=== PATIENT | male | born 1940 ===

== ENCOUNTER 2020-02-25 08:03 | Outpatient (REF) | payer MEDICARE, SELFPAY ==
[2020-02-25 11:45] LABS: Estimated Average Glucose 171 mg/dL; Hemoglobin A1c % 7.6 %
[2020-02-25 11:51] LABS: Alanine Aminotransferase 42 U/L (0-40); Albumin Level 4.1 g/dL (3.5-5.0); Alkaline Phosphatase 97 U/L (39-117); Anion Gap 16 (12-20); Aspartate Amino Transferase 41 U/L (5-37); Bilirubin Total 0.5 mg/dL (0.0-1.0); Blood Urea Nitrogen 13 mg/dL (9-16); Calcium 8.8 mg/dL (8.4-10.2); Carbon Dioxide 22 mmol/L (22-29); Chloride 106 mmol/L (96-108); Cholesterol 131 mg/dL; Estimated Glomerular Filt Rate > 60; Glucose Fasting 140 mg/dL (60-99); HDL Cholesterol 38 mg/dL; LDL Cholesterol Calculated 76 mg/dl; Potassium 4.2 mmol/l (3.3-5.1); Sodium 140 mmol/L (135-145); Total Protein 7.2 g/dL (6.5-8.0); Triglycerides 88 mg/dL
== END 2020-02-25 08:04 | disposition home or self-care (01) ==
LOC: HO.HMGCLDS 08:03
PROVIDERS: PCP Nurse Practitioner Family; Visit Provider Nurse Practitioner Family
DX: E11.9 Type 2 diabetes mellitus without complications (principal)
CPT/HCPCS: 80053; 80061; 83036

== ENCOUNTER 2020-06-04 08:36 | Outpatient (REF) | payer MEDICARE, SELFPAY ==
[2020-06-04 11:41] LABS: Estimated Average Glucose 171 mg/dL; Hemoglobin A1c % 7.6 %
[2020-06-04 12:14] LABS: Alanine Aminotransferase 37 U/L (0-40); Albumin Level 4.3 g/dL (3.5-5.0); Alkaline Phosphatase 90 U/L (39-117); Anion Gap 14 (12-20); Aspartate Amino Transferase 29 U/L (5-37); Bilirubin Total 0.6 mg/dL (0.0-1.0); Blood Urea Nitrogen 19 mg/dL (9-16); Carbon Dioxide 24 mmol/L (22-29); Chloride 107 mmol/L (96-108); Cholesterol 132 mg/dL; Estimated Glomerular Filt Rate > 60; Glucose Fasting 154 mg/dL (60-99); HDL Cholesterol 39 mg/dL; LDL Cholesterol Calculated 68 mg/dl; Potassium 4.2 mmol/L (3.3-5.1); Prostate Specific Antigen Scr 0.58 ng/mL (<0.05-4.0); Sodium 141 mmol/L (135-145); TSH reflex Free T4 2.09 uIU/mL (0.32-4.0); Total Protein 7.2 g/dL (6.5-8.0); Triglycerides 128 mg/dL
[2020-06-04 12:33] LABS: Creatinine Urine 96.03 mg/dL; Microalbum/Creatinine Ratio Ur 89.5 ug/mg cr
[2020-06-05 20:09] LABS: Vitamin B12 285 pg/mL (200-900)
== END 2020-06-04 08:37 | disposition home or self-care (01) ==
LOC: HO.HMGCLDS 08:36
PROVIDERS: PCP Nurse Practitioner Family; Visit Provider Nurse Practitioner Family
DX: E11.9 Type 2 diabetes mellitus without complications (principal); E53.8 Deficiency of other specified B group vitamins; Z12.5 Encounter for screening for malignant neoplasm of prostate
CPT/HCPCS: 36415; 80053; 80061; 82043; 82607; 83036; 84153; 84443

== ENCOUNTER → 2020-08-22 09:04 | Outpatient (BNVA) | payer MEDICARE, SELFPAY | PROVIDERS: PCP Nurse Practitioner Family; Visit Provider Urology | DX: N40.1 Benign prostatic hyperplasia with lower urinary tract symptoms (principal); R39.12 Poor urinary stream | CPT/HCPCS: 52000; 81002; 99212 ==

== ENCOUNTER 2020-09-12 07:27 | Outpatient (REF) | payer MEDICARE, SELFPAY ==
[2020-09-12 12:27] LABS: Estimated Average Glucose 160 mg/dL; Hemoglobin A1c % 7.2 %
[2020-09-12 12:52] LABS: Alanine Aminotransferase 39 U/L (0-40); Albumin Level 4.2 g/dL (3.5-5.0); Alkaline Phosphatase 88 U/L (39-117); Anion Gap 15 (12-20); Aspartate Amino Transferase 33 U/L (5-37); Bilirubin Total 0.8 mg/dL (0.0-1.0); Blood Urea Nitrogen 16 mg/dL (9-16); Calcium 8.9 mg/dL (8.4-10.2); Carbon Dioxide 24 mmol/L (22-29); Chloride 105 mmol/L (96-108); Cholesterol 133 mg/dL; Estimated Glomerular Filt Rate > 60; Glucose Fasting 154 mg/dL (60-99); HDL Cholesterol 38 mg/dL; LDL Cholesterol Calculated 79 mg/dl; Potassium 4.4 mmol/L (3.3-5.1); Sodium 140 mmol/L (135-145); Triglycerides 84 mg/dL
== END 2020-09-12 07:28 | disposition home or self-care (01) ==
LOC: HO.HMGCLDS 07:27
PROVIDERS: PCP Nurse Practitioner Family; Visit Provider Nurse Practitioner Family
DX: E11.9 Type 2 diabetes mellitus without complications (principal)
CPT/HCPCS: 36415; 80053; 80061; 83036

== ENCOUNTER 2020-11-13 08:26 | Outpatient (REF) | payer MEDICARE, SELFPAY ==
--- NOTE | ~2020-11-13 | XR_ITS ---
EXAMINATION: RIGHT KNEE. AP bilateral knee. CLINICAL INFORMATION: Pain right knee. COMPARISON: None TECHNIQUE: Right knee 2 views. AP bilateral knee 1 view. FINDINGS: AP bilateral knee: There is moderate loss of medial and lateral compartment joint space both knees with mild periarticular spurring medial compartment both knees slightly greater on the left. There are bipartite patella. Left knee: There is loss of left knee joint space with moderate periarticular spurring medially. No loose body seen. The soft tissue calcification along the quadriceps tendon. Anterior superior and prepatellar enthesophytes are seen. There is minimal suprapatellar joint effusion. XR/XR knee RT 2V IMPRESSION: Degenerative arthritic changes tricompartment right knee with minimal suprapatellar joint effusion. There is soft tissue calcifications along the quadriceps tendon. Mild degenerative changes medial and lateral compartment left knee.
--- NOTE | ~2020-11-13 | XR_ITS ---
EXAMINATION: RIGHT KNEE. AP bilateral knee. CLINICAL INFORMATION: Pain right knee. COMPARISON: None TECHNIQUE: Right knee 2 views. AP bilateral knee 1 view. FINDINGS: AP bilateral knee: There is moderate loss of medial and lateral compartment joint space both knees with mild periarticular spurring medial compartment both knees slightly greater on the left. There are bipartite patella. Left knee: There is loss of left knee joint space with moderate periarticular spurring medially. No loose body seen. The soft tissue calcification along the quadriceps tendon. Anterior superior and prepatellar enthesophytes are seen. There is minimal suprapatellar joint effusion. XR/XR knee standing BI IMPRESSION: Degenerative arthritic changes tricompartment right knee with minimal suprapatellar joint effusion. There is soft tissue calcifications along the quadriceps tendon. Mild degenerative changes medial and lateral compartment left knee.
== END 2020-11-13 08:27 | disposition home or self-care (01) ==
LOC: HO.HOSX 08:26
PROVIDERS: Visit Provider Orthopaedic Surgery
DX: M17.10 Unilateral primary osteoarthritis, unspecified knee (principal); M23.91 Unspecified internal derangement of right knee
CPT/HCPCS: 73560; 73565; 99212

== ENCOUNTER 2020-11-14 09:15 | Outpatient (REF) | payer MEDICARE, SELFPAY ==
--- NOTE | 2020-11-14 14:07 | MHC.AU.AHA ---
Adult Audiological Evaluation Date of Visit: 11/14/20 Reason for Appointment: History of asymmetrical hearing loss. Patient arrives today to determine if there has been a change in hearing. Previous Hearing Test Results: At this clinic on 11/16/2019- Borderline-normal sloping to moderately-severe/severe sensorineural hearing loss bilaterally, worse in the right ear. Ear History: Recent Ear Drainage: None Reported Recent Ear Pain: None Reported Family History of Hearing Loss?: No Recent Ear Infections: None Reported Previous Ear Surgery: None Reported Medical History: Medical History: Diabetes, High Blood Pressure Hearing Instrument History- Right Ear: Supervisor Carding: [employer] Model: 3 Series i110 BTE Serial Number: [id number] Battery Size: 13 Repair Warranty: 08/17/2019 Loss and Damage Warranty: 08/17/2019 Dispensed By: [facility] Date of Fittin02/16/2013 Hearing Instrument History- Left Ear: Supervisor Carding: [employer] Model: 3 Series i110 BTE Serial Number: [id number] Battery Size: 13 Warranty: 08/17/2019 Loss and Damage Warranty: 08/17/2019 Dispensed By: [facility] Date of Fittin02/16/2013 Otoscopy: Right Ear: Unremarkable Left Ear: Unremarkable Tympanometry: Tympanometry performed due to: To assess integrity of the middle ear system Right Ear: Hypercompliant Middle Ear System (Type Ad) Left Ear: Normal Middle Ear System (Type A) Hearing Evaluation: Transducer(s) Used: Insert Earphones Method: Conventional Audiometry Stimuli Used: Pure Tones Right Ear: Description of Hearing: Mild, sloping to severe, and rising to moderately-severe sensorineural hearing loss, worse in the right ear from 500-1500 Hz Left Ear: Description of Hearing: Mild, sloping to severe, and rising to moderately-severe sensorineural hearing loss Speech Recognition Threshold (SRT): Method Used: Recorded Lists Stimuli Used: Spondee Words Right Ear: 40 dBHL Left Ear: 35 dBHL Word Discrimination: Method: Recorded Lists Word Lists Used: W-22 Right Ear: 60% at 90 dBHL Left Ear: 84% at 90 dBHL Most Comfortable Level (MCL): Right Ear: 90 dBHL Left Ear: 90 dBHL Aided Testing: Aided word discrimination performed in soundfield at 55 dBHL: 88% in quiet and 88% in noise (+10 SNR) Comparison: Compared to the most recent evaluation: Hearing is stable. Recommendations: Audiological re-evaluation in one year. Hearing aid maintenance performed today. No programming adjustments made today. Diagnosis: Primary Diagnosis: H90.3 Bilateral Sensorineural Hearing Loss Signature: Provider: Jann Reis, PIYUSH-A
== END 2020-11-14 09:16 | disposition home or self-care (01) ==
LOC: HO.SH 09:15
PROVIDERS: Visit Provider Nurse Practitioner Family
DX: H90.3 Sensorineural hearing loss, bilateral (principal)
CPT/HCPCS: 92557; 92567

== ENCOUNTER → 2020-12-25 12:45 | Outpatient (BNVA) | payer MEDICARE, SELFPAY | PROVIDERS: PCP Nurse Practitioner Family; Visit Provider Orthopaedic Surgery | DX: M23.91 Unspecified internal derangement of right knee (principal) | CPT/HCPCS: 99212 ==

== ENCOUNTER 2020-12-31 08:46 | Outpatient (REF) | payer MEDICARE, SELFPAY ==
[2020-12-31 11:52] LABS: Alanine Aminotransferase 46 U/L (0-40); Albumin Level 4.4 g/dL (3.5-5.0); Alkaline Phosphatase 91 U/L (39-117); Anion Gap 15 (12-20); Aspartate Amino Transferase 35 U/L (5-37); Bilirubin Total 0.4 mg/dL (0.0-1.0); Blood Urea Nitrogen 18 mg/dL (9-16); Calcium 9.3 mg/dL (8.4-10.2); Carbon Dioxide 22 mmol/L (22-29); Chloride 106 mmol/L (96-108); Cholesterol 139 mg/dL; Estimated Glomerular Filt Rate > 60; Glucose Fasting 124 mg/dL (60-99); HDL Cholesterol 40 mg/dL; LDL Cholesterol Calculated 77 mg/dl; Potassium 4.1 mmol/L (3.3-5.1); Sodium 139 mmol/L (135-145); Total Protein 7.3 g/dL (6.5-8.0); Triglycerides 114 mg/dL
== END 2020-12-31 08:47 | disposition home or self-care (01) ==
LOC: HO.HMGCLDS 08:46
PROVIDERS: PCP Nurse Practitioner Family; Visit Provider Nurse Practitioner Family
DX: E11.9 Type 2 diabetes mellitus without complications (principal)
CPT/HCPCS: 36415; 80053; 80061

== ENCOUNTER 2021-01-21 08:25 | Outpatient (REF) | payer MEDICARE, SELFPAY ==
--- NOTE | ~2021-01-21 | US_ITS ---
EXAMINATION: US ABDOMEN COMPLETE CLINICAL INFORMATION: Abnormal levels of other serum enzymes. COMPARISON: Ultrasound abdomen complete 09/06/2019. Renal ultrasound 06/18/2019. CT abdomen and pelvis 07/06/2018. TECHNIQUE: Real-time imaging of the abdominal viscera. FINDINGS: PANCREAS: Not well seen due to overlying bowel gas. ABDOMINAL AORTA: The proximal, mid, and distal segments are normal in caliber. INFERIOR VENA CAVA: Visualized portions are normal. LIVER: The liver is normal in size. The liver contour is normal. There is diffuse increased liver parenchymal echogenicity, consistent with hepatic steatosis. No focal hepatic lesion. There is no intrahepatic biliary duct dilatation seen. GALLBLADDER: Nonmobile gallbladder wall polyp measuring 0.2 cm. Findings are not significantly changed. The gallbladder is physiologically distended without evidence of stones, sludge, wall thickening, or pericholecystic fluid. COMMON BILE DUCT: Normal in caliber measuring 0.3 cm in diameter. RIGHT KIDNEY: Simple exophytic upper pole cyst measuring 1.1 cm. No hydronephrosis or renal calculi. The kidney measures 10.3 cm in maximum dimension. LEFT KIDNEY: Simple midpole cyst measuring 1.1 cm. No hydronephrosis or renal calculi. The kidney measures 10.1 cm in maximum dimension. SPLEEN: Normal. The spleen measures 8.8 cm in maximum dimension. FREE FLUID: None. US/US abdomen complete IMPRESSION: 1. Increased hepatic parenchymal echogenicity, consistent with hepatic steatosis, unchanged. No new hepatic parenchymal lesion or biliary ductal dilatation. 2. Stable gallbladder wall polyp. No cholelithiasis, gallbladder wall thickening, or pericholecystic free fluid to suggest acute cholecystitis. 3. Simple bilateral renal cysts. Findings are not clinically significant, and no dedicated followup imaging is recommended.
[2021-01-22 08:29] LABS: HBS Num1 3.35 mIU/mL (0-7.99); HBc Num1 0.15 S/CO (0.00-0.79); HBsAGNum1 0.15 S/CO (0.00-0.99); Hepatitis B Core Antibody Nonreactive (Nonreactive); Hepatitis B Surface Antigen Negative (Negative); ~Hepatitis B Surface Antibody NONREACTIVE (Nonreactive)
[2021-01-22 08:40] LABS: ~Hepatitis C Antibody Nonreactive (Nonreactive)
[2021-01-23 07:45] LABS: Hepatitis A Antibody IgM 0.16 Index (0-0.79); ~HepC Num1 0.11 S/CO (0.00-0.79); ~Hepatitis A Antibody IgM Nonreactive (Nonreactive)
== END 2021-01-21 08:26 | disposition home or self-care (01) ==
LOC: HO.HMGCX 08:25
PROVIDERS: PCP Nurse Practitioner Family; Visit Provider Nurse Practitioner Family
DX: R74.8 Abnormal levels of other serum enzymes (principal)
CPT/HCPCS: 36415; 76700; 86704; 86706; 86709; 86803; 87340

== ENCOUNTER 2021-03-19 09:04 | Outpatient (REF) | payer MEDICARE, SELFPAY ==
[2021-03-19 11:26] LABS: Appearance Urine CLEAR; Color Urine YELLOW; Glucose Urine UA NEG (NEG); Leukocyte Esterase Urine NEG (NEG); Nitrite Urine NEG (NEG); Specific Gravity - Urine 1.025 (1.005-1.025); Urine Blood NEG (NEG); Urine Ketones NEG (NEG); Urine Protein NEG (NEG-TRACE)
[2021-03-19 11:52] LABS: Alanine Aminotransferase 32 U/L (0-40); Alkaline Phosphatase 83 U/L (39-117); Anion Gap 15 (12-20); Aspartate Amino Transferase 27 U/L (5-37); Bilirubin Total 0.5 mg/dL (0.0-1.0); Blood Urea Nitrogen 17 mg/dL (9-16); Calcium 9.3 mg/dL (8.4-10.2); Carbon Dioxide 22 mmol/L (22-29); Chloride 108 mmol/L (96-108); Cholesterol 118 mg/dL; Estimated Glomerular Filt Rate 58; Glucose Fasting 125 mg/dL (60-99); HDL Cholesterol 38 mg/dL; LDL Cholesterol Calculated 66 mg/dl; Potassium 4.2 mmol/L (3.3-5.1); Sodium 141 mmol/L (135-145); Total Protein 6.8 g/dL (6.5-8.0); Triglycerides 71 mg/dL
[2021-03-19 14:25] LABS: Estimated Average Glucose 146 mg/dL; Hemoglobin A1c % 6.7 %
== END 2021-03-19 09:05 | disposition home or self-care (01) ==
LOC: HO.HMGCLDS 09:04
PROVIDERS: PCP Nurse Practitioner Family; Visit Provider Nurse Practitioner Family
DX: E11.9 Type 2 diabetes mellitus without complications (principal)
CPT/HCPCS: 36415; 80053; 80061; 81003; 83036; 84443

== ENCOUNTER → 2021-04-22 10:19 | Outpatient (BNVA) | payer MEDICARE, SELFPAY | PROVIDERS: PCP Nurse Practitioner Family; Visit Provider Urology | DX: N40.1 Benign prostatic hyperplasia with lower urinary tract symptoms (principal); R35.1 Nocturia; R31.9 Hematuria, unspecified | CPT/HCPCS: 51798; 99212 ==

== ENCOUNTER 2021-08-01 07:44 | Outpatient (REF) | payer MEDICARE, SELFPAY ==
[2021-08-01 09:30] LABS: Appearance Urine CLEAR; Color Urine YELLOW; Glucose Urine UA NEG (NEG); Leukocyte Esterase Urine NEG (NEG); Nitrite Urine NEG (NEG); PH 5.5 (5.0-8.0); Specific Gravity - Urine 1.025 (1.005-1.025); Urine Blood NEG (NEG); Urine Ketones NEG (NEG); Urine Protein NEG (NEG-TRACE)
[2021-08-01 09:53] LABS: Estimated Average Glucose 146 mg/dL; Hemoglobin A1c % 6.7 %
[2021-08-01 09:54] LABS: Alanine Aminotransferase 31 U/L (0-40); Alkaline Phosphatase 84 U/L (39-117); Anion Gap 13 (12-20); Aspartate Amino Transferase 28 U/L (5-37); Bilirubin Total 0.7 mg/dL (0.0-1.0); Blood Urea Nitrogen 19 mg/dL (9-16); Calcium 9.4 mg/dL (8.4-10.2); Carbon Dioxide 23 mmol/L (22-29); Chloride 106 mmol/L (96-108); Cholesterol 129 mg/dL; Estimated Glomerular Filt Rate > 60; Glucose Fasting 120 mg/dL (60-99); HDL Cholesterol 39 mg/dL; LDL Cholesterol Calculated 77 mg/dl; Potassium 3.8 mmol/L (3.3-5.1); Sodium 138 mmol/L (135-145); Total Protein 6.9 g/dL (6.5-8.0); Triglycerides 69 mg/dL
[2021-08-01 10:01] LABS: TSH reflex Free T4 4.04 uIU/mL (0.32-4.0)
[2021-08-01 10:57] LABS: Free T4 (Free Thyroxine) 0.91 ng/dL (0.71-1.85)
[2021-08-03 06:48] LABS: Folate 18.5 ng/mL (> or = 4.0); Vitamin B12 482 pg/mL (200-900)
== END 2021-08-01 07:45 | disposition home or self-care (01) ==
LOC: HO.LAB 07:44
PROVIDERS: PCP Nurse Practitioner Family; Visit Provider Nurse Practitioner Family
DX: E11.9 Type 2 diabetes mellitus without complications (principal); E53.8 Deficiency of other specified B group vitamins
CPT/HCPCS: 36415; 80053; 80061; 81003; 82607; 82746; 83036; 84439; 84443

== ENCOUNTER → 2021-08-20 12:26 | Outpatient (BNVA) | payer MEDICARE, SELFPAY | PROVIDERS: PCP Nurse Practitioner Family; Visit Provider Orthopaedic Surgery | DX: E11.9 Type 2 diabetes mellitus without complications (principal); M23.91 Unspecified internal derangement of right knee | CPT/HCPCS: 99212 ==

== ENCOUNTER → 2021-08-27 09:33 | Outpatient (REF) | payer MEDICARE, SELFPAY ==
--- NOTE | ~2021-08-27 | NM_ITS ---
EXERCISE MYOCARDIAL PERFUSION STUDY INDICATION: PVCs, assess for coronary disease and ischemia. TECHNIQUE: The patient was brought in for an exercise perfusion study on 08/27/2021. Patient performed exercise as per Jermaine protocol and was injected 25 mCi of sestamibi once target heart rate was achieved. Images were obtained using the SPECT gamma camera interlaced with the gating device. Images were obtained in supine position. Resting perfusion study was performed on 08/28/2021. Patient was administered 25 mCi of sestamibi intravenously at rest. Images were then obtained in supine position. Total DLP 85mGy-cm. Images were processed with the software and compared side to side in short axis, horizontal long axis and vertical long axis views. FINDINGS: Raw images were reviewed. The stress perfusion study showed diminished tracer uptake along the inferior wall. There is improvement with CT attenuation correction suggestive of diaphragmatic attenuation artifact. There is also decreased tracer uptake in the apical anterior septum/adjacent anterior wall. The gated study shows normal LV systolic function with calculated LVEF of 69%. LV cavity is normal in size. The gated study shows normal wall thickening and contraction of segments. Resting study shows diminished tracer uptake along the inferior wall. There is improvement with CT attenuation correction suggestive of diaphragmatic attenuation artifact. There is also diminished tracer uptake in the apical anterior septum/adjacent anterior wall. Gating at rest reveals normal wall motion with ejection fraction at 64%. The findings are consistent with fixed inferior defect likely from diaphragmatic attenuation artifact; fixed apical anterior/anteroseptal defect. NM/NM cardiolite stress test IMPRESSION: 1. 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 Likely diaphragmatic attenuation artifact causing inferior fixed defect. No clear ischemia. 2. Gated LVEF is 69% during stress and 64% during rest. 3. Transient ischemic dilatation not present. EKG component of the test reported separately.
--- NOTE | 2021-08-27 09:37 | CA_ITS ---
Acquisition Time: 2021-08-27 09:57:18 Total Exercise Time: 00:06:15 Test Indications: PVC'S Medications: SEE CHART Protocol: KELVIN Max HR: 166 BPM 116% of Pred: 142 BPM Max BP: 170/070 mmHG Max Work Load: 7.3 METS Exercise stress test with exercise 6 min 15 sec of Kelvin protocol, with moderate sob, no chest discomfort, with isolated PACs and PVCs, with few atrial cuplets near peak exercise, with normotensive response to exercise, without EKG changes meeting criteria for ischemia. Nuclear images pending. Test reviewed with Dr Henderson. Note: on arrival to the stress lab BP was 170/70, He was given his usual home meds of Amlodipine, HCTZ and losartan. After 30 min rest, BP down to 154/70 and test started. Referred By: Stevan Cadena Overread By: ZOHRA BAEZ
== END ==
LOC: HO.CARD 09:33
PROVIDERS: Visit Provider Nurse Practitioner Family
DX: I44.0 Atrioventricular block, first degree (principal); I49.9 Cardiac arrhythmia, unspecified; R94.31 Abnormal electrocardiogram [ECG] [EKG]
CPT/HCPCS: 78452; 93017; A9500

== ENCOUNTER → 2021-09-08 09:59 | Outpatient (BNVA) | payer MEDICARE, SELFPAY | PROVIDERS: PCP Nurse Practitioner Family; Referring Provider Nurse Practitioner Family; Visit Provider Internal Medicine | DX: I49.3 Ventricular premature depolarization (principal); I44.0 Atrioventricular block, first degree; I25.10 Atherosclerotic heart disease of native coronary artery without angina pectoris; I10 Essential (primary) hypertension; E11.9 Type 2 diabetes mellitus without complications | CPT/HCPCS: 99202 ==

== ENCOUNTER → 2021-09-17 10:48 | Outpatient (BNVA) | payer MEDICARE, SELFPAY | PROVIDERS: PCP Nurse Practitioner Family; Visit Provider Orthopaedic Surgery | DX: M23.91 Unspecified internal derangement of right knee (principal); M54.50 Low back pain, unspecified; E11.9 Type 2 diabetes mellitus without complications | CPT/HCPCS: 20610; 99212; J1100 ==

== ENCOUNTER → 2021-09-22 07:40 | Outpatient (REF) | payer MEDICARE, SELFPAY ==
--- NOTE | 2021-09-22 07:43 | CA_ITS ---
Transthoracic Echocardiogram Patient (Last, First, Middle): Jose E Peña J Gender: Male Date of : 1940 Age: 80 Procedure Date: 09/22/2021 Procedure Type: Transthoracic Echocardiogram Location: OP Height: 165.1 cm Weight: 72.58 kg BSA: 1.80 m2 Heart Rate: bpm BP: 138 / 74 mmHg Shipping Receiving Manager: VIKAS Referring MD: Dick Henderson MD Symptoms: I49.9 - Cardiac arrhythmia, unspecified Study Quality: Adequate ECG Rhythm: Sinus Conclusions: - The left ventricular systolic function is normal. The calculated ejection fraction is 58% by biplane method. - The basal inferior segment is hypokinetic. - There is mild calcification of the aortic valve. Findings Left Ventricle Normal left ventricular cavity size. There is normal left ventricular wall thickness. The left ventricular systolic function is normal. The calculated ejection fraction is 58% by biplane method. Diastolic function is normal for age. Paradoxical septal motion, possibly related to conduction system disease. Wall Motion Rest Echo Findings The basal inferior segment is hypokinetic. Right Ventricle Normal right ventricular cavity size and systolic function. Atria Both atria are normal in size. Aortic Valve There is a normal trileaflet aortic valve. There is mild calcification of the aortic valve. There is no aortic valve stenosis. There is no aortic valve regurgitation. Mitral Valve The mitral valve appears normal. There is trace mitral valve regurgitation. There is no mitral valve stenosis. Pulmonic Valve The pulmonic valve is likely normal. Tricuspid Valve Normal tricuspid valve structure. There is trace tricuspid valve regurgitation. The pulmonary artery systolic pressure is normal. Great Vessels The asc aorta is normal in size. Venous The inferior vena cava is normal in size and collapses greater than 50% with inspiration. Pericardium/Pleural There is a trivial pericardial effusion. Prior Study Comparison Changes noted compared to prior study dated: 11/14/2019. See comments on the inferior wall. Measurements 2D Linear Measurements IVSd: 0.97 0.6-0.9/0.6-1.0 cm LVIDd: 4.18 3.9-5.3/4.2-5.9 cm LVIDd Index: 2.32 2.4-3.2/2.2-3.1 cm/m2 LVIDs: 2.86 2.0-3.6 cm LVPWd: 0.83 0.7-1.1 cm LA Diam: 3.10 2.7-3.8/3.0-4.0 cm LAIDs Index: 1.72 1.5-2.3 cm/m2 LV Mass: 145.55 67-162/88-224 g LV Mass Index: 80.86 43-95/49-115 g/m2 LVOT Diam: 2.10 3.0+(-)1.3 cm 2D Systolic Function EF 4C: 55.50 >55% EF 2C: 59.60 >55% EF BiP: 58.30 >55% Mitral Valve MV Pk E: 0.78 MV PK A: 1.05 MV Decel Time: 264.00 E/A: 0.70 E'Lateral: 8.38 E'Medial: 7.18 E/E' Med: 10.80 E/E' Lat: 9.30 PHT: 77.00 MVA PHT: 2.86 Decel Wilkin: 2.95 Aortic Valve AoV Pk Preston: 1.86 AoV Mn Preston: 1.22 AoV VTI: 0.45 AoV Pk Grad: 14.00 Aov Mn Grad: 7.00 VIDAL Cont.VTI: 2.04 LVOT LVOT Pk Preston: 1.02 LVOT Mn Preston: 0.69 LVOT VTI: 0.26 LVOT Pk Grad: 4.00 LVOT Mn Grad: 2.00 LVOT Diam: 2.10 LVOT Area: 3.46 Diastolic Function MV Pk E: 0.78 MV Pk A: 1.05 E/A: 0.70 E'Medial: 7.18 E/E' Med: 10.80 E' Laterial: 8.38 E/E' Lat: 9.30 Right Ventricle TAPSE (mm): 18.70 TVS' Preston: 10.10 Tricuspid Valve TR Pk Preston: 2.32 TR Pk Grad: 22.00 RA Press: 3.00 RVSP: 25.00 Great Vessels Aorta Sinus of Valsalva: 3.05 2.0-3.[address] Ridge: 2.69 1.7-3.4 cm Ao Asc: 3.00 2.1-3.4 cm Updated in Other Vendor System with Status of Final Dick Henderson MD electronically signed on 09/22/2021 4:05:14 PM with status of Final
== END ==
LOC: HO.CARD 07:40
PROVIDERS: Visit Provider Nurse Practitioner Family
DX: I49.9 Cardiac arrhythmia, unspecified (principal); I25.10 Atherosclerotic heart disease of native coronary artery without angina pectoris
CPT/HCPCS: 93306

== ENCOUNTER → 2021-10-15 11:30 | Outpatient (REF) | payer MEDICARE, SELFPAY ==
--- NOTE | 2021-10-15 11:35 | HM_ITS ---
Conclusion: 1. Patient was monitored for total period of 3 days and 13 hours 2. Baseline was normal sinus rhythm with average heart of 76 beats per minute 3. No significant pauses or bradycardia noted 4. 8 total episodes of 3 beat salvos of nonsustained VT noted with fastest at 156 beats per minute 5. Total of 27 supraventricular tachycardia episodes with longest episode of 8 beats 6. Total of 24,608 PVCs accounting for 8.95% of total beats account for frequent PVCs 7. Total of 18,122 PACs accounting for 6.6% of total beats accounting for frequent PACs 8. No patient reported events MTDD
== END ==
LOC: HO.CARD 11:30
PROVIDERS: PCP Nurse Practitioner Family; Visit Provider Internal Medicine
DX: I49.3 Ventricular premature depolarization (principal)
CPT/HCPCS: 93242

== ENCOUNTER 2021-10-20 09:22 | Outpatient (REF) | payer MEDICARE, SELFPAY ==
--- NOTE | ~2021-10-20 | XR_ITS ---
EXAMINATION: XR LUMBOSACRAL SPINE WITH OBLIQUES CLINICAL INFORMATION: Spondylosis without myelopathy or radiculopathy COMPARISON: None TECHNIQUE: AP, both oblique, flexion and extension, and lateral views of the lumbar spine. Lateral view of the lumbosacral junction. FINDINGS: There is mild curvature of the lumbar spine to the right. Bone alignment is otherwise normal. No fracture or dislocation. No instability on flexion-extension views. There is multilevel degenerative spondylosis from L2-L3 to L4-L5. There is lower lumbar spine facet arthritis. No pars defect is seen. Disc spaces are normal. XR/XR lumbar spine 6V w bending IMPRESSION: Degenerative changes.
== END 2021-10-20 09:23 | disposition home or self-care (01) ==
LOC: HO.XRAY 09:22
PROVIDERS: PCP Nurse Practitioner Family; Visit Provider Nurse Practitioner Family
DX: M47.816 Spondylosis without myelopathy or radiculopathy, lumbar region (principal); M17.10 Unilateral primary osteoarthritis, unspecified knee; M23.91 Unspecified internal derangement of right knee; M25.561 Pain in right knee; M62.830 Muscle spasm of back
CPT/HCPCS: 72114; 99202

== ENCOUNTER → 2021-10-29 13:48 | Outpatient (BNVA) | payer MEDICARE, SELFPAY | PROVIDERS: PCP Nurse Practitioner Family; Referring Provider Nurse Practitioner Family; Visit Provider Nurse Practitioner Family | DX: I49.3 Ventricular premature depolarization (principal); I44.0 Atrioventricular block, first degree; R94.39 Abnormal result of other cardiovascular function study; I25.10 Atherosclerotic heart disease of native coronary artery without angina pectoris; I10 Essential (primary) hypertension | CPT/HCPCS: 99212 ==

== ENCOUNTER 2021-11-03 08:05 | Outpatient (REF) | payer MEDICARE, SELFPAY ==
[2021-11-03 12:41] LABS: Creatinine Urine 101.27 mg/dL
== END 2021-11-03 08:06 | disposition home or self-care (01) ==
LOC: HO.HMGCLDS 08:05
PROVIDERS: PCP Nurse Practitioner Family; Visit Provider Nurse Practitioner Family
DX: E11.9 Type 2 diabetes mellitus without complications (principal)
CPT/HCPCS: 82043

== ENCOUNTER → 2021-11-10 11:34 | Outpatient (BNVA) | payer MEDICARE, SELFPAY | PROVIDERS: PCP Nurse Practitioner Family; Visit Provider Nurse Practitioner Family | DX: M47.816 Spondylosis without myelopathy or radiculopathy, lumbar region (principal); M25.561 Pain in right knee; M17.10 Unilateral primary osteoarthritis, unspecified knee | CPT/HCPCS: 99212 ==

== ENCOUNTER 2021-12-15 08:51 | Outpatient (REF) | payer MEDICARE, SELFPAY ==
[2021-12-15 11:16] LABS: Appearance Urine Clear; Color Urine Yellow; Glucose Urine UA Negative (Negative); Leukocyte Esterase Urine Negative (Negative); Nitrite Urine Negative (Negative); PH 5.5 (5.0-9.0); Urine Blood Negative (Negative); Urine Ketones Negative (Negative); Urine Protein Negative (Neg-Trace)
[2021-12-15 11:21] LABS: MANUAL DIFF FLAG NO
[2021-12-15 11:38] LABS: Basophils Absolute Auto 0.1 X10*3/uL (0.0-0.2); Basophils Percent Auto 0.9 % (0-2); Eosinophils Absolute Auto 0.1 X10*3/uL (0.0-0.4); Eosinophils Percent Auto 1.5 % (0-4); Hematocrit 42.6 % (42.0-52.0); Imm Gran Abs Auto 0.05 X10*3/uL (0.00-0.03); Imm Gran Pct Auto 0.6 % (0.0-0.4); Lymphocytes Absolute Auto 1.7 X10*3/uL (1.2-4.9); Lymphocytes Percent Auto 20.4 % (20-40); Mean Corpuscular HGB Conc 32.9 g/dl (31.0-36.0); Mean Corpuscular Hemoglobin 29.4 pg (27.0-33.0); Mean Corpuscular Volume 89.3 fL (80.0-98.0); Monocytes Absolute Auto 0.7 X10*3/uL (0.1-1.2); Monocytes Percent Auto 8.6 % (2-11); Neutrophils Absolute Auto 5.7 x10*3/uL (2.0-8.3); Platelet Count 236 X10*3/uL (160-400); Red Blood Count 4.77 X10*6/uL (4.60-5.80); Red Cell Distribution Width 13.2 % (11.0-16.0); White Blood Count 8.4 X10*3/uL (4.8-10.8)
[2021-12-15 11:46] LABS: Estimated Average Glucose 146 mg/dL; Hemoglobin A1c % 6.7 %
[2021-12-15 12:09] LABS: Alanine Aminotransferase 24 U/L (0-40); Albumin Level 4.2 g/dL (3.5-5.0); Alkaline Phosphatase 85 U/L (39-117); Anion Gap 17 (12-20); Aspartate Amino Transferase 24 U/L (5-37); Bilirubin Total 0.3 mg/dL (0.0-1.0); Blood Urea Nitrogen 20 mg/dL (9-16); Carbon Dioxide 22 mmol/L (22-29); Chloride 105 mmol/L (96-108); Cholesterol 143 mg/dL; Estimated Glomerular Filt Rate 57; Glucose Fasting 159 mg/dL (60-99); HDL Cholesterol 40 mg/dL; LDL Cholesterol Calculated 88 mg/dl; Potassium 3.9 mmol/L (3.3-5.1); Sodium 140 mmol/L (135-145); Total Protein 7.3 g/dL (6.5-8.0); Triglycerides 76 mg/dL
[2021-12-15 12:16] LABS: TSH reflex Free T4 2.17 uIU/mL (0.32-4.0)
== END 2021-12-15 08:52 | disposition home or self-care (01) ==
LOC: HO.HMGCLDS 08:51
PROVIDERS: PCP Nurse Practitioner Family; Visit Provider Nurse Practitioner Family
DX: E11.9 Type 2 diabetes mellitus without complications (principal)
CPT/HCPCS: 36415; 80053; 80061; 81003; 83036; 84443; 85025

== ENCOUNTER 2022-01-19 10:26 | Outpatient (REF) | payer MEDICARE, SELFPAY | END 2022-01-19 10:27 | disposition home or self-care (01) | LOC: HO.SH 10:26 | PROVIDERS: Visit Provider Nurse Practitioner Family | DX: Z01.118 Encounter for examination of ears and hearing with other abnormal findings (principal); H90.3 Sensorineural hearing loss, bilateral | CPT/HCPCS: 92557 ==

== ENCOUNTER 2022-01-19 12:40 | Outpatient (REF) | payer SELFPAY ==
--- NOTE | 2022-01-19 15:14 | MHC.AU.HFU ---
Hearing Instrument Follow-Up- Binaural Date of Visit: 01/19/22 Right Ear: Tab Machine Operator: Jose Luis Model: 3 Series i110 BTE Serial Number: [id number] Repair Warranty: 08/17/2019 Loss and Damage Warranty: 08/17/2019 Battery Size: 13 Tubin-d slim tube Dispensed By: [facility] [place] Date of Fittin02/16/2013 Left Ear: Tab Machine Operator: Jose Luis Model: 3 Series i110 BTE Serial Number: [id number] Repair Warranty: 08/17/2019 Loss and Damage Warranty: 08/17/2019 Battery Size: 13 Tubin-d slim tube Dispensed By: [facility] [place] Date of Fittin02/16/2013 Follow-Up Summary: Ernie returned for routine hearing aid maintenance. He reported that overall his hearing aids are working well, although he has noticed slight difficulty hearing at alevism. His hearing aids were cleaned, microphones were vacuumed, and the slim tubes and domes were replaced. Discussed the age of the hearing aids and the possibility of updated technology. Ernie is satisfied with his current pair of hearing aids at this time but will consider upgrading in the future. Recommendations: Hearing instrument maintenance in 6 months, or sooner if needed. Please contact our clinic with any questions or concerns. Diagnosis Code(s): Primary Diagnosis: H90.3 Bilateral Sensorineural Hearing Loss Signature:Provider: Bertha Llanes, [facility]
== END 2022-01-19 12:41 | disposition home or self-care (01) ==
LOC: HO.HAP 12:40
PROVIDERS: Visit Provider Nurse Practitioner Family
DX: Z46.1 Encounter for fitting and adjustment of hearing aid (principal); H90.3 Sensorineural hearing loss, bilateral
CPT/HCPCS: 92592; 92700

== ENCOUNTER 2022-03-02 06:58 | Outpatient (REF) | payer MEDICARE, SELFPAY ==
[2022-03-02 11:31] LABS: Appearance Urine Clear; Color Urine Yellow; Glucose Urine UA Negative (Negative); Leukocyte Esterase Urine Negative (Negative); Nitrite Urine Negative (Negative); PH 5.5 (5.0-9.0); Specific Gravity - Urine 1.015 (1.005-1.025); Urine Blood Negative (Negative); Urine Ketones Negative (Negative); Urine Protein Negative (Neg-Trace)
[2022-03-02 11:38] LABS: MANUAL DIFF FLAG NO
[2022-03-02 12:18] LABS: Estimated Average Glucose 154 mg/dL
[2022-03-02 12:22] LABS: Basophils Absolute Auto 0.1 X10*3/uL (0.0-0.2); Basophils Percent Auto 1.3 % (0-2); Eosinophils Absolute Auto 0.3 X10*3/uL (0.0-0.4); Eosinophils Percent Auto 2.9 % (0-4); Hematocrit 42.5 % (42.0-52.0); Hemoglobin 14.1 g/dl (14.0-18.0); Imm Gran Abs Auto 0.06 X10*3/uL (0.00-0.03); Imm Gran Pct Auto 0.7 % (0.0-0.4); Lymphocytes Absolute Auto 2.8 X10*3/uL (1.2-4.9); Lymphocytes Percent Auto 29.8 % (20-40); Mean Corpuscular HGB Conc 33.2 g/dl (31.0-36.0); Mean Corpuscular Hemoglobin 30.2 pg (27.0-33.0); Mean Platelet Volume 10.9 fL (9.4-12.4); Monocytes Percent Auto 10.7 % (2-11); Neutrophils Percent Auto 54.6 % (45-73); Platelet Count 275 X10*3/uL (160-400); Red Blood Count 4.67 X10*6/uL (4.60-5.80); Red Cell Distribution Width 13.4 % (11.0-16.0); White Blood Count 9.2 X10*3/uL (4.8-10.8)
[2022-03-02 13:15] LABS: Alanine Aminotransferase 33 U/L (0-40); Albumin Level 4.1 g/dL (3.5-5.0); Alkaline Phosphatase 82 U/L (39-117); Anion Gap 13 (12-20); Aspartate Amino Transferase 29 U/L (5-37); Bilirubin Total 0.5 mg/dL (0.0-1.0); Blood Urea Nitrogen 16 mg/dL (9-16); Calcium 9.2 mg/dL (8.4-10.2); Carbon Dioxide 26 mmol/L (22-29); Chloride 105 mmol/L (96-108); Cholesterol 136 mg/dL; Estimated Glomerular Filt Rate 59; Glucose Fasting 114 mg/dL (60-99); HDL Cholesterol 39 mg/dL; LDL Cholesterol Calculated 70 mg/dl; Potassium 4.2 mmol/L (3.3-5.1); Sodium 140 mmol/L (135-145); TSH reflex Free T4 2.96 uIU/mL (0.32-4.0); Total Protein 6.9 g/dL (6.5-8.0); Triglycerides 137 mg/dL
== END 2022-03-02 06:59 | disposition home or self-care (01) ==
LOC: HO.HMGCLDS 06:58
PROVIDERS: PCP Nurse Practitioner Family; Visit Provider Nurse Practitioner Family
DX: E11.9 Type 2 diabetes mellitus without complications (principal)
CPT/HCPCS: 36415; 80053; 80061; 81003; 83036; 84443; 85025

== ENCOUNTER → 2022-03-11 13:09 | Outpatient (BNVA) | payer MEDICARE, SELFPAY | PROVIDERS: PCP Nurse Practitioner Family; Visit Provider Internal Medicine | DX: I25.10 Atherosclerotic heart disease of native coronary artery without angina pectoris (principal); I49.3 Ventricular premature depolarization; I44.0 Atrioventricular block, first degree; I10 Essential (primary) hypertension; E11.9 Type 2 diabetes mellitus without complications | CPT/HCPCS: 99212 ==

== ENCOUNTER 2022-04-15 09:41 | Outpatient (REF) | payer MEDICARE, SELFPAY ==
[2022-04-15 11:37] LABS: Hematocrit 42.1 % (42.0-52.0); Hemoglobin 13.9 g/dl (14.0-18.0); Mean Corpuscular Hemoglobin 29.8 pg (27.0-33.0); Mean Corpuscular Volume 90.1 fL (80.0-98.0); Mean Platelet Volume 11.3 fL (9.4-12.4); Platelet Count 247 X10*3/uL (160-400); Red Blood Count 4.67 X10*6/uL (4.60-5.80); Red Cell Distribution Width 13.2 % (11.0-16.0); White Blood Count 9.3 X10*3/uL (4.8-10.8)
[2022-04-15 11:45] LABS: Prothrombin Time 11.2 SEC (10.0-13.1)
[2022-04-15 12:07] LABS: Anion Gap 14 (12-20); Blood Urea Nitrogen 20 mg/dL (9-16); Calcium 9.2 mg/dL (8.4-10.2); Carbon Dioxide 23 mmol/L (22-29); Chloride 108 mmol/L (96-108); Estimated Glomerular Filt Rate 54; Glucose Random 173 mg/dL (60-115); Potassium 4.3 mmol/L (3.3-5.1); Sodium 141 mmol/L (135-145)
[2022-04-15 12:32] LABS: Prostate Specific Antigen 0.48 ng/mL (<0.05-4.0)
== END 2022-04-15 09:42 | disposition home or self-care (01) ==
LOC: HO.HMGCLDS 09:41
PROVIDERS: Absent Provider Internal Medicine; PCP Nurse Practitioner Family; Visit Provider Urology
DX: N40.1 Benign prostatic hyperplasia with lower urinary tract symptoms (principal); N13.8 Other obstructive and reflux uropathy; I25.10 Atherosclerotic heart disease of native coronary artery without angina pectoris; E11.9 Type 2 diabetes mellitus without complications; Z12.5 Encounter for screening for malignant neoplasm of prostate
CPT/HCPCS: 36415; 80048; 84153; 85027; 85610

== ENCOUNTER → 2022-04-21 10:52 | Outpatient (BNVA) | payer MEDICARE, SELFPAY | PROVIDERS: PCP Nurse Practitioner Family; Visit Provider Urology | DX: N40.1 Benign prostatic hyperplasia with lower urinary tract symptoms (principal); R39.15 Urgency of urination; R35.0 Frequency of micturition | CPT/HCPCS: 51798; 99212 ==

== ENCOUNTER → 2022-04-29 14:12 | Outpatient (BNVA) | payer MEDICARE, SELFPAY | PROVIDERS: PCP Nurse Practitioner Family; Referring Provider Nurse Practitioner Family; Visit Provider Nurse Practitioner Family | DX: I25.10 Atherosclerotic heart disease of native coronary artery without angina pectoris (principal); I10 Essential (primary) hypertension; I44.0 Atrioventricular block, first degree; I49.3 Ventricular premature depolarization; R94.39 Abnormal result of other cardiovascular function study; Z98.890 Other specified postprocedural states | CPT/HCPCS: 99212 ==

== ENCOUNTER → 2022-05-21 13:06 | Outpatient (REF) | payer MEDICARE, SELFPAY ==
--- NOTE | 2022-05-21 13:09 | HM_ITS ---
Conclusion: 1. Patient was monitored for total period of 2 days 2. Baseline was normal sinus rhythm with average heart of 63 beats per minute 3. Frequent sinus bradycardia with 31.8% of time heart rate below 60 beats per minute 4. No significant pauses noted 5. Total of 27,151 PVCs accounting for very PVCs with total burden of 14.8% 6. 95 total three beat salvos of nonsustained VT, fastest at 140 beats per minute 7. Patient reported 1 event that correlated with sinus rib MTDD
== END ==
LOC: HO.CARD 13:06
PROVIDERS: Visit Provider Nurse Practitioner Family
DX: I44.0 Atrioventricular block, first degree (principal); I49.3 Ventricular premature depolarization
CPT/HCPCS: 93225

== ENCOUNTER 2022-07-07 07:16 | Outpatient (REF) | payer MEDICARE, SELFPAY ==
[2022-07-07 11:29] LABS: Appearance Urine Clear; Color Urine Yellow; Glucose Urine UA Negative (Negative); Leukocyte Esterase Urine Negative (Negative); Nitrite Urine Negative (Negative); PH 5.5 (5.0-9.0); Specific Gravity - Urine 1.015 (1.005-1.025); Urine Blood Negative (Negative); Urine Ketones Negative (Negative); Urine Protein Negative (Neg-Trace)
[2022-07-07 11:41] LABS: MANUAL DIFF FLAG NO
[2022-07-07 11:52] LABS: Basophils Absolute Auto 0.1 X10*3/uL (0.0-0.2); Eosinophils Absolute Auto 0.2 X10*3/uL (0.0-0.4); Eosinophils Percent Auto 2.5 % (0-4); Hematocrit 42.9 % (42.0-52.0); Hemoglobin 14.2 g/dl (14.0-18.0); Imm Gran Abs Auto 0.05 X10*3/uL (0.00-0.03); Imm Gran Pct Auto 0.5 % (0.0-0.4); Lymphocytes Absolute Auto 2.7 X10*3/uL (1.2-4.9); Lymphocytes Percent Auto 27.4 % (20-40); Mean Corpuscular HGB Conc 33.1 g/dl (31.0-36.0); Mean Corpuscular Hemoglobin 29.8 pg (27.0-33.0); Mean Corpuscular Volume 90.1 fL (80.0-98.0); Monocytes Percent Auto 10.6 % (2-11); Neutrophils Absolute Auto 5.7 x10*3/uL (2.0-8.3); Platelet Count 271 X10*3/uL (160-400); Red Blood Count 4.76 X10*6/uL (4.60-5.80); Red Cell Distribution Width 12.9 % (11.0-16.0); White Blood Count 9.8 X10*3/uL (4.8-10.8)
[2022-07-07 11:57] LABS: Estimated Average Glucose 160 mg/dL; Hemoglobin A1c % 7.2 %
[2022-07-07 12:14] LABS: Alanine Aminotransferase 35 U/L (0-40); Albumin Level 3.9 g/dL (3.5-5.0); Alkaline Phosphatase 87 U/L (39-117); Anion Gap 12 (12-20); Aspartate Amino Transferase 27 U/L (5-37); Bilirubin Total 0.8 mg/dL (0.0-1.0); Blood Urea Nitrogen 18 mg/dL (9-16); Calcium 9.1 mg/dL (8.4-10.2); Carbon Dioxide 23 mmol/L (22-29); Chloride 109 mmol/L (96-108); Cholesterol 128 mg/dL; Estimated Glomerular Filt Rate 54; Glucose Fasting 136 mg/dL (60-99); HDL Cholesterol 35 mg/dL; LDL Cholesterol Calculated 69 mg/dl; Sodium 140 mmol/L (135-145); Total Protein 6.8 g/dL (6.5-8.0); Triglycerides 123 mg/dL
[2022-07-07 12:32] LABS: TSH reflex Free T4 2.68 uIU/mL (0.32-4.0)
== END 2022-07-07 07:17 | disposition home or self-care (01) ==
LOC: HO.HMGCLDS 07:16
PROVIDERS: PCP Nurse Practitioner Family; Visit Provider Nurse Practitioner Family
DX: E11.9 Type 2 diabetes mellitus without complications (principal)
CPT/HCPCS: 36415; 80053; 80061; 81003; 83036; 84443; 85025

== ENCOUNTER 2022-09-24 07:51 | Outpatient (REF) | payer MEDICARE, SELFPAY ==
[2022-09-24 11:16] LABS: Appearance Urine Clear; Color Urine Yellow; Glucose Urine UA Negative (Negative); Leukocyte Esterase Urine Negative (Negative); Nitrite Urine Negative (Negative); PH 5.5 (5.0-9.0); Urine Blood Negative (Negative); Urine Ketones Negative (Negative); Urine Protein Negative (Neg-Trace)
[2022-09-24 11:24] LABS: MANUAL DIFF FLAG NO
[2022-09-24 11:31] LABS: Basophils Absolute Auto 0.1 X10*3/uL (0.0-0.2); Basophils Percent Auto 0.8 % (0-2); Eosinophils Absolute Auto 0.2 X10*3/uL (0.0-0.4); Hematocrit 42.8 % (42.0-52.0); Hemoglobin 14.3 g/dl (14.0-18.0); Imm Gran Abs Auto 0.04 X10*3/uL (0.00-0.03); Imm Gran Pct Auto 0.5 % (0.0-0.4); Lymphocytes Absolute Auto 2.2 X10*3/uL (1.2-4.9); Lymphocytes Percent Auto 25.9 % (20-40); Mean Corpuscular HGB Conc 33.4 g/dl (31.0-36.0); Mean Corpuscular Hemoglobin 30.3 pg (27.0-33.0); Mean Corpuscular Volume 90.7 fL (80.0-98.0); Mean Platelet Volume 11.2 fL (9.4-12.4); Monocytes Percent Auto 11.6 % (2-11); Neutrophils Percent Auto 59.2 % (45-73); Platelet Count 242 X10*3/uL (160-400); Red Blood Count 4.72 X10*6/uL (4.60-5.80); Red Cell Distribution Width 12.7 % (11.0-16.0); White Blood Count 8.5 X10*3/uL (4.8-10.8)
[2022-09-24 11:50] LABS: Estimated Average Glucose 146 mg/dL; Hemoglobin A1c % 6.7 %
[2022-09-24 12:04] LABS: Alanine Aminotransferase 30 U/L (0-40); Alkaline Phosphatase 80 U/L (39-117); Anion Gap 16 (12-20); Aspartate Amino Transferase 31 U/L (5-37); Bilirubin Total 1.2 mg/dL (0.0-1.0); Blood Urea Nitrogen 24 mg/dL (9-16); Calcium 9.5 mg/dL (8.4-10.2); Carbon Dioxide 21 mmol/L (22-29); Chloride 105 mmol/L (96-108); Cholesterol 116 mg/dL; Estimated Glomerular Filt Rate 54; Glucose Fasting 135 mg/dL (60-99); HDL Cholesterol 33 mg/dL; LDL Cholesterol Calculated 69 mg/dl; Sodium 138 mmol/L (135-145); Total Protein 7.3 g/dL (6.5-8.0); Triglycerides 72 mg/dL
[2022-09-24 12:24] LABS: TSH reflex Free T4 3.55 uIU/mL (0.32-4.0)
== END 2022-09-24 07:52 | disposition home or self-care (01) ==
LOC: HO.HMGCLDS 07:51
PROVIDERS: PCP Nurse Practitioner Family; Visit Provider Nurse Practitioner Family
DX: E11.9 Type 2 diabetes mellitus without complications (principal)
CPT/HCPCS: 36415; 80053; 80061; 81003; 83036; 84443; 85025

== ENCOUNTER 2022-10-28 11:01 | Outpatient (AMB) | payer MEDICARE, SELFPAY ==
[2022-10-28 11:02] VITALS: BP 130/68; PULSE 51; BMI 24.9
--- NOTE | 2022-10-28 11:02 | A.OFFVIS_ITS ---
Intake Vital Signs 10/28/22 11:02 Height 5 ft 8 in Weight 164 lb 0.383 oz BMI 24.9 BP 130/68 Blood Pressure Location Lt brachial Position Sitting Pulse 51 Intake Visit Reasons: 6M follow up Intake Note: 6 month follow up Director Of Patient Care Required: No Accompanied by: Self / Same As Patient Allergies No Known Allergies [No Known Allergies*] Allergy (Verified 10/28/22 11:04) Medication List - Last Reconciled 10/28/22 by Dick Henderson MD amlodipine 10 mg PO DAILY aspirin 81 mg PO DAILY blood sugar diagnostic (FreeStyle Lite Strips) use 1 test strip twice a day to test blood sugar finasteride 5 mg PO DAILY hydrochlorothiazide 12.5 mg PO DAILY lancets (FreeStyle Lancets) use 1 lancet twice a day to test blood sugar lancing device As directed to test blood sugar BID losartan 100 mg PO DAILY lovastatin 20 mg PO DAILY mecobalamin (vitamin B12) 1,000 mcg sublingual DAILY metformin 1,000 mg PO DAILY metformin 500 mg PO DAILY metoprolol succinate ER 25 mg PO DAILY multivitamin (Daily Multi-Vitamin tablet) 1 tab PO DAILY sitagliptin phosphate (Januvia) 100 mg PO DAILY tamsulosin 0.4 mg PO BEDTIME 90 days HPI HPI Comments History of Present Illness Details Jose E returns for follow-up. In the past, he was seen regarding abnormal EKG including PVCs as well as prolonged KS. Patient himself does not have any clear-cut cardiac symptoms. At times, he has felt chest tightness but not exertional. He really does not feel the PVCs too much. However, multiple cardiovascular risk factors including diabetes, hypertension, dyslipidemia. His father apparently had coronary disease/myocardial infarction around his age. Brother also had bypass surgery at a similar age but he was also a smoker. Few months back, he underwent cardiac catheterization but that did not show any significant findings. He seems to be doing well overall. [facility] Medical History Actinic keratosis Adenoma of both adrenal glands BPH (benign prostatic hyperplasia) Cataract Diverticulitis Fatty liver Foot callus HTN (hypertension) Microscopic hematuria Periorbital edema of left eye Plantar callus Poor urinary stream Rupture of quadriceps muscle Tinea unguium Type 2 diabetes mellitus without complication, without long-term current use of insulin Surgical History History of surgery Family History Father History of heart attack Mother No problems noted. Brother Throat cancer Social History Housing: House Alcohol intake: current Alcohol intake frequency: holidays/special occasions only Patient Tobacco Use Status: Never used Tobacco e-Cigarette/Vaping Use: Never Used Second Hand Smoke Exposure: No Current occupational status: retired Current occupational exposures/hazards: No Cognitive needs: No Hearing needs: No Vision needs: No Review of Systems Const Denies weakness ENT Denies dizziness Card Denies chest pain, Denies chest pain with activity, Denies syncope, Denies rapid heart rate, Denies pedal edema, Denies edema, Denies leg edema, Denies lightheadedness, Denies palpitations, Denies dyspnea, Denies dyspnea on exertion and Denies orthopnea Resp Denies cough, Denies dyspnea and Denies dyspnea on exertion GI Denies hematochezia and Denies change in stool character Musc Denies abnormal gait, Denies muscle cramps, Denies muscle weakness, Denies numbness, Denies radiating pain into limb and Denies tingling Neuro Denies abnormal gait, Denies dizziness, Denies syncope, Denies numbness, Denies tingling and Denies weakness Endo Denies palpitations Physical Exam Vital Signs: Last Vital Signs Pulse 51 10/28/22 11:02 BP 130/68 10/28/22 11:02 BMI result Body Mass Index 24.9 Const General: comfortable and no acute distress Orientation/consciousness: patient oriented x3 HEENT Other: Unremarkable Head: Yes normal to inspection Neck Neck: Yes normal visual inspection Chest Chest palpation & inspection: normal inspection of the chest Resp Auscultation: clear to auscultation bilaterally Cardio Palpation: normal PMI Heart sounds: S1 normal heart sound present, S2 normal heart sound present, no gallops, no murmurs and no rubs GI Palpation (GI): Soft to palpation Back/Spine/Pelvis Other: unremarkable Skin General skin exam: no rashes or lesions noted Neuro General: patient oriented x3 Extrem General: Yes normal to inspection Psych Mental Status: mental status grossly normal Assessment & Plan Assessment & Plan (1) PVC (premature ventricular contraction): Code(s): I49.3 - Ventricular premature depolarization (2) AV block, 1st degree: Code(s): I44.0 - Atrioventricular block, first degree (3) Atherosclerotic cardiovascular disease: Comment: Cardiac catheterization showed no significant CAD Code(s): I25.10 - Atherosclerotic heart disease of [place] coronary artery without angina pectoris (4) Essential hypertension: Code(s): I10 - Essential (primary) hypertension Plan Cardiac studies reviewed. Most recent EKG shows sinus rhythm with mild KS prolongation and PVCs in bigeminy. In the Holter, underlying rhythm is sinus with an average rate of 63/Min. Frequent PVCs the burden of about 15%. Short runs of NSVT. 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 Suspected diaphragmatic attenuation artifact in the inferior wall. No clear ischemia noted. In the exercise stress test, he exercised for 6 minutes and reached 7.3 Mets. No issues with PVCs or other abnormalities of concern. Echocardiogram with LVEF of 58%. Basal inferior hypokinesis. Cardiac catheterization shows no significant disease. Minimal irregularities only. Overall, continue aggressive risk factor modification. Blood pressure management. Adequate diabetes control. With regard to PVCs, we discussed in great detail. Also showed him all the stress. He does not have any overt symptoms and also has some baseline bradycardia. Hence just continue the current dose of beta-blockers. Hopefully no need for antiarrhythmics unless any sustained arrhythmias or associated with symptoms like dizziness or syncope. We discussed this as well. We will recheck in 1 year. In the interim, he will call with concerns. Orders: Orders ECG 3 day holter monitor 51 Weeks I49.3 - Ventricular premature depolarization Medications: Changed From metformin 1,000 mg PO BID 180 tabs 1RF To metformin 1,000 mg PO DAILY Coding Level of Care Code Est Pt Level 4 (67822) Diagnoses PVC (premature ventricular contraction) I49.3 AV block, 1st degree I44.0 Atherosclerotic cardiovascular disease I25.10 Essential hypertension I10
== END 2022-10-28 11:18 | disposition home or self-care (01) ==
PROVIDERS: Visit Provider Internal Medicine
DX: I49.3 Ventricular premature depolarization (principal); I44.0 Atrioventricular block, first degree; I25.10 Atherosclerotic heart disease of native coronary artery without angina pectoris; I10 Essential (primary) hypertension
CPT/HCPCS: 99214

== ENCOUNTER → 2022-10-28 11:01 | Outpatient (BNVA) | payer MEDICARE, SELFPAY | PROVIDERS: Visit Provider Internal Medicine | DX: I49.3 Ventricular premature depolarization (principal); I44.0 Atrioventricular block, first degree; I25.10 Atherosclerotic heart disease of native coronary artery without angina pectoris; I10 Essential (primary) hypertension; Z79.899 Other long term (current) drug therapy | CPT/HCPCS: 99212 ==

== ENCOUNTER 2022-12-29 08:52 | Outpatient (REF) | payer MEDICARE, SELFPAY ==
[2022-12-29 11:58] LABS: MANUAL DIFF FLAG NO
[2022-12-29 12:00] LABS: Appearance Urine Clear; Color Urine Yellow; Glucose Urine UA Negative (Negative); Leukocyte Esterase Urine Negative (Negative); Nitrite Urine Negative (Negative); Urine Blood Negative (Negative); Urine Ketones Negative (Negative); Urine Protein Negative (Neg-Trace)
[2022-12-29 12:04] LABS: Basophils Absolute Auto 0.1 X10*3/uL (0.0-0.2); Basophils Percent Auto 0.9 % (0-2); Eosinophils Absolute Auto 0.2 X10*3/uL (0.0-0.4); Eosinophils Percent Auto 1.8 % (0-4); Hematocrit 43.9 % (42.0-52.0); Hemoglobin 14.6 g/dl (14.0-18.0); Imm Gran Abs Auto 0.09 X10*3/uL (0.00-0.03); Imm Gran Pct Auto 0.9 % (0.0-0.4); Lymphocytes Percent Auto 19.9 % (20-40); Mean Corpuscular HGB Conc 33.3 g/dl (31.0-36.0); Mean Corpuscular Hemoglobin 30.3 pg (27.0-33.0); Mean Corpuscular Volume 91.1 fL (80.0-98.0); Mean Platelet Volume 11.3 fL (9.4-12.4); Monocytes Percent Auto 9.6 % (2-11); Neutrophils Absolute Auto 6.8 x10*3/uL (2.0-8.3); Neutrophils Percent Auto 66.9 % (45-73); Platelet Count 261 X10*3/uL (160-400); Red Blood Count 4.82 X10*6/uL (4.60-5.80); Red Cell Distribution Width 13.2 % (11.0-16.0); White Blood Count 10.2 X10*3/uL (4.8-10.8)
[2022-12-29 12:22] LABS: Alanine Aminotransferase 30 U/L (0-40); Albumin Level 4.1 g/dL (3.5-5.0); Alkaline Phosphatase 84 U/L (39-117); Anion Gap 13 (12-20); Aspartate Amino Transferase 30 U/L (5-37); Bilirubin Total 0.6 mg/dL (0.0-1.0); Blood Urea Nitrogen 18 mg/dL (9-16); Calcium 9.6 mg/dL (8.4-10.2); Carbon Dioxide 24 mmol/L (22-29); Chloride 108 mmol/L (96-108); Cholesterol 129 mg/dL (<200); Estimated Glomerular Filt Rate 60; Glucose Fasting 164 mg/dL (60-99); HDL Cholesterol 38 mg/dL (>40); LDL Cholesterol Calculated 75 mg/dL (<100); Potassium 4.3 mmol/L (3.3-5.1); Sodium 141 mmol/L (135-145); Total Protein 7.4 g/dL (6.5-8.0); Triglycerides 83 mg/dL (<150)
[2022-12-29 12:43] LABS: TSH reflex Free T4 2.33 uIU/mL (0.32-4.0)
[2022-12-29 13:08] LABS: Creatinine Urine 117.39 mg/dL; Microalbum/Creatinine Ratio Ur 35.7 ug/mg cr (<30)
== END 2022-12-29 08:53 | disposition home or self-care (01) ==
LOC: HO.HMGCLDS 08:52
PROVIDERS: PCP Nurse Practitioner Family; Visit Provider Nurse Practitioner Family
DX: E11.9 Type 2 diabetes mellitus without complications (principal)
CPT/HCPCS: 36415; 80053; 80061; 81003; 82043; 82570; 84443; 85025

== ENCOUNTER 2023-01-04 09:55 | Outpatient (AMB) | payer MEDICARE, SELFPAY ==
--- NOTE | 2023-01-04 10:02 | MHC.PC.OV ---
Vital Signs 01/04/23 10:03 Height 5 ft 8 in Weight 164 lb 2 oz BMI 25.0 BP 114/68 Blood Pressure Location Rt brachial Position Sitting Pulse 60 Pulse Source Pulse Oximeter Pulse Oximetry (%) 100 Oxygen Delivery Method Room Air Intake Visit Reasons: 3 month follow up Allergies No Known Allergies [No Known Allergies*] Allergy (Verified 01/04/23 10:05) Tobacco use date assessed: 01/04/23 Fall risk assessment: No Falls in past year Last assessed Fall Risk: 01/04/23 Dental Screening Dental Screen Date: 01/04/23 Did you have a dental visit in the last 12 months?: No Did you have a dental problem in the last 6 months where you did not have access to dental care?: No Was dental information given to patient?: No HPI 3 month follow up HPI Details Pt is a diabetic, on an ARB and a statin. A1C in office today is 6.8. Microalbumin is up to date. Denies polyuria, polydipsia, and neuropathy. Pt denies any signs and symptoms of hypoglycemia and does know how to correct it. Eye exam is up to date. Pt follows up with podiatry, urology, cardiology, and dermatology. [facility] Medical History (Updated 12/05/22 @ 19:31 by Stevan Cadena, [facility]) Basal cell carcinoma Periorbital edema of left eye Foot callus Tinea unguium Actinic keratosis Plantar callus Type 2 diabetes mellitus without complication, without long-term current use of insulin Microscopic hematuria Poor urinary stream Fatty liver HTN (hypertension) Rupture of quadriceps muscle BPH (benign prostatic hyperplasia) Adenoma of both adrenal glands Diverticulitis Cataract Surgical History History of surgery Family History Father History of heart attack Mother No problems noted. Brother Throat cancer Social History Housing: House Alcohol intake: current Alcohol intake frequency: holidays/special occasions only Patient Tobacco Use Status: Never used Tobacco e-Cigarette/Vaping Use: Never Used Second Hand Smoke Exposure: No Current occupational status: retired Current occupational exposures/hazards: No Cognitive needs: No Hearing needs: No Vision needs: No Questionnaire Thrive Questionnaire Date Thrive assessed: 09/21/21 MIK-7 AMB Questionnaire MIK-7 Date MIK - 7 assessed: 05/04/21 Source: Developed by Drs. Nicolas Kapoor, Marlys Mcknight, Austin Skinner and colleagues, with an educational alvarez from [employer]. Review of Systems Const Reports as per HPI Physical exam (Primary Care) Vital Signs: Last Vital Signs Pulse 60 01/04/23 10:03 BP 114/68 01/04/23 10:03 Pulse Ox 100 01/04/23 10:03 Oxygen Delivery Method Room Air 01/04/23 10:03 BMI result Body Mass Index 25.0 Tobacco/Smoking Status: Tobacco use Status Tobacco use date assessed 01/04/23 01/04/23 10:06 Patient Tobacco Use Status Never used Tobacco 01/04/23 10:03 e-Cigarette/Vaping Use Never Used 01/04/23 10:03 Thrive Assessment: Date of Thrive Assessment Date Thrive assessed 09/21/21 01/04/23 10:03 Const General: cooperative Orientation/consciousness: patient oriented x3 Resp Effort & Inspection: normal respiratory effort Auscultation: clear to auscultation bilaterally Cardio Rate: regular rate Rhythm: regular rhythm Heart sounds: S1 normal heart sound present and S2 normal heart sound present Neuro General: patient oriented x3 Extrem Other: bilat feet: + sensation with use of monofilament Right lower extremity: no edema Left lower extremity: no edema Psych Appearance: grossly normal Mental Status: mental status grossly normal Speech and movement: Normal speech and movement present Affect: normal affect Attitude: cooperative Thought process: Normal thought process present Thought content: Normal thought content present Insight: Good insight present (Psych) Judgement: Good judgement present (Psych) Results AMB Hemoglobin A1c AMB Hemoglobin A1c 6.8 % Last Edit by Bharti Ying CMA on 01/04/23 10:26 Results Reviewed Results Reviewed: Laboratory Last Values Hgb A1c (Clinic) 6.8 % (4.0-6.0) H 01/04/23 10:14 Assessment and Plan Assessment & Plan (1) Type 2 diabetes mellitus without complication, without long-term current use of insulin: Code(s): E11.9 - Type 2 diabetes mellitus without complications Plan The patient agreed to the use of a medical professionals for this encounter. Scribed for HAMMAD Morales by Felicita Krueger medical professionals, on 01/04/2023 at 10:35 EST. Orders: Orders AMB Hemoglobin A1c Today E11.9 - Type 2 diabetes mellitus without complications Coding Level of Care Code Est Pt Level 3 (86686) Diagnoses Type 2 diabetes mellitus without complication, without long-term current use of insulin E11.9
[2023-01-04 10:03] VITALS: BP 114/68; PULSE 60; O2SAT 100; BMI 25.0
== END 2023-01-04 10:51 | disposition home or self-care (01) ==
PROVIDERS: PCP Nurse Practitioner Family; Visit Provider Nurse Practitioner Family
DX: E11.9 Type 2 diabetes mellitus without complications (principal)
CPT/HCPCS: 83036; 99213

== ENCOUNTER 2023-04-08 07:12 | Outpatient (REF) | payer MEDICARE, SELFPAY ==
[2023-04-08 11:40] LABS: MANUAL DIFF FLAG NO
[2023-04-08 11:44] LABS: Basophils Absolute Auto 0.1 X10*3/uL (0.0-0.2); Eosinophils Absolute Auto 0.2 X10*3/uL (0.0-0.4); Eosinophils Percent Auto 1.9 % (0-4); Hematocrit 42.7 % (42.0-52.0); Hemoglobin 14.1 g/dl (14.0-18.0); Imm Gran Abs Auto 0.18 X10*3/uL (0.00-0.03); Imm Gran Pct Auto 1.7 % (0.0-0.4); Lymphocytes Absolute Auto 2.9 X10*3/uL (1.2-4.9); Lymphocytes Percent Auto 27.4 % (20-40); Mean Corpuscular Hemoglobin 29.8 pg (27.0-33.0); Mean Corpuscular Volume 90.3 fL (80.0-98.0); Mean Platelet Volume 10.4 fL (9.4-12.4); Monocytes Percent Auto 9.3 % (2-11); Neutrophils Absolute Auto 6.3 x10*3/uL (2.0-8.3); Neutrophils Percent Auto 58.7 % (45-73); Platelet Count 335 X10*3/uL (160-400); Red Blood Count 4.73 X10*6/uL (4.60-5.80); Red Cell Distribution Width 13.2 % (11.0-16.0); White Blood Count 10.7 X10*3/uL (4.8-10.8)
[2023-04-08 12:06] LABS: Appearance Urine Clear; Color Urine Yellow; Glucose Urine UA Negative (Negative); Leukocyte Esterase Urine Negative (Negative); Nitrite Urine Negative (Negative); PH 6.5 (5.0-9.0); Specific Gravity - Urine <= 1.005 (1.005-1.025); Urine Blood Negative (Negative); Urine Ketones Negative (Negative); Urine Protein Negative (Neg-Trace)
[2023-04-08 12:18] LABS: PSA,Total (Free>4and<10) 0.52 ng/mL (0.00-4.00)
[2023-04-08 12:23] LABS: Alanine Aminotransferase 26 U/L (0-40); Alkaline Phosphatase 85 U/L (39-117); Anion Gap 14 (12-20); Aspartate Amino Transferase 28 U/L (5-37); Bilirubin Total 0.4 mg/dL (0.0-1.0); Blood Urea Nitrogen 18 mg/dL (9-16); Calcium 9.5 mg/dL (8.4-10.2); Carbon Dioxide 27 mmol/L (22-29); Chloride 104 mmol/L (96-108); Cholesterol 128 mg/dL (<200); Estimated Glomerular Filt Rate 60; Glucose Fasting 112 mg/dL (60-99); HDL Cholesterol 40 mg/dL (>40); LDL Cholesterol Calculated 63 mg/dL (<100); Potassium 4.2 mmol/L (3.3-5.1); Sodium 141 mmol/L (135-145); Total Protein 7.6 g/dL (6.5-8.0); Triglycerides 126 mg/dL (<150)
== END 2023-04-08 07:13 | disposition home or self-care (01) ==
LOC: HO.HMGCLDS 07:12
PROVIDERS: PCP Nurse Practitioner Family; Visit Provider Nurse Practitioner Family
DX: E11.9 Type 2 diabetes mellitus without complications (principal); N40.1 Benign prostatic hyperplasia with lower urinary tract symptoms; N13.8 Other obstructive and reflux uropathy; Z12.5 Encounter for screening for malignant neoplasm of prostate
CPT/HCPCS: 36415; 80053; 80061; 81003; 84153; 85025

== ENCOUNTER 2023-04-13 08:32 | Outpatient (AMB) | payer MEDICARE, SELFPAY ==
--- NOTE | 2023-04-13 08:33 | A.OFFPC_ITS ---
Vital Signs 04/13/23 08:36 Height 5 ft 8 in Weight 159 lb BMI 24.2 BP 110/62 Blood Pressure Location Rt brachial Position Sitting Pulse 59 Pulse Source Pulse Oximeter Pulse Oximetry (%) 98 Oxygen Delivery Method Room Air Intake Visit Reasons: 3 month fu Intake Note: Patient here for diabetes follow up. pt states sugars at home have been good. Allergies No Known Allergies [No Known Allergies*] Allergy (Verified 04/13/23 08:37) Tobacco use date assessed: 01/04/23 Fall risk assessment: No Falls in past year Last assessed Fall Risk: 04/13/23 Dental Screening Dental Screen Date: 04/13/23 Did you have a dental visit in the last 12 months?: No Did you have a dental problem in the last 6 months where you did not have access to dental care?: No Was dental information given to patient?: Patient declined HPI 3 month fu HPI Details Patient is here for follow-up for diabetes. He is currently on a Arb and a statin. He understands his sinus symptoms of hypoglycemia now corrected. Patient denies any polyuria, polydipsia, does have intermittent neuropathy. His eye exam is up-to-date. His A1c today was 7.7. Pt reports cheating during the holidays. Pt has a welding machine operator arc. [facility] Medical History Basal cell carcinoma Periorbital edema of left eye Foot callus Tinea unguium Actinic keratosis Plantar callus Type 2 diabetes mellitus without complication, without long-term current use of insulin Microscopic hematuria Poor urinary stream Fatty liver HTN (hypertension) Rupture of quadriceps muscle BPH (benign prostatic hyperplasia) Adenoma of both adrenal glands Diverticulitis Cataract Surgical History History of surgery Family History Father History of heart attack Mother No problems noted. Brother Throat cancer Social History Housing: House Alcohol intake: current Alcohol intake frequency: holidays/special occasions only Patient Tobacco Use Status: Never used Tobacco e-Cigarette/Vaping Use: Never Used Second Hand Smoke Exposure: No Current occupational status: retired Current occupational exposures/hazards: No Cognitive needs: No Hearing needs: No Vision needs: No Questionnaire Thrive Questionnaire Date Thrive assessed: 09/21/21 AUDIT C Alcohol Use Questionnaire (AUDIT-C) 1. How often do you have a drink containing alcohol?: 2-4 times a month 2. How many drinks containing alcohol do you have on a typical day when you are drinking?: 1 or 2 3. How often do you have six or more drinks on one occasion?: Never Total Score: 2 MIK-7 AMB Questionnaire MIK-7 Date MIK - 7 assessed: 04/13/23 Feeling nervous, anxious, or on edge: 0 = Not at all Not being able to stop or control worryin = Not at all Worrying too much about different things: 0 = Not at all Trouble relaxin = Not at all Being so restless that it is hard to sit still: 0 = Not at all Becoming easily annoyed or irritable: 0 = Not at all Feeling afraid as if something awful might happen: 0 = Not at all Total MIK-7 score (0-4 normal; 5-9 mild; 10-14 moderate; 15-21 severe): 0 Source: Developed by Drs. Nicolas Kapoor, Marlys Mcknight, Austin Skinner and colleagues, with an educational alvarez from [employer]. Physical exam (Primary Care) Vital Signs: Last Vital Signs Pulse 59 04/13/23 08:36 BP 110/62 04/13/23 08:36 Pulse Ox 98 04/13/23 08:36 Oxygen Delivery Method Room Air 04/13/23 08:36 BMI result Body Mass Index 24.2 Tobacco/Smoking Status: Tobacco use Status Tobacco use date assessed 01/04/23 04/13/23 08:37 Patient Tobacco Use Status Never used Tobacco 04/13/23 08:37 e-Cigarette/Vaping Use Never Used 04/13/23 08:37 Thrive Assessment: Date of Thrive Assessment Date Thrive assessed 09/21/21 04/13/23 08:37 Const General: cooperative, healthy appearing, comfortable, no acute distress and well developed Resp Effort & Inspection: normal respiratory effort Auscultation: clear to auscultation bilaterally Cardio Rate: regular rate Rhythm: regular rhythm Heart sounds: S1 normal heart sound present and S2 normal heart sound present Extrem Other: feet intact bilat, dry, + sensation with use of monofilament. Psych Thought content: Normal thought content present Insight: Good insight present (Psych) Results AMB Hemoglobin A1c AMB Hemoglobin A1c 7.7 % Last Edit by ALEE Mason on 04/13/23 09 :01 Assessment and Plan Assessment & Plan (1) Type 2 diabetes mellitus without complication, without long-term current use of insulin: Code(s): E11.9 - Type 2 diabetes mellitus without complications Orders: Orders AMB Hemoglobin A1c Today E11.9 - Type 2 diabetes mellitus without complications Coding Level of Care Code Est Pt Level 3 (53960) Diagnoses Type 2 diabetes mellitus without complication, without long-term current use of insulin E11.9
[2023-04-13 08:36] VITALS: BP 110/62; PULSE 59; O2SAT 98; BMI 24.2
== END 2023-04-13 09:14 | disposition home or self-care (01) ==
PROVIDERS: PCP Nurse Practitioner Family; Visit Provider Nurse Practitioner Family
DX: E11.9 Type 2 diabetes mellitus without complications (principal)
CPT/HCPCS: 83036; 99213

== ENCOUNTER 2023-04-21 10:32 | Outpatient (AMB) | payer MEDICARE, SELFPAY ==
--- NOTE | 2023-04-21 10:34 | A.OFFVIS_ITS ---
Intake Intake Visit Reasons: 1Y PSA(set) Intake Note: Patient is Present for Follow Up PVR Urology Medication: Finasteride, Tamsulosin Antibiotic Allergies: None Blood Thinners:Aspirin PVR: 21 Allergies No Known Allergies [No Known Allergies*] Allergy (Verified 04/21/23 10:38) HPI HPI Comments History of Present Illness Details Jose E is a very pleasant male. They are a patient of Dr Chaudhari. He is seen for following urologic issues - microscopic hematuria - lower urinary tract symptoms - primari ly storage instability Relatively stable bladder emptying Primary issue is urinary urgency with frequency Does feel need to marcus when comes home Given low PSA will drop finasteride Continue with tamsulosin Trial of Myrbetriq. Patient age over 75 so anticholinergic not recommended. Lower urinary tract symptoms primarily storage instability Prior TURP 05/29 Cystoscopy with regrowth on right prostatic lobe Re-initiation of alpha-shirley - tamsulosin with finasteride Background - metformin controlled diabetes - last HBA1c 7.0 PSA 05/03 0.5 Microscopic Hematuria: Microscopic hematuria was diagnosed during routine UA. They are here for the cystoscopy and discussion of imaging findings. Since the last visit the patient has noticed gross hematuria - after cycling exercise, continues to test postive for microscopic hematuria. Relevant medical history for Prior prostate procedures - prostate vaporization. Radiographic imagin/20 , US renal cyst. Therapeutic plan follow in 12 months with appropriate investigations. [facility] Medical History Basal cell carcinoma Periorbital edema of left eye Foot callus Tinea unguium Actinic keratosis Plantar callus Type 2 diabetes mellitus without complication, without long-term current use of insulin Microscopic hematuria Poor urinary stream Fatty liver HTN (hypertension) Rupture of quadriceps muscle BPH (benign prostatic hyperplasia) Adenoma of both adrenal glands Diverticulitis Cataract Surgical History History of surgery Family History Father History of heart attack Mother No problems noted. Brother Throat cancer Social History Housing: House Alcohol intake: current Alcohol intake frequency: holidays/special occasions only Patient Tobacco Use Status: Never used Tobacco e-Cigarette/Vaping Use: Never Used Second Hand Smoke Exposure: No Current occupational status: retired Current occupational exposures/hazards: No Cognitive needs: No Hearing needs: No Vision needs: No Review of Systems Const Denies chills and Denies fever(s) Card Reports no additional complaints and Denies syncope Resp Denies cough GI Denies abdominal pain and Denies heartburn Reports as per HPI and Denies change in libido Neuro Denies syncope Psych Denies change in libido Endo Denies change in libido Physical Exam Const General: cooperative, healthy appearing, comfortable and no acute distress Orientation/consciousness: patient oriented x3 HEENT Face and sinus: Yes normal facial exam Mouth: moist mucous membranes Neck Neck: Yes normal visual inspection, Yes full ROM and Yes trachea midline Chest Chest palpation & inspection: normal inspection of the chest Resp Effort & Inspection: normal respiratory effort, able to speak in complete sentences and no respiratory distress GI Inspection: Yes normal to inspection Back/Spine/Pelvis Cervical Spine: normal cervical lordosis Thoracic/Lumbar Spine: thoracic and lumbar spine normal to inspection Skin General skin exam: no rashes or lesions noted Neuro General: patient oriented x3, gait normal, tone normal and moves all extremities Extrem General: Yes normal to inspection and Yes capillary refill normal Office Procedures Post Void Residual Post Residual Void Post Void Residual (PVR): 21 16743-[id number] Void Residual by ultrasound Assessment & Plan Assessment & Plan (1) Bladder instability: Code(s): N32.89 - Other specified disorders of bladder (2) BPH loc w urin obs/LUTS: Code(s): N40.1 - Benign prostatic hyperplasia with lower urinary tract symptoms Plan Two month follow-up Orders: Orders AMB Post Void Residual by ultrasound Today N40.1 - Benign prostatic hyperplasia with lower urinary tract symptoms Medications: New mirabegron ER (Myrbetriq) 25 mg PO DAILY 30 tabs 1RF 30 days N30.10 - Interstitial cystitis (chronic) without hematuria, N32.81 - Overactive bladder, N32.89 - Other specified disorders of bladder, R35.1 - Nocturia, R39.15 - Urgency of urination Discontinued finasteride Discontinued Reason: Patient Completed Course 5 mg PO DAILY 90 tabs 3RF Patient Instructions: Imaging studies, laboratory and physical exam results were discussed and reviewed in detail. No major barriers to patient understanding were identified. An opportunity to ask questions regarding the treatment plan was provided. All questions were answered. The patient expressed understanding and agreement with the above treatment plan. The patient is aware they should contact our office by phone for worsening of their current condition or the appearance of new urologic symptoms. Compliance is encouraged with any medications and followup testing that is ordered. It is a privilege to participate in the urologic care of your patient. If you have any questions or concerns regarding treatment for the above conditions, or other urologic issues, please do not hesitate to contact me. The office telephone contact is [phone]. This note is constructed using voice recognition software. While every effort has been made to ensure accuracy exhibit cleaner errors may have been included. Yours sincerely, Dr Claude Fuentes MD, [facility] - Urology Providers of Expert, Compassionate Care for the Genitourinary System Coding Level of Care Code Est Pt Level 4 (23112) Diagnoses Bladder instability N32.89 BPH loc w urin obs/LUTS N40.1 CPT Codes Post Residual Void - PVR CPT Code: 46928-Hdzs Void Residual by ultrasound ([id number])
== END 2023-04-21 11:02 | disposition home or self-care (01) ==
PROVIDERS: Visit Provider Urology
DX: N32.89 Other specified disorders of bladder (principal); N40.1 Benign prostatic hyperplasia with lower urinary tract symptoms
CPT/HCPCS: 99214

== ENCOUNTER → 2023-04-21 10:32 | Outpatient (BNVA) | payer MEDICARE, SELFPAY | PROVIDERS: Visit Provider Urology | DX: N40.1 Benign prostatic hyperplasia with lower urinary tract symptoms (principal); N32.89 Other specified disorders of bladder | CPT/HCPCS: 51798; 99212 ==

== ENCOUNTER 2023-06-03 11:09 | Outpatient (AMB) | payer MEDICARE, SELFPAY ==
[2023-06-03 11:13] VITALS: BP 116/60; PULSE 36; TEMP 36.2; O2SAT 97; BMI 24.8
--- NOTE | 2023-06-03 11:13 | MHC.OFFWIV ---
Intake Vital Signs 06/03/23 11:13 Height 5 ft 8 in Weight 163 lb BMI 24.8 BP 116/60 Blood Pressure Location Lt brachial Position Sitting Pulse 36 L Pulse Source Pulse Oximeter Temp 97.1 F Temp Source Temporal Artery Scan Pulse Oximetry (%) 97 Oxygen Delivery Method Room Air Intake Visit Reasons: EST/cough X3 weeks (lobby masked) Intake Note: pt is here today for cough started 3 weeks ago Patient Tobacco Use Status: Never used Tobacco Allergies No Known Allergies [No Known Allergies*] Allergy (Verified 06/03/23 11:14) Do you need a note to return to daycare/school/sports/work: No HPI HPI Comments History of Present Illness Details 82 y/o male patient who presents to walk in clinic with c/o cough x 3 weeks. Denies SOB, wheezing or chest pain. Denies fevers, chills, nausea or vomiting. [facility] Medical History (Updated 06/02/23 @ 19:13 by Stevan Cadena, [facility]) Squamous cell carcinoma in situ Basal cell carcinoma Periorbital edema of left eye Foot callus Tinea unguium Actinic keratosis Plantar callus Type 2 diabetes mellitus without complication, without long-term current use of insulin Microscopic hematuria Poor urinary stream Fatty liver HTN (hypertension) Rupture of quadriceps muscle BPH (benign prostatic hyperplasia) Adenoma of both adrenal glands Diverticulitis Cataract Surgical History History of surgery Family History Father History of heart attack Mother No problems noted. Brother Throat cancer Social History Housing: House Alcohol intake: current Alcohol intake frequency: holidays/special occasions only Patient Tobacco Use Status: Never used Tobacco e-Cigarette/Vaping Use: Never Used Second Hand Smoke Exposure: No Current occupational status: retired Current occupational exposures/hazards: No Cognitive needs: No Hearing needs: No Vision needs: No Review of Systems Const All systems reviewed & are unremarkable except as noted in HPI and below Physical Exam Vital Signs: Last Vital Signs Temp 97.1 F 06/03/23 11:13 Pulse 36 L 06/03/23 11:13 BP 116/60 06/03/23 11:13 Pulse Ox 97 06/03/23 11:13 Oxygen Delivery Method Room Air 06/03/23 11:13 BMI result Body Mass Index 24.8 Const General: comfortable and no acute distress HEENT Head: Yes normocephalic and Yes atraumatic Ears: external ears normal and TM's normal bilaterally General nose exam: Abnormal mucous membranes and turbinates present boggy and erythematous Face and sinus: Yes sinuses nontender Mouth: moist mucous membranes Throat: Yes posterior oropharynx normal Resp Effort & Inspection: normal respiratory effort and able to speak in complete sentences Auscultation: clear to auscultation bilaterally, no crackles, no rales, no rhonchi and no wheezes Cardio Rate: regular rate Rhythm: regular rhythm Assessment & Plan Assessment & Plan (1) Bronchitis: Code(s): J40 - Bronchitis, not specified as acute or chronic Plan: - Warm fluids - Rest - OTC cough remedies. Orders: Orders SARS-CoV2/FLU/RSV Today J40 - Bronchitis, not specified as acute or chronic Medications: New azithromycin 500 mg PO DAILY 3 days 3 tabs 0RF J40 - Bronchitis, not specified as acute or chronic azithromycin 500 mg PO DAILY 3 days 3 tabs 0RF J40 - Bronchitis, not specified as acute or chronic benzonatate 100 mg PO TID 30 caps 0RF J40 - Bronchitis, not specified as acute or chronic Coding Level of Care Code Est Pt Level 3 (31066) Diagnoses Bronchitis J40 Time Spent (min) 15
== END 2023-06-03 11:53 | disposition home or self-care (01) ==
PROVIDERS: PCP Nurse Practitioner Family; Visit Provider Nurse Practitioner Family
DX: J40 Bronchitis, not specified as acute or chronic (principal)
CPT/HCPCS: 99213

== ENCOUNTER 2023-06-03 11:30 | Outpatient (REF) | payer MEDICARE, SELFPAY ==
[2023-06-03 14:56] LABS: Influenza A PCR NEGATIVE (Negative); Influenza B PCR NEGATIVE (Negative); Resp Syncy Virus RNA Qual PCR NEGATIVE (Negative); SARS COV2 PCR INHOUSE NEGATIVE (Negative)
== END 2023-06-03 11:31 | disposition home or self-care (01) ==
LOC: HO.LAB 11:30
PROVIDERS: Visit Provider Nurse Practitioner Family
DX: Z11.52 Encounter for screening for COVID-19 (principal); Z20.822 Contact with and (suspected) exposure to COVID-19; J40 Bronchitis, not specified as acute or chronic
CPT/HCPCS: 0241U

== ENCOUNTER 2023-07-12 15:49 | Outpatient (AMB) | payer MEDICARE, SELFPAY ==
--- NOTE | 2023-07-12 15:57 | A.OFFVIS_ITS ---
Intake Intake Visit Reasons: 2m follow up(confirmed) Intake Note: Patient is Present for Follow Up Urology Medication: Myrbetriq, tamsulosin Antibiotic Allergies: None Blood Thinners: Aspirin PVR: 0 Allergies No Known Allergies [No Known Allergies*] Allergy (Verified 06/03/23 11:14) Medication List - Last Reconciled 07/12/23 by Claude Fuentes MD amlodipine 10 mg PO DAILY aspirin 81 mg PO DAILY azithromycin 500 mg PO DAILY 3 days benzonatate 100 mg PO TID blood sugar diagnostic (FreeStyle Lite Strips) use 1 test strip twice a day to test blood sugar hydrochlorothiazide 12.5 mg PO DAILY lancets (FreeStyle Lancets) use 1 lancet twice a day to test blood sugar lancing device As directed to test blood sugar BID losartan 100 mg PO DAILY lovastatin 20 mg PO DAILY mecobalamin (vitamin B12) 1,000 mcg sublingual DAILY metformin 1 tab in am, 1/2 tab in pm orally; 90 days metformin 500 mg PO DAILY metoprolol succinate ER 25 mg PO DAILY mirabegron ER (Myrbetriq) 25 mg PO DAILY 30 days multivitamin (Daily Multi-Vitamin tablet) 1 tab PO DAILY sitagliptin phosphate (Januvia) 100 mg PO DAILY tamsulosin 0.4 mg PO BEDTIME 90 days HPI HPI Comments History of Present Illness Details Jose E is a very pleasant male. They are a patient of Dr Chaudhari. He is seen for following urologic issues - microscopic hematuria - lower urinary tract symptoms - primari ly storage instability Two month follow-up trial Myrbetriq for urinary urgency and frequency Minimal benefit Will cease Given low PSA will drop finasteride Continue with tamsulosin PVR 0 Discussed potential cystoscopy for repeat procedure Second issue is left testicle Concern about hydrocele Examination in office shows probable hydrocele. Plan ultrasound. Lower urinary tract symptoms primarily storage instability Prior TURP 05/29 Cystoscopy with regrowth on right prostatic lobe Re-initiation of alpha-shirley - tamsulosin with finasteride Background - metformin controlled diabetes - last HBA1c 7.0 PSA 05/03 0.5 Microscopic Hematuria: Microscopic hematuria was diagnosed during routine UA. They are here for the cystoscopy and discussion of imaging findings. Since the last visit the patient has noticed gross hematuria - after cycling exercise, continues to test postive for microscopic hematuria. Relevant medical history for Prior prostate procedures - prostate vaporization. Radiographic imagin/20 , US renal cyst. Therapeutic plan follow in 12 months with appropriate investigations. [facility] Medical History Squamous cell carcinoma in situ Basal cell carcinoma Periorbital edema of left eye Foot callus Tinea unguium Actinic keratosis Plantar callus Type 2 diabetes mellitus without complication, without long-term current use of insulin Microscopic hematuria Poor urinary stream Fatty liver HTN (hypertension) Rupture of quadriceps muscle BPH (benign prostatic hyperplasia) Adenoma of both adrenal glands Diverticulitis Cataract Surgical History History of surgery Family History Father History of heart attack Mother No problems noted. Brother Throat cancer Social History Housing: House Alcohol intake: current Alcohol intake frequency: holidays/special occasions only Patient Tobacco Use Status: Never used Tobacco e-Cigarette/Vaping Use: Never Used Second Hand Smoke Exposure: No Current occupational status: retired Current occupational exposures/hazards: No Cognitive needs: No Hearing needs: No Vision needs: No Review of Systems Const Denies chills and Denies fever(s) Card Reports no additional complaints and Denies syncope Resp Denies cough GI Denies abdominal pain and Denies heartburn Reports as per HPI and Denies change in libido Neuro Denies syncope Psych Denies change in libido Endo Denies change in libido Physical Exam Const General: cooperative, healthy appearing, comfortable and no acute distress Orientation/consciousness: patient oriented x3 HEENT Face and sinus: Yes normal facial exam Mouth: moist mucous membranes Neck Neck: Yes normal visual inspection, Yes full ROM and Yes trachea midline Chest Chest palpation & inspection: normal inspection of the chest Resp Effort & Inspection: normal respiratory effort, able to speak in complete sentences and no respiratory distress GI Inspection: Yes normal to inspection Back/Spine/Pelvis Cervical Spine: normal cervical lordosis Thoracic/Lumbar Spine: thoracic and lumbar spine normal to inspection Skin General skin exam: no rashes or lesions noted Neuro General: patient oriented x3, gait normal, tone normal and moves all extremities Extrem General: Yes normal to inspection and Yes capillary refill normal Office Procedures Post Void Residual Post Residual Void Post Void Residual (PVR): 0 [id number] Void Residual by ultrasound Assessment & Plan Assessment & Plan (1) Hydrocele: Code(s): N43.3 - Hydrocele, unspecified Plan Scrotal ultrasound Orders: Orders AMB Post Void Residual by ultrasound 07/12/23 N40.1 - Benign prostatic hyperplasia with lower urinary tract symptoms US scrotum 07/12/23 N43.3 - Hydrocele, unspecified Medications: New finasteride take Tuesday and 5 mg PO DAILY 90 tabs 0RF 90 days N32.0 - Bladder- neck obstruction, N40.1 - Benign prostatic hyperplasia with lower urinary tract symptoms Discontinued mirabegron ER (Myrbetriq) Discontinued Reason: Patient Completed Course 25 mg PO DAILY 30 days 30 tabs 1RF N30.10 - Interstitial cystitis (chronic) without hematuria, N32.81 - Overactive bladder, N32.89 - Other specified disorders of bladder, R35.1 - Nocturia, R39.15 - Urgency of urination Patient Instructions: Imaging studies, laboratory and physical exam results were discussed and reviewed in detail. No major barriers to patient understanding were identified. An opportunity to ask questions regarding the treatment plan was provided. All questions were answered. The patient expressed understanding and agreement with the above treatment plan. The patient is aware they should contact our office by phone for worsening of their current condition or the appearance of new urologic symptoms. Compliance is encouraged with any medications and followup testing that is ordered. It is a privilege to participate in the urologic care of your patient. If you have any questions or concerns regarding treatment for the above conditions, or other urologic issues, please do not hesitate to contact me. The office telephone contact is [phone]. This note is constructed using voice recognition software. While every effort has been made to ensure accuracy icer machine operator errors may have been included. Yours sincerely, Dr Claude Fuentes MD, [facility] - Urology Providers of Expert, Compassionate Care for the Genitourinary System Coding Level of Care Code Est Pt Level 4 (91013) Diagnoses Hydrocele N43.3 CPT Codes Post Residual Void - PVR CPT Code: 74044-[id number] Void Residual by ultrasound ([id number])
== END 2023-07-12 16:22 | disposition home or self-care (01) ==
PROVIDERS: PCP Nurse Practitioner Family; Visit Provider Urology
DX: N43.3 Hydrocele, unspecified (principal)
CPT/HCPCS: 99214

== ENCOUNTER → 2023-07-12 15:49 | Outpatient (BNVA) | payer MEDICARE, SELFPAY | PROVIDERS: PCP Nurse Practitioner Family; Visit Provider Urology | DX: N43.3 Hydrocele, unspecified (principal) | CPT/HCPCS: 51798; 99212 ==

== ENCOUNTER 2023-07-27 09:32 | Outpatient (AMB) | payer MEDICARE, SELFPAY ==
[2023-07-27 09:38] VITALS: BP 118/72; PULSE 60; O2SAT 98; BMI 24.5
--- NOTE | 2023-07-27 09:38 | A.OFFPC_ITS ---
Vital Signs 07/27/23 09:38 Height 5 ft 8 in Weight 161 lb BMI 24.5 BP 118/72 Blood Pressure Location Lt brachial Position Sitting Pulse 60 Pulse Source Pulse Oximeter Pulse Oximetry (%) 98 Oxygen Delivery Method Room Air Intake Visit Reasons: 3 month F/U Diabetes Intake Note: pt is here for dm f/u. A1c done in office today Regional Engagement Consultant Required: No Allergies No Known Allergies [No Known Allergies*] Allergy (Verified 07/27/23 09:40) Tobacco use date assessed: 07/27/23 Fall risk assessment: No Falls in past year Last assessed Fall Risk: 07/27/23 Dental Screening Dental Screen Date: 07/27/23 Did you have a dental visit in the last 12 months?: Yes Did you have a dental problem in the last 6 months where you did not have access to dental care?: No Was dental information given to patient?: Patient has dentist HPI 3 month F/U Diabetes HPI Details Pt is a diabetic, on an ARB and a statin. A1C in office today is 7.3. Microalbumin is up to date. Denies polyuria, polydipsia, and neuropathy. Pt denies any signs and symptoms of hypoglycemia and does know how to correct it. will continue same med routine, though may add a SGLT2 i in the future. Pt will be going for labs today. [facility] Medical History Squamous cell carcinoma in situ Basal cell carcinoma Periorbital edema of left eye Foot callus Tinea unguium Actinic keratosis Plantar callus Type 2 diabetes mellitus without complication, without long-term current use of insulin Microscopic hematuria Poor urinary stream Fatty liver HTN (hypertension) Rupture of quadriceps muscle BPH (benign prostatic hyperplasia) Adenoma of both adrenal glands Diverticulitis Cataract Surgical History History of surgery Family History Father History of heart attack Mother No problems noted. Brother Throat cancer Social History Housing: House Alcohol intake: current Alcohol intake frequency: holidays/special occasions only Patient Tobacco Use Status: Never used Tobacco e-Cigarette/Vaping Use: Never Used Second Hand Smoke Exposure: No Current occupational status: retired Current occupational exposures/hazards: No Cognitive needs: No Hearing needs: No Vision needs: No Questionnaire Thrive Questionnaire Date Thrive assessed: 09/21/21 MIK-7 AMB Questionnaire MIK-7 Date MIK - 7 assessed: 04/13/23 Source: Developed by Drs. Nicolas Kapoor, Marlys Mcknight, Austin Skinner and colleagues, with an educational alvarez from [employer]. Physical exam (Primary Care) Vital Signs: Last Vital Signs Pulse 60 07/27/23 09:38 BP 118/72 07/27/23 09:38 Pulse Ox 98 07/27/23 09:38 Oxygen Delivery Method Room Air 07/27/23 09:38 BMI result Body Mass Index 24.5 Tobacco/Smoking Status: Tobacco use Status Tobacco use date assessed 07/27/23 07/27/23 09:43 Patient Tobacco Use Status Never used Tobacco 07/27/23 09:39 e-Cigarette/Vaping Use Never Used 07/27/23 09:39 Thrive Assessment: Date of Thrive Assessment Date Thrive assessed 09/21/21 07/27/23 09:39 Const General: cooperative Orientation/consciousness: patient oriented x3 Resp Effort & Inspection: normal respiratory effort Auscultation: clear to auscultation bilaterally Cardio Rate: regular rate Rhythm: regular rhythm Heart sounds: S1 normal heart sound present and S2 normal heart sound present Neuro General: patient oriented x3 Extrem Other: bilat feet: + sensation with use of monofilament, feet intact Results AMB Hemoglobin A1c AMB Hemoglobin A1c 7.3 % Last Edit by ALEE Mason on 07/27/23 10 :20 Assessment and Plan Assessment & Plan (1) Type 2 diabetes mellitus without complication, without long-term current use of insulin: Code(s): E11.9 - Type 2 diabetes mellitus without complications Plan: continue same meds, cont working on diet (2) B12 deficiency: Code(s): E53.8 - Deficiency of other specified B group vitamins Plan: b12 ordered Orders: Orders Comprehensive [place]. Panel Fast Today E11.9 - Type 2 diabetes mellitus without complications TSH reflex Free T4 Today E11.9 - Type 2 diabetes mellitus without complications Lipid Panel Today E11.9 - Type 2 diabetes mellitus without complications AMB Hemoglobin A1c Today Z13.9 - Encounter for screening, unspecified Complete Blood Count Auto Diff Today E11.9 - Type 2 diabetes mellitus without complications UA CC w/rflx Micro + Cult Today E11.9 - Type 2 diabetes mellitus without complications Vitamin B12 and Folate Today E53.8 - Deficiency of other specified B group vitamins Coding Level of Care Code Est Pt Level 3 (84840) Diagnoses Type 2 diabetes mellitus without complication, without long-term current use of insulin E11.9 B12 deficiency E53.8
== END 2023-07-27 10:20 | disposition home or self-care (01) ==
PROVIDERS: PCP Nurse Practitioner Family; Visit Provider Nurse Practitioner Family
DX: E11.9 Type 2 diabetes mellitus without complications (principal); E53.8 Deficiency of other specified B group vitamins; Z13.9 Encounter for screening, unspecified
CPT/HCPCS: 83036; 99213

== ENCOUNTER 2023-07-27 10:20 | Outpatient (REF) | payer MEDICARE, SELFPAY ==
[2023-07-27 13:12] LABS: MANUAL DIFF FLAG NO
[2023-07-27 13:28] LABS: Basophils Absolute Auto 0.1 X10*3/uL (0.0-0.2); Basophils Percent Auto 0.9 % (0-2); Eosinophils Absolute Auto 0.2 X10*3/uL (0.0-0.4); Eosinophils Percent Auto 2.3 % (0-4); Hematocrit 40.9 % (42.0-52.0); Hemoglobin 13.6 g/dl (14.0-18.0); Imm Gran Abs Auto 0.04 X10*3/uL (0.00-0.03); Imm Gran Pct Auto 0.5 % (0.0-0.4); Lymphocytes Percent Auto 22.8 % (20-40); Mean Corpuscular HGB Conc 33.3 g/dl (31.0-36.0); Mean Corpuscular Volume 90.1 fL (80.0-98.0); Mean Platelet Volume 11.5 fL (9.4-12.4); Monocytes Absolute Auto 0.8 X10*3/uL (0.1-1.2); Monocytes Percent Auto 9.5 % (2-11); Neutrophils Absolute Auto 5.6 x10*3/uL (2.0-8.3); Platelet Count 233 X10*3/uL (160-400); Red Blood Count 4.54 X10*6/uL (4.60-5.80); Red Cell Distribution Width 13.3 % (11.0-16.0); White Blood Count 8.7 X10*3/uL (4.8-10.8)
[2023-07-27 13:42] LABS: Appearance Urine Clear; Color Urine Yellow; Glucose Urine UA Negative (Negative); Leukocyte Esterase Urine Negative (Negative); Nitrite Urine Negative (Negative); PH 5.5 (5.0-9.0); Specific Gravity - Urine 1.015 (1.005-1.025); Urine Blood Negative (Negative); Urine Ketones Negative (Negative); Urine Protein Negative (Neg-Trace)
[2023-07-27 14:14] LABS: Alanine Aminotransferase 32 U/L (0-40); Albumin Level 3.9 g/dL (3.5-5.0); Alkaline Phosphatase 92 U/L (39-117); Anion Gap 13 (12-20); Aspartate Amino Transferase 29 U/L (5-37); Bilirubin Total 0.5 mg/dL (0.0-1.0); Blood Urea Nitrogen 19 mg/dL (9-16); Carbon Dioxide 23 mmol/L (22-29); Chloride 108 mmol/L (96-108); Cholesterol 138 mg/dL (<200); Estimated Glomerular Filt Rate > 60; Glucose Fasting 155 mg/dL (60-99); HDL Cholesterol 41 mg/dL (>40); LDL Cholesterol Calculated 74 mg/dL (<100); Sodium 140 mmol/L (135-145); Total Protein 7.3 g/dL (6.5-8.0); Triglycerides 115 mg/dL (<150)
[2023-07-27 15:38] LABS: Folate 12.5 ng/mL (> or = 4.0); Vitamin B12 749 pg/mL (200-900)
== END 2023-07-27 10:21 | disposition home or self-care (01) ==
LOC: HO.HMGCLDS 10:20
PROVIDERS: PCP Nurse Practitioner Family; Visit Provider Nurse Practitioner Family
DX: E11.9 Type 2 diabetes mellitus without complications (principal); E53.8 Deficiency of other specified B group vitamins
CPT/HCPCS: 36415; 80053; 80061; 81003; 82607; 82746; 84443; 85025

== ENCOUNTER 2023-08-11 12:52 | Outpatient (REF) | payer MEDICARE, SELFPAY ==
--- NOTE | ~2023-08-11 | US_ITS ---
EXAMINATION: US SCROTUM CLINICAL INFORMATION: Hydrocele, unspecified. Intermittent testicular pain. COMPARISON: Ultrasound scrotum 02/21/2018. TECHNIQUE: A sonogram of the scrotum was performed assessing garner-scale appearance and color Doppler flow. Spectral Doppler analysis of the arterial and venous flow were performed in the testes bilaterally. FINDINGS: RIGHT: Right testicle measures 4.8 x 2.6 x 2.6 cm, volume 16.7 mL. No focal testicular parenchymal lesions are visualized. Spectral Doppler analysis of the arterial and venous flow is normal in the right testis. 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 1.7 x 1.5 x 1.5 cm cyst in the region of the right epididymal head. No right varicocele is seen. Moderate right hydrocele. Right epididymal Doppler flow is normal. LEFT: Left testicle measures 4.4 x 2.4 x 2.6 cm, volume 14.3 mL. No focal testicular parenchymal lesions are visualized. Spectral Doppler analysis of the arterial and venous flow is normal in the left testis. 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 0.6 x 0.5 x 0.3 cm cyst in the region of the left epididymal head. No left varicocele is seen. Moderate left hydrocele. Left epididymal Doppler flow is normal. US/US scrotum IMPRESSION: Bilateral hydroceles, left greater than right. 1.7 x 1.5 x 1.5 cm cyst in the region of the right epididymal head. Previous exam demonstrated complex right epididymal cysts measuring 2.4 x 1.2 x 1.7 cm and 1.7 x 1.4 x 2.5 cm. 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 Correlation with clinical examination and urology consultation recommended to determine further management.
== END 2023-08-11 12:53 | disposition home or self-care (01) ==
LOC: HO.US 12:52
PROVIDERS: PCP Nurse Practitioner Family; Visit Provider Urology
DX: N43.3 Hydrocele, unspecified (principal)
CPT/HCPCS: 76870

== ENCOUNTER 2023-08-26 09:13 | Outpatient (AMB) | payer MEDICARE, SELFPAY ==
--- NOTE | 2023-08-26 09:13 | A.OFFVIS_ITS ---
Intake Visit Reasons: 6w/US(set) Human Resources Safety Manager Required: No Allergies No Known Allergies [No Known Allergies*] Allergy (Verified 08/26/23 09:14) Medication List - Last Reconciled 08/26/23 by Claude Fuentes MD amlodipine 10 mg PO DAILY ammonium lactate 12% appl topical BID aspirin 81 mg PO DAILY blood sugar diagnostic (FreeStyle Lite Strips) use 1 test strip twice a day to test blood sugar hydrochlorothiazide 12.5 mg PO DAILY lancets (FreeStyle Lancets) use 1 lancet twice a day to test blood sugar lancing device As directed to test blood sugar BID losartan 100 mg PO DAILY lovastatin 20 mg PO DAILY mecobalamin (vitamin B12) 1,000 mcg sublingual DAILY metformin 1 tab in am, 1/2 tab in pm orally; 90 days metformin 500 mg PO DAILY metoprolol succinate ER 25 mg PO DAILY multivitamin (Daily Multi-Vitamin tablet) 1 tab PO DAILY sitagliptin phosphate (Januvia) 100 mg PO DAILY tamsulosin 0.4 mg PO BEDTIME 90 days HPI Comments Details: Jose E is a very pleasant male. They are a patient of Dr Chaudhari. He is seen for following urologic issues - microscopic hematuria - lower urinary tract symptoms - primarily storage instability Telemedicine Evaluation 15 min Consultation [employer] Artemio Video attempted Left testicle - 09/01 ultrasound bilateral epididymal head cyst, small hydrocele left Comfortable with current bladder emptying Happy to be seen in 12 months Prescription refilled Lower urinary tract symptoms primarily storage instability Prior TURP 05/29 - Cystoscopy with regrowth on right prostatic lobe Reinitiation of alpha-shirley - tamsulosin Background - metformin controlled diabetes - last HBA1c 7.0 Prior medications - myrbetriq minimal benefit, finasteride however low PSA PSA 05/03 0.5 Microscopic Hematuria: Microscopic hematuria was diagnosed during routine UA. They are here for the cystoscopy and discussion of imaging findings. Since the last visit the patient has noticed gross hematuria - after cycling exercise, continues to test postive for microscopic hematuria. Relevant medical history for Prior prostate procedures - prostate vaporization. Radiographic imagin/20 , US renal cyst. Therapeutic plan follow in 12 months with appropriate investigations. [facility] Medical History Squamous cell carcinoma in situ Basal cell carcinoma Periorbital edema of left eye Foot callus Tinea unguium Actinic keratosis Plantar callus Type 2 diabetes mellitus without complication, without long-term current use of insulin Microscopic hematuria Poor urinary stream Fatty liver HTN (hypertension) Rupture of quadriceps muscle BPH (benign prostatic hyperplasia) Adenoma of both adrenal glands Diverticulitis Cataract Surgical History History of surgery Family History Father History of heart attack Mother No problems noted. Brother Throat cancer Social History Housing: House Alcohol intake: current Alcohol intake frequency: holidays/special occasions only Patient Tobacco Use Status: Never used Tobacco e-Cigarette/Vaping Use: Never Used Second Hand Smoke Exposure: No Current occupational status: retired Current occupational exposures/hazards: No Cognitive needs: No Hearing needs: No Vision needs: No Review of Systems Const All systems reviewed & are unremarkable except as noted in HPI and below Reports no additional complaints Resp Reports no additional complaints GI Reports no additional complaints Reports as per HPI Musc Reports no additional complaints Physical Exam Telemedicine evaluation Appropriate responses Regular breathing rate and rhythm HEENT Head: Yes normal to inspection Ears: hearing grossly normal bilaterally Eyes General: appearance normal, both eyes and all related structures Neck Neck: Yes normal visual inspection Chest Chest palpation & inspection: normal inspection of the chest Resp Effort & Inspection: normal respiratory effort and able to speak in complete sentences Telehealth Telehealth Telehealth Platform: Telephone Location of provider rendering services: practice address Location of patient: address on file Patient Identification confirmed using: Name, : Yes Telehealth method: voice only Patient verbally consented to treatment: Yes Patient verbally consented to billing insurance company: Yes Patient informed of any privacy concerns related to visit: Yes Assessment & Plan Assessment & Plan (1) Hydrocele: Code(s): N43.3 - Hydrocele, unspecified Category: Medical Plan 12 month follow-up Medications: Refilled tamsulosin 0.4 mg PO BEDTIME 90 days 90 caps 3RF N40.1 - Benign prostatic hyperplasia with lower urinary tract symptoms, R35.1 - Nocturia Patient Instructions: Imaging studies, laboratory and physical exam results were discussed and reviewed in detail. No major barriers to patient understanding were identified. An opportunity to ask questions regarding the treatment plan was provided. All questions were answered. The patient expressed understanding and agreement with the above treatment plan. The patient is aware they should contact our office by phone for worsening of their current condition or the appearance of new urologic symptoms. Compliance is encouraged with any medications and followup testing that is ordered. It is a privilege to participate in the urologic care of your patient. If you have any questions or concerns regarding treatment for the above conditions, or other urologic issues, please do not hesitate to contact me. The office telephon e contact is [phone]. This note is constructed using voice recognition software. While every effort has been made to ensure accuracy master police detective errors may have been included. Yours sincerely, Dr Claude Fuentes MD, [facility] - Urology Providers of Expert, Compassionate Care for the Genitourinary System Coding Level of Care Code Tele Est Pt Level 3 (70763) Diagnoses Hydrocele N43.3
== END 2023-08-26 10:19 | disposition home or self-care (01) ==
LOC: HO.HUSH 09:13
PROVIDERS: PCP Nurse Practitioner Family; Visit Provider Urology
DX: N43.3 Hydrocele, unspecified (principal)
CPT/HCPCS: 99442

== ENCOUNTER → 2023-08-26 09:13 | Outpatient (BNVA) | payer MEDICARE, SELFPAY | PROVIDERS: PCP Nurse Practitioner Family; Visit Provider Urology ==

== ENCOUNTER → 2023-10-04 12:46 | Outpatient (REF) | payer MEDICARE, SELFPAY ==
--- NOTE | 2023-10-04 12:49 | HM_ITS ---
Conclusion: 1. Patient was monitored for total period of 3 days 2. Baseline was normal sinus rhythm with average heart of 62 beats per minute 3. No significant pauses noted 4. Frequent PVCs noted with total burden of 17.4% with no significant sustained ventricular arrhythmias 5. Patient reported 1 event of kneeling and lightheadedness correlating with sinus bradycardia MTDD
== END ==
LOC: HO.CARD 12:46
PROVIDERS: PCP Nurse Practitioner Family; Visit Provider Internal Medicine
DX: I49.3 Ventricular premature depolarization (principal)
CPT/HCPCS: 93242

== ENCOUNTER → 2023-10-04 12:49 | Outpatient (BNV) | payer MEDICARE, SELFPAY | PROVIDERS: PCP Nurse Practitioner Family; Visit Provider Internal Medicine Cardiovascular Disease | DX: I49.3 Ventricular premature depolarization (principal) | CPT/HCPCS: 93244 ==

== ENCOUNTER 2023-10-25 10:28 | Outpatient (AMB) | payer MEDICARE, SELFPAY ==
[2023-10-25 10:41] VITALS: BP 90/56; PULSE 59; BMI 24.1
--- NOTE | 2023-10-25 10:41 | MHC.OFFVIS ---
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: No Accompanied by: Self / Same As Patient Allergies No Known Allergies [No Known Allergies*] Allergy (Verified 08/26/23 09:14) Medication List - Last Reconciled 10/25/23 by Dick Henderson MD amlodipine 10 mg PO DAILY ammonium lactate 12% appl topical BID aspirin 81 mg PO DAILY blood sugar diagnostic (FreeStyle Lite Strips) use 1 test strip twice a day to test blood sugar empagliflozin 25 mg PO DAILY finasteride 5 mg orally Tuesday and Tuesday; take Tuesday and 90 days hydrochlorothiazide 12.5 mg PO DAILY lancets (FreeStyle Lancets) use 1 lancet twice a day to test blood sugar lancing device As directed to test blood sugar BID losartan 100 mg PO DAILY lovastatin 20 mg PO DAILY mecobalamin (vitamin B12) 1,000 mcg sublingual DAILY metoprolol succinate ER 25 mg PO DAILY multivitamin (Daily Multi-Vitamin tablet) 1 tab PO DAILY sitagliptin phosphate (Januvia) 100 mg PO DAILY tamsulosin 0.4 mg PO BEDTIME 90 days HPI Comments Details: Jose E returns for follow-up. In the past, he was seen regarding abnormal EKG including PVCs as well as prolonged KS. Patient himself does not have any clear-cut cardiac symptoms. At times, he has felt chest tightness but not exertional. He really does not feel the PVCs too much. However, multiple cardiovascular risk factors including diabetes, hypertension, dyslipidemia. His father apparently had coronary disease/myocardial infarction around his age. Brother also had bypass surgery at a similar age but he was also a smoker. He underwent cardiac catheterization but that did not show any significant findings. For the most part, he seems to be doing fine. Rare palpitations. Otherwise getting along okay. Active without any major limitations. [facility] Medical History Squamous cell carcinoma in situ Basal cell carcinoma Periorbital edema of left eye Foot callus Tinea unguium Actinic keratosis Plantar callus Type 2 diabetes mellitus without complication, without long-term current use of insulin Microscopic hematuria Poor urinary stream Fatty liver HTN (hypertension) Rupture of quadriceps muscle BPH (benign prostatic hyperplasia) Adenoma of both adrenal glands Diverticulitis Cataract Surgical History History of surgery Family History Father History of heart attack Mother No problems noted. Brother Throat cancer Social History Housing: House Alcohol intake: current Alcohol intake frequency: holidays/special occasions only Patient Tobacco Use Status: Never used Tobacco e-Cigarette/Vaping Use: Never Used Second Hand Smoke Exposure: No Current occupational status: retired Current occupational exposures/hazards: No Cognitive needs: No Hearing needs: No Vision needs: No Review of Systems Const Denies chills, Denies fatigue, Denies fever(s), Denies weight gain and Denies weight loss ENT Denies dizziness Card Denies chest pain, Denies leg edema, Denies lightheadedness, Denies palpitations, Denies dyspnea on exertion, Denies orthopnea and Denies other Resp Denies cough and Denies dyspnea on exertion GI Denies hematochezia and Denies change in stool character Musc Denies abnormal gait, Denies muscle weakness, Denies numbness, Denies radiating pain into limb and Denies tingling Neuro Denies abnormal gait, Denies dizziness, Denies numbness and Denies tingling Endo Denies fatigue and Denies palpitations Physical Exam Vital Signs: Last Vital Signs Pulse 59 10/25/23 10:41 BP 90/56 L 10/25/23 10:41 BMI result Body Mass Index 24.1 Office Procedures EKG Details: EKG with underlying sinus bradycardia, prolonged KS and PVCs in a bigeminal pattern. [id number], Complete Assessment & Plan Assessment & Plan (1) PVC (premature ventricular contraction): Code(s): I49.3 - Ventricular premature depolarization Category: Medical (2) AV block, 1st degree: Code(s): I44.0 - Atrioventricular block, first degree Category: Medical (3) Atherosclerotic cardiovascular disease: Comment: Cardiac catheterization showed no significant CAD Code(s): I25.10 - Atherosclerotic heart disease of [place] coronary artery without angina pectoris Category: Medical (4) Essential hypertension: Code(s): I10 - Essential (primary) hypertension Category: Medical Plan Cardiac studies reviewed. In the Holter, underlying rhythm is sinus with an average rate of 62/Min. Frequent PVCs with a burden of 17%. Longest run possibly around 3 beats but nothing prolonged. 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 Suspected diaphragmatic attenuation artifact in the inferior wall. No clear ischemia noted. In the exercise stress test, he exercised for 6 minutes and reached 7.3 METS. No issues with PVCs or other abnormalities of concern. Echocardiogram with LVEF of 58%. Basal inferior hypokinesis. Cardiac catheterization shows no significant disease. Minimal irregularities only. We discussed about PVCs in detail. We also reviewed all the strips from the Holter in today's EKG. At this time, he already has bradycardia and hence just keep on the same dose of beta-blockers. Will hold off antiarrhythmic therapy the absence of any overt symptoms and without any VT episodes. Plan to get cardiac MRI reassess for myocardial scar. Also discussed about potential EP consultation for ablation, but can do that after the MRI. Patient agrees with the above plan. Orders: Orders MR cardiac morph fnct w con Today I42.9 - Cardiomyopathy, unspecified, I49.3 - Ventricular premature depolarization Basic Metabolic Panel Today I49.3 - Ventricular premature depolarization Coding Level of Care Code Est Pt Level 4 (84262) Diagnoses PVC (premature ventricular contraction) I49.3 AV block, 1st degree I44.0 Atherosclerotic cardiovascular disease I25.10 Essential hypertension I10 CPT Codes EKG - CPT: 06527-[id number], Complete ([id number])
== END 2023-10-25 11:15 | disposition home or self-care (01) ==
PROVIDERS: PCP Nurse Practitioner Family; Visit Provider Internal Medicine
DX: I49.3 Ventricular premature depolarization (principal); I44.0 Atrioventricular block, first degree; I25.10 Atherosclerotic heart disease of native coronary artery without angina pectoris; I10 Essential (primary) hypertension
CPT/HCPCS: 93010; 99214

== ENCOUNTER → 2023-10-25 10:28 | Outpatient (BNVA) | payer MEDICARE, SELFPAY | PROVIDERS: PCP Nurse Practitioner Family; Visit Provider Internal Medicine | DX: I10 Essential (primary) hypertension (principal); I49.3 Ventricular premature depolarization; I44.0 Atrioventricular block, first degree; I25.10 Atherosclerotic heart disease of native coronary artery without angina pectoris; E78.5 Hyperlipidemia, unspecified; E11.9 Type 2 diabetes mellitus without complications | CPT/HCPCS: 93005; 99212 ==

== ENCOUNTER 2023-11-02 06:58 | Outpatient (REF) | payer MEDICARE, SELFPAY ==
[2023-11-02 10:16] LABS: MANUAL DIFF FLAG NO
[2023-11-02 10:17] LABS: Basophils Absolute Auto 0.1 X10*3/uL (0.0-0.2); Eosinophils Absolute Auto 0.2 X10*3/uL (0.0-0.4); Eosinophils Percent Auto 2.5 % (0-4); Hematocrit 44.3 % (42.0-52.0); Hemoglobin 14.6 g/dl (14.0-18.0); Imm Gran Abs Auto 0.05 X10*3/uL (0.00-0.03); Imm Gran Pct Auto 0.6 % (0.0-0.4); Lymphocytes Percent Auto 25.6 % (20-40); Mean Corpuscular Hemoglobin 30.4 pg (27.0-33.0); Mean Corpuscular Volume 92.1 fL (80.0-98.0); Mean Platelet Volume 11.1 fL (9.4-12.4); Monocytes Absolute Auto 1.1 X10*3/uL (0.1-1.2); Monocytes Percent Auto 13.6 % (2-11); Neutrophils Absolute Auto 4.4 x10*3/uL (2.0-8.3); Neutrophils Percent Auto 56.7 % (45-73); Platelet Count 239 X10*3/uL (160-400); Red Blood Count 4.81 X10*6/uL (4.60-5.80); Red Cell Distribution Width 13.5 % (11.0-16.0); White Blood Count 7.7 X10*3/uL (4.8-10.8)
[2023-11-02 11:08] LABS: Anion Gap 14 (12-20); Blood Urea Nitrogen 20 mg/dL (9-16); Calcium 9.4 mg/dL (8.4-10.2); Carbon Dioxide 23 mmol/L (22-29); Chloride 106 mmol/L (96-108); Estimated Glomerular Filt Rate 48; Glucose Random 160 mg/dL (60-115); Iron 66 mcg/dL (45-160); Percent Iron Saturation 24 % (15-50); Sodium 139 mmol/L (135-145); Total Iron Binding Capacity 270 mcg/dL (228-428); Unsaturated Iron Binding 204 ug/dL
[2023-11-02 11:31] LABS: Folate > 20.0 ng/mL (> or = 4.0); Vitamin B12 969 pg/mL (200-900)
[2023-11-02 11:35] LABS: Ferritin 123 ng/mL (20-250)
== END 2023-11-02 06:59 | disposition home or self-care (01) ==
LOC: HO.HMGCLDS 06:58
PROVIDERS: PCP Nurse Practitioner Family; Referring Provider Internal Medicine; Visit Provider Nurse Practitioner Family
DX: I49.3 Ventricular premature depolarization (principal); D64.9 Anemia, unspecified
CPT/HCPCS: 36415; 80048; 82607; 82728; 82746; 83540; 85025

== ENCOUNTER 2023-11-08 07:55 | Outpatient (AMB) | payer MEDICARE, SELFPAY ==
--- NOTE | 2023-11-08 07:56 | AM.OFFVISMDC ---
Intake Vital Signs 11/08/23 07:59 Height 5 ft 8 in Weight 160 lb BMI 24.3 BP 124/70 Blood Pressure Location Rt brachial Position Sitting Pulse 56 Pulse Source Pulse Oximeter Pulse Oximetry (%) 97 Oxygen Delivery Method Room Air Intake Visit Reasons: SWV G0439 Intake Note: Patient here for AWV Allergies No Known Allergies [No Known Allergies*] Allergy (Verified 11/08/23 09:09) Medication List - Last Reconciled 11/08/23 by MAIDA Bryan amlodipine 10 mg PO DAILY ammonium lactate 12% appl topical BID aspirin 81 mg PO DAILY blood sugar diagnostic (FreeStyle Lite Strips) use 1 test strip twice a day to test blood sugar empagliflozin 25 mg PO DAILY finasteride 5 mg orally Tuesday and 90 days lancets (FreeStyle Lancets) use 1 lancet twice a day to test blood sugar lancing device As directed to test blood sugar BID losartan 100 mg PO DAILY lovastatin 20 mg PO DAILY mecobalamin (vitamin B12) 1,000 mcg sublingual DAILY metoprolol succinate ER 25 mg PO DAILY multivitamin (Daily Multi-Vitamin tablet) 1 tab PO DAILY sitagliptin phosphate (Januvia) 100 mg PO DAILY tamsulosin 0.4 mg PO BEDTIME 90 days Do you need a note to return to daycare/school/sports/work: No HPI SWV G0439 HPI Details Pt is here for an SWV. Denies fever, chills, and dizziness. [place] of care not filled out. PPP will be scanned in chart and copy will be given to pt. diabetes: 7.8. restarting metformin today. denies any polyuria, polydipsia, neuropathy. eye exam is up to date. [facility] Medical History Squamous cell carcinoma in situ Basal cell carcinoma Periorbital edema of left eye Foot callus Tinea unguium Actinic keratosis Plantar callus Type 2 diabetes mellitus without complication, without long-term current use of insulin Microscopic hematuria Poor urinary stream Fatty liver HTN (hypertension) Rupture of quadriceps muscle BPH (benign prostatic hyperplasia) Adenoma of both adrenal glands Diverticulitis Cataract Surgical History History of surgery Family History Father History of heart attack Mother No problems noted. Brother Throat cancer Social History Housing: House Alcohol intake: current Alcohol intake frequency: holidays/special occasions only Patient Tobacco Use Status: Never used Tobacco e-Cigarette/Vaping Use: Never Used Second Hand Smoke Exposure: No Current occupational status: retired Current occupational exposures/hazards: No Cognitive needs: No Hearing needs: No Vision needs: No Questionnaire Medicare Wellness Checkup What is your age?: 82 or older What gender do you identify with?: male During the past 4 weeks, how much have you been bothered by emotional problems such as feeling anxious, depressed, irritable, sad or downhearted, and blue?: not at all During the past 4 weeks, has your physical & emotional health limited your social activities with family, friends, neighbors, or groups?: not at all During the past 4 weeks, how much bodily pain have you generally had?: moderate pain During the past 4 weeks, was someone available to help you if you needed & wanted help?: yes, as much as I wanted During the past 4 weeks, what was the hardest physical activity you could do for at least 2 minutes?: very heavy Can you get to places out of walking distance without help? (For eg., can you travel alone on buses, taxis or drive your car?): Yes Can you go shopping for groceries or clothes without someone's help?: Yes Can you prepare your own meals?: Yes Can you do your housework without help?: Yes Because of any health problems, do you need the help of another person with your personal care needs such as eating, bathing, dressing or getting around the house?: No Can you handle your own money without help?: Yes During the past 4 weeks, how would you rate your health in general?: very good During the past 4 weeks how have things been going for you?: very well; could hardly better Are you having difficulties driving your car?: no Do you always fasten your seat belt when you are in a car?: yes, usually During past 4 weeks, have you been bothered by the following: never: Trouble eating well?, Teeth or denture problems?, Problems using the telephone? and Tiredness or fatigue?, seldom: Sexual problems? and sometimes: Falling or dizzy when standing up Have you fallen 2 or more times in the past year?: No Are you afraid of falling?: No Are you a smoker?: no During the past 4 weeks, how many drinks of wine, beer, or other alcoholic beverages did you have?: 1 drink or less per week Do you exercise for about 20 minutes 3 or more times a week?: yes, most of the time Have you been given information to help with the following?: no: Hazards in your house that might hurt you? and no: Keeping track of your medications? How often do you have trouble taking medicines the way you have been told to take them?: I always take medicine as prescribed How confident are you that you can control & manage most of your health problems?: very confident What is your race?: White Mini Mental State Exam (MMSE) Registration Name of 3 unrelated objects clearly and slowly, then ask patient to repeat all 3 of them. (1st repeat determines score. Make sure they can repeat all three): object 1, object 2 and object 3 Attention & Calculation (CHOOSE ONE) Spell WORLD backwards (DLROW): 5 letters Recall Ask patient to repeat the 3 items from question #3.: object 1, object 2 and object 3 Language Show patient a wristwatch & ask what it is. Repeat for pencil.: watch and pencil Ask the patient to repeat the phrase 'No ifs, ands, or buts' after you.: correct Ask the patient to 'take a piece of paper with their right hand' 'fold paper in half' 'place paper on floor': take paper in right hand, fold paper in half and place paper on floor Print the sentence 'CLOSE YOUR EYES' on a piece. If patient actually closes eyes then score.: followed written direction Give patient a blank piece of paper & ask to write a sentence. Score if it contains a noun & verb.: sentence contains subject and verb Ask patient to copy figure of intersecting pentagons exactly. Score if all 10 angles & 2 intersects are included.: all 10 angles present & 2 are intersected Score Score: 20 Activity of Daily Living Bathing - sponge bath, tub bath or shower: receives no assistance (gets in/out by self, if usual bathing means Dressing - getting clothes from closets & drawers, including inner/outer garments & fasteners.: gets clothes & gets completely dressed without help Toileting - going to the 'toilet room' for urine/bowel elimination & cleaning self/arranging clothes: goes to toilet room, cleans self, arranges clothes without help Transfer: moves in & out of bed and chair without help (may use support object) Continence: controls urination/bowel movements completely by self Feeding: feeds self without help Total Score: 0 Information obtained from: patient Using telephone: independent Traveling: independent Shopping: independent Preparing meals: independent Housework: independent Taking medicine: independent Managing money: independent PHQ-9 Over the last 2 weeks, how often have you been bothered by any of the following problems? 1. Little interest or pleasure in doing things: not at all 2. Feeling down, depressed, or hopeless: not at all 3. Trouble falling or staying asleep, or sleeping too much: not at all 4. Feeling tired or having little energy: not at all 5. Poor appetite or overeating: not at all 6. Feeling bad about yourself - or that you are a failure or have let yourself or your family down: not at all 7. Trouble concentrating on things, such as reading the newspaper or watching television: not at all Depression Screening Interpretation: Negative Depression Screening Done: Yes 09130 - PHQ-9 Billing: Yes Source: Developed by Drs. Nicolas Kapoor, Marlys Mcknight, Austin Skinner and colleagues, with an educational alvarez from [employer]. Physical Exam Vital Signs: Last Vital Signs Pulse 56 11/08/23 07:59 BP 124/70 11/08/23 07:59 Pulse Ox 97 11/08/23 07:59 Oxygen Delivery Method Room Air 11/08/23 07:59 BMI result Body Mass Index 24.3 Results AMB Hemoglobin A1c AMB Hemoglobin A1c 7.8 % Last Edit by ALEE Mason on 11/08/23 08:22 Assessment & Plan Assessment & Plan (1) [place] (hard of hearing): Code(s): H91.90 - Unspecified hearing loss, unspecified ear Plan: referred to speech and hearing (2) Type 2 diabetes mellitus without complication, without long-term current use of insulin: Code(s): E11.9 - Type 2 diabetes mellitus without complications Plan: adding metformin again (3) Medicare annual wellness visit, subsequent: Code(s): Z00.00 - Encounter for general adult medical examination without abnormal findings Plan: done Orders: Orders Comprehensive Met. Panel Today R79.89 - Other specified abnormal findings of blood chemistry Microalbumin, Random (w Creat) Today E11.9 - Type 2 diabetes mellitus without complications, Z00.00 - Encounter for general adult medical examination without abnormal findings AMB Hemoglobin A1c Today Z13.9 - Encounter for screening, unspecified Referrals Speech and Hearing Referral H91.90 - Unspecified hearing loss, unspecified ear Medications: New metformin ER 500 mg PO BID 90 days 180 tabs 0RF Coding Level of Care Code Medicare Subsequent (G0439) Est Pt Level 3 (38171) Diagnoses [place] (hard of hearing) H91.90 Type 2 diabetes mellitus without complication, without long-term current use of insulin E11.9 Medicare annual wellness visit, subsequent Z00.00 Advance Care Planning Forms completed: Health Care Proxy, MIA (pt will bring in copy) and Living will (done) Actual minutes spent: 10
[2023-11-08 07:59] VITALS: BP 124/70; PULSE 56; O2SAT 97; BMI 24.3
== END 2023-11-08 08:35 | disposition home or self-care (01) ==
PROVIDERS: PCP Nurse Practitioner Family; Visit Provider Nurse Practitioner Family
DX: Z00.00 Encounter for general adult medical examination without abnormal findings (principal); H91.93 Unspecified hearing loss, bilateral; E11.9 Type 2 diabetes mellitus without complications
CPT/HCPCS: 83036; 99213; G0439

== ENCOUNTER 2023-11-09 07:30 | Outpatient (REF) | payer MEDICARE, SELFPAY ==
[2023-11-09 10:52] LABS: Alanine Aminotransferase 26 U/L (0-40); Alkaline Phosphatase 88 U/L (39-117); Anion Gap 11 (12-20); Aspartate Amino Transferase 24 U/L (5-37); Bilirubin Total 0.7 mg/dL (0.0-1.0); Blood Urea Nitrogen 20 mg/dL (9-16); Calcium 9.4 mg/dL (8.4-10.2); Carbon Dioxide 23 mmol/L (22-29); Chloride 109 mmol/L (96-108); Estimated Glomerular Filt Rate > 60; Glucose Random 127 mg/dL (60-115); Sodium 139 mmol/L (135-145); Total Protein 7.4 g/dL (6.5-8.0)
[2023-11-09 11:43] LABS: Creatinine Urine 27.19 mg/dL; Microalbum/Creatinine Ratio Ur 33.1 ug/mg cr (<30)
== END 2023-11-09 07:31 | disposition home or self-care (01) ==
LOC: HO.HMGCLDS 07:30
PROVIDERS: PCP Nurse Practitioner Family; Visit Provider Nurse Practitioner Family
DX: Z00.00 Encounter for general adult medical examination without abnormal findings (principal); R79.89 Other specified abnormal findings of blood chemistry; E11.9 Type 2 diabetes mellitus without complications
CPT/HCPCS: 36415; 80053; 82043; 82570

== ENCOUNTER 2023-11-28 08:42 | Outpatient (REF) | payer MEDICARE, SELFPAY | END 2023-11-28 08:43 | disposition home or self-care (01) | LOC: HO.SH 08:42 | PROVIDERS: Visit Provider Nurse Practitioner Family | DX: Z01.118 Encounter for examination of ears and hearing with other abnormal findings (principal); H90.3 Sensorineural hearing loss, bilateral | CPT/HCPCS: 92552; 92556 ==

== ENCOUNTER 2023-11-28 09:23 | Outpatient (REF) | payer SELFPAY ==
--- NOTE | 2023-11-28 09:33 | MHC.AU.HA3 ---
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 Reports hearing aids are working well. Notes tails have broken off slim tubes. Cleaned and checked aids. Found left not amplifying initially- improved after cleaning erika cover and erika ports. Replaced slim tubes and domes. Listening check positive. Briefly discussed new technology, not interested at this time. Recommendations: Recommendations: Hearing instrument follow-up or maintenance as needed. Diagnosis Code(s): Primary Diagnosis: H90.3 Bilateral Sensorineural Hearing Loss Signature: Provider: Bertha Venegas, CCC-A
== END 2023-11-28 09:24 | disposition home or self-care (01) ==
LOC: HO.HAP 09:23
PROVIDERS: Visit Provider Nurse Practitioner Family
DX: Z46.1 Encounter for fitting and adjustment of hearing aid (principal); H90.3 Sensorineural hearing loss, bilateral
CPT/HCPCS: 92593

== ENCOUNTER 2023-12-22 13:35 | Outpatient (AMB) | payer MEDICARE, SELFPAY ==
[2023-12-22 13:37] VITALS: BP 100/58; PULSE 60; BMI 24.3
--- NOTE | 2023-12-22 13:37 | MHC.OFFVIS ---
Vital Signs 12/22/23 13:37 Height 5 ft 8 in Weight 159 lb 9.835 oz BMI 24.3 BP 100/58 L Blood Pressure Location Lt brachial Position Sitting Pulse 60 Pulse Source Pulse Oximeter Intake Visit Reasons: Discuss MRI results. 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 Accompanied by: Self / Same As Patient Allergies No Known Allergies [No Known Allergies*] Allergy (Verified 11/08/23 09:09) Medication List - Last Reconciled 12/22/23 by Dick Henderson MD amlodipine 10 mg PO DAILY ammonium lactate 12% appl topical BID aspirin 81 mg PO DAILY blood sugar diagnostic (FreeStyle Lite Strips) use 1 test strip twice a day to test blood sugar empagliflozin 25 mg PO DAILY finasteride 5 mg orally Tuesday and 90 days lancets (FreeStyle Lancets) use 1 lancet twice a day to test blood sugar lancing device As directed to test blood sugar BID losartan 100 mg PO DAILY lovastatin 20 mg PO DAILY mecobalamin (vitamin B12) 1,000 mcg sublingual DAILY metformin ER 500 mg PO BID 90 days metoprolol succinate ER 25 mg PO DAILY multivitamin (Daily Multi-Vitamin tablet) 1 tab PO DAILY sitagliptin phosphate (Januvia) 100 mg PO DAILY tamsulosin 0.4 mg PO BEDTIME 90 days HPI Comments Details: Jose E returns for follow-up. In the past, he was seen regarding abnormal EKG including PVCs as well as prolonged [place]. Occasional palpitations, but no other clear-cut symptoms. Multiple cardiovascular risk factors including diabetes, hypertension, dyslipidemia. His father apparently had coronary disease/myocardial infarction around his age. Brother also had bypass surgery at a similar age but he was also a smoker. He underwent cardiac catheterization but that did not show any significant findings. Recently, completed cardiac MRI. [facility] Medical History Squamous cell carcinoma in situ Basal cell carcinoma Periorbital edema of left eye Foot callus Tinea unguium Actinic keratosis Plantar callus Type 2 diabetes mellitus without complication, without long-term current use of insulin Microscopic hematuria Poor urinary stream Fatty liver HTN (hypertension) Rupture of quadriceps muscle BPH (benign prostatic hyperplasia) Adenoma of both adrenal glands Diverticulitis Cataract Surgical History History of surgery Family History Father History of heart attack Mother No problems noted. Brother Throat cancer Social History Housing: House Alcohol intake: current Alcohol intake frequency: holidays/special occasions only Patient Tobacco Use Status: Never used Tobacco e-Cigarette/Vaping Use: Never Used Second Hand Smoke Exposure: No Current occupational status: retired Current occupational exposures/hazards: No Cognitive needs: No Hearing needs: No Vision needs: No Review of Systems Const Denies chills, Denies fatigue, Denies fever(s), Denies weight gain and Denies weight loss ENT Denies dizziness Card Denies chest pain, Denies leg edema, Denies lightheadedness, Denies palpitations, Denies dyspnea on exertion, Denies orthopnea and Denies other Resp Denies cough and Denies dyspnea on exertion GI Denies hematochezia and Denies change in stool character Musc Denies abnormal gait, Denies muscle weakness, Denies numbness, Denies radiating pain into limb and Denies tingling Neuro Denies abnormal gait, Denies dizziness, Denies numbness and Denies tingling Endo Denies fatigue and Denies palpitations Physical Exam Vital Signs: Last Vital Signs Pulse 60 12/22/23 13:37 BP 100/58 L 12/22/23 13:37 BMI result Body Mass Index 24.3 Const General: comfortable and no acute distress Orientation/consciousness: patient oriented x3 HEENT Other: Unremarkable Head: Yes normal to inspection Neck Neck: Yes normal visual inspection Chest Chest palpation & inspection: normal inspection of the chest Resp Auscultation: clear to auscultation bilaterally Cardio Palpation: normal PMI Heart sounds: S1 normal heart sound present, S2 normal heart sound present, no gallops, no murmurs and no rubs GI Palpation (GI): Soft to palpation Back/Spine/Pelvis Other: unremarkable Skin General skin exam: no rashes or lesions noted Neuro General: patient oriented x3 Extrem General: Yes normal to inspection Psych Mental Status: mental status grossly normal Assessment & Plan Assessment & Plan (1) PVC (premature ventricular contraction): Code(s): I49.3 - Ventricular premature depolarization Category: Medical (2) AV block, 1st degree: Code(s): I44.0 - Atrioventricular block, first degree Category: Medical Plan Cardiac studies reviewed. EKG with underlying sinus rhythm, frequent PVCs in a bigeminal pattern and mild TX prolongation. In the Holter, underlying rhythm is sinus with an average rate of 62/Min. Frequent PVCs with a burden of 17%. Longest run possibly around 3 beats but nothing prolonged. 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 Suspected diaphragmatic attenuation artifact in the inferior wall. No clear ischemia noted. In the exercise stress test, he exercised for 6 minutes and reached 7.3 METS. No issues with PVCs or other abnormalities of concern. Echocardiogram with LVEF of 58%. Basal inferior hypokinesis. Cardiac catheterization shows no significant disease. Minimal irregularities only. Cardiac MRI with LVEF of 55-60%. Apical trabeculation but not meeting diagnostic criteria for noncompaction. Mid inferolateral fibrosis. Delayed enhancement with patchy transmural enhancement in the basal to mid inferolateral wall. Overall conclusion is that findings could be nonspecific and that infiltrative cardiomyopathy is possible. Sarcoidosis vs amyloid versus myocarditis versus scar. Cardiac PET is pending to assess for sarcoid. Overall, frequent PVCs but no clear-cut symptoms apart from occasional palpitations. We will get the PET scan as above and then refer him to EP for consultation. He is on a small dose of beta-blockers that may be continued. Blood pressure is already lowish and his average ventricular rate is only 62/Min on the Holter and hence not much room to go up. Follow-up in 3 months. Total time spent including review of data, counseling, documentation, coordination of care-32 minutes. Coding Level of Care Code Est Pt Level 4 (18779) Diagnoses PVC (premature ventricular contraction) I49.3 AV block, 1st degree I44.0
== END 2023-12-22 13:59 | disposition home or self-care (01) ==
PROVIDERS: PCP Nurse Practitioner Family; Visit Provider Internal Medicine
DX: I49.3 Ventricular premature depolarization (principal); I44.0 Atrioventricular block, first degree
CPT/HCPCS: 99214

== ENCOUNTER → 2023-12-22 13:35 | Outpatient (BNVA) | payer MEDICARE, SELFPAY | PROVIDERS: PCP Nurse Practitioner Family; Visit Provider Internal Medicine | DX: I49.3 Ventricular premature depolarization (principal); I44.0 Atrioventricular block, first degree | CPT/HCPCS: 99212 ==

== ENCOUNTER 2024-01-20 08:02 | Outpatient (AMB) | payer MEDICARE, SELFPAY ==
[2024-01-20 08:08] VITALS: BP 128/60; PULSE 62; TEMP 36.6; O2SAT 96; BMI 24.2
--- NOTE | 2024-01-20 08:08 | MHC.OFFWIV ---
Intake Vital Signs 01/20/24 08:08 Height 5 ft 8 in Weight 159 lb BMI 24.2 BP 128/60 Blood Pressure Location Rt brachial Position Sitting Pulse 62 Pulse Source Pulse Oximeter Temp 97.8 F Temp Source Oral Pulse Oximetry (%) 96 Oxygen Delivery Method Room Air Intake Visit Reasons: EP lower back pain Intake Note: Pt is here today c/o lower back pain [id number] Patient Tobacco Use Status: Never used Tobacco Allergies No Known Allergies [No Known Allergies*] Allergy (Verified 01/20/24 08:11) HPI HPI Comments History of Present Illness Details Patient is an 83-year-old male complaining of 2 weeks of left-sided low back pain. He denies any injury, he denies any new workout regimen, lifting or moving anything unusual or very heavy. He states he has not been doing much for it but he did take some Excedrin yesterday which did not really seem to help much. He denies any blood in his urine or any changes in his urinary habits. He states the pain does not radiate down his leg. He describes the pain as a sharp shooting pain that starts in the left side of his low back in goes across his low back. [facility] Medical History Squamous cell carcinoma in situ Basal cell carcinoma Periorbital edema of left eye Foot callus Tinea unguium Actinic keratosis Plantar callus Type 2 diabetes mellitus without complication, without long-term current use of insulin Microscopic hematuria Poor urinary stream Fatty liver HTN (hypertension) Rupture of quadriceps muscle BPH (benign prostatic hyperplasia) Adenoma of both adrenal glands Diverticulitis Cataract Surgical History History of surgery Family History Father History of heart attack Mother No problems noted. Brother Throat cancer Social History Housing: House Alcohol intake: current Alcohol intake frequency: holidays/special occasions only Patient Tobacco Use Status: Never used Tobacco e-Cigarette/Vaping Use: Never Used Second Hand Smoke Exposure: No Current occupational status: retired Current occupational exposures/hazards: No Cognitive needs: No Hearing needs: No Vision needs: No Review of Systems Const All systems reviewed & are unremarkable except as noted in HPI and below Physical Exam Vital Signs: Last Vital Signs Temp 97.8 F 01/20/24 08:08 Pulse 62 01/20/24 08:08 BP 128/60 01/20/24 08:08 Pulse Ox 96 01/20/24 08:08 Oxygen Delivery Method Room Air 01/20/24 08:08 BMI result Body Mass Index 24.2 Const General: cooperative, healthy appearing and comfortable Orientation/consciousness: patient oriented x3 HEENT Head: Yes normal to inspection and Yes normocephalic General nose exam: Normal external nose present Face and sinus: Yes normal facial exam Eyes General: appearance normal, both eyes and all related structures Resp Effort & Inspection: normal respiratory effort and able to speak in complete sentences General: Yes no CVA tenderness Back/Spine/Pelvis Back: no CVA tenderness Cervical Spine: cervical ROM normal and No Cervical spine tenderness Thoracic/Lumbar Spine: thoracic and lumbar spine normal to inspection, straight leg raise negative bilaterally, pain with thoraco-lumbar ROM, paraspinal muscle tenderness on the left, No thoracic spinal tenderness and No lumbar spinal tenderness Neuro General: patient oriented x3 Extrem Other: Straight leg raise test negative on right; Straight leg raise test negative on left; Reflexes normal ankle and knee bilaterally; motor strength normal bilaterally Assessment & Plan Assessment & Plan (1) Low back pain: Code(s): M54.50 - Low back pain, unspecified Qualifiers: Back pain laterality: left Chronicity: acute Sciatica presence: without sciatica Qualified Code(s): M54.50 - Low back pain, unspecified Plan: Nose there is no true injury or reason for his low back pain, we will get an x-ray. Recommended he use Aleve ATC with ice and rest. He does have a follow up with his PCP next week so he can discuss this if he there is no resolution in his symptoms with this treatment. Also recommended he use Salonpas patches in the area. Plan See above Orders: Orders XR lumbar spine 4V min Today M54.50 - Low back pain, unspecified Coding Level of Care Code Est Pt Level 4 (04794) Diagnoses Acute left-sided low back pain without sciatica M54.50 Back pain laterality: left Chronicity: acute Sciatica presence: without sciatica
== END 2024-01-20 08:43 | disposition home or self-care (01) ==
PROVIDERS: PCP Nurse Practitioner Family; Visit Provider Physician Assistant
DX: M54.50 Low back pain, unspecified (principal)

== ENCOUNTER → 2024-01-20 08:02 | Outpatient (BNVA) | payer MEDICARE, SELFPAY | PROVIDERS: PCP Nurse Practitioner Family; Visit Provider Physician Assistant ==

== ENCOUNTER 2024-01-20 08:21 | Outpatient (REF) | payer MEDICARE, SELFPAY ==
--- NOTE | ~2024-01-20 | XR_ITS ---
EXAMINATION: XR LUMBAR SPINE CLINICAL INFORMATION: Low back pain COMPARISON: Chest radiograph 10/20/2021 TECHNIQUE: 4 views of the lumbar spine FINDINGS: Minimal superior endplate compression deformity of L5 vertebral body is new/ slightly increased from prior exam. Remaining lumbar vertebral bodies demonstrate normal height. Overall alignment appears maintained. Again noted multilevel spondylosis with degenerative osteophytes and intervertebral disc space narrowing at L2-L3 through L5-S1. There is severe lower lumbar facet arthropathy. Vascular calcifications. Bilateral sacroiliac joints appear intact. No definite pars defects and oblique views. XR/XR lumbar spine 4V min IMPRESSION: Minimal superior plate compression deformity of L5 vertebral body which is new/minimally progressed from prior exam. Multilevel lumbar spondylosis as detailed. Electronically signed by: Jarrell Barrios MD 01/20/2024 10:35 AM EDT
== END 2024-01-20 08:22 | disposition home or self-care (01) ==
LOC: HO.HMGCX 08:21
PROVIDERS: PCP Nurse Practitioner Family; Visit Provider Physician Assistant
DX: M54.50 Low back pain, unspecified (principal)
CPT/HCPCS: 72110; 99212

== ENCOUNTER 2024-01-23 07:55 | Outpatient (REF) | payer MEDICARE, SELFPAY ==
[2024-01-23 10:04] LABS: MANUAL DIFF FLAG NO
[2024-01-23 10:11] LABS: Basophils Absolute Auto 0.1 X10*3/uL (0.0-0.2); Basophils Percent Auto 1.3 % (0-2); Eosinophils Absolute Auto 0.2 X10*3/uL (0.0-0.4); Hematocrit 46.5 % (42.0-52.0); Hemoglobin 15.2 g/dl (14.0-18.0); Imm Gran Abs Auto 0.05 X10*3/uL (0.00-0.03); Imm Gran Pct Auto 0.5 % (0.0-0.4); Lymphocytes Absolute Auto 2.6 X10*3/uL (1.2-4.9); Lymphocytes Percent Auto 26.1 % (20-40); Mean Corpuscular HGB Conc 32.7 g/dl (31.0-36.0); Mean Corpuscular Volume 91.7 fL (80.0-98.0); Mean Platelet Volume 11.5 fL (9.4-12.4); Monocytes Absolute Auto 1.2 X10*3/uL (0.1-1.2); Monocytes Percent Auto 11.7 % (2-11); Neutrophils Absolute Auto 5.8 x10*3/uL (2.0-8.3); Neutrophils Percent Auto 58.4 % (45-73); Platelet Count 239 X10*3/uL (160-400); Red Blood Count 5.07 X10*6/uL (4.60-5.80); Red Cell Distribution Width 13.4 % (11.0-16.0); White Blood Count 9.9 X10*3/uL (4.8-10.8)
[2024-01-23 10:27] LABS: Estimated Average Glucose 148 mg/dL; Hemoglobin A1C 184.9422 umol/L; Hemoglobin A1c % 6.8 % (<6.0); Total Hemoglobin (HGBA1C) 3655.1376 umol/L
[2024-01-23 10:31] LABS: Alanine Aminotransferase 24 U/L (0-40); Albumin Level 4.1 g/dL (3.5-5.0); Alkaline Phosphatase 104 U/L (39-117); Anion Gap 14 (12-20); Aspartate Amino Transferase 25 U/L (5-37); Bilirubin Total 0.4 mg/dL (0.0-1.0); Blood Urea Nitrogen 22 mg/dL (9-16); Calcium 9.4 mg/dL (8.4-10.2); Carbon Dioxide 25 mmol/L (22-29); Chloride 106 mmol/L (96-108); Cholesterol 132 mg/dL (<200); Estimated Glomerular Filt Rate > 60; Glucose Fasting 104 mg/dL (60-99); HDL Cholesterol 37 mg/dL (>40); LDL Cholesterol Calculated 62 mg/dL (<100); Sodium 141 mmol/L (135-145); Total Protein 7.2 g/dL (6.5-8.0); Triglycerides 167 mg/dL (<150)
[2024-01-23 10:38] LABS: Appearance Urine Clear; Color Urine Yellow; Glucose Urine UA >=1000 mg/dL (Negative); Leukocyte Esterase Urine Negative (Negative); Nitrite Urine Negative (Negative); PH 5.5 (5.0-9.0); UMIC TRIGGER UACC YES; Urine Blood Negative (Negative); Urine Ketones Negative (Negative); Urine Protein Negative (Neg-Trace)
[2024-01-23 10:49] LABS: TSH reflex Free T4 3.26 uIU/mL (0.32-4.0)
[2024-01-23 11:37] LABS: Bacteria Urine None Seen (None Seen); Hyaline Casts Urine 0-2 /LPF (0-2); RBC Urine 0-2 /HPF (0-2); Squamous Epithelial Cell Urine 0-2 /HPF (0-2); WBC Urine 0-5 /HPF (0-5)
== END 2024-01-23 07:56 | disposition home or self-care (01) ==
LOC: HO.HMGCLDS 07:55
PROVIDERS: PCP Nurse Practitioner Family; Visit Provider Nurse Practitioner Family
DX: E11.9 Type 2 diabetes mellitus without complications (principal)
CPT/HCPCS: 36415; 80053; 80061; 81001; 83036; 84443; 85025

== ENCOUNTER 2024-01-26 07:59 | Outpatient (AMB) | payer MEDICARE, SELFPAY ==
[2024-01-26 08:00] VITALS: BP 130/62; PULSE 63; O2SAT 98; BMI 24.2
--- NOTE | 2024-01-26 08:00 | A.OFFPC_ITS ---
Vital Signs 01/26/24 08:00 Height 5 ft 8 in Weight 159 lb BMI 24.2 BP 130/62 Blood Pressure Location Rt brachial Position Sitting Pulse 63 Pulse Source Pulse Oximeter Pulse Oximetry (%) 98 Oxygen Delivery Method Room Air Intake Visit Reasons: 3 Month F/U Intake Note: pt is here for 3 month follow up History Professor Required: No Accompanied by: Self / Same As Patient Allergies No Known Allergies [No Known Allergies*] Allergy (Verified 01/26/24 08:01) Tobacco use date assessed: 01/26/24 Fall risk assessment: No Falls in past year Last assessed Fall Risk: 01/26/24 Dental Screening Dental Screen Date: 07/27/23 HPI 3 Month F/U HPI Details Pt is a diabetic, on an ARB and a statin. Last A1C was 6.8. Microalbumin is up to date. Denies polyuria, polydipsia, and neuropathy. Pt denies any signs and symptoms of hypoglycemia and does know how to correct it. pt gets yearly eye exams [facility] Medical History Squamous cell carcinoma in situ Basal cell carcinoma Periorbital edema of left eye Foot callus Tinea unguium Actinic keratosis Plantar callus Type 2 diabetes mellitus without complication, without long-term current use of insulin Microscopic hematuria Poor urinary stream Fatty liver HTN (hypertension) Rupture of quadriceps muscle BPH (benign prostatic hyperplasia) Adenoma of both adrenal glands Diverticulitis Cataract Surgical History History of surgery Family History Father History of heart attack Mother No problems noted. Brother Throat cancer Social History Housing: House Alcohol intake: current Alcohol intake frequency: holidays/special occasions only Patient Tobacco Use Status: Never used Tobacco e-Cigarette/Vaping Use: Never Used Second Hand Smoke Exposure: No Current occupational status: retired Current occupational exposures/hazards: No Cognitive needs: No Hearing needs: No Vision needs: No Questionnaire PHQ-9 Over the last 2 weeks, how often have you been bothered by any of the following problems? 88187 - PHQ-9 Billing: Patient declined-do not bill Source: Developed by Drs. Nicolas Kapoor, Marlys Mcknight, Austin Skinner and colleagues, with an educational alvarez from [employer]. Thrive Questionnaire Date Thrive assessed: 01/26/24 I am a: Patient What is your living situation today?: I choose not to answer this question Within the past 12 months, did the food you bought not last and you didn't have the money to get more?: I choose not to answer this question Within the past 12 months, did you worry whether your food would run out before you got money to buy more?: I choose not to answer this question Do you have trouble paying for medicines?: I choose not to answer this question Do you have trouble getting transportation to medical appointments?: I choose not to answer this question Do you have trouble paying your heating and electricity bill?: I choose not to answer this question Do you have trouble taking care of your child, family member or friend?: No Do you have trouble with day-to-day activities such as bathing, preparing meals, shopping, managing finances, etc.?: I choose not to answer this question Are you currently unemployed and looking for a job?: I choose not to answer this question Are you interested in more education?: I choose not to answer this question Please select the resources that you would like help with: None Currently or been in a relationship where the following occur: I choose not to answer THRIVE Score: 0 MIK-7 AMB Questionnaire MIK-7 Date MIK - 7 assessed: 04/13/23 Source: Developed by Drs. Nicolas Kapoor, Marlys Mcknight, Austin Skinner and colleagues, with an educational alvarez from [employer]. MIK-7 Assessment Billing MIK-7 Assessment Tool: pt declined-do not bill Review of Systems Const Reports as per HPI Physical exam (Primary Care) Vital Signs: Last Vital Signs Pulse 63 01/26/24 08:00 BP 130/62 01/26/24 08:00 Pulse Ox 98 01/26/24 08:00 Oxygen Delivery Method Room Air 01/26/24 08:00 BMI result Body Mass Index 24.2 Tobacco/Smoking Status: Tobacco use Status Tobacco use date assessed 01/26/24 01/26/24 08:02 Patient Tobacco Use Status Never used Tobacco 01/26/24 08:02 e-Cigarette/Vaping Use Never Used 01/26/24 08:02 Thrive Assessment: Date of Thrive Assessment Date Thrive assessed 01/26/24 01/26/24 08:02 Currently or been in a relationship where the following occur: I choose not to answer Const General: cooperative Orientation/consciousness: patient oriented x3 Resp Effort & Inspection: normal respiratory effort Auscultation: clear to auscultation bilaterally Cardio Rate: regular rate Rhythm: regular rhythm Heart sounds: S1 normal heart sound present and S2 normal heart sound present Neuro General: patient oriented x3 Extrem Other: bilat feet: + sensation with use of monofilament, feet intact Psych Appearance: grossly normal Mental Status: mental status grossly normal Speech and movement: Normal speech and movement present Affect: normal affect Attitude: cooperative Thought process: Normal thought process present Thought content: Normal thought content present Insight: Good insight present (Psych) Judgement: Good judgement present (Psych) Coding Level of Care Code Est Pt Level 3 (45287) Diagnoses Type 2 diabetes mellitus without complication, without long-term current use of insulin E11.9 Assessment & Plan Assessment & Plan (1) Type 2 diabetes mellitus without complication, without long-term current use of insulin: Code(s): E11.9 - Type 2 diabetes mellitus without complications Category: Medical Plan The patient agreed to the use of a biomedical electronics technician for this encounter. Scribed for HAMMAD Morales by Felicita Krueger biomedical electronics technician, on 01/26/2024 at 08:15 EST.
== END 2024-01-26 08:39 | disposition home or self-care (01) ==
PROVIDERS: PCP Nurse Practitioner Family; Visit Provider Nurse Practitioner Family
DX: E11.9 Type 2 diabetes mellitus without complications (principal)

== ENCOUNTER → 2024-01-26 07:59 | Outpatient (BNVA) | payer MEDICARE, SELFPAY | PROVIDERS: PCP Nurse Practitioner Family; Visit Provider Nurse Practitioner Family | DX: E11.9 Type 2 diabetes mellitus without complications (principal) | CPT/HCPCS: 99212 ==

== ENCOUNTER 2024-03-14 13:19 | Outpatient (AMB) | payer MEDICARE, SELFPAY ==
[2024-03-14 13:43] VITALS: BP 108/42; PULSE 30; BMI 24.3
--- NOTE | 2024-03-14 13:43 | MHC.OFFVIS ---
Vital Signs 03/14/24 13:43 Height 5 ft 8 in Weight 159 lb 9.835 oz BMI 24.3 BP 108/42 L Blood Pressure Location Rt brachial Position Sitting Pulse 30 L Pulse Source Pulse Oximeter Intake Visit Reasons: 3m follow up Ad Operations Coordinator Required: No Accompanied by: Self / Same As Patient Allergies No Known Allergies [No Known Allergies*] Allergy (Verified 01/26/24 08:01) Medication List - Last Reconciled 03/14/24 by Dick Henderson MD amlodipine 10 mg PO DAILY aspirin 81 mg PO DAILY blood sugar diagnostic (FreeStyle Lite Strips) use 1 test strip twice a day to test blood sugar empagliflozin 25 mg PO DAILY finasteride 5 mg orally Tuesday and 90 days lancets (FreeStyle Lancets) use 1 lancet twice a day to test blood sugar lancing device As directed to test blood sugar BID losartan 100 mg PO DAILY lovastatin 20 mg PO DAILY mecobalamin (vitamin B12) 1,000 mcg sublingual DAILY metformin ER 500 mg PO BID 90 days metoprolol succinate ER 25 mg PO DAILY multivitamin (Daily Multi-Vitamin tablet) 1 tab PO DAILY sitagliptin phosphate (Januvia) 100 mg PO DAILY tamsulosin 0.4 mg PO BEDTIME 90 days HPI Comments Details: Jose E returns for follow-up. In the past, he was seen regarding abnormal EKG including PVCs as well as prolonged NC. Multiple cardiovascular risk factors including diabetes, hypertension, dyslipidemia. He underwent cardiac catheterization but that did not show any significant findings. Recently, completed cardiac MRI. He was also sent to EP for evaluation. Overall, he states he feels good. No clear cardiac symptoms. [facility] Medical History (Reviewed 01/26/24 @ 09:21 by Stevan Cadena, [facility]) Squamous cell carcinoma in situ Basal cell carcinoma Periorbital edema of left eye Foot callus Tinea unguium Actinic keratosis Plantar callus Type 2 diabetes mellitus without complication, without long-term current use of insulin Microscopic hematuria Poor urinary stream Fatty liver HTN (hypertension) Rupture of quadriceps muscle BPH (benign prostatic hyperplasia) Adenoma of both adrenal glands Diverticulitis Cataract Surgical History History of surgery Family History Father History of heart attack Mother No problems noted. Brother Throat cancer Social History Housing: House Alcohol intake: current Alcohol intake frequency: holidays/special occasions only Patient Tobacco Use Status: Never used Tobacco e-Cigarette/Vaping Use: Never Used Second Hand Smoke Exposure: No Current occupational status: retired Current occupational exposures/hazards: No Cognitive needs: No Hearing needs: No Vision needs: No Review of Systems Const Denies chills, Denies fatigue, Denies fever(s), Denies weight gain and Denies weight loss ENT Denies dizziness Card Denies chest pain, Denies leg edema, Denies lightheadedness, Denies palpitations, Denies dyspnea on exertion, Denies orthopnea and Denies other Resp Denies cough and Denies dyspnea on exertion GI Denies hematochezia and Denies change in stool character Musc Denies abnormal gait, Denies muscle weakness, Denies numbness, Denies radiating pain into limb and Denies tingling Neuro Denies abnormal gait, Denies dizziness, Denies numbness and Denies tingling Endo Denies fatigue and Denies palpitations Physical Exam Vital Signs: Last Vital Signs Pulse 30 L 03/14/24 13:43 BP 108/42 L 03/14/24 13:43 BMI result Body Mass Index 24.3 Const General: comfortable and no acute distress Orientation/consciousness: patient oriented x3 HEENT Other: Unremarkable Head: Yes normal to inspection Neck Neck: Yes normal visual inspection Chest Chest palpation & inspection: normal inspection of the chest Resp Auscultation: clear to auscultation bilaterally Cardio Palpation: normal PMI Heart sounds: S1 normal heart sound present, S2 normal heart sound present, no gallops, no murmurs and no rubs GI Palpation (GI): Soft to palpation Back/Spine/Pelvis Other: unremarkable Skin General skin exam: no rashes or lesions noted Neuro General: patient oriented x3 Extrem General: Yes normal to inspection Psych Mental Status: mental status grossly normal Office Procedures EKG Details: EKG with sinus rhythm, NC prolongation to 218 millisecond; PVCs in a pattern of bigeminy. [id number], Complete Assessment & Plan Assessment & Plan (1) PVC (premature ventricular contraction): Code(s): I49.3 - Ventricular premature depolarization Category: Medical (2) AV block, 1st degree: Code(s): I44.0 - Atrioventricular block, first degree Category: Medical Plan Cardiac studies reviewed. EKG with underlying sinus rhythm, frequent PVCs in a bigeminal pattern and mild NC prolongation. In the Holter, underlying rhythm is sinus with an average rate of 62/Min. Frequent PVCs with a burden of 17%. Longest run possibly around 3 beats but nothing prolonged. 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 Suspected diaphragmatic attenuation artifact in the inferior wall. No clear ischemia noted. In the exercise stress test, he exercised for 6 minutes and reached 7.3 METS. No issues with PVCs or other abnormalities of concern. Echocardiogram with LVEF of 58%. Basal inferior hypokinesis. Cardiac catheterization shows no significant disease. Minimal irregularities only. Cardiac MRI with LVEF of 55-60%. Apical trabeculation but not meeting diagnostic criteria for noncompaction. Mid inferolateral fibrosis. Delayed enhancement with patchy transmural enhancement in the basal to mid inferolateral wall. Overall conclusion is that findings could be nonspecific and that infiltrative cardiomyopathy is possible. Sarcoidosis vs amyloid versus myocarditis versus scar. Cardiac PET showed no evidence of active myocardial inflammation. Overall, frequent PVCs but no clear-cut symptoms. He has already been EP who ordered another Holter monitor. Options are either conservative care, medications like mexiletine versus PVC ablation. To be decided. He would prefer not to take anymore medications. Hence options would be monitoring versus ablation. To be decided. Message also sent to EP. Total time spent including review of data, counseling, documentation, coordination of care-32 minutes. Coding Level of Care Code Est Pt Level 4 (53046) Diagnoses PVC (premature ventricular contraction) I49.3 AV block, 1st degree I44.0 CPT Codes EKG - CPT: 09013-[id number], Complete ([id number])
== END 2024-03-14 14:51 | disposition home or self-care (01) ==
PROVIDERS: PCP Nurse Practitioner Family; Visit Provider Internal Medicine
DX: I49.3 Ventricular premature depolarization (principal); I44.0 Atrioventricular block, first degree
CPT/HCPCS: 93010; 99214

== ENCOUNTER → 2024-03-14 13:19 | Outpatient (BNVA) | payer SELFPAY | PROVIDERS: PCP Nurse Practitioner Family; Visit Provider Internal Medicine | DX: I49.3 Ventricular premature depolarization (principal); I44.0 Atrioventricular block, first degree; I10 Essential (primary) hypertension; E11.9 Type 2 diabetes mellitus without complications; E78.5 Hyperlipidemia, unspecified | CPT/HCPCS: 93005; 99212 ==

== ENCOUNTER → 2024-05-16 15:00 | Outpatient (BNVA) | payer MEDICARE, SELFPAY | PROVIDERS: PCP Nurse Practitioner Family; Visit Provider Nurse Practitioner Family | DX: E11.9 Type 2 diabetes mellitus without complications (principal) | CPT/HCPCS: 83036; 99212 ==

== ENCOUNTER 2024-06-13 09:33 | Outpatient (AMB) | payer MEDICARE, SELFPAY ==
--- NOTE | 2024-06-13 09:38 | A.OFFPC_ITS ---
Vital Signs 06/13/24 09:52 Height 5 ft 8 in Weight 161 lb BMI 24.5 BP 94/54 L Blood Pressure Location Lt brachial Position Sitting Respiration 15 Pulse 54 Pulse Source Pulse Oximeter Pulse Oximetry (%) 97 Oxygen Delivery Method Room Air Intake Visit Reasons: DM shoes - moncho babin pt Intake Note: Pt is here today for DM shoes Allergies No Known Allergies [No Known Allergies*] Allergy (Verified 06/13/24 10:06) Medication List - Last Reconciled 06/13/24 by Una Ramirez MD amlodipine 10 mg PO DAILY aspirin 81 mg PO DAILY blood sugar diagnostic (FreeStyle Lite Strips) use 1 test strip twice a day to test blood sugar empagliflozin 25 mg PO DAILY finasteride 5 mg orally Tuesday and 90 days lancets (FreeStyle Lancets) use 1 lancet twice a day to test blood sugar lancing device As directed to test blood sugar BID losartan 100 mg PO DAILY lovastatin 20 mg PO DAILY mecobalamin (vitamin B12) 1,000 mcg sublingual DAILY metformin ER 500 mg PO BID 90 days metoprolol succinate ER 25 mg PO DAILY multivitamin (Daily Multi-Vitamin tablet) 1 tab PO DAILY sitagliptin phosphate (Januvia) 100 mg PO DAILY tamsulosin 0.4 mg PO BEDTIME 90 days Tobacco use date assessed: 05/16/24 Dental Screening Dental Screen Date: 06/13/24 Did you have a dental visit in the last 12 months?: No Did you have a dental problem in the last 6 months where you did not have access to dental care?: No Was dental information given to patient?: Patient declined HPI DM shoes - moncho babin pt HPI Details 83 -year-old male with diabetes mellitu s without complication long- term current use of insulin, whose last hemoglobin A1c was 6.7 done on 12/16/2021, here today for requesting and a prescription for his yearly diabetic shoes with inserts. 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, has plantar ca lluses but does not have any numbness, no tingling in both feet [facility] Medical History Squamous cell carcinoma in situ Basal cell carcinoma Periorbital edema of left eye Foot callus Tinea unguium Actinic keratosis Plantar callus Type 2 diabetes mellitus without complication, without long-term current use of insulin Microscopic hematuria Poor urinary stream Fatty liver HTN (hypertension) Rupture of quadriceps muscle BPH (benign prostatic hyperplasia) Adenoma of both adrenal glands Diverticulitis Cataract Surgical History History of surgery Family History Father History of heart attack Mother No problems noted. Brother Throat cancer Social History Housing: House Alcohol intake: current Alcohol intake frequency: holidays/special occasions only Patient Tobacco Use Status: Never used Tobacco e-Cigarette/Vaping Use: Never Used Second Hand Smoke Exposure: No service: No Current occupational status: retired Current occupational exposures/hazards: No Cognitive needs: No Hearing needs: No Vision needs: No Questionnaire PHQ-9 Over the last 2 weeks, how often have you been bothered by any of the following problems? 1. Little interest or pleasure in doing things: not at all 2. Feeling down, depressed, or hopeless: not at all 3. Trouble falling or staying asleep, or sleeping too much: not at all 4. Feeling tired or having little energy: not at all 5. Poor appetite or overeating: not at all 6. Feeling bad about yourself - or that you are a failure or have let yourself or your family down: not at all 7. Trouble concentrating on things, such as reading the newspaper or watching television: not at all 8. Moving or speaking so slowly that other people could have noticed. Or the opposite - being so fidgety or restless that you have been moving around a lot more than usual: not at all 9. Thoughts that you would be better off or of hurting yourself in some way: not at all Total score: 0 Depression Screening Interpretation: Negative Depression Screening Done: Yes 57456 - PHQ-9 Billing: Yes Source: Developed by Drs. Nicolas Kapoor, Marlys Mcknight, Austin Skinner and colleagues, with an educational alvarez from [employer]. Thrive Questionnaire Date Thrive assessed: 10/17/24 I am a: Patient What is your living situation today?: I have a steady place to live Within the past 12 months, did the food you bought not last and you didn't have the money to get more?: I choose not to answer this question Within the past 12 months, did you worry whether your food would run out before you got money to buy more?: I choose not to answer this question Do you have trouble paying for medicines?: I choose not to answer this question Do you have trouble getting transportation to medical appointments?: I choose not to answer this question Do you have trouble paying your heating and electricity bill?: I choose not to answer this question Do you have trouble taking care of your child, family member or friend?: I choose not to answer this question Do you have trouble with day-to-day activities such as bathing, preparing meals, shopping, managing finances, etc.?: I choose not to answer this question Are you currently unemployed and looking for a job?: I choose not to answer this question Are you interested in more education?: I choose not to answer this question Please select the resources that you would like help with: None Currently or been in a relationship where the following occur: I choose not to answer THRIVE Score: 0 AUDIT C Alcohol Use Questionnaire (AUDIT-C) 1. How often do you have a drink containing alcohol?: Monthly or less 2. How many drinks containing alcohol do you have on a typical day when you are drinking?: 1 or 2 3. How often do you have six or more drinks on one occasion?: Never Total Score: 1 MIK-7 AMB Questionnaire MIK-7 Date MIK - 7 assessed: 06/13/24 Feeling nervous, anxious, or on edge: 0 = Not at all Not being able to stop or control worryin = Not at all Worrying too much about different things: 0 = Not at all Trouble relaxin = Not at all Being so restless that it is hard to sit still: 0 = Not at all Becoming easily annoyed or irritable: 0 = Not at all Feeling afraid as if something awful might happen: 0 = Not at all Total MIK-7 score (0-4 normal; 5-9 mild; 10-14 moderate; 15-21 severe): 0 Source: Developed by Drs. Nicolas Kapoor, Austin Houseoenke and colleagues, with an educational alvarez from [employer]. MIK-7 Assessment Billing MIK-7 Assessment Tool: MIK-7 Assessment 37733 Review of Systems Const All systems reviewed & are unremarkable except as noted in HPI and below Neuro Denies Sensory deficit (Neuro) Physical exam (Primary Care) Vital Signs: Last Vital Signs Pulse 54 06/13/24 09:52 Resp 15 06/13/24 09:52 BP 94/54 L 06/13/24 09:52 Pulse Ox 97 06/13/24 09:52 Oxygen Delivery Method Room Air 06/13/24 09:52 BMI result Body Mass Index 24.5 Tobacco/Smoking Status: Tobacco use Status Tobacco use date assessed 05/16/24 06/13/24 09:39 Patient Tobacco Use Status Never used Tobacco 06/13/24 09:39 e-Cigarette/Vaping Use Never Used 06/13/24 09:39 PHQ-9: PHQ-9 Score PHQ-9: Total score 0 06/13/24 10:07 Depression Screening Interpretation: Negative Thrive Assessment: Date of Thrive Assessment Date Thrive assessed 01/26/24 06/13/24 09:39 Currently or been in a relationship where the following occur: I choose not to answer Const General: no acute distress and alert Orientation/consciousness: patient oriented x3 Skin General skin exam: no rashes or lesions noted Neuro General: patient oriented x3, gait normal, moves all extremities, Normal light touch and pain sensation and no focal motor deficits Sensory Exam: No Sensory deficit (Neuro) Extrem Other: No gross bone deformity in both feet, dorsalis pedis pulse and popliteal tibial pulses are full and equal bilaterally. He has mild plantar calluses on right big toe bilateral, sensations intact by monofilament testing, vibratory sense is also intact bilaterally, no skin lesions or wounds noted in both feet Results Reviewed Results Reviewed: Laboratory Tests 05/16/24 15:20 Hgb A1c (Clinic) 6.7 H Coding Level of Care Code Est Pt Level 3 (33320) Diagnoses Type 2 diabetes mellitus without complication, without long-term current use of insulin E11.9 Additional Codes MIK-7 Assessment Billing - MIK-7 Assessment Tool: MIK-7 Assessment 43700 ([id number]) PHQ-9 - 16575 - PHQ-9 Billing: Yes ([id number]) Assessment & Plan Assessment & Plan (1) Type 2 diabetes mellitus without complication, without long-term current use of insulin: Code(s): E11.9 - Type 2 diabetes mellitus without complications Category: Medical Plan: Diabetes stable and controlled on empagliflozin 25 mg daily, Januvia 100 mg daily, and metformin ER 500 mg 1 tablet twice a day. Patient has plantar calluses in both feet, otherwise peripheral pulses, sensation and vibratory sense are intact. Form requesting for diabetic shoes with inserts completed.
[2024-06-13 09:52] VITALS: BP 94/54; PULSE 54; RESP 15; O2SAT 97; BMI 24.5
--- OUTSIDE RECORDS SUMMARY | 2024-06-13 10:52 | XMS_ITS | Patient Health Record ---
Author Organization [facility] Address [address] [place] [address] Care Team Providers Care Metallurgical Specialist Name Role Phone Stevan Craig Primary Care Provider Unav ailable Cami Adan Unavailable [phone] Allergies No Known Allergies Results Component Value Reference Range Notes HEMOGLOBIN A1C (GLYCOHEMOGLO BIN) Reviewed date:11/24/2023 10:06:43 AM Interpretation: Performing Lab: Notes/Report: HEMOGLOBIN A1C % (HH) 7.8 HEMOGLOBIN A1C (GLYCOHEMOGLO BIN) Reviewed date:02/15/2024 04:11:49 PM Interpretation: Performing Lab: Notes/Report: TOTAL HEMOGLOBIN (HGBA1C) 7.1 HEMOGLOBIN A1C (GLYCOHEMOGLO BIN) Reviewed date:04/27/2024 10:44:24 AM Interpretation: Performing Lab: Notes/Report: HEMOGLOBIN A1C % (HH) 6.8 Reason For Referral No Information Medications Medication SIG (Take, Route, Frequency, Duration) Notes Start Date End Date Status metFORMIN HCl 500 MG 1 tablet with meals Orally Twice a day and 500mg Active Finasteride 5 MG as directed Orally 2x a week Active hydroCHLOROthiazide 12.5 MG 1 capsule in the morning Orally Once a day for 30 day(s) Not-Taking Jardiance Not-Taking Metoprolol Succinate 25 MG 1 capsule Orally Once a day for 30 day(s) Active Eye Drops Not-Taking Tamsulosin HCl Activ e predniSONE Not-Takin g Vitamin B12 Active Nightsplint . . . AFO - L1930 for . Not-Taking Diovan 320MG 1 tablet Orally Once a day Not-Taking Empagliflozin Active Januvia 100MG 1 tablet Orally Once a day Active Multivitamins as directed Orally Not-Taking Lovastatin 20MG 1 tablet at bedtime Orally Once a day Active Vitamin B 12 Not-Tunde ing Losartan Potassium 100 MG 1 tablet Orall y Once a day for 30 day(s) Active Valsartan 32mg Once a day Not- Taking Ammonium Lactate 12 % 1 application Externally Twice a day for 30 days Active amLODIPine Besylate 10 MG 1 tablet Orall y Once a day Active Extra Depth Orthopedic Shoes, (1) Pair With (3) Pair Custom Heat Molded Multidensity Innersoles Dx: NIDDM/PVD(E11.51), Hammertoe Foot Deformity(M20.41,M2 0.42), Preulcerative Skin Lesion(s)(L85.1) Wear Daily for 365 days Active Aspir-81 81 MG 1 tablet Orally Once a day Active Immunizations Vaccine Route Administration Date Status Comme nts COVID-19 Pfizer BioNTech Vaccine Unknown 02/10/2022 Administered 05/13/20,06/03/20 01/01/21 Influenza Unknown 06/27/2017 Administered Influenza Unknown 12/30/2017 Refused Influenza Unknown 02/13/2020 Administered Influenza Unknown 01/10/2022 Administered Pneumococcal Unknown 02/05/2013 Administered Social History Tobacco Use: Social History Observation Description Date Details (start date - stop date) Never Smoker NA - NA Tobacco Use/Smoking Question Answer Notes Are you a: nonsmoker Additional Findings: Tobacco Non-User Current no n-smoker Alcohol Screen Question Answer Notes Did you have a drink contain ing alcohol in the past year? Yes How often did you have a dri nk containing alcohol in the past year? Monthly or less (1 point) How often did you have 6 or more drinks on one occasion in the past year? Less than monthly (1 point) Points 2 Interpretation Negative Tobacco use other than smoking: Question Answer Notes Are you an other tobacco user? No Problems Problem Type SNOMED Code ICD Code Onset Dates Problem Status W/U Status Risk Notes Problem Acquired hammer toe of right foot (4477908443573 105) Other hammer toe(s) (acquired), right foot (M20.41) Active confirmed Response to treatment,I mprovement Problem Type 2 diabetes mellitus with peripheral angiopathy (069622664) Type 2 diabetes mellitus with diabetic peripheral angiopathy without gangrene (E11.51) Active confirmed Problem Acquired hammer toe of left foot (5624912876716 103) Other hammer toe(s) (acquired), left foot (M20.42) Active confirmed Response to treatment,I mprovement Vital Signs Blood pressure diastolic 60 mm Hg 04/27/2024 Height 5 ft 6 in in 04/27/2024 Blood pressure systolic 115 mm Hg 04/27/2024 Weight 156 lbs 04/27/2024 BMI 25.18 kg/m2 04/27/2024 Procedures Procedure Date Ordered Date Performed Result Body Sit e 42138-CTXQSEK NAIL, 6 OR MORE 07/07/2023 N/A 89313-QQPE SKIN LESIONS, 2 TO 4 07/07/2023 N/A 18381-EUWFHKT NAIL, 6 OR MORE 09/15/2023 N/A 78642-PYZI SKIN LESIONS, 2 TO 4 09/15/2023 N/A 22585-DDPWPGU NAIL, 6 OR MORE 11/24/2023 N/A 53452-PRAY SKIN LESIONS, 2 TO 4 11/24/2023 N/A 97269-DUKBJAJ NAIL, 6 OR MORE 02/15/2024 N/A 95319-TWUP SKIN LESIONS, 2 TO 4 02/15/2024 N/A 09844-PUXHGAR NAIL, 6 OR MORE 04/27/2024 N/A 40267-SJHW SKIN LESIONS, 2 TO 4 04/27/2024 N/A Encounters Encounter Location Date Provider Diagnosis [address] [address] 07/07/2023 Adan Almanza Type 2 diabetes mellitus with diabetic peripheral angiopathy without gangrene E11.51 ; Tinea unguium B35.1 ; Pain in right toe(s) M79.674 ; Pain in left toe(s) M79.675 ; Other hammer toe(s) (acquired), right foot M20.41 ; Other hammer toe(s) (acquired), left foot M20.42 and Xerosis of skin L85.[address] [address] 09/15/2023 Adan Almanza Type 2 diabetes mellitus with diabetic peripheral angiopathy without gangrene E11.51 ; Tinea unguium B35.1 ; Pain in right toe(s) M79.674 and Pain in left toe(s) M79.[address] [address] 11/24/2023 Adan Almanza Type 2 diabetes mellitus with diabetic peripheral angiopathy without gangrene E11.51 ; Tinea unguium B35.1 ; Pain in right toe(s) M79.674 and Pain in left toe(s) M79.[address] [address] 02/15/2024 Adanmaria del rosario Almanza Type 2 diabetes mellitus with diabetic peripheral angiopathy without gangrene E11.51 ; Tinea unguium B35.1 ; Pain in right toe(s) M79.674 and Pain in left toe(s) M79.[address] [address] 04/27/2024 Adan Almanza Type 2 diabetes mellitus with diabetic peripheral angiopathy without gangrene E11.51 ; Tinea unguium B35.1 ; Pain in right toe(s) M79.674 ; Pain in left toe(s) M79.675 ; Other hammer toe(s) (acquired), right foot M20.41 and Other hammer toe(s) (acquired), left foot M20.42 Assessments Encounter Date Diagnosis (ICD Code) Assessment Notes Treatment Notes Treatment Clinical Notes Section Notes 07/07/2023 Type 2 diabetes mellitus with diabetic peripheral angiopathy without gangrene (ICD-10 - E11.51) 07/07/2023 Tinea unguium (ICD-10 - B35.1) 09/15/2023 Type 2 diabetes mellitus with diabetic peripheral angiopathy without gangrene (ICD-10 - E11.51) 09/15/2023 Tinea unguium (ICD-10 - B35.1) 11/24/2023 Type 2 diabetes mellitus with diabetic peripheral angiopathy without gangrene (ICD-10 - E11.51) 11/24/2023 Tinea unguium (ICD-10 - B35.1) 02/15/2024 Type 2 diabetes mellitus with diabetic peripheral angiopathy without gangrene (ICD-10 - E11.51) 02/15/2024 Tinea unguium (ICD-10 - B35.1) 04/27/2024 Type 2 diabetes mellitus with diabetic peripheral angiopathy without gangrene (ICD-10 - E11.51) 04/27/2024 Tinea unguium (ICD-10 - B35.1) 02/15/2024 Pain in right toe(s) (ICD-10 - M79.674) 09/15/2023 Pain in right toe(s) (ICD-10 - M79.674) 11/24/2023 Pain in right toe(s) (ICD-10 - M79.674) 07/07/2023 Pain in right toe(s) (ICD-10 - M79.674) 04/27/2024 Pain in right toe(s) (ICD-10 - M79.674) 07/07/2023 Pain in left toe(s) (ICD-10 - M79.675) 09/15/2023 Pain in left toe(s) (ICD-10 - M79.675) 11/24/2023 Pain in left toe(s) (ICD-10 - M79.675) 02/15/2024 Pain in left toe(s) (ICD-10 - M79.675) 04/27/2024 Pain in left toe(s) (ICD-10 - M79.675) 07/07/2023 Other hammer toe(s) (acquired), right foot (ICD-10 - M20.41) Response to treatment,Impro vement 07/07/2023 Other hammer toe(s) (acquired), left foot (ICD-10 - M20.42) Response to treatment,Impro vement 04/27/2024 Other hammer toe(s) (acquired), right foot (ICD-10 - M20.41) Patient Educated with: DIABETIC FOOT CARE INSTRUCTIONS.p df (DIABETIC FOOT CARE INSTRUCTIONS.p df) 04/27/2024 Other hammer toe(s) (acquired), left foot (ICD-10 - M20.42) 07/07/2023 Xerosis of skin (ICD-10 - L85.3) Plan Of Treatment Pending Test Test Name Order Date 92515-UKJTGZF NAIL, 6 OR MORE 03/22/2017 68258-SNNWRET NAIL, 6 OR MORE 06/28/2017 33610-EGBRPPI NAIL, 6 OR MORE 09/30/2017 40868-IZLGCDS NAIL, 6 OR MORE 12/30/2017 93000-BUTTXWR NAIL, 6 OR MORE 03/09/2018 56932-BLKVZXQ NAIL, 6 OR MORE 05/26/2018 58483-MEHYNAL NAIL, 6 OR MORE 08/18/2018 80622-JLIPLFL NAIL, 6 OR MORE 11/07/2018 27328-ATUYXVJ NAIL, 6 OR MORE 01/23/2019 11175-SCZXQRV NAIL, 6 OR MORE 04/24/2019 14546-ZUQLWEG NAIL, 6 OR MORE 06/29/2019 39613-FMAWUUT NAIL, 6 OR MORE 09/07/2019 22436-FWRPDPU NAIL, 6 OR MORE 11/20/2019 00633-EMEOEQR NAIL, 6 OR MORE 01/22/2020 63518-KITMACK NAIL, 6 OR MORE 04/22/2020 13781-JMCSZCU NAIL, 6 OR MORE 07/01/2020 30520-DXFUZEV NAIL, 6 OR MORE 09/16/2020 92493-CZUYPOF NAIL, 6 OR MORE 11/25/2020 77788-QAEOWMB NAIL, 6 OR MORE 02/13/2021 76018-NYPGIVG NAIL, 6 OR MORE 05/05/2021 21711-VCCIKLW NAIL, 6 OR MORE 07/29/2021 98325-YPVLXMV NAIL, 6 OR MORE 10/07/2021 31206-TKFQYHG NAIL, 6 OR MORE 12/17/2021 23745-OJLFQMM NAIL, 6 OR MORE 02/25/2022 59961-MZTFZJX NAIL, 6 OR MORE 06/01/2022 72511-KJGHKGY NAIL, 6 OR MORE 08/13/2022 96499-BXTCWJH NAIL, 6 OR MORE 10/22/2022 73714-HLKPCQZ NAIL, 6 OR MORE 02/16/2023 58024-LMAJHXL NAIL, 6 OR MORE 04/28/2023 56394-VNIBQIE NAIL, 6 OR MORE 07/07/2023 54604-DMQFTOY NAIL, 6 OR MORE 09/15/2023 64100-EPYAUSO NAIL, 6 OR MORE 11/24/2023 02333-ABJPGIJ NAIL, 6 OR MORE 02/15/2024 53049-XTOWCXH NAIL, 6 OR MORE 04/27/2024 72700-BUXP SKIN LESIONS, 2 TO 4 04/27/19 25 97887-NWXW SKIN LESIONS, 2 TO 4 02/15/20 24 22702-QYHS SKIN LESIONS, 2 TO 4 11/24/19 24 47813-TNHX SKIN LESIONS, 2 TO 4 09/15/19 24 21680-KNCS SKIN LESIONS, 2 TO 4 07/07/19 24 51188-OQRC SKIN LESIONS, 2 TO 4 04/28/19 24 21919-MZVS SKIN LESIONS, 2 TO 4 02/17/20 23 87557-IUKC SKIN LESIONS, 2 TO 4 10/23/19 23 45673-YZWR SKIN LESIONS, 2 TO 4 08/14/19 23 80293-WIAS SKIN LESIONS, 2 TO 4 06/01/19 23 Next Appt Details Provider Name:Adan Terrance Almanza , 07/24/2024 03:15:00 PM, [address] [place], [address], Insurance Providers Payer Name Payer Address Payer Phone Subscriber Number Group Number Insured Name Patient Relationship to Insured Coverage Start Date Coverage End Date Medicare National [employer] [address] [facility] [place] [address] [id number] Jose E Peña Self - patient is the insured 2 [employer] [address] [place] [address] [id number] Jose E Peña Self - patient is the insured Medical (General) History Medical History History ICD Code type II diabetes hypercholesterolemia Headaches High blood pressure Measles Chicken pox Surgical History Surgery Date(Month/Year) Nicci 1992 rotator cuff Left 2010 Meniscus knee repair 2008 prostate 2003 Hernia Repair 195 basal cell removal nose basal cell removal L cheek 2015 basal cell removal upper R back shoulder area 2016 finger biopsy 2007 prostate 2018 quadriceps sx LT and RT 11/16/2017 cataract surgery 06/20/19 & 08/24/2019 skin surgery, ear 07/2021 brandi knee injection 3 weeks 1 inj left 2/ 2023 cardiac catheterization 05/2022 cancer scalp spots removal 05/2022 Hospitalization History Reason Date(Month/Year) quadriceps sx LT and RT 11/16/2017 [facility] 05/26/2017
--- OUTSIDE RECORDS SUMMARY | 2024-06-13 10:53 | XMS_ITS ---
Author Organization [facility] Address [address] [place] [address] Care Team Providers Care Orthotic And Prosthetic Technician Name Role Phone Stevan Craig Primary Care Provider Unav ailable CamiAdan Unavailable [phone] Allergies No Known Allergies REASON FOR VISIT At Risk Footcare, Painful Nail(s) aggrevated by shoes and causing difficulty standing/walking Medications Medication SIG (Take, Route, Frequency, Duration) Notes Start Date End Date Status Eye Drops Not-Taking Valsartan 32mg Once a day Not- Taking Diovan 320MG 1 tablet Orally Once a day Not-Taking Nightsplint . . . AFO - L1930 for . Not-Taking predniSONE Not-Takin g Vitamin B 12 Not-Tunde ing Multivitamins as directed Orally Not-Taking Finasteride 5 MG as directed Orally 2x a week Active Jardiance Not-Taking hydroCHLOROthiazide 12.5 MG 1 capsule in the morning Orally Once a day for 30 day(s) Not-Taking metFORMIN HCl 500 MG 1 tablet with meals Orally Twice a day and 500mg Active Tamsulosin HCl Activ e Metoprolol Succinate 25 MG 1 capsule Orally Once a day for 30 day(s) Active Extra Depth Orthopedic Shoes, (1) Pair With (3) Pair Custom Heat Molded Multidensity Innersoles Dx: NIDDM/PVD(E11.51), Hammertoe Foot Deformity(M20.41,M2 0.42), Preulcerative Skin Lesion(s)(L85.1) Wear Daily for 365 days 02/16/2023 Active Vitamin B12 Active Aspir-81 81 MG 1 tablet Orally Once a day Active Januvia 100MG 1 tablet Orally Once a day Active Empagliflozin Active Losartan Potassium 100 MG 1 tablet Orall y Once a day for 30 day(s) Active Lovastatin 20MG 1 tablet at bedtime Orally Once a day Active amLODIPine Besylate 10 MG 1 tablet Orall y Once a day Active Ammonium Lactate 12 % 1 application Externally Twice a day for 30 days Active Social History Tobacco Use: Social History Observation [...] Are you an other tobacco user? No Vital Signs Height 5 ft 6 in in 02/15/2024 Weight 156 lbs 02/15/2024 BMI 25.18 kg/m2 02/15/2024 Procedures Procedure Date Ordered Date Performed Result Body Sit e 80949-NUGEJOJ NAIL, 6 OR MORE 02/15/2024 N/A 37556-DNDJ SKIN LESIONS, 2 TO 4 02/15/2024 N/A Encounters Encounter Location Date Provider Diagnosis [facility] [address] [address] 02/15/2024 Adan Almanza Type 2 diabetes mellitus with diabetic peripheral angiopathy without gangrene E11.51 ; Tinea unguium B35.1 ; Pain in right toe(s) M79.674 and Pain in left toe(s) M79.675 Assessments Encounter Date Diagnosis (ICD Code) Assessment Notes Treatment Notes Treatment Clinical Notes Section Notes 02/15/2024 Type 2 diabetes mellitus with diabetic peripheral angiopathy without gangrene (ICD-10 - E11.51) 02/15/2024 Tinea unguium (ICD-10 - B35.1) 02/15/2024 Pain in right toe(s) (ICD-10 - M79.674) 02/15/2024 Pain in left toe(s) (ICD-10 - M79.675) Plan Of Treatment Pending Test Test Name Order Date 90875-YUEBPLY NAIL, 6 OR MORE 02/15/2024 78986-PTKP SKIN LESIONS, 2 TO 4 02/15/20 24 Next Appt Details Follow Up: prn, Reason: Provider Name:Adan Almanza , 07/24/2024 03:15:00 PM, [address] [place] [address], [phone], Procedure Notes * Category Sub-Category Detail Notes Debride Nail 6-10 Nail debridement Performance o f this nail treatment by a nonprofessional would put this patients foot and overall health at risk. Therefore, debridement to affected nail(s) as described in exam was performed extensively to reduce/remove overall nail length, girth, thickness, subungual debris, and necrotic tissue, by manual and/or electrical means through the use of a nail nipper and/or dremel-type roll contour grinder, to a more viable healthy nail plate or bed tissue 6-10. Silver nitrate used for any petechial bleeding as necessary. Definitive antifungal treatment options have been reviewed and discussed with the patient. The patient chooses, no pharmaceutical tx - 15259 Keratoma Treatment Parring or Cutting o f Benign Hyperkeratotic Lesion(s) (-56) 2-4 Lesions - The Benign hyperkeratotic lesions, as described in exam, were pared, and/or cut utilizing a sterile 15 blade, tissue nippers, and/or dremel - 07656 , Q8 Progress Notes * Jose E MCKEONDOB: [birth year] (83 yo M)Acc No.[id number]:02/15/2024 Progress Note Patient:?Jose E Mckeon Provider:?Adan Almanza DPM :1940???Age:83 Y???Sex:Male Adilson e:02/15/2024 Address:[address] [place], [place] [id number] Pcp:KATHLEEN Morales Subjective: * Chief Complaints: * ???At Risk FootcarePainful N ail(s) aggrevated by shoes and causing difficulty standing/walking * HPI: ???At Risk footcare:?Pt States Last PCP Visit:?Date?01/25/2024 * ROS:?General/Constitutional:?Nausea?denies.?Vomiting?denies.?Hunger Thirst?denies.?Loss appetite?denies.?Chills?denies.?Fatigue?denies.?Fever?denies.?Night Sweats?denies.?Unexplained weight loss?denies.?Unexplained weight gain?denies.?HEENTM:?Dentures?admits.?Dizziness?denies.?Glasses/contacts?admits.?Retinopathy?de nies.?Blurred/double vision?denies.?TMJ?denies.?Discharge/drainage?denies.?Implants?denies.?Sore throat?denies.?Dental implants?denies.?Hard of hearing ?admits.?Difficulty chewing/swallowing/speaking?denies.?Nose bleeds?denies.?Sore mouth?denies.?Respiratory:?On Oxygen?denies.?Pneumonia/pleurisy?denies.?Bronchitis?denies.?Emphysema?denies.?C oughing?denies.?Cough blood?denies.?Shortness of breath?denies.?Wheezing?denies.?Cardiovascular:?Pacemaker?denies.?MVP?denies.?WPW?denies.?CHF?denies.?Heart attack?denies.?Septal defect?denies.?Rapid beat?denies.?Chest pain ?denies.?Atrial Fib.?denies.?Murmur/Palpitations?denies.?Gastrointestinal:?Hemorrhoids?denies.?Stomach/Abdominal pain?denies.?Dark blood stool?denies.?Irritable bowel ?denies.?Constipation?denies.?Diarrhea?denies.?Hematology:?Swelling?denies.?Clots?denies.?Varicose Veins?denies.?Bruising?admits, on aspirin.?Bleeding problem?admits, on anticoagulants.?Genitourinary:?Blood urine?denies.?Frequent/Painfu/urination/bladder control?denies.?Kidney stones?denies.?Infection (UTI)?denies.?Nephropathy?denies.?sex trans dis (STD)?denies.?Prostate?admits.?Musculoskeletal:?Hammertoes?admits.?Bunions?denies.?Back Pain?denies.?Muscle Cramps/ Resting?denies.?Muscle cramps / walking?denies.?Generalized aches and pains?denies.?Weakness?denies.?Integ.:?Davalos?denies.?Scars?denies.?Corns/calluses?admits.?Ingrown nails?admits.?Painful nails?admits.?Open Sores?denies.?Rashes?denies.?Neurologic:?Difficulty sleeping?denies.?Brain disorder?denies.?Numbness?denies.?Balance trouble?denies.?Confusion?denies.?Fainting/blackouts?denies.?Tingling?denies.?Tr emors?denies.? * Medical History:? * Surgical History:?Achsesarkes 1993rotator cuff Left 2010Meniscus knee repair 2009prostate 2003Hernia Repair 1953basal cell removal nose 2004/2008basal cell removal L cheek 2015basal cell removal upper R back shoulder area 2016finger biopsy 2008prostate 2018quadriceps sx LT and RT 11/16/2017cataract surgery 06/20/19 & 08/24/2019skin surgery, ear il knee injection 3 weeks 1 inj left ardiac catheterization ancer scalp spots removal 05/2022 * Hospitalization/Major Diagno stic Procedure:?[facility] 05/26/2017quadriceps sx LT and RT 11/16/2017 * Family History:?Mother: dece ased.?Father: , heart attack.?Siblings: brother cancer, diagnosed with Other malignant neoplasm of unspecified site.?Spouse: alive.?Maternal Grand Mother: diagnosed with Diabetic - NIDDM.? * Social History:?Tobacco Use:?Tobacco Use/Smoking?Are you a:?nonsmoker ?Additional Findings: Tobacco Non-User?Current non-smoker ?Tobacco use other than smoking?Are you an other tobacco user??No ???Drugs/Alcohol:?Drugs?Have you used drugs other than those for medical reasons in the past 12 months??No ?Alcohol Screen?Did you have a drink containing alcohol in the past year??Yes ?How often did you have a drink containing alcohol in the past year??Monthly or less (1 point) ?How often did you have 6 or more drinks on one occasion in the past year??Less than monthly (1 point) ?Points?2 ?Interpretation?Negative ???Miscellaneous:?Caffeine: yes, frequency:, 2-3 cups per day. ?Children: yes. ?Exercise: yes, 3 times a week- health club. ?Marital status: . ?Occupation: Retired-Banking/ Human Resources. * Medications:?TakingAmmonium Lactate 12 % Cream 1 application Externally Twice a dayamLODIPine Besylate 10 MG Tablet 1 tablet Orally Once a dayAspir-81 81 MG Tablet Delayed Release 1 tablet Orally Once a dayEmpagliflozin Januvia 100MG Tablet 1 tablet Orally Once a dayLovastatin 20MG Tablet 1 tablet at bedtime Orally Once a dayLosartan Potassium 100 MG Tablet 1 tablet Orally Once a dayMetoprolol Succinate 25 MG Capsule ER 24 Hour Sprinkle 1 capsule Orally Once a dayTamsulosin HCl Vitamin B12 Extra Depth Orthopedic Shoes, (1) Pair With (3) Pair Custom Heat Molded Multidensity Innersoles . Dx: NIDDM/PVD(E11.51), Hammertoe Foot Deformity(M20.41,M20.42), Preulcerative Skin Lesion(s)(L85.1) Wear DailymetFORMIN HCl 500 MG Tablet 1 tablet with meals Orally Twice a day, Notes: and 500mgFinasteride 5 MG Tablet as directed Orally 2x a weekTaking Ammonium Lactate 12 % Cream 1 application Externally Twice a dayTaking amLODIPine Besylate 10 MG Tablet 1 tablet Orally Once a dayTaking Aspir-81 81 MG Tablet Delayed Release 1 tablet Orally Once a dayTaking Empagliflozin Taking Januvia 100MG Tablet 1 tablet Orally Once a dayTaking Lovastatin 20MG Tablet 1 tablet at bedtime Orally Once a dayTaking Losartan Potassium 100 MG Tablet 1 tablet Orally Once a dayTaking Metoprolol Succinate 25 MG Capsule ER 24 Hour Sprinkle 1 capsule Orally Once a dayTaking Tamsulosin HCl Taking Vitamin B12 Taking Extra Depth Orthopedic Shoes, (1) Pair With (3) Pair Custom Heat Molded Multidensity Innersoles . Dx: NIDDM/PVD(E11.51), Hammertoe Foot Deformity(M20.41,M20.42), Preulcerative Skin Lesion(s)(L85.1) Wear DailyTaking metFORMIN HCl 500 MG Tablet 1 tablet with meals Orally Twice a day, Notes: and 500mgTaking Finasteride 5 MG Tablet as directed Orally 2x a weekNot-Taking/PRNhydroCHLOROthiazide 12.5 MG Capsule 1 capsule in the morning Orally Once a dayJardiance Multivitamins Tablet as directed Orally Vitamin B 12 Valsartan 32mg Once a dayEye Drops predniSONE Nightsplint . . . . AFO - [id number] 320MG Tablet 1 tablet Orally Once a dayMedication List reviewed and reconciled with the patientNot-Taking/PRN hydroCHLOROthiazide 12.5 MG Capsule 1 capsule in the morning Orally Once a dayNot-Taking/PRN Jardiance Not-Taking/PRN Multivitamins Tablet as directed Orally Not-Taking/PRN Vitamin B 12 Not-Taking/PRN Valsartan 32mg Once a dayNot-Taking/PRN Eye Drops Not-Taking/PRN predniSONE Not-Taking/PRN Nightsplint . . . . AFO - [id number]-Tinjbp/PRN Diovan 320MG Tablet 1 tablet Orally Once a dayMedication List reviewed and reconciled with the patient * Allergies:?N.K.D.A.yes[Aller gies Verified] Objective: * Vitals:?Ht: 5 ft 6 in, Wt: 1 56, BMI: 25.18, Shoe size: 8.5, BS: 142, Wt-k.76 kg. * ???Past Orders: ???Lab:HEMOGLOBIN A1C (GLYCO HEMOGLOBIN) (Order Date - 02/15/2024) (Collection Date - 02/15/2024) ? Value Reference Range ?TOTAL HEMOGLOBIN (HGBA1C) 7.1 * Examination: ???Vascular: ?DP PULSES(B):? 0-1/4, B/L.?PT PULSES(B):? 0/4, B/L.?CAPILLARY FILL TIME:? delayed, all digits, B/L.?TROPHIC CONDITION-TEXTURE/ELASTICITY/TURGOR/HAIR GROWTH(B):? decreased, fragile, thin, shiny skin, with sparse to absent hair growth, B/L.?TEMPERTURE GRADIENT(C):? decreased, cool to cool, proximal to distal, B/L.?PIGMENTATION:? rubrous, B/L.?EDEMA(C):?absent, B/L.?CLAUDICATION(C):?denies, B/L.?REST PAIN:?denies, B/L.?Nails: ?NAILS are:?Elongated, overgrown, dystrophic, lytic, greater than 3mm thick, discolored and friable with crumbly malodorous subungual debris, with pain on palpation , TA, T2, T3, T4, T5, T7, T8, T9.?Dermatologic: ?SKIN FINDINGS:?Skin exam reveals Keratotic lesion(s) located at , SUB MTH (s), 1, B/L, Heel(s), B/L.? Assessment: * Assessment: 1.?Type 2 diabetes mellitus with diabetic peripheral angiopathy without gangrene - E11.51?2.?Tinea unguium - B35.1?3.?Pain in right toe(s) - M79.674?4.?Pain in left toe(s) - M79.675? Plan: * Treatment: 2.?Tinea unguium?Procedure: 80329-KTKMMSG NAIL, 6 OR MORE * Procedures:?Debride Nail 6-10:?Nail debridement?Performance of this nail treatment by a nonprofessional would put this patients foot and overall health at risk. Therefore, debridement to affected nail(s) as described in exam was performed extensively to reduce/remove overall nail length, girth, thickness, subungual debris, and necrotic tissue, by manual and/or electrical means through the use of a nail nipper and/or dremel-type roll contour grinder, to a more viable healthy nail plate or bed tissue 6-10. Silver nitrate used for any petechial bleeding as necessary. Definitive antifungal treatment options have been reviewed and discussed with the patient. The patient chooses, no pharmaceutical tx - 48234.?Keratoma Treatment:?Parring or Cutting of Benign Hyperkeratotic Lesion(s)?(-56) 2-4 Lesions - The Benign hyperkeratotic lesions, as described in exam, were pared, and/or cut utilizing a sterile 15 blade, tissue nippers, and/or dremel - 77991 , Q8.? * Procedure Codes:?58567 DEBRI DE NAIL, 6 OR MORE, Modifiers: XS 05767 TRIM SKIN LESIONS, 2 TO 4, Modifiers: XS , Q8 * Follow Up:?prn * Images: * Sign off status: Completed true * Provider:?Adan Almanza DPM Date:?2023 Generated for Vishal rust/José/Jossue on:?06/13/2024 10:52 AM EST History and Physical Notes * HPI (History of Present Illness) Category Sub-Category Detail Notes Category Not es At Risk footcare Pt States Last PCP Visit: Date: 4 Examination Category Sub-Category Detail Notes Category Not es Dermatologic SKIN FINDINGS: Skin exam reveal s Keratotic lesion(s) located at , SUB MTH (s), 1, B/L, Heel(s), B/L Vascular DP PULSES (B): 0-1/4, B/L PT PULSES (B): 0/4, B/L CAPILLARY FILL TIME: delayed, all digits , B/L TEMPERTURE GRADIENT (C): decreased, cool to cool, proximal to distal, B/L TROPHIC CONDITION-TEXTURE/ELASTICITY/TURGOR/HAIR GROWTH (B): decreased, fragile, thin, shiny skin, wi th sparse to absent hair growth, B/L EDEMA (C): absent, B/L CLAUDICATION (C): denies, B/L REST PAIN: denies, B/L PIGMENTATION: rubrous, B/L Nails NAILS are: Elongated, overg rown, dystrophic, lytic, greater than 3mm thick, discolored and friable with crumbly malodorous subungual debris, with pain on palpation , TA, T2, T3, T4, T5, T7, T8, T9
--- OUTSIDE RECORDS SUMMARY | 2024-06-13 10:53 | XMS_ITS ---
Author Organization [facility] Address [address] [place] [address] Care Team Providers Care Pharmacy Manager Name Role Phone Stevan Craig Primary Care Provider Unav ailable Cami, Adan Unavailable [phone] Allergies No Known Allergies REASON FOR VISIT At Risk Footcare, Painful Nail(s) aggrevated by shoes and causing difficulty standing/walking, Toe Irritation Medications Medication SIG (Take, Route, Frequency, Duration) Notes Start Date End Date Status Losartan Potassium 100 MG 1 tablet Orall y Once a day for 30 day(s) Active metFORMIN HCl 500 MG 1 tablet with meals Orally Twice a day and 500mg Active Metoprolol Succinate 25 MG 1 capsule Orally Once a day for 30 day(s) Active Tamsulosin HCl Activ e Vitamin B12 Active Empagliflozin Active Januvia 100MG 1 tablet Orally Once a day Active Lovastatin 20MG 1 tablet at bedtime Orally Once a day Active amLODIPine Besylate 10 MG 1 tablet Orall y Once a day Active Aspir-81 81 MG 1 tablet Orally Once a day Active Ammonium Lactate 12 % 1 application Externally Twice a day for 30 days Active Extra Depth Orthopedic Shoes, (1) Pair With (3) Pair Custom Heat Molded Multidensity Innersoles Dx: NIDDM/PVD(E11.51), Hammertoe Foot Deformity(M20.41,M2 0.42), Preulcerative Skin Lesion(s)(L85.1) Wear Daily for 365 days Active predniSONE Not-Takin g Nightsplint . . . AFO - L1930 for . Not-Taking Diovan 320MG 1 tablet Orally Once a day Not-Taking Multivitamins as directed Orally Not-Taking Vitamin B 12 Not-Tunde ing Valsartan 32mg Once a day Not- Taking Jardiance Not-Taking Eye Drops Not-Taking Finasteride 5 MG as directed Orally 2x a week Active hydroCHLOROthiazide 12.5 MG 1 capsule in the morning Orally Once a day for 30 day(s) Not-Taking Social History Tobacco Use: Social History Observation Description Date Details (start date - stop date) Never Smoker NA - NA Tobacco Use/Smoking Question Answer Notes Are you a: nonsmoker Additional Findings: Tobacco Non-User Current no n-smoker Tobacco use other than smoking: Question Answer Notes Are you an other tobacco user? No Vital Signs Blood pressure systolic 115 mm Hg 04/27/19 25 Blood pressure diastolic 60 mm Hg 025 Height 5 ft 6 in in 04/27/2024 Weight 156 lbs 04/27/2024 BMI 25.18 kg/m2 04/27/2024 Procedures Procedure Date Ordered Date Performed Result Body Sit e 65932-QOMNNIW NAIL, 6 OR MORE 04/27/2024 N/A 25326-EOEI SKIN LESIONS, 2 TO 4 04/27/2024 N/A Encounters Encounter Location Date Provider Diagnosis [facility] [address] [place] [address] 04/27/2024 Adan Almanza Type 2 diabetes mellitus with diabetic peripheral angiopathy without gangrene E11.51 ; Tinea unguium B35.1 ; Pain in right toe(s) M79.674 ; Pain in left toe(s) M79.675 ; Other hammer toe(s) (acquired), right foot M20.41 and Other hammer toe(s) (acquired), left foot M20.42 Assessments Encounter Date Diagnosis (ICD Code) Assessment Notes Treatment Notes Treatment Clinical Notes Section Notes 04/27/2024 Type 2 diabetes mellitus with diabetic peripheral angiopathy without gangrene (ICD-10 - E11.51) 04/27/2024 Tinea unguium (ICD-10 - B35.1) 04/27/2024 Pain in right toe(s) (ICD-10 - M79.674) 04/27/2024 Pain in left toe(s) (ICD-10 - M79.675) 04/27/2024 Other hammer toe(s) (acquired), right foot (ICD-10 - M20.41) Patient Educated with: DIABETIC FOOT CARE INSTRUCTIONS.p df (DIABETIC FOOT CARE INSTRUCTIONS.p df) 04/27/2024 Other hammer toe(s) (acquired), left foot (ICD-10 - M20.42) Plan Of Treatment Medication Medication Name Sig Start Date Stop Date Notes Extra Depth Orthopedic Shoes , (1) Pair With (3) Pair Custom Heat Molded Multidensity Innersoles Dx: NIDDM/PVD(E11.51), Hammertoe Foot Deformity(M20.41,M20.42), Preulcerative Skin Lesion(s)(L85.1) Wear Daily for 365 days Treatment Notes Assessment Notes Other hammer toe(s) (acquired), right fo ot Patient Educated with: DIABETIC FOOT CARE INSTRUCTIONS.pdf (DIABETIC FOOT CARE INSTRUCTIONS.pdf) Pending Test Test Name Order Date 86430-JNPDPST NAIL, 6 OR MORE 04/27/2024 10008-LNZQ SKIN LESIONS, 2 TO 4 04/27/19 Next Appt Details Follow Up: prn, Reason: Provider Name:Adan Almanza , 07/24/2024 03:15:00 PM, [address] [place] [address], [id number], Procedure Notes * Category Sub-Category Detail Notes Debride Nail 6-10 Nail debridement Due to the cl inical pathology outlined in the exam findings, performance of this nail treatment is medically necessary as its management by an unskilled/untrained nonprofessional would put this patients foot and overall health at risk. Therefore, debridement to affected nail(s), as described in exam ( TA, T2, T3, T4, T5, T7, T8, T9), was performed exclusively by the physician of record to reduce/remove overall nail length, girth, thickness, subungual debris, and necrotic tissue, by manual and/or electrical means through the use of a nail nipper and/or dremel-type chicle grinder feeder, to a more viable healthy nail plate or bed tissue 6-10 nails in total. Silver nitrate was used for any petechial bleeding as necessary. Definitive antifungal treatment options, both pharmaceutical and surgical, have been reviewed and discussed with the patient. The patient solely prefers the use of intermittent/as needed professional debridement services for their nail condition and understands the need for additional periodic treatments to maintain effectiveness in symptomatic relief - 99106 Keratoma Treatment Parring or Cutting o f Benign Hyperkeratotic Lesion(s) (-56) 2-4 Lesions - Due to the at risk nature of the patients medical condition as documented in the exam findings, performance of this keratoderma treatment is medically necessary as its management by an unskilled/untrained nonprofessional would put this patients foot and overall health at risk. Therefore, the benign hyperkeratotic lesions, ( 4) in total, locations as stated and described in the exam ( SUB MTH (s), 1, B/L, Plantar, Heel(s), B/L), were pared, and/or cut utilizing a sterile 15 blade, tissue nippers, and/or power dremel instrumentation by the physician of record - 64396, Q8 Progress Notes * Jose E MCKEONDOB: [birth year] (83 yo M)Acc No.[id number]:04/27/2024 Progress Note Patient:?Jose E MCKEON Provider:?Adan Almanza DPM :1940???Age:83 Y???Sex:Male Adilson e:04/27/2024 Address:[address] [place], [place] [id number] Pcp:KATHLEEN Morales Subjective: * Chief Complaints: * ???At Risk FootcarePainful N ail(s) aggrevated by shoes and causing difficulty standing/walkingToe Irritation * HPI: ???At Risk footcare:?Pt States Last PCP Visit:?Date?01/25/2024 ???Toe pain:?Location:?B/L feet.?Duration:?several years.?Course:?worse.?Aggravated by:?shoes, any pressure.?Treatments:?change in shoes.? * ROS:?General/Constitutional:?Nausea?denies.?Vomiting?denies.?Hunger Thirst?denies.?Loss appetite?denies.?Chills?denies.?Fatigue?denies.?Fever?denies.?Night Sweats?denies.?Unexplained weight loss?denies.?Unexplained weight gain?denies.?HEENTM:?Dentures?admits.?Dizziness?denies.?Glasses/contacts?admits.?Retinopathy?den ies.?Blurred/double vision?denies.?TMJ?denies.?Discharge/drainage?denies.?Implants?denies.?Sore throat?denies.?Dental implants?denies.?Hard of hearing ?admits.?Difficulty chewing/swallowing/speaking?denies.?Nose bleeds?denies.?Sore mouth?denies.?Respiratory:?On O xygen?denies.?Pneumonia/pleurisy?denies.?Bronchitis?denies.?Emphysema?denies.?Co ughing?denies.?Cough blood?denies.?Shortness of breath?denies.?Wheezing?denies.?Cardiovascular:?Pacemaker?denies.?MVP?denies.?WPW?denies.?CHF?denies.?Heart attack?denies.?Septal defect?denies.?Rapid beat?denies.?Chest pain ?denies.?Atrial Fib.?denies.?Murmur/Palpitations?denies.?Gastrointestinal:?Hemorrhoids?denies.?Stomach/Abdominal pain?denies.?Dark blood stool?denies.?Irritable bowel ?denies.?Constipation?denies.?Diarrhea?denies.?Hematology:?Swelling?denies.?Clots?denies.?Varicose Veins?denies.?Bruising?admits, on aspirin.?Bleeding problem?admits, on anticoagulants.?Genitourinary:?Blood urine?denies.?Frequent/Painfu/urination/bladder control?denies.?Kidney stones?denies.?Infection (UTI)?denies.?Nephropathy?denies.?sex trans dis (STD)?denies.?Prostate?admits.?Musculoskeletal:?Hammertoes?admits.?Bunions?denies.?Back Pain?denies.?Muscle Cramps/ Resting?denies.?Muscle cramps / walking?denies.?Generalized aches and pains?denies.?Weakness?denies.?Integ.:?Davalos?denies.?Scars?denies.?Corns/calluses?admits.?Ingrown nails?admits.?Painful nails?admits.?Open Sores?denies.?Rashes?denies.?Neurologic:?Difficulty sleeping?denies.?Brain disorder?denies.?Numbness?denies.?Balance t rouble?denies.?Confusion?denies.?Fainting/blackouts?denies.?Tingling?denies.?Minesh mors?denies.? * Medical History:? * Surgical History:?Nicci 1993rotator cuff Left 2010Meniscus knee repair 2009prostate 2003Hernia Repair 1953basal cell removal nose 2005/2008basal cell removal L cheek 2015basal cell removal upper R back shoulder area 2016finger biopsy 2008prostate 2018quadriceps sx LT and RT 11/16/2017cataract surgery 06/20/19 & 08/24/2019skin surgery, ear il knee injection 3 weeks 1 inj left ardiac catheterization ancer scalp spots removal 05/2022 * Hospitalization/Major Diagno stic Procedure:?[facility] for Prostate 05/26/2017quadriceps sx LT and RT 11/16/2017 * Family History:?Mother: dece ased.?Father: , heart attack.?Siblings: brother cancer, diagnosed with Other malignant neoplasm of unspecified site.?Spouse: alive.?Maternal Grand Mother: diagnosed with Diabetic - NIDDM.? * Social History:?Tobacco Use:?Tobacco Use/Smoking?Are you a:?nonsmoker ?Additional Findings: Tobacco Non-User?Current non-smoker ?Tobacco use other than smoking?Are you an other tobacco user??No * Medications:?TakingAmmonium Lactate 12 % Cream 1 application Externally Twice a day amLODIPine Besylate 10 MG Tablet 1 tablet Orally Once a day Aspir-81 81 MG Tablet Delayed Release 1 tablet Orally Once a day Empagliflozin Januvia 100MG Tablet 1 tablet Orally Once a day Lovastatin 20MG Tablet 1 tablet at bedtime Orally Once a day Losartan Potassium 100 MG Tablet 1 tablet Orally Once a day Metoprolol Succinate 25 MG Capsule ER 24 Hour Sprinkle 1 capsule Orally Once a day Tamsulosin HCl Vitamin B12 Extra Depth Orthopedic Shoes, (1) Pair With (3) Pair Custom Heat Molded Multidensity Innersoles . Dx: NIDDM/PVD(E11.51), Hammertoe Foot Deformity(M20.41,M20.42), Preulcerative Skin Lesion(s)(L85.1) Wear Daily metFORMIN HCl 500 MG Tablet 1 tablet with meals Orally Twice a day , Notes to Pharmacist: and 500mgFinasteride 5 MG Tablet as directed Orally 2x a week Taking Ammonium Lactate 12 % Cream 1 application Externally Twice a day Taking amLODIPine Besylate 10 MG Tablet 1 tablet Orally Once a day Taking Aspir-81 81 MG Tablet Delayed Release 1 tablet Orally Once a day Taking Empagliflozin Taking Januvia 100MG Tablet 1 tablet Orally Once a day Taking Lovastatin 20MG Tablet 1 tablet at bedtime Orally Once a day Taking Losartan Potassium 100 MG Tablet 1 tablet Orally Once a day Taking Metoprolol Succinate 25 MG Capsule ER 24 Hour Sprinkle 1 capsule Orally Once a day Taking Tamsulosin HCl Taking Vitamin B12 Taking Extra Depth Orthopedic Shoes, (1) Pair With (3) Pair Custom Heat Molded Multidensity Innersoles . Dx: NIDDM/PVD(E11.51), Hammertoe Foot Deformity(M20.41,M20.42), Preulcerative Skin Lesion(s)(L85.1) Wear Daily Taking metFORMIN HCl 500 MG Tablet 1 tablet with meals Orally Twice a day , Notes to Pharmacist: and 500mgTaking Finasteride 5 MG Tablet as directed Orally 2x a week Not-Taking/PRNhydroCHLOROthiazide 12.5 MG Capsule 1 capsule in the morning Orally Once a day Jardiance Multivitamins Tablet as directed Orally Vitamin B 12 Valsartan 32mg Once a day Eye Drops predniSONE Nightsplint . . . . AFO - L1930 Diovan 320MG Tablet 1 tablet Orally Once a day Medication List reviewed and reconciled with the patientNot-Taking/PRN hydroCHLOROthiazide 12.5 MG Capsule 1 capsule in the morning Orally Once a day Not-Taking/PRN Jardiance Not-Taking/PRN Multivitamins Tablet as directed Orally Not-Taking/PRN Vitamin B 12 Not-Taking/PRN Valsartan 32mg Once a day Not-Taking/PRN Eye Drops Not-Taking/PRN predniSONE Not-Taking/PRN Nightsplint . . . . AFO - L1930 Not-Taking/PRN Diovan 320MG Tablet 1 tablet Orally Once a day Medication List reviewed and reconciled with the patient * Allergies:?N.K.D.A.yes[Aller gies Verified] Objective: * Vitals:?Ht: 5 ft 6 in, Wt: 1 56, BMI: 25.18, Shoe size: 8.5, BP: 115/60 mm Hg, BS: 115, Wt-k.76 kg. * ???Past Orders: ???Lab:HEMOGLOBIN A1C (GLYCO HEMOGLOBIN) (Order Date - 03/11/2024) (Collection Date & Time - 03/11/2024 10:43 AM) ? Value Reference Range ?HEMOGLOBIN A1C % (HH) 6.8 * Examination: ???Ophthalmology Referral: ?DIABETES EYE EXAM?Procedure Performed:?Yes ?Date of Exam Performed?06/28/2023 ?Diabetic Retinopathy Screening:?Yes ?Findings of Diabetic Eye Exam:?no retinopathy?Vascular: ?DP PULSES (B):? 0-1/4, B/L.?PT PULSES (B):? 0/4, B/L.?CAPILLARY FILL TIME:? delayed, all digits, B/L.?TROPHIC CONDITION-TEXTURE/ELASTICITY/TURGOR/HAIR GROWTH (B):? decreased, fragile, thin, shiny skin, with sparse to absent hair growth, B/L.?TEMPERTURE GRADIENT (C):? decreased, cool to cool, proximal to distal, B/L.?PIGMENTATION:? rubrous, B/L.?EDEMA (C):?absent, B/L.?CLAUDICATION (C):?denies, B/L.?REST PAIN:?denies, B/L.?Nails: ?NAILS are:?Elongated, overgrown, dystrophic, lytic, greater than 3mm thick, discolored and friable with crumbly malodorous subungual debris, with pain on palpation , TA, T2, T3, T4, T5, T7, T8, T9, all other nails not described with characteristics as possessing mycosis are elongated, overgrown, and dystrophic.?Dermatologic: ?SKIN FINDINGS:?Skin exam reveals Keratotic lesion(s) located at , SUB MTH (s), 1, B/L, Plantar, Heel(s), B/L.?Orthopedic: ?MUSCLE STRENGTH:?5/5 all groups in a symmetrical fashion , B/L.?FOOT MORPHOLOGY:? No Charcot collapse/destruction noted at MTJ.?DIGITAL DEFORMITIES:?Digital contracture, PIPJ, 2-5 B/L, incompl-reducible to push-up test, no over, nor underlapping , with evidence of shoe producing skin irritation.?FOOTWEAR:?worn, OT were inspected and noted to be severely worn , in poor condition not giving proper support at the present time , shoe gear properties exacerbate patients foot/toe deformity.?Neurological: ?SENSORY:?Neurological exam reveals intact sensorium, pain sensation normal, vibration sensation intact, pinprick sensation is normal in the lower extremities, 5.07 monofilament test performed at plantar aspects of 5 varied sites per foot shows sensation, normal, B/L, Pt denies, anesthesia, burning, paresthesia, tingling, B/L.?General Examination: ?GENERAL APPEARANCE:?Reveals a pleasant, alert, well nourished, well- developed, well hydrated individual, who demonstrates proper attention to hygiene/body habitus, and is in no acute distress, Pt serves as own historian for office visit today.?ORIENTED:?person, place, and time.?FOOT EXAM:?Lower Extremity Neurological Exam performed:?Yes ?Visual exam of foot performed:?Yes ?Date?04/27/2024 ?Footwear Evaluation?Footwear Evaluation performed:?Yes??? Assessment: * Assessment: 1.?Type 2 diabetes mellitus with diabetic peripheral angiopathy without gangrene - E11.51 (Primary)???2.?Tinea unguium - B35.1???3.?Pain in right toe(s) - M79.674???4.?Pain in left toe(s) - M79.675???5.?Other hammer toe(s) (acquired), right foot - M20.41???Specify :Chronic problem, Worse (4),Rx Management (4)???6.?Other hammer toe(s) (acquired), left foot - M20.42???Specify :Chronic problem, Worse (4),Rx Management (4)??? Plan: * Treatment: 2.?Tinea unguium?Procedure: 63607-DFTLXGT NAIL, 6 OR MORE 3.?Other hammer toe(s) (acqu ired), right foot? Start Extra Depth Orthopedic Shoes, (1) Pair ., With (3) Pair Custom Heat Molded Multidensity Innersoles, Dx: NIDDM/PVD(E11.51), Hammertoe Foot Deformity(M20.41,M20.42), Preulcerative Skin Lesion(s)(L85.1), Wear, Daily, 365 days, 2, Refills 0.?? Notes: Patient Educated with: DIABETIC FOOT CARE INSTRUCTIONS.pdf (DIABETIC FOOT CARE INSTRUCTIONS.pdf)?? * Procedures:?Debride Nail 6-10:?Nail debridement?Due to the clinical pathology outlined in the exam findings, performance of this nail treatment is medically necessary as its management by an unskilled/untrained nonprofessional would put this patients foot and overall health at risk. Therefore, debridement to affected nail(s), as described in exam (?TA,?T2,?T3,?T4,?T5,?T7,?T8,?T9), was performed exclusively by the physician of record to reduce/remove overall nail length, girth, thickness, subungual debris, and necrotic tissue, by manual and/or electrical means through the use of a nail nipper and/or dremel-type chicle grinder feeder, to a more viable healthy nail plate or bed tissue 6- 10 nails in total. Silver nitrate was used for any petechial bleeding as necessary. Definitive antifungal treatment options, both pharmaceutical and surgical, have been reviewed and discussed with the patient. The patient solely prefers the use of intermittent/as needed professional debridement services for their nail condition and understands the need for additional periodic treatments to maintain effectiveness in symptomatic relief - 36434.?Keratoma Treatment:?Parring or Cutting of Benign Hyperkeratotic Lesion(s)?(-56) 2-4 Lesions - Due to the at risk nature of the patients medical condition as documented in the exam findings, performance of this keratoderma treatment is medically necessary as its management by an unskilled/untrained nonprofessional would put this patients foot and overall health at risk. Therefore, the benign hyperkeratotic lesions, ( 4) in total, locations as stated and described in the exam (?SUB MTH (s),?1,?B/L,?Plantar,?Heel(s),?B/L), were pared, and/or cut utilizing a sterile 15 blade, tissue nippers, and/or power dremel instrumentation by the physician of record - 07389, Q8.? * Procedure Codes:?73296 DEBRI DE NAIL, 6 OR MORE, Modifiers: XS 40143 TRIM SKIN LESIONS, 2 TO 4, Modifiers: XS , Q8 * Preventive Medicine:? ??Counseling:?Discussion:?-14: Office or other outpatient visit for the evaluation and management of an established patient, which required a medically appropriate history and/or examination and MODERATE level of DECISION MAKING for: 1 OR MORE CHRONIC PROBLEM(S) THATS WORSENING, 2 STABLE CHRONIC PROBLEMS, A NEWLY DIAGNOSED PROBLEM WITH UNCERTAIN PROGNOSIS, AN ACUTE COMPLICATED INJURY WITH MULTIPLE TREATMENT OPTIONS, OR AN ACUTE PROBLEM WITH ACCOMPANYING SYSTEMIC SYMPTOMS, THAT POSE(S) A MODERATE RISK OF MORBIDITY. THIS CONDITION MAY ALSO INCLUDE RX DRUG MANAGEMENT, OR A DECISON FOR MINOR SURGERY. The visit on the day of the encounter encompassed interpreting the data and educating the patient as to the nature of their condition, treatment options available according to their individual PMH, meds, allergies, and overall health/living conditions, as well as any potential risks or complications that may occur from a failure to adhere to, and participate in, the recommended course of therapy. The discussion included a complete verbal, and/or written explanation of the examination results, any x-rays taken, the proposed diagnosis, and outline of the treatment plan. A schedule for future care needs was also explained. The patient verbalized an understanding of the instructions at this time and agreed to be an active participant in their treatment. If the patient should think of any questions or concerns after the visit, I have encouraged the patient to call the office.?Digital Surgery:?Digital surgery was discussed with the patient, We elected to try conservative treatment at the present time, due to the patients medical history and increased asssociated post-operative risks.?Digital Treatment:?HT- I explained to the patient the possible etiologies of Hammertoes, including genetics/foot type/shoegear/activity level/exercise routine and the risks/benefits of all the different treatment options for their pain including: No treatment at all, Rest, Ice, New/supportive/wider/deeper Shoegear, Digital Padding/Strapping/Taping/Bracing/Gel protective sleeves, Foot/Ankle AFO Bracing, Stretching exercises, Deep Tissue Massage, Arch support/shoe inserts with splay metatarsal padding, and Custom orthoses. I insisted that any digital devices be removed daily and not worn overnight for safety. The patient is to carefully examine the toes daily for any skin irritation while using any splinting or padding device. The advantages and disadvantages of each option were discussed and the patients questions re: shoegear, padding, custom vs prefabricated inserts, activity level, and consistency in home treatment regimens for optimal success were answered to their verbally confirmed satisfaction.?Shoe Gear Counseling:?SHOE Rx - The patient was counseled in great detail on their muscoloskeletal foot and toe deformities which coincided with the dermatological presentations visualized on exam. We discussed how their deformities put the integrity of their feet at risk for potential pedal complications which makes the accomidative diabetic shoes and cutomizable inserts medically necessary. We discussed the different shoe and insert treatment types and options, as well as the important advantages for adhering to regularly wearing these accomidative devices daily. The patient was made aware of the fact that a failure to abide by these recommedations may be deleterious to their foot health as they are able to prevent many pedal complications such as skin irritation, skin ulceration, infection, and even loss of toe/foot/leg/or life. Time was also spent with the patient dispensing and discussing proper diabetic footcare techniques including daily skin moisturization, daily foot inspection for any interruption in skin integrity including open lesions, or sign of infection such as redness/malodor/drainage/swelling. Also discussed and recommended were procedures regarding daily shoe inspection for the presence of internal foreign bodies as well as any visualized irregular shoe or insert wear. Patient questions re: shoes, inserts, and self foot inspections were answered to their satisfaction as the patient verbally confirmed a full understanding of the above information. A Rx for Extra Depth Orthopedic Shoes with 3 pair of custom heat-molded inserts was dispensed.? ??Screening/Special Tests:?Fall Risk?Screening:?No falls in the past year ?FALLS: Screening for Future Fall Risk?Have you had any falls with injury in the past year??No * Follow Up:?prn * Images: * Sign off status: Completed true * Provider:?Adan Almanza DPM Date:?2024 Generated for Vishal rust/José/Jossue on:?06/13/2024 10:53 AM EST History and Physical Notes * HPI (History of Present Illness) Category Sub-Category Detail Notes Category Not es Toe pain Location: B/L feet Duration: several years Course: worse Aggravated by: shoes, any pressure Treatments: change in shoes At Risk footcare Pt States Last PCP Visit: Date: 4 Examination Category Sub-Category Detail Notes Category Not es Neurological SENSORY: Neurological exa m reveals intact sensorium, pain sensation normal, vibration sensation intact, pinprick sensation is normal in the lower extremities, 5.07 monofilament test performed at plantar aspects of 5 varied sites per foot shows sensation, normal, B/L, Pt denies, anesthesia, burning, paresthesia, tingling, B/L Dermatologic SKIN FINDINGS: Skin exam reveal s Keratotic lesion(s) located at , SUB MTH (s), 1, B/L, Plantar, Heel(s), B/L Orthopedic FOOT MORPHOLOGY: No Charcot malorie apse/destruction noted at MTJ FOOTWEAR: worn, OT were inspec shay and noted to be severely worn , in poor condition not giving proper support at the present time , shoe gear properties exacerbate patients foot/toe deformity DIGITAL DEFORMITIES: Digital contracture , PIPJ, 2-5 B/L, incompl-reducible to push-up test, no over, nor underlapping , with evidence of shoe producing skin irritation MUSCLE STRENGTH: 5/5 all groups in a symmetrical fashion , B/L General Examination GENERAL APPEARANCE: Reveals a pleasant, alert, well nourished, well-developed, well hydrated individual, who demonstrates proper attention to hygiene/body habitus, and is in no acute distress, Pt serves as own historian for office visit today FOOT EXAM: Lower Extremity Neurological Exa m performed:: Yes Visual exam of foot performed:: Yes Date: 04/27/2024 ORIENTED: person, place, and t dalia Footwear Evaluation Footwear Evaluation performe d:: Yes Ophthalmology Referral DIABETES EYE EXAM Procedure Perform ed:: Yes ?Date of Exam Performed: 06/28/2023 Diabetic Retinopathy Screening:: Yes Findings of Diabetic Eye Exam:: no retin opathy Vascular DP PULSES (B): 0-1/4, B/L PT [...] TA, T2, T3, T4, T5, T7, T8, T9, all other nails not described with characteristics as possessing mycosis are elongated, overgrown, and dystrophic
--- OUTSIDE RECORDS SUMMARY | 2024-06-13 10:53 | XMS_ITS ---
Author Organization [facility] Address [address] [place] [address] Care Team Providers Care Architecture Manager Name Role Phone Stevan Craig Primary Care Provider Unav ailable Cami, Adan Unavailable [phone] REASON FOR VISIT At Risk Footcare, Painful Nail(s) aggrevated by shoes and causing difficulty standing/walking Medications Medication SIG (Take, Route, Frequency, Duration) Notes Start Date End Date Status predniSONE Not-Takin g Nightsplint . . . AFO - L1930 for . Not-Taking Valsartan 32mg Once a day Not- Taking Eye Drops Not-Taking Diovan 320MG 1 tablet Orally Once a day Not-Taking metFORMIN HCl 500 MG 1 tablet with meals Orally Twice a day and 500mg Active Finasteride 5 MG as directed Orally 2x a week Active Extra Depth Orthopedic Shoes, (1) Pair With (3) Pair Custom Heat Molded Multidensity Innersoles Dx: NIDDM/PVD(E11.51), Hammertoe Foot Deformity(M20.41,M2 0.42), Preulcerative Skin Lesion(s)(L85.1) Wear Daily for 365 days 02/16/2023 Active Vitamin B12 Active Vitamin B 12 Not-Tunde ing Losartan Potassium 100 MG 1 tablet Orall y Once a day for 30 day(s) Active Metoprolol Succinate 25 MG 1 capsule Orally Once a day for 30 day(s) Active Lovastatin 20MG 1 tablet at bedtime Orally Once a day Active Multivitamins as directed Orally Not-Taking Tamsulosin HCl Activ e Empagliflozin Active hydroCHLOROthiazide 12.5 MG 1 capsule in the morning Orally Once a day for 30 day(s) Not-Taking Jardiance Not-Taking Januvia 100MG 1 tablet Orally Once a day Active Aspir-81 81 MG 1 tablet Orally Once a day Active amLODIPine Besylate [...] Signs Height 5 ft 6 in in 11/24/2023 Weight 156 lbs 11/24/2023 BMI 25.18 kg/m2 11/24/2023 Procedures Procedure Date Ordered Date Performed Result Body Sit e 17022-KAAZIVE NAIL, 6 OR MORE 11/24/2023 N/A 46676-YEYC SKIN LESIONS, 2 TO 4 11/24/2023 N/A Encounters Encounter Location Date Provider Diagnosis [facility] [address] [address] 11/24/2023 Adan Almanza Type 2 diabetes mellitus with diabetic peripheral angiopathy without gangrene E11.51 ; Tinea unguium B35.1 ; Pain in right toe(s) M79.674 and Pain in left toe(s) M79.675 Assessments Encounter Date Diagnosis (ICD Code) Assessment Notes Treatment Notes Treatment Clinical Notes Section Notes 11/24/2023 Type 2 diabetes mellitus with diabetic peripheral angiopathy without gangrene (ICD-10 - E11.51) 11/24/2023 Tinea unguium (ICD-10 - B35.1) 11/24/2023 Pain in right toe(s) (ICD-10 - M79.674) 11/24/2023 Pain in left toe(s) (ICD-10 - M79.675) Plan Of Treatment Pending Test Test Name Order Date 81373-UHLCKZV NAIL, 6 OR MORE 11/24/2023 33529-IRBD SKIN LESIONS, 2 TO 4 11/24/19 24 Next Appt Details Follow Up: prn, Reason: Provider Name:Adan Terrance Almanza , 07/24/2024 03:15:00 PM, [address] [place], [address], Procedure Notes * Category Sub-Category Detail Notes Debride Nail 6-10 Nail debridement Nail debridem ent performed extensively to reduce/remove overall nail length, girth, thickness, subungual debris, and necrotic tissue, by manual and electrical means through the use of a nail nipper and/or dremel, to more viable healthy nail plate or bed tissue 6-10. Silver nitrate used for any petechial bleeding as necessary. Patient chooses, no pharmaceutical tx (89030) Keratoma Treatment Parring or Cutting o f Benign Hyperkeratotic Lesion(s) 98473 ( 2-4 Lesions ) - The Benign hyperkeratotic lesions, as described above were pared, and/or cut utilizing a sterile 15 blade, tissue nippers, and/or dremel , Q8 Progress Notes * Jose E MCKEONDOB: [birth year] (82 yo M)Acc No.[id number]:11/24/2023 Progress Note Patient:?Jose E Mckeon Provider:?Adan Almanza DPM :1940???Age:82 Y???Sex:Male Adilson e:11/24/2023 Address:[address] [place] [address], [facility] Pcp:KATHLEEN Morales Subjective: * Chief Complaints: * ???At Risk FootcarePainful N ail(s) aggrevated by shoes and causing difficulty standing/walking * HPI: ???At Risk footcare:?Pt States Last PCP Visit:?Date?11/08/2023 * ROS:?General/Constitutional:?Nausea?denies.?Vomiting?denies.?Hunger Thirst?denies.?Loss appetite?denies.?Chills?denies.?Fatigue?denies.?Fever?denies.?Night Sweats?denies.?Unexplained weight loss?denies.?Unexplained [...] trouble?denies.?Confusion?denies.?Fainting/blackouts?denies.?Tingling?denies.?Tr emors?denies.? * Medical History:? * Surgical History:?Deepakkes 1993rotator cuff Left 2010Meniscus knee repair 2009prostate 2003Hernia Repair 1953basal cell removal nose 2005/2008basal cell removal L cheek 2015basal cell removal upper R back shoulder area 2016finger biopsy 2008prostate 2018quadriceps sx LT and RT 11/16/2017cataract surgery 06/20/19 & 08/24/2019skin surgery, ear il knee injection 3 weeks 1 inj left ardiac catheterization ancer scalp spots removal 05/2022 * Hospitalization/Major Diagno stic Procedure:?[facility] for Prostate 05/26/2017quadriceps sx LT and [...] Nightsplint . . . . AFO - I3765Mrcjmi 320MG Tablet 1 tablet Orally Once a dayMedication List reviewed and reconciled with the patientNot-Taking/PRN hydroCHLOROthiazide 12.5 MG Capsule 1 capsule in the morning Orally Once a dayNot-Taking/PRN Jardiance Not-Taking/PRN Multivitamins Tablet as directed Orally Not-Taking/PRN Vitamin B 12 Not-Taking/PRN Valsartan 32mg Once a dayNot-Taking/PRN Eye Drops Not-Taking/PRN predniSONE Not-Taking/PRN Nightsplint . . . . AFO - C1246Jbv-Jtizqt/PRN Diovan 320MG Tablet 1 tablet Orally Once a dayMedication List reviewed and reconciled with the patient * Allergies:?yes[Allergies Deion ified] Objective: * Vitals:?Ht: 5 ft 6 in, Wt:15 6, BMI: 25.18, Shoe size:8.5, BS:125, Wt-k.76 kg. * ???Past Orders: ???Lab:HEMOGLOBIN A1C (GLYCO HEMOGLOBIN) (Order Date - 11/08/2023) (Collection Date - 11/08/2023) ? Value Reference Range ?HEMOGLOBIN A1C % (HH) 7.8 * Examination: ???Vascular: ?DP PULSES:? 0-1/4, B/L.?PT PULSES:? 0/4, B/L.?CAPILLARY FILL TIME:? delayed, all digits, B/L.?SKIN TEMPERTURE GRADIENT OF THE LOWER EXTERMITIES:? decreased, cool to cool, proximal to distal, B/L.?HAIR GROWTH/TEXTURE/ELASTICITY/TURGOR:? decreased, B/L.?PIGMENTATION:? rubrous, B/L.?EDEMA:?absent, B/L.?CLAUDICATION:?denies, B/L.?REST PAIN:?denies, B/L.?Nails: ?NAILS are:?Elongated, overgrown, dystrophic, [...] - M79.675? Plan: * Treatment: 2.?Tinea unguium?Procedure: 05473-ABGULER NAIL, 6 OR MORE * Procedures:?Debride Nail 6-10:?Nail debridement?Nail debridement performed extensively to reduce/remove overall nail length, girth, thickness, subungual debris, and necrotic tissue, by manual and electrical means through the use of a nail nipper and/or dremel, to more viable healthy nail plate or bed tissue 6-10. Silver nitrate used for any petechial bleeding as necessary. Patient chooses, no pharmaceutical tx (21798).?Keratoma Treatment:?Parring or Cutting of Benign Hyperkeratotic Lesion(s)?54370 ( 2-4 Lesions ) - The Benign hyperkeratotic lesions, as described above were pared, and/or cut utilizing a sterile 15 blade, tissue nippers, and/or dremel , Q8.? * Procedure Codes:?21171 DEBRI DE NAIL, 6 OR MORE, Modifiers: XS 83107 TRIM SKIN LESIONS, 2 TO 4, Modifiers: XS , Q8 * Follow Up:?prn * Images: * Sign off status: Completed true * Provider:?Adan Almanza DPM Date:?2023 Generated for Vishal rust/José/Jossue on:?06/13/2024 10:53 AM EST History and Physical Notes * HPI (History of Present Illness) Category Sub-Category Detail Notes Category Not es At Risk footcare Pt States Last PCP Visit: Date: Examination Category Sub-Category Detail Notes Category Not es Dermatologic SKIN FINDINGS: Skin exam reveal s Keratotic lesion(s) located at , SUB MTH (s), 1, B/L, Heel(s), B/L Vascular DP PULSES (B): 0-1/4, B/L PT PULSES (B): 0/4, B/L CAPILLARY FILL TIME: delayed, all digits , B/L TEMPERTURE GRADIENT (C): decreased, cool to cool, proximal to distal, B/L TROPHIC CONDITION-TEXTURE/ELASTICITY/TURGOR/HAIR GROWTH (B): decreased, B/L EDEMA (C): absent, B/L CLAUDICATION (C): denies, B/L REST PAIN: denies, B/L PIGMENTATION: rubrous, B/L Nails NAILS are: Elongated, overg rown, dystrophic, lytic, greater than 3mm thick, discolored and friable with crumbly malodorous subungual debris, with pain on palpation , TA, T2, T3, T4, T5, T7, T8, T9
== END 2024-06-13 10:36 | disposition home or self-care (01) ==
PROVIDERS: PCP Nurse Practitioner Family; Visit Provider Internal Medicine
DX: E11.9 Type 2 diabetes mellitus without complications (principal)

== ENCOUNTER → 2024-06-13 09:33 | Outpatient (BNVA) | payer MEDICARE, SELFPAY | PROVIDERS: PCP Nurse Practitioner Family; Visit Provider Internal Medicine ==

== ENCOUNTER 2024-06-13 10:15 | Outpatient (REF) | payer MEDICARE, SELFPAY ==
[2024-06-13 13:20] LABS: Appearance Urine Clear; Color Urine Yellow; Glucose Urine UA >=1000 mg/dL (Negative); Leukocyte Esterase Urine Negative (Negative); Nitrite Urine Negative (Negative); PH 5.5 (5.0-9.0); UMIC TRIGGER UACC YES; Urine Blood Negative (Negative); Urine Ketones Negative (Negative); Urine Protein Negative (Neg-Trace)
[2024-06-13 13:26] LABS: Bacteria Urine None Seen (None Seen); Hyaline Casts Urine 0-2 /LPF (0-2); RBC Urine 0-2 /HPF (0-2); Squamous Epithelial Cell Urine 0-2 /HPF (0-2); WBC Urine 0-5 /HPF (0-5)
[2024-06-13 13:32] LABS: MANUAL DIFF FLAG NO
[2024-06-13 13:33] LABS: Basophils Absolute Auto 0.1 X10*3/uL (0.0-0.2); Basophils Percent Auto 0.9 % (0-2); Eosinophils Absolute Auto 0.2 X10*3/uL (0.0-0.4); Eosinophils Percent Auto 1.9 % (0-4); Hematocrit 44.7 % (42.0-52.0); Hemoglobin 14.9 g/dl (14.0-18.0); Imm Gran Abs Auto 0.04 X10*3/uL (0.00-0.03); Imm Gran Pct Auto 0.5 % (0.0-0.4); Lymphocytes Absolute Auto 1.5 X10*3/uL (1.2-4.9); Lymphocytes Percent Auto 17.9 % (20-40); Mean Corpuscular HGB Conc 33.3 g/dl (31.0-36.0); Mean Corpuscular Hemoglobin 30.7 pg (27.0-33.0); Mean Corpuscular Volume 92.2 fL (80.0-98.0); Monocytes Absolute Auto 0.9 X10*3/uL (0.1-1.2); Monocytes Percent Auto 10.7 % (2-11); Neutrophils Absolute Auto 5.6 x10*3/uL (2.0-8.3); Neutrophils Percent Auto 68.1 % (45-73); Platelet Count 237 X10*3/uL (160-400); Red Blood Count 4.85 X10*6/uL (4.60-5.80); Red Cell Distribution Width 13.2 % (11.0-16.0); White Blood Count 8.2 X10*3/uL (4.8-10.8)
[2024-06-13 14:01] LABS: Alanine Aminotransferase 31 U/L (0-40); Albumin Level 4.1 g/dL (3.5-5.0); Alkaline Phosphatase 87 U/L (39-117); Anion Gap 12 (12-20); Aspartate Amino Transferase 36 U/L (5-37); Bilirubin Total 0.6 mg/dL (0.0-1.0); Blood Urea Nitrogen 22 mg/dL (9-16); Calcium 9.2 mg/dL (8.4-10.2); Carbon Dioxide 22 mmol/L (22-29); Chloride 109 mmol/L (96-108); Cholesterol 133 mg/dL (<200); Estimated Glomerular Filt Rate > 60; Glucose Fasting 135 mg/dL (60-99); HDL Cholesterol 44 mg/dL (>40); LDL Cholesterol Calculated 72 mg/dL (<100); Sodium 139 mmol/L (135-145); Total Protein 7.7 g/dL (6.5-8.0); Triglycerides 87 mg/dL (<150)
[2024-06-13 14:06] LABS: TSH reflex Free T4 2.31 uIU/mL (0.32-4.0)
== END 2024-06-13 10:16 | disposition home or self-care (01) ==
LOC: HO.HMGCLDS 10:15
PROVIDERS: PCP Nurse Practitioner Family; Visit Provider Nurse Practitioner Family
DX: E11.9 Type 2 diabetes mellitus without complications (principal); Z79.84 Long term (current) use of oral hypoglycemic drugs
CPT/HCPCS: 36415; 80053; 80061; 81001; 84443; 85025; 96127; 99212

== ENCOUNTER 2024-07-16 10:18 | Outpatient (AMB) | payer MEDICARE, SELFPAY ==
[2024-07-16 10:22] VITALS: BP 110/48; PULSE 48; BMI 24.2
--- NOTE | 2024-07-16 10:22 | MHC.OFFVIS ---
Vital Signs 07/16/24 10:22 Height 5 ft 8 in Weight 159 lb 2.78 oz BMI 24.2 BP 110/48 L Blood Pressure Location Rt brachial Position Sitting Pulse 48 L Intake Visit Reasons: 4 mth f/up Territory Business Manager Required: No Accompanied by: Self / Same As Patient Allergies No Known Allergies [No Known Allergies*] Allergy (Verified 06/13/24 10:06) Medication List - Last Reconciled 07/16/24 by Dick Henderson MD amlodipine 10 mg PO DAILY aspirin 81 mg PO DAILY blood sugar diagnostic (FreeStyle Lite Strips) use 1 test strip twice a day to test blood sugar empagliflozin 25 mg PO DAILY finasteride 5 mg orally Tuesday and 90 days hydrochlorothiazide 12.5 mg PO DAILY lancets (FreeStyle Lancets) use 1 lancet twice a day to test blood sugar lancing device As directed to test blood sugar BID losartan 100 mg PO DAILY lovastatin 20 mg PO DAILY mecobalamin (vitamin B12) 1,000 mcg sublingual DAILY metformin ER 500 mg PO BID 90 days metoprolol succinate ER 25 mg PO DAILY multivitamin (Daily Multi-Vitamin tablet) 1 tab PO DAILY sitagliptin phosphate (Januvia) 100 mg PO DAILY tamsulosin 0.4 mg PO BEDTIME 90 days HPI Comments Details: Jose E returns for follow-up. In the past, he was seen regarding abnormal EKG including PVCs as well as prolonged FL. Multiple cardiovascular risk factors including diabetes, hypertension, dyslipidemia. He underwent cardiac catheterization but that did not show any significant findings. Also underwent cardiac MRI and saw EP. Overall, it seems that he is doing okay. No new cardiac concerns. [facility] Medical History Squamous cell carcinoma in situ Basal cell carcinoma Periorbital edema of left eye Foot callus Tinea unguium Actinic keratosis Plantar callus Type 2 diabetes mellitus without complication, without long-term current use of insulin Microscopic hematuria Poor urinary stream Fatty liver HTN (hypertension) Rupture of quadriceps muscle BPH (benign prostatic hyperplasia) Adenoma of both adrenal glands Diverticulitis Cataract Surgical History History of surgery Family History Father History of heart attack Mother No problems noted. Brother Throat cancer Social History Housing: House Alcohol intake: current Alcohol intake frequency: holidays/special occasions only Patient Tobacco Use Status: Never used Tobacco e-Cigarette/Vaping Use: Never Used Second Hand Smoke Exposure: No service: No Current occupational status: retired Current occupational exposures/hazards: No Cognitive needs: No Hearing needs: No Vision needs: No Review of Systems Const Denies chills, Denies fatigue, Denies fever(s), Denies weight gain and Denies weight loss ENT Denies dizziness Card Denies chest pain, Denies leg edema, Denies lightheadedness, Reports palpitations, Denies dyspnea on exertion, Denies orthopnea and Denies other Resp Denies cough and Denies dyspnea on exertion GI Denies hematochezia and Denies change in stool character Musc Denies abnormal gait, Denies muscle weakness, Denies numbness, Denies radiating pain into limb and Denies tingling Neuro Denies abnormal gait, Denies dizziness, Denies numbness and Denies tingling Endo Denies fatigue and Reports palpitations Physical Exam Vital Signs: Last Vital Signs Pulse 48 L 07/16/24 10:22 BP 110/48 L 07/16/24 10:22 BMI result Body Mass Index 24.2 Const General: comfortable and no acute distress Orientation/consciousness: patient oriented x3 HEENT Other: Unremarkable Head: Yes normal to inspection Neck Neck: Yes normal visual inspection Chest Chest palpation & inspection: normal inspection of the chest Resp Auscultation: clear to auscultation bilaterally Cardio Palpation: normal PMI Heart sounds: S1 normal heart sound present, S2 normal heart sound present, no gallops, no murmurs and no rubs GI Palpation (GI): Soft to palpation Back/Spine/Pelvis Other: unremarkable Skin General skin exam: no rashes or lesions noted Neuro General: patient oriented x3 Extrem General: Yes normal to inspection Psych Mental Status: mental status grossly normal Assessment & Plan Assessment & Plan (1) PVC (premature ventricular contraction): Code(s): I49.3 - Ventricular premature depolarization Category: Medical (2) AV block, 1st degree: Code(s): I44.0 - Atrioventricular block, first degree Category: Medical Plan Cardiac studies reviewed. EKG with underlying sinus rhythm, frequent PVCs in a bigeminal pattern and mild FL prolongation. In the Holter, underlying rhythm is sinus with an average rate of 62/Min. Frequent PVCs with a burden of 17%. Longest run possibly around 3 beats but nothing prolonged. A repeat study from [facility] with PVC burden of 18% and single dominant morphology. 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 Suspected diaphragmatic attenuation artifact in the inferior wall. No clear ischemia noted. In the exercise stress test, he exercised for 6 minutes and reached 7.3 METS. No issues with PVCs or other abnormalities of concern. Echocardiogram with LVEF of 58%. Basal inferior hypokinesis. Cardiac catheterization shows no significant disease. Minimal irregularities only. Cardiac MRI with LVEF of 55-60%. Apical trabeculation but not meeting diagnostic criteria for noncompaction. Mid inferolateral fibrosis. Delayed enhancement with patchy transmural enhancement in the basal to mid inferolateral wall. Overall conclusion is that findings could be nonspecific and that infiltrative cardiomyopathy is possible. Sarcoidosis vs amyloid versus myocarditis versus scar. Cardiac PET showed no evidence of active myocardial inflammation. Overall, frequent PVCs but no clear-cut symptoms. He has seen EP and it does not appear that there is an active plan for ablation. At his age and relative lack of symptoms, may be reasonable to just keep him on beta-blockers and monitor for symptoms and LV dysfunction. We will follow up in 6 months with another Holter monitor. Orders: Orders ECG 3 day holter monitor 6 Months I49.3 - Ventricular premature depolarization Coding Level of Care Code Est Pt Level 4 (38276) Complex EM visit Add On G2211 Diagnoses PVC (premature ventricular contraction) I49.3 AV block, 1st degree I44.0
--- OUTSIDE RECORDS SUMMARY | 2024-07-16 12:04 | XMS_ITS ---
Author Organization [facility] Address [address] [place] [address] Care Team Providers Care Swage Tender Name Role Phone Stevan Craig Primary Care Provider Unav ailable CamiAdan Unavailable [phone] Allergies No Known Allergies REASON FOR VISIT [...] Ordered Date Performed Result Body Sit e 74122-RFMRFMT NAIL, 6 OR MORE 02/15/2024 N/A 47659-KABI SKIN LESIONS, 2 TO 4 02/15/2024 N/A Encounters Encounter Location Date Provider Diagnosis [facility] [address] [address] 02/15/2024 Adan Almanza Type 2 diabetes mellitus [...] Treatment Pending Test Test Name Order Date 92841-RAKBHSU NAIL, 6 OR MORE 02/15/2024 73169-LMEK SKIN LESIONS, 2 TO 4 02/15/20 24 Next Appt Details Follow Up: prn, Reason: Provider Name:Adan Almanza , 07/24/2024 03:15:00 PM, [address] [place] [address], [phone], Procedure Notes * Category Sub-Category Detail Notes [...] use of a nail nipper and/or dremel-type metal grinder, to a more viable healthy nail plate or bed tissue 6-10. Silver nitrate used for any petechial bleeding as necessary. Definitive antifungal treatment options have been reviewed and discussed with the patient. The patient chooses, no pharmaceutical tx - 85652 Keratoma Treatment Parring or Cutting o f Benign Hyperkeratotic Lesion(s) (-56) 2-4 Lesions - The Benign hyperkeratotic lesions, as described in exam, were pared, and/or cut utilizing a sterile 15 blade, tissue nippers, and/or dremel - 55643 , Q8 Progress Notes * Jose E MCKEONDOB: [birth year] (83 yo M)Acc No.[id number]:02/15/2024 Progress Note Patient:?Jose E Mckeon Provider:?Adan Almanza DPM :1940???Age:83 Y???Sex:Male Adilson e:02/15/2024 Address:[address] [place], [place] [id number] Pcp:KATHLEEN Morales Subjective: * Chief Complaints: * [...] spots removal 05/2022 * Hospitalization/Major Diagno stic Procedure:?[facility] for Prostate 05/26/2017quadriceps sx LT and [...] Nightsplint . . . . AFO - K0567Zefcow 320MG Tablet 1 tablet Orally Once a dayMedication List reviewed and reconciled with the patientNot-Taking/PRN hydroCHLOROthiazide 12.5 MG Capsule 1 capsule in the morning Orally Once a dayNot-Taking/PRN Jardiance Not-Taking/PRN Multivitamins Tablet as directed Orally Not-Taking/PRN Vitamin B 12 Not-Taking/PRN Valsartan 32mg Once a dayNot-Taking/PRN Eye Drops Not-Taking/PRN predniSONE Not-Taking/PRN Nightsplint . . . . AFO - M8585Ylj-Efdcrx/PRN Diovan 320MG Tablet 1 tablet Orally Once [...] - M79.675? Plan: * Treatment: 2.?Tinea unguium?Procedure: 12652-DOZSBJN NAIL, 6 OR MORE * Procedures:?Debride Nail [...] use of a nail nipper and/or dremel-type metal grinder, to a more viable healthy nail plate or bed tissue 6-10. Silver nitrate used for any petechial bleeding as necessary. Definitive antifungal treatment options have been reviewed and discussed with the patient. The patient chooses, no pharmaceutical tx - 09486.?Keratoma Treatment:?Parring or Cutting of Benign Hyperkeratotic Lesion(s)?(-56) 2-4 Lesions - The Benign hyperkeratotic lesions, as described in exam, were pared, and/or cut utilizing a sterile 15 blade, tissue nippers, and/or dremel - 61231 , Q8.? * Procedure Codes:?56808 DEBRI DE NAIL, 6 OR MORE, Modifiers: XS 87460 TRIM SKIN LESIONS, 2 TO 4, Modifiers: XS , Q8 * Follow Up:?prn * Images: * Sign off status: Completed true * Provider:?Adan Almanza DPM Date:?2023 Generated for Vishal rust/José/Jossue on:?07/16/2024 12:03 PM EDT History and Physical Notes * HPI (History [...]
--- OUTSIDE RECORDS SUMMARY | 2024-07-16 12:04 | XMS_ITS ---
Author Organization [facility] Address [address] [place] [address] Care Team Providers Care Education Paraprofessional Name Role Phone Stevan Craig Primary Care Provider Unav ailable Cami, Adan Unavailable [phone] Allergies No Known Allergies REASON FOR VISIT [...] Signs Height 5 ft 6 in in 04/27/2024 Weight 156 lbs 04/27/2024 BMI 25.18 kg/m2 04/27/2024 Blood pressure systolic 115 mm Hg 04/27/19 25 Blood pressure diastolic 60 mm Hg 025 Procedures Procedure Date Ordered Date Performed Result Body Sit e 82590-SECROOB NAIL, 6 OR MORE 04/27/2024 N/A 80788-ZBEV SKIN LESIONS, 2 TO 4 04/27/2024 N/A Encounters Encounter Location Date Provider Diagnosis [facility] [address] [address] 04/27/2024 Adan Almanza Type 2 diabetes mellitus [...] INSTRUCTIONS.pdf) Pending Test Test Name Order Date 05259-MAUMHIW NAIL, 6 OR MORE 04/27/2024 91807-LFIS SKIN LESIONS, 2 TO 4 04/27/19 Next Appt Details Follow Up: prn, Reason: Provider Name:Adan Almanza , 07/24/2024 03:15:00 PM, [address] [place] [address], [phone], Procedure Notes * Category Sub-Category Detail Notes [...] use of a nail nipper and/or dremel-type regrinder operator, to a more viable healthy nail plate [...] to maintain effectiveness in symptomatic relief - 59257 Keratoma Treatment Parring or Cutting o f [...] instrumentation by the physician of record - 17936, Q8 Progress Notes * Jose E MCKEONDOB: [birth year] (83 yo M)Acc No.[id number]:04/27/2024 Progress Note Patient:?Jose E MCKEON Provider:?Adan Almanza DPM :1940???Age:83 Y???Sex:Male Adilson e:04/27/2024 Address:[address] [place], [place] [id number] Pcp:KATHLEEN Morales Subjective: * Chief Complaints: * [...] spots removal 05/2022 * Hospitalization/Major Diagno stic Procedure:?[facility] for Prostate 05/26/2017quadriceps sx LT and [...] Management (4)??? Plan: * Treatment: 2.?Tinea unguium?Procedure: 85859-SNNCCMC NAIL, 6 OR MORE 3.?Other hammer toe(s) [...] use of a nail nipper and/or dremel-type regrinder operator, to a more viable healthy nail plate [...] to maintain effectiveness in symptomatic relief - 78863.?Keratoma Treatment:?Parring or Cutting of Benign Hyperkeratotic Lesion(s)?(-56) [...] instrumentation by the physician of record - 13694, Q8.? * Procedure Codes:?82379 DEBRI DE NAIL, 6 OR MORE, Modifiers: XS 63801 TRIM SKIN LESIONS, 2 TO 4, Modifiers: [...] Almanza DPM Date:?2024 Generated for Vishal rust/José/Jossue on:?07/16/2024 12:04 PM EDT History and Physical Notes * [...] No Charcot malorie apse/destruction noted at [facility] FOOTWEAR EVALUATION: worn, OT were inspe cted and noted to be severely worn , [...]
--- OUTSIDE RECORDS SUMMARY | 2024-07-16 12:04 | XMS_ITS ---
Author Organization [facility] Address [address] [place] [address] Care Team Providers Care Ged Teacher Name Role Phone Stevan Craig Primary Care Provider Unav ailable Cami, Adan Unavailable [phone] REASON FOR VISIT At Risk Footcare, Painful [...] Ordered Date Performed Result Body Sit e 12271-LVPPWZX NAIL, 6 OR MORE 11/24/2023 N/A 59650-TLYQ SKIN LESIONS, 2 TO 4 11/24/2023 N/A Encounters Encounter Location Date Provider Diagnosis [facility] [address] [address] 11/24/2023 Adan Almanza Type 2 diabetes mellitus [...] Treatment Pending Test Test Name Order Date 67771-QNQZMSK NAIL, 6 OR MORE 11/24/2023 55092-IJFP SKIN LESIONS, 2 TO 4 11/24/19 24 Next Appt Details Follow Up: prn, Reason: Provider Name:Adan Terrance Almanza , 07/24/2024 03:15:00 PM, [address] [place], [address], Procedure Notes * Category Sub-Category Detail Notes [...] as necessary. Patient chooses, no pharmaceutical tx (50286) Keratoma Treatment Parring or Cutting o f Benign Hyperkeratotic Lesion(s) 75475 ( 2-4 Lesions ) - The Benign hyperkeratotic lesions, as described above were pared, and/or cut utilizing a sterile 15 blade, tissue nippers, and/or dremel , Q8 Progress Notes * Jose E MCKEONDOB: [birth year] (82 yo M)Acc No.[id number]:11/24/2023 Progress Note Patient:?Jose E Mckeon Provider:?Adan Almanza DPM :1940???Age:82 Y???Sex:Male Adilson e:11/24/2023 Address:[address] [place] [address], [facility] Pcp:KATHLEEN Morales Subjective: * Chief Complaints: * [...] spots removal 05/2022 * Hospitalization/Major Diagno stic Procedure:?[facility] 05/26/2017quadriceps sx LT and [...] Nightsplint . . . . AFO - M6588Qxetkl 320MG Tablet 1 tablet Orally Once a dayMedication List reviewed and reconciled with the patientNot-Taking/PRN hydroCHLOROthiazide 12.5 MG Capsule 1 capsule in the morning Orally Once a dayNot-Taking/PRN Jardiance Not-Taking/PRN Multivitamins Tablet as directed Orally Not-Taking/PRN Vitamin B 12 Not-Taking/PRN Valsartan 32mg Once a dayNot-Taking/PRN Eye Drops Not-Taking/PRN predniSONE Not-Taking/PRN Nightsplint . . . . AFO - N3603Sih-Kzjden/PRN Diovan 320MG Tablet 1 tablet Orally Once [...] - M79.675? Plan: * Treatment: 2.?Tinea unguium?Procedure: 04565-MSCJUXU NAIL, 6 OR MORE * Procedures:?Debride Nail 6-10:?Nail debridement?Nail debridement performed extensively to reduce/remove overall nail length, girth, thickness, subungual debris, and necrotic tissue, by manual and electrical means through the use of a nail nipper and/or dremel, to more viable healthy nail plate or bed tissue 6-10. Silver nitrate used for any petechial bleeding as necessary. Patient chooses, no pharmaceutical tx (24511).?Keratoma Treatment:?Parring or Cutting of Benign Hyperkeratotic Lesion(s)?03661 ( 2-4 Lesions ) - The Benign hyperkeratotic lesions, as described above were pared, and/or cut utilizing a sterile 15 blade, tissue nippers, and/or dremel , Q8.? * Procedure Codes:?69317 DEBRI DE NAIL, 6 OR MORE, Modifiers: XS 45948 TRIM SKIN LESIONS, 2 TO 4, Modifiers: XS , Q8 * Follow Up:?prn * Images: * Sign off status: Completed true * Provider:?Adan Almanza DPM Date:?2023 Generated for Vishal rust/José/Jossue on:?07/16/2024 12:04 PM [...]
--- OUTSIDE RECORDS SUMMARY | 2024-07-16 12:04 | XMS_ITS | Patient Health Record ---
Author Organization [facility] Address [address] [place] [address] Care Team Providers Care In Flight Crew Member Name Role Phone Stevan Craig Primary Care Provider Unav ailable Cami Adan Unavailable [phone] Allergies No Known Allergies Results Component Value Reference Range Notes HEMOGLOBIN A1C (GLYCOHEMOGLO BIN) Reviewed date:11/24/2023 10:06:43 AM Interpretation: Performing Lab: Notes/Report: HEMOGLOBIN A1C % (HH) 7.8 HEMOGLOBIN A1C (GLYCOHEMOGLO BIN) Reviewed date:04/27/2024 10:44:24 AM Interpretation: Performing Lab: Notes/Report: HEMOGLOBIN A1C % (HH) 6.8 HEMOGLOBIN A1C (GLYCOHEMOGLO BIN) Reviewed date:02/15/2024 04:11:49 PM Interpretation: Performing Lab: Notes/Report: TOTAL HEMOGLOBIN (HGBA1C) 7.1 Reason For Referral No Information Medications Medication [...] Problem Acquired hammer toe of right foot (7020380403538 105) Other hammer toe(s) (acquired), right foot (M20.41) Active confirmed Response to treatment,I mprovement Problem Type 2 diabetes mellitus with peripheral angiopathy (487582865) Type 2 diabetes mellitus with diabetic peripheral angiopathy without gangrene (E11.51) Active confirmed Problem Acquired hammer toe of left foot (5976997053024 103) Other hammer toe(s) (acquired), left foot (M20.42) Active confirmed Response to treatment,I mprovement Vital Signs Blood pressure diastolic 60 mm Hg 04/27/2024 Height 5 ft 6 in in 04/27/2024 Blood pressure systolic 115 mm Hg 04/27/2024 Weight 156 lbs 04/27/2024 BMI 25.18 kg/m2 04/27/2024 Procedures Procedure Date Ordered Date Performed Result Body Sit e 92020-POMUJPV NAIL, 6 OR MORE 09/15/2023 N/A 43595-TNVU SKIN LESIONS, 2 TO 4 09/15/2023 N/A 61047-QDLBPIQ NAIL, 6 OR MORE 11/24/2023 N/A 50377-OLAJ SKIN LESIONS, 2 TO 4 11/24/2023 N/A 41090-QGGUTYE NAIL, 6 OR MORE 02/15/2024 N/A 54821-PDBU SKIN LESIONS, 2 TO 4 02/15/2024 N/A 53789-FVDOPSW NAIL, 6 OR MORE 04/27/2024 N/A 27818-TUZO SKIN LESIONS, 2 TO 4 04/27/2024 N/A Encounters Encounter Location Date Provider Diagnosis [address] [address] 09/15/2023 Adan Almanza Type 2 diabetes mellitus with diabetic peripheral angiopathy without gangrene E11.51 ; Tinea unguium B35.1 ; Pain in right toe(s) M79.674 and Pain in left toe(s) M79.[address] [address] 11/24/2023 Adanmaria del rosario WillardCami Type 2 diabetes mellitus with diabetic peripheral angiopathy without gangrene E11.51 ; Tinea unguium B35.1 ; Pain in right toe(s) M79.674 and Pain in left toe(s) M79.[address] [address] 02/15/2024 Adan Almanza Type 2 diabetes mellitus with diabetic peripheral angiopathy without gangrene E11.51 ; Tinea unguium B35.1 ; Pain in right toe(s) M79.674 and Pain in left toe(s) M79.[address] [facility] [address] [address] 04/27/2024 Adanmaria del rosario WillardCami Type 2 diabetes mellitus with diabetic peripheral angiopathy without gangrene E11.51 ; Tinea unguium B35.1 ; Pain in right toe(s) M79.674 ; Pain in left toe(s) M79.675 ; Other hammer toe(s) (acquired), right foot M20.41 and Other hammer toe(s) (acquired), left foot M20.42 Assessments Encounter Date Diagnosis (ICD Code) Assessment Notes Treatment Notes Treatment Clinical Notes Section Notes 09/15/2023 Type 2 diabetes mellitus with diabetic [...] toe(s) (ICD-10 - M79.674) 09/15/2023 Pain in left toe(s) (ICD-10 - [...] foot (ICD-10 - M20.42) Plan Of Treatment Pending Test Test Name Order Date 92319-ZGRKJRU NAIL, 6 OR MORE 03/22/2017 70087-OKOQRJU NAIL, 6 OR MORE 06/28/2017 15714-JVSNUXR NAIL, 6 OR MORE 09/30/2017 66750-ECFZIFQ NAIL, 6 OR MORE 12/30/2017 11154-ZHCJTOY NAIL, 6 OR MORE 03/09/2018 85518-LBDLYZK NAIL, 6 OR MORE 05/26/2018 20736-JRMAGBB NAIL, 6 OR MORE 08/18/2018 08097-ZIOOAZX NAIL, 6 OR MORE 11/07/2018 50886-JRCSPGW NAIL, 6 OR MORE 01/23/2019 32083-HMMYSXK NAIL, 6 OR MORE 04/24/2019 11187-SQKZZZJ NAIL, 6 OR MORE 06/29/2019 85165-XXXIQHP NAIL, 6 OR MORE 09/07/2019 82742-RKOTLAC NAIL, 6 OR MORE 11/20/2019 62899-PVSYEXA NAIL, 6 OR MORE 01/22/2020 58934-ZYPOIWS NAIL, 6 OR MORE 04/22/2020 72113-TOERDIL NAIL, 6 OR MORE 07/01/2020 40039-AZTLQPD NAIL, 6 OR MORE 09/16/2020 18507-XOIKLSH NAIL, 6 OR MORE 11/25/2020 74975-UBSNHLA NAIL, 6 OR MORE 02/13/2021 00159-EBRUCTV NAIL, 6 OR MORE 05/05/2021 75502-EJCOZXN NAIL, 6 OR MORE 07/29/2021 07153-AURNAKV NAIL, 6 OR MORE 10/07/2021 33691-OPPNSYG NAIL, 6 OR MORE 12/17/2021 73775-VZWOAUF NAIL, 6 OR MORE 02/25/2022 77924-NMNYJVV NAIL, 6 OR MORE 06/01/2022 86397-FGQQLZZ NAIL, 6 OR MORE 08/13/2022 92780-JCZCIGT NAIL, 6 OR MORE 10/22/2022 56074-LOVUOKV NAIL, 6 OR MORE 02/16/2023 18658-CMEFPVK NAIL, 6 OR MORE 04/28/2023 52744-FKNTRXC NAIL, 6 OR MORE 07/07/2023 60311-JLRLDRD NAIL, 6 OR MORE 09/15/2023 01812-SSSIKNV NAIL, 6 OR MORE 11/24/2023 94965-OAEFUYC NAIL, 6 OR MORE 02/15/2024 01510-FMSZOOV NAIL, 6 OR MORE 04/27/2024 49101-EHKC SKIN LESIONS, 2 TO 4 04/27/19 25 72484-RIYT SKIN LESIONS, 2 TO 4 02/15/20 24 09409-LOZS SKIN LESIONS, 2 TO 4 11/24/19 24 33212-MHUT SKIN LESIONS, 2 TO 4 09/15/19 24 78980-XNRY SKIN LESIONS, 2 TO 4 07/07/19 24 01264-HYWD SKIN LESIONS, 2 TO 4 04/28/19 24 47714-VKCS SKIN LESIONS, 2 TO 4 02/17/20 23 43335-TJRP SKIN LESIONS, 2 TO 4 10/23/19 23 91214-EXPK SKIN LESIONS, 2 TO 4 08/14/19 23 75342-WSWZ SKIN LESIONS, 2 TO 4 06/01/19 23 Next Appt Details Provider Name:Adan Terrance Almanza , 07/24/2024 03:15:00 PM, [address] [place], [address], Insurance Providers Payer Name Payer Address Payer Phone Subscriber Number Group Number Insured Name Patient Relationship to Insured Coverage Start Date Coverage End Date Medicare National Govt [facility] [address] [place] [address] [id number] Jose E Lewis Self - patient is the insured 2 [employer] Blue Shield [address] [place] [address] [id number] Jose E Lewis Self - patient is the insured Medical (General) History Medical History History ICD Code type II diabetes hypercholesterolemia Headaches High blood pressure Measles Chicken pox Surgical History Surgery Date(Month/Year) Achillkes 1992 rotator cuff Left 2010 Meniscus knee repair 2008 prostate 2003 Hernia Repair 1952 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
== END 2024-07-16 10:41 | disposition home or self-care (01) ==
LOC: HO.HCS 10:19
PROVIDERS: PCP Nurse Practitioner Family; Visit Provider Internal Medicine
DX: I49.3 Ventricular premature depolarization (principal); I44.0 Atrioventricular block, first degree
CPT/HCPCS: 99214; G2211

== ENCOUNTER → 2024-07-16 10:18 | Outpatient (BNVA) | payer MEDICARE, SELFPAY | PROVIDERS: PCP Nurse Practitioner Family; Visit Provider Internal Medicine | DX: I10 Essential (primary) hypertension (principal); I49.3 Ventricular premature depolarization; I44.0 Atrioventricular block, first degree | CPT/HCPCS: 99212 ==

== ENCOUNTER 2024-08-10 07:43 | Outpatient (REF) | payer MEDICARE, SELFPAY ==
--- OUTSIDE RECORDS SUMMARY | 2024-08-10 07:47 | XMS_ITS ---
Author Organization [facility] Address [address] [place] [address] Care Team Providers Care Financial Advisor Name Role Phone Stevan Craig Primary Care Provider Unav ailable Adan Almanza Unavailable [phone] Allergies No Known Allergies REASON FOR VISIT [...] Ordered Date Performed Result Body Sit e 77301-XAOPOKN NAIL, 6 OR MORE 02/15/2024 N/A 73569-PYLD SKIN LESIONS, 2 TO 4 02/15/2024 N/A Encounters Encounter Location Date Provider Diagnosis [facility] [address] [address] 02/15/2024 Adan Almanza Type 2 diabetes mellitus [...] Treatment Pending Test Test Name Order Date 85611-DQFMPZM NAIL, 6 OR MORE 02/15/2024 68564-ABRB SKIN LESIONS, 2 TO 4 02/15/20 24 Next Appt Details Follow Up: prn, Reason: Provider Name:Adan V Cami , 10/24/2024 09:00:00 AM, [address] [facility], [address], [place], [address], Procedure Notes * Category Sub-Category Detail Notes [...] use of a nail nipper and/or dremel-type turbinated bone grinder, to a more viable healthy nail plate or bed tissue 6-10. Silver nitrate used for any petechial bleeding as necessary. Definitive antifungal treatment options have been reviewed and discussed with the patient. The patient chooses, no pharmaceutical tx - 19081 Keratoma Treatment Parring or Cutting o f Benign Hyperkeratotic Lesion(s) (-56) 2-4 Lesions - The Benign hyperkeratotic lesions, as described in exam, were pared, and/or cut utilizing a sterile 15 blade, tissue nippers, and/or dremel - 04435 , Q8 Progress Notes * Jose E MCKEONDOB: [birth year] (83 yo M)Acc No.[id number]:02/15/2024 Progress Note Patient:?Jose E Mckeon Provider:?Adan Almanza DPM :1940???Age:83 Y???Sex:Male Adilson e:02/15/2024 Address:[address] [place] [address], [facility] Pcp:KATHLEEN Morales Subjective: * Chief Complaints: * [...] spots removal 05/2022 * Hospitalization/Major Diagno stic Procedure:?[facility] for Prostate 05/26/2017quadriceps sx LT and RT [...] Nightsplint . . . . AFO - L8095Szgzyc 320MG Tablet 1 tablet Orally Once a dayMedication List reviewed and reconciled with the patientNot-Taking/PRN hydroCHLOROthiazide 12.5 MG Capsule 1 capsule in the morning Orally Once a dayNot-Taking/PRN Jardiance Not-Taking/PRN Multivitamins Tablet as directed Orally Not-Taking/PRN Vitamin B 12 Not-Taking/PRN Valsartan 32mg Once a dayNot-Taking/PRN Eye Drops Not-Taking/PRN predniSONE Not-Taking/PRN Nightsplint . . . . AFO - O5214Duj-Rjuump/PRN Diovan 320MG Tablet 1 tablet Orally Once [...] - M79.675? Plan: * Treatment: 2.?Tinea unguium?Procedure: 53465-KPVSSBM NAIL, 6 OR MORE * Procedures:?Debride Nail [...] use of a nail nipper and/or dremel-type turbinated bone grinder, to a more viable healthy nail plate or bed tissue 6-10. Silver nitrate used for any petechial bleeding as necessary. Definitive antifungal treatment options have been reviewed and discussed with the patient. The patient chooses, no pharmaceutical tx - 90235.?Keratoma Treatment:?Parring or Cutting of Benign Hyperkeratotic Lesion(s)?(-56) 2-4 Lesions - The Benign hyperkeratotic lesions, as described in exam, were pared, and/or cut utilizing a sterile 15 blade, tissue nippers, and/or dremel - 54757 , Q8.? * Procedure Codes:?70847 DEBRI DE NAIL, 6 OR MORE, Modifiers: XS 26827 TRIM SKIN LESIONS, 2 TO 4, Modifiers: XS , Q8 * Follow Up:?prn * Images: * Sign off status: Completed true * Provider:?BRISSA OrozcoM Date:?2023 Generated for Vishal rust/José/Kristyitting on:?08/10/2024 07:46 AM EDT History and Physical Notes * HPI [...]
--- OUTSIDE RECORDS SUMMARY | 2024-08-10 07:47 | XMS_ITS | Patient Health Record ---
Author Organization [facility] Address [address] [place] [address] Care Team Providers Care Berry Picker Name Role Phone Stevan Craig Primary Care Provider Unav ailable Adan Almanza Unavailable [phone] Allergies No Known Allergies Results Component Value [...] Orally Twice a day and 500mg Active Diovan 320MG 1 tablet Orally Once a day Not-Taking Nightsplint . . . AFO - L1930 for . Not-Taking Vitamin B12 Active Tamsulosin HCl Activ e predniSONE Not-Takin g Empagliflozin Active Jardiance Not-Taking Aspir-81 81 MG 1 tablet Orally Once a day Active hydroCHLOROthiazide 12.5 MG 1 capsule in the morning Orally Once a day for 30 day(s) Not-Taking amLODIPine Besylate 10 MG 1 tablet Orall y Once a day Active Extra Depth Orthopedic Shoes, (1) Pair With (3) Pair Custom Heat Molded Multidensity Innersoles Dx: NIDDM/PVD(E11.51), Hammertoe Foot Deformity(M20.41,M2 0.42), Preulcerative Skin Lesion(s)(L85.1) Wear Daily for 365 days Active Ammonium Lactate 12 % 1 application Externally Twice a day for 30 days Active Finasteride 5 MG as directed Orally 2x a week Active Metoprolol Succinate 25 MG 1 capsule Orally Once a day for 30 day(s) Active Eye Drops Not-Taking Losartan Potassium 100 MG 1 tablet Orall y Once a day for 30 day(s) Active Valsartan 32mg Once a day Not- Taking Lovastatin 20MG 1 tablet at bedtime Orally Once a day Active Vitamin B 12 Not-Tunde ing Januvia 100MG 1 tablet Orally Once a day Active Multivitamins as directed Orally Not-Taking Immunizations Vaccine Route Administration Date Status Comme nts COVID-19 Pfizer BioNTech Vaccine Unknown 02/10/2022 Administered 05/13/20,06/03/20 01/01/21 Influenza Unknown 06/27/2017 Administered Influenza Unknown 12/30/2017 Refused Influenza Unknown 02/13/2020 Administered Influenza Unknown 01/10/2022 Administered Pneumococcal Unknown 02/05/2013 Administered Social History Tobacco Use: Social History Observation Description Date Details (start date - stop date) Never Smoker NA - NA Tobacco use other than smoking: Question Answer Notes Are you an other tobacco user? No Tobacco Control (Standard) Question Answer Notes Tobacco use: Nonsmoker Additional Findings: Tobacco non-user Current no nsmoker AUDIT-C (Standard) Question Answer Notes Did you have a drink containing alcohol in the p ast year? No Points 0 Interpretation Negative Problems Problem Type SNOMED Code ICD Code Onset Dates Problem Status W/U Status Risk Notes Problem Acquired hammer toe of right foot (4920660414269 105) Other hammer toe(s) (acquired), right foot (M20.41) Active confirmed Response to treatment,I mprovement Problem Type 2 diabetes mellitus with peripheral angiopathy (231604336) Type 2 diabetes mellitus with diabetic peripheral angiopathy without gangrene (E11.51) Active confirmed Problem Acquired hammer toe of left foot (5133794539909 103) Other hammer toe(s) (acquired), left foot (M20.42) Active confirmed Response to treatment,I mprovement Vital Signs Blood pressure diastolic 60 mm Hg 07/24/2024 Height 5 ft 6 in in 07/24/2024 Blood pressure systolic 115 mm Hg 07/24/2024 Weight 156 lbs 07/24/2024 BMI 25.18 kg/m2 07/24/2024 Procedures Procedure Date Ordered Date Performed Result Body Sit e 11972-QSEZENO NAIL, 6 OR MORE 09/15/2023 N/A 18010-YEXE SKIN LESIONS, 2 TO 4 09/15/2023 N/A 89670-KZNPDAF NAIL, 6 OR MORE 11/24/2023 N/A 19846-UHTZ SKIN LESIONS, 2 TO 4 11/24/2023 N/A 40619-HHQYJNF NAIL, 6 OR MORE 02/15/2024 N/A 05997-NDFM SKIN LESIONS, 2 TO 4 02/15/2024 N/A 75964-DNIVYTV NAIL, 6 OR MORE 04/27/2024 N/A 24937-FFCG SKIN LESIONS, 2 TO 4 04/27/2024 N/A 56633-AONBKPH NAIL, 6 OR MORE 07/24/2024 N/A 99410-MQNJ SKIN LESIONS, 2 TO 4 07/24/2024 N/A Encounters Encounter Location Date Provider Diagnosis [address] [address] 09/15/2023 Adan Almanza Type 2 diabetes mellitus with diabetic peripheral angiopathy without gangrene E11.51 ; Tinea unguium B35.1 ; Pain in right toe(s) M79.674 and Pain in left toe(s) M79.675 [facility] [address] [place] [address] 11/24/2023 Adan Cami Type 2 diabetes mellitus with diabetic peripheral angiopathy without gangrene E11.51 ; Tinea unguium B35.1 ; Pain in right toe(s) M79.674 and Pain in left toe(s) M79.[address] [address] 02/15/2024 Adan Cami Type 2 diabetes mellitus with diabetic peripheral angiopathy without gangrene E11.51 ; Tinea unguium B35.1 ; Pain in right toe(s) M79.674 and Pain in left toe(s) M79.[address] [address] 04/27/2024 Adan Almanza Type 2 diabetes mellitus with diabetic peripheral angiopathy without gangrene E11.51 ; Tinea unguium B35.1 ; Pain in right toe(s) M79.674 ; Pain in left toe(s) M79.675 ; Other hammer toe(s) (acquired), right foot M20.41 and Other hammer toe(s) (acquired), left foot M20.[address] [address] 07/24/2024 Adan Almanza Type 2 diabetes mellitus with [...] E11.51) 04/27/2024 Tinea unguium (ICD-10 - B35.1) 07/24/2024 Type 2 diabetes mellitus with diabetic peripheral angiopathy without gangrene (ICD-10 - E11.51) 07/24/2024 Tinea unguium (ICD-10 - B35.1) 07/24/2024 Pain in right toe(s) (ICD-10 - M79.674) 04/27/2024 Pain in right toe(s) (ICD-10 - M79.674) 02/15/2024 Pain in right toe(s) (ICD-10 - M79.674) 09/15/2023 Pain in right toe(s) (ICD-10 - M79.674) 11/24/2023 Pain in right toe(s) (ICD-10 - M79.674) 09/15/2023 Pain in left toe(s) (ICD-10 - M79.675) 11/24/2023 Pain in left toe(s) (ICD-10 - M79.675) 02/15/2024 Pain in left toe(s) (ICD-10 - M79.675) 04/27/2024 Pain in left toe(s) (ICD-10 - M79.675) 07/24/2024 Pain in left toe(s) (ICD-10 - M79.675) 07/24/2024 Other hammer toe(s) (acquired), right foot (ICD-10 - M20.41) 04/27/2024 Other hammer toe(s) (acquired), right foot (ICD-10 - M20.41) Patient Educated with: DIABETIC FOOT CARE INSTRUCTIONS.p df (DIABETIC FOOT CARE INSTRUCTIONS.p df) 07/24/2024 Other hammer toe(s) (acquired), left foot (ICD-10 - M20.42) 04/27/2024 Other hammer toe(s) (acquired), left foot (ICD-10 - M20.42) Plan Of Treatment Pending Test Test Name Order Date 98174-HUFBTFU NAIL, 6 OR MORE 03/22/2017 46090-ZVZCHRH NAIL, 6 OR MORE 06/28/2017 63724-JIQQUYS NAIL, 6 OR MORE 09/30/2017 73349-YIUPHZD NAIL, 6 OR MORE 12/30/2017 79758-AXHVVJE NAIL, 6 OR MORE 03/09/2018 79325-YOZXXUL NAIL, 6 OR MORE 05/26/2018 20208-PBNFXPC NAIL, 6 OR MORE 08/18/2018 24402-LIJAADX NAIL, 6 OR MORE 11/07/2018 60943-XSWMFUD NAIL, 6 OR MORE 01/23/2019 93120-PPUXFCL NAIL, 6 OR MORE 04/24/2019 61555-JSGTBUS NAIL, 6 OR MORE 06/29/2019 75394-XYUUICN NAIL, 6 OR MORE 09/07/2019 87379-GWFOHIP NAIL, 6 OR MORE 11/20/2019 66658-WAJJWXY NAIL, 6 OR MORE 01/22/2020 65850-WZDTWKR NAIL, 6 OR MORE 04/22/2020 42950-GKNMZLV NAIL, 6 OR MORE 07/01/2020 83450-PZZMFNR NAIL, 6 OR MORE 09/16/2020 58695-VVAEGNK NAIL, 6 OR MORE 11/25/2020 41370-DDETXKR NAIL, 6 OR MORE 02/13/2021 33576-ROKZJTH NAIL, 6 OR MORE 05/05/2021 55792-AWPALFH NAIL, 6 OR MORE 07/29/2021 53443-HZLMZTP NAIL, 6 OR MORE 10/07/2021 63495-SIUVWEU NAIL, 6 OR MORE 12/17/2021 73394-ICUULCT NAIL, 6 OR MORE 02/25/2022 52238-WXFXQFD NAIL, 6 OR MORE 06/01/2022 58981-ICETVQE NAIL, 6 OR MORE 08/13/2022 34521-LYNUMYL NAIL, 6 OR MORE 10/22/2022 65614-XLAECYT NAIL, 6 OR MORE 02/16/2023 27981-PQGMXJQ NAIL, 6 OR MORE 04/28/2023 16560-YVMYZKA NAIL, 6 OR MORE 07/07/2023 69374-EEVYUTF NAIL, 6 OR MORE 09/15/2023 47075-NZKGNQQ NAIL, 6 OR MORE 11/24/2023 43554-DBNPRZC NAIL, 6 OR MORE 02/15/2024 64920-CHZQJYW NAIL, 6 OR MORE 04/27/2024 32572-CHUASAT NAIL, 6 OR MORE 07/24/2024 66544-ZLUW SKIN LESIONS, 2 TO 4 04/15/20 25 24350-PQUW SKIN LESIONS, 2 TO 4 04/27/19 25 00722-OIAK SKIN LESIONS, 2 TO 4 02/15/20 24 08227-OTRT SKIN LESIONS, 2 TO 4 11/24/19 24 53607-ABGS SKIN LESIONS, 2 TO 4 09/15/19 24 19992-GUVN SKIN LESIONS, 2 TO 4 07/07/19 24 96137-XIKS SKIN LESIONS, 2 TO 4 04/28/19 24 33600-EYYB SKIN LESIONS, 2 TO 4 02/17/20 23 03638-UXOP SKIN LESIONS, 2 TO 4 10/23/19 23 42057-CXUO SKIN LESIONS, 2 TO 4 08/14/19 23 55234-HXZB SKIN LESIONS, 2 TO 4 06/01/19 23 Next Appt Details Provider Name:Adan Carlos Cami , 10/24/2024 09:00:00 AM, [address] [facility], [address], [place], [address], Insurance Providers Payer Name Payer Address Payer Phone Subscriber Number Group Number Insured Name Patient Relationship to Insured Coverage Start Date Coverage End Date Medicare National Govt [employer] [address] [facility] [place] [address] [id number] Jose E Lewis Self - patient is the insured 2 [employer] [address] [place] [address] [id number] Jose E Lewis Self - patient is the insured Medical (General) History Medical History History ICD Code type II diabetes hypercholesterolemia Headaches High blood pressure Measles Chicken pox Surgical History Surgery Date(Month/Year) Nicci 1993 rotator cuff Left 2010 Meniscus knee repair 2009 prostate 2003 Hernia Repair 1952 basal cell [...] Date(Month/Year) quadriceps sx LT and RT 11/16/2017 [facility] 05/26/2017
--- OUTSIDE RECORDS SUMMARY | 2024-08-10 07:47 | XMS_ITS ---
Author Organization [facility] Address [address] [place] [address] Care Team Providers Care Tie Loader Name Role Phone Stevan Craig Primary Care Provider Unav ailable CamiAdan Unavailable [phone] Allergies No Known Allergies REASON FOR VISIT [...] Ordered Date Performed Result Body Sit e 80113-CNBMLGK NAIL, 6 OR MORE 04/27/2024 N/A 86186-NWOC SKIN LESIONS, 2 TO 4 04/27/2024 N/A Encounters Encounter Location Date Provider Diagnosis [facility] [address] [address] 04/27/2024 Adan Almanza Type 2 diabetes mellitus [...] INSTRUCTIONS.pdf) Pending Test Test Name Order Date 76142-BSNMRCI NAIL, 6 OR MORE 04/27/2024 84271-FWHY SKIN LESIONS, 2 TO 4 04/27/19 Next Appt Details Follow Up: prn, Reason: Provider Name:Adan Almanza , 10/24/2024 09:00:00 AM, [address] [facility], [address], [place], [address], Procedure Notes * Category Sub-Category Detail Notes [...] use of a nail nipper and/or dremel-type grinder mill operator, to a more viable healthy nail [...] to maintain effectiveness in symptomatic relief - 04301 Keratoma Treatment Parring or Cutting o f [...] instrumentation by the physician of record - 12486, Q8 Progress Notes * Jose E MCKEONDOB: [birth year] (83 yo M)Acc No.[id number]:04/27/2024 Progress Note Patient:?Jose E MCKEON Provider:?Adan Almanza DPM :1940???Age:83 Y???Sex:Male Adilson e:04/27/2024 Address:[address] [place], [place] [id number] Pcp:KATHLEEN Morales Subjective: * Chief Complaints: * [...] spots removal 05/2022 * Hospitalization/Major Diagno stic Procedure:?[facility] Prostate 05/26/2017quadriceps sx LT and [...] Management (4)??? Plan: * Treatment: 2.?Tinea unguium?Procedure: 83116-ZWZJNAU NAIL, 6 OR MORE 3.?Other hammer toe(s) [...] use of a nail nipper and/or dremel-type grinder mill operator, to a more viable healthy nail [...] to maintain effectiveness in symptomatic relief - 79425.?Keratoma Treatment:?Parring or Cutting of Benign Hyperkeratotic Lesion(s)?(-56) [...] instrumentation by the physician of record - 81402, Q8.? * Procedure Codes:?04827 DEBRI DE NAIL, 6 OR MORE, Modifiers: XS 69800 TRIM SKIN LESIONS, 2 TO 4, Modifiers: [...] Almanza DPM Date:?2024 Generated for Vishal rust/José/Jossue on:?08/10/2024 07:47 AM EDT History and Physical Notes * [...]
--- OUTSIDE RECORDS SUMMARY | 2024-08-10 07:47 | XMS_ITS ---
Author Organization [facility] Address [address] [facility] [place] [address] Care Team Providers Care Vice Admiral Name Role Phone Stevan Craig Primary Care Provider Unav ailable CamiAdan Unavailable [phone] Allergies No Known Allergies REASON FOR VISIT At Risk Footcare, Painful Nail(s) aggrevated by shoes and causing difficulty standing/walking, Toe Irritation Medications Medication SIG (Take, Route, Frequency, Duration) Notes Start Date End Date Status Jardiance Not-Taking hydroCHLOROthiazide 12.5 MG 1 capsule in the morning Orally Once a day for 30 day(s) Not-Taking Extra Depth Orthopedic Shoes, (1) Pair With (3) Pair Custom Heat Molded Multidensity Innersoles Dx: NIDDM/PVD(E11.51), Hammertoe Foot Deformity(M20.41,M2 0.42), Preulcerative Skin Lesion(s)(L85.1) Wear Daily for 365 days Active Finasteride 5 MG as directed Orally 2x a week Active Multivitamins as directed Orally Not-Taking Vitamin B12 Active Tamsulosin HCl Activ e metFORMIN HCl 500 MG 1 tablet with meals Orally Twice a day and 500mg Active Metoprolol Succinate 25 MG 1 capsule Orally Once a day for 30 day(s) Active Losartan Potassium 100 MG 1 tablet Orall y Once a day for 30 day(s) Active Empagliflozin Active Aspir-81 81 MG 1 tablet Orally Once a day Active amLODIPine Besylate 10 MG 1 tablet Orall y Once a day Active Lovastatin 20MG 1 tablet at bedtime Orally Once a day Active Januvia 100MG 1 tablet Orally Once a day Active predniSONE Not-Takin g Diovan 320MG 1 tablet Orally Once a day Not-Taking Nightsplint . . . AFO - L1930 for . Not-Taking Ammonium Lactate 12 % 1 application Externally Twice a day for 30 days Active Eye Drops Not-Taking Valsartan 32mg Once a day Not- Taking Vitamin B 12 Not-Tunde ing Social History Tobacco Use: Social History Observation [...] ast year? No Points 0 Interpretation Negative Vital Signs Height 5 ft 6 in in 07/24/2024 Weight 156 lbs 07/24/2024 BMI 25.18 kg/m2 07/24/2024 Blood pressure systolic 115 mm Hg 07/25/19 25 Blood pressure diastolic 60 mm Hg 025 Procedures Procedure Date Ordered Date Performed Result Body Sit e 75571-ZHFOSWM NAIL, 6 OR MORE 07/24/2024 N/A 97200-BQBJ SKIN LESIONS, 2 TO 4 07/24/2024 N/A Encounters Encounter Location Date Provider Diagnosis [facility] [address] [place] [address] 07/24/2024 Adan Almanza Type 2 diabetes mellitus with diabetic peripheral angiopathy without gangrene E11.51 ; Tinea unguium B35.1 ; Pain in right toe(s) M79.674 ; Pain in left toe(s) M79.675 ; Other hammer toe(s) (acquired), right foot M20.41 and Other hammer toe(s) (acquired), left foot M20.42 Assessments Encounter Date Diagnosis (ICD Code) Assessment Notes Treatment Notes Treatment Clinical Notes Section Notes 07/24/2024 Type 2 diabetes mellitus with diabetic peripheral angiopathy without gangrene (ICD-10 - E11.51) 07/24/2024 Tinea unguium (ICD-10 - B35.1) 07/24/2024 Pain in right toe(s) (ICD-10 - M79.674) 07/24/2024 Pain in left toe(s) (ICD-10 - M79.675) 07/24/2024 Other hammer toe(s) (acquired), right foot (ICD-10 - M20.41) 07/24/2024 Other hammer toe(s) (acquired), left foot (ICD-10 - M20.42) Plan Of Treatment Pending Test Test Name Order Date 20064-RTYMPSP NAIL, 6 OR MORE 07/24/2024 28364-MNSI SKIN LESIONS, 2 TO 4 07/25/19 Next Appt Details Follow Up: prn, Reason: Provider Name:Adan Almanza , 10/24/2024 09:00:00 AM, [address] [facility], [address], [place], [address], Procedure Notes * Category Sub-Category Detail Notes [...] T2, T3, T4, T5, T7, T8, T9 ), was performed exclusively by the physician of record to reduce/remove overall nail length, girth, thickness, subungual debris, and necrotic tissue, by manual and/or electrical means through the use of a nail nipper and/or dremel-type od grinder operator, to a more viable healthy nail [...] to maintain effectiveness in symptomatic relief - Keratoma Treatment Parring or Cutting o f [...] MTH (s), 1, B/L, Plantar, Heel(s), B/L ), were pared, and/or cut utilizing a sterile 15 blade, tissue nippers, and/or power dremel instrumentation by the physician of record - 89496, Q8 Progress Notes * GERMANANNETTEJose E JDOB: [birth year] (83 yo M)Acc No.[id number]:07/24/2024 Progress Note Patient:?Jose E MCKEON Provider:?Adan Almanza DPM :1940???Age:83 Y???Sex:Male Adilson e:07/24/2024 Address:[address] [place] [address] Pcp:KATHLEEN Morales Subjective: * Chief Complaints: * ???At Risk FootcarePainful N ail(s) aggrevated by shoes and causing difficulty standing/walkingToe Irritation * HPI: ???At Risk footcare:?Pt States Last PCP Visit:?Date?05/29/2024 ???Toe pain:?Treatments:?Rx shoes.? * ROS:?General/Constitutional:?Nausea?denies.?Vomiting?denies.?Hunger Thirst?denies.?Loss appetite?denies.?Chills?denies.?Fatigue?denies.?Fever?denies.?Night Sweats?denies.?Unexplained weight [...] rouble?denies.?Confusion?denies.?Fainting/blackouts?denies.?Tingling?denies.?Minesh mors?denies.? * Medical History:? * Surgical History:?Achsesarkes 1993rotator [...] * Hospitalization/Major Diagno stic Procedure:?[facility] Prostate 05/26/2017quadriceps sx LT and RT 11/16/2017 * Family History:?Mother: dece ased.?Father: , heart attack.?Siblings: brother cancer, diagnosed with Other malignant neoplasm of unspecified site.?Spouse: alive.?Maternal Grand Mother: diagnosed with Diabetic - NIDDM.? * Social History:?Tobacco Use:?Tobacco use other than smoking?Are you an other tobacco user??No ?Tobacco Control (Standard)?Tobacco use:?Nonsmoker ?Additional Findings: Tobacco non-user?Current nonsmoker ???Drugs/Alcohol:?Drugs?Have you used drugs other than those for medical reasons in the past 12 months??No ???Miscellaneous:?Caffeine: yes, frequency:, 2-3 cups per day. ?Children: yes. ?Exercise: yes, 3 times a week- health club. ?Marital status: . ?Occupation: Retired-Banking/ Human Resources. ???Drug/Alcohol:?AUDIT-C (Standard)?Did you have a drink containing alcohol in the past year??No ?Points?0 ?Interpretation?Negative * Medications:?TakingAmmonium Lactate 12 % Cream 1 [...] Once a day Tamsulosin HCl Vitamin B12 metFORMIN HCl 500 MG Tablet 1 tablet with meals Orally Twice a day , Notes to Pharmacist: and 500mgFinasteride 5 MG Tablet as directed Orally 2x a week Extra Depth Orthopedic Shoes, (1) Pair With (3) Pair Custom Heat Molded Multidensity Innersoles . Dx: NIDDM/PVD(E11.51), Hammertoe Foot Deformity(M20.41,M20.42), Preulcerative Skin Lesion(s)(L85.1) Wear Daily Taking Ammonium Lactate 12 % Cream 1 [...] Taking Tamsulosin HCl Taking Vitamin B12 Taking metFORMIN HCl 500 MG Tablet 1 tablet with meals Orally Twice a day , Notes to Pharmacist: and 500mgTaking Finasteride 5 MG Tablet as directed Orally 2x a week Taking Extra Depth Orthopedic Shoes, (1) Pair With (3) Pair Custom Heat Molded Multidensity Innersoles . Dx: NIDDM/PVD(E11.51), Hammertoe Foot Deformity(M20.41,M20.42), Preulcerative Skin Lesion(s)(L85.1) Wear Daily Not-Taking/PRNhydroCHLOROthiazide 12.5 MG Capsule 1 capsule in [...] reviewed and reconciled with the patient * Allergies:?N.K.D.A.yes[Chet domingo Verified] Objective: * Vitals:?Ht: 5 ft 6 in, Wt:15 6, BMI: 25.18, Shoe size:8.5, BP:115/60mm Hg, Wt-k.76 kg. * ???Past Orders: ???Lab:HEMOGLOBIN A1C (GLYCO HEMOGLOBIN) (Order Date - 03/11/2024) (Collection Date & Time - 03/11/2024 10:43 AM) ? Value Reference Range ?HEMOGLOBIN A1C % (HH) 6.8 * Examination: ???Ophthalmology Referral: ?DIABETES EYE EXAM?Procedure Performed:?Yes ?Date of Exam Performed?06/28/2023 States next appt soon - end july ?Diabetic Retinopathy Screening:?Yes ?Retinal Screening Performed:?Yes ?Findings of Diabetic Eye Exam:?no retinopathy?Vascular: ?DP [...] MTH (s), 1, B/L, Plantar, Heel(s), B/L.?Orthopedic: ?DIGITAL DEFORMITIES:?Digital contracture, PIPJ, 2-5 B/L, incompl-reducible to push-up test, no over, nor underlapping , no longer, with evidence of shoe producing skin irritation.?FOOTWEAR EVALUATION:?good condition, exhibit proper fit and accommodation for pedal deformities. OT were inspected and noted to be worn, but in good condition giving proper support at the present time.?Neurological: ?SENSORY:?Neurological exam reveals intact sensorium, pain sensation [...] Exam performed:?Yes ?Visual exam of foot performed:?Yes ?Date?07/24/2024 ?Footwear Evaluation?Footwear Evaluation performed:?Yes??? Assessment: * Assessment: 1.?Type 2 diabetes mellitus with diabetic peripheral angiopathy without gangrene - E11.51 (Primary)???Specify :Q8???2.?Tinea unguium - B35.1???3.?Pain in right toe(s) - M79.674???4.?Pain in left toe(s) - M79.675???5.?Other hammer toe(s) (acquired), right foot - M20.41???Specify :Chronic problem, Stable (1=3,2=4), Response to treatment - Improvement???6.?Other hammer toe(s) (acquired), left foot - M20.42???Specify :Chronic problem, Stable (1=3,2=4), Response to treatment - Improvement??? Plan: * Treatment: 2.?Tinea unguium?Procedure: 23746-MXPWGJA NAIL, 6 OR MORE * Procedures:?Debride Nail 6-10:?Nail debridement?Due to the clinical pathology outlined in the exam findings, performance of this nail treatment is medically necessary as its management by an unskilled/untrained nonprofessional would put this patients foot and overall health at risk. Therefore, debridement to affected nail(s), as described in exam (?TA,?T2,?T3,?T4,?T5,?T7,?T8,?T9?), was performed exclusively by the physician of record to reduce/remove overall nail length, girth, thickness, subungual debris, and necrotic tissue, by manual and/or electrical means through the use of a nail nipper and/or dremel-type od grinder operator, to a more viable healthy nail [...] to maintain effectiveness in symptomatic relief - 92319.?Keratoma Treatment:?Parring or Cutting of Benign Hyperkeratotic Lesion(s)?(-56) [...] and described in the exam (?SUB MTH (s),?1,?B/L,?Plantar,?Heel(s),?B/L?), were pared, and/or cut utilizing a sterile 15 blade, tissue nippers, and/or power dremel instrumentation by the physician of record - 32842, Q8.? * Procedure Codes:?66060 DEBRI DE NAIL, 6 OR MORE, Modifiers: XS 90556 TRIM SKIN LESIONS, 2 TO 4, Modifiers: XS , Q8 * Preventive Medicine:? ??Counseling:?Discussion:?-13: Office or other outpatient visit for the evaluation and management of an established patient, which required a medically appropriate history and/or examination and LOW level of DECISION MAKING for: 1 STABLE ACUTE UNCOMPLICATED PROBLEM, 2 OR MORE MINOR PROBLEMS, OR 1 STABLE CHRONIC PROBLEM, THAT POSE(S) A LOW RISK FOR MORBIDITY/MORTALITY. The visit on the day of the [...] have encouraged the patient to call the office.?Shoe Gear Counseling:?A thorough inspection of the patients Rxed shoegear and inserts was performed and findings communicated. We reviewed the many important medical advantages for adhering to regularly wearing these shoe and insert accomidative devices daily as well as reviewed the fact that a failure in accepting these recommedations may be deleterious, unable to prevent, and disadvantagely result in, many pedal complications such as skin irritation, skin ulceration, infection, and even loss of toe/foot/leg/or even their life. Time was also spent reviewing the proper footcare techniques including daily skin moisturization, daily foot inspection for any interruption in skin integrity, open lesions, or sign of infection such as redness/malodor/drainage/swelling as well as daily shoe inspection for the presence of internal foreign bodies and shoe as well as insert wear. Patient questions re: shoes, inserts, and self foot inspections were answered to their satisfaction as the patient verbally confirmed a full understanding of the above information.? ??Screening/Special Tests:?Fall Risk?Screening:?No falls in the past year ?FALLS: Screening for Future Fall Risk?Have you had any falls with injury in the past year??No * Follow Up:?prn * Images: * Sign off status: Completed true * Provider:?Adan Almanza DPM Date:?2024 Generated for Vishal rust/José/Jossue on:?08/10/2024 07:46 AM EDT History and Physical Notes * HPI (History of Present Illness) Category Sub-Category Detail Notes Category Not es Toe pain Treatments: Rx shoes At Risk footcare Pt States Last [...] (s), 1, B/L, Plantar, Heel(s), B/L Orthopedic FOOTWEAR EVALUATION: good condit ion, exhibit proper fit and accommodation for pedal deformities. OT were inspected and noted to be worn, but in good condition giving proper support at the present time DIGITAL DEFORMITIES: Digital contracture , PIPJ, 2-5 B/L, incompl-reducible to push-up test, no over, nor underlapping , no longer, with evidence of shoe producing skin irritation General Examination GENERAL APPEARANCE: Reveals a pleasant, alert, well nourished, well-developed, well hydrated individual, who demonstrates proper attention to hygiene/body habitus, and is in no acute distress, Pt serves as own historian for office visit today FOOT EXAM: Lower Extremity Neurological Exa m performed:: Yes Visual exam of foot performed:: Yes Date: 07/24/2024 ORIENTED: person, place, and t dalia Footwear Evaluation Footwear Evaluation performe d:: Yes Ophthalmology Referral DIABETES EYE EXAM Procedure Perform ed:: Yes ?Date of Exam Performed: 06/28/2023 Stat es next appt soon - end of July Diabetic Retinopathy Screening:: Yes Retinal Screening Performed:: Yes Findings of Diabetic Eye Exam:: no [...]
[2024-08-10 10:05] LABS: Appearance Urine Clear; Color Urine Yellow; Glucose Urine UA >=1000 mg/dL (Negative); Leukocyte Esterase Urine Negative (Negative); Nitrite Urine Negative (Negative); PH 5.5 (5.0-9.0); Specific Gravity - Urine 1.025 (1.005-1.025); UMIC TRIGGER UACC YES; Urine Blood Negative (Negative); Urine Ketones Negative (Negative); Urine Protein Negative (Neg-Trace)
[2024-08-10 10:08] LABS: MANUAL DIFF FLAG NO
[2024-08-10 10:09] LABS: Bacteria Urine None Seen (None Seen); Hyaline Casts Urine 0-2 /LPF (0-2); RBC Urine 0-2 /HPF (0-2); Squamous Epithelial Cell Urine 0-2 /HPF (0-2); WBC Urine 0-5 /HPF (0-5)
[2024-08-10 10:12] LABS: Basophils Absolute Auto 0.1 X10*3/uL (0.0-0.2); Basophils Percent Auto 1.1 % (0-2); Eosinophils Absolute Auto 0.2 X10*3/uL (0.0-0.4); Eosinophils Percent Auto 2.6 % (0-4); Hematocrit 43.2 % (42.0-52.0); Hemoglobin 14.4 g/dl (14.0-18.0); Imm Gran Abs Auto 0.05 X10*3/uL (0.00-0.03); Imm Gran Pct Auto 0.6 % (0.0-0.4); Lymphocytes Absolute Auto 1.9 X10*3/uL (1.2-4.9); Lymphocytes Percent Auto 23.4 % (20-40); Mean Corpuscular HGB Conc 33.3 g/dl (31.0-36.0); Mean Corpuscular Hemoglobin 30.7 pg (27.0-33.0); Mean Corpuscular Volume 92.1 fL (80.0-98.0); Mean Platelet Volume 10.7 fL (9.4-12.4); Monocytes Absolute Auto 1.1 X10*3/uL (0.1-1.2); Monocytes Percent Auto 13.1 % (2-11); Neutrophils Absolute Auto 4.8 x10*3/uL (2.0-8.3); Neutrophils Percent Auto 59.2 % (45-73); Platelet Count 282 X10*3/uL (160-400); Red Blood Count 4.69 X10*6/uL (4.60-5.80); Red Cell Distribution Width 13.6 % (11.0-16.0); White Blood Count 8.1 X10*3/uL (4.8-10.8)
[2024-08-10 10:28] LABS: Estimated Average Glucose 148 mg/dL; Hemoglobin A1C 191.5713 umol/L; Hemoglobin A1c % 6.8 % (<6.0); Total Hemoglobin (HGBA1C) 3737.7129 umol/L
[2024-08-10 10:36] LABS: Creatinine Urine 84.15 mg/dL
[2024-08-10 10:38] LABS: Alanine Aminotransferase 24 U/L (0-40); Albumin Level 3.9 g/dL (3.5-5.0); Alkaline Phosphatase 93 U/L (39-117); Anion Gap 15 (12-20); Aspartate Amino Transferase 30 U/L (5-37); Bilirubin Total 0.7 mg/dL (0.0-1.0); Blood Urea Nitrogen 24 mg/dL (9-16); Carbon Dioxide 23 mmol/L (22-29); Chloride 106 mmol/L (96-108); Cholesterol 147 mg/dL (<200); Estimated Glomerular Filt Rate 56; Glucose Fasting 147 mg/dL (60-99); HDL Cholesterol 43 mg/dL (>40); LDL Cholesterol Calculated 78 mg/dL (<100); Sodium 140 mmol/L (135-145); Total Protein 7.4 g/dL (6.5-8.0); Triglycerides 134 mg/dL (<150)
[2024-08-10 10:47] LABS: TSH reflex Free T4 3.35 uIU/mL (0.32-4.0)
== END 2024-08-10 07:44 | disposition home or self-care (01) ==
LOC: HO.HMGCLDS 07:43
PROVIDERS: PCP Nurse Practitioner Family; Visit Provider Nurse Practitioner Family
DX: E11.9 Type 2 diabetes mellitus without complications (principal)
CPT/HCPCS: 36415; 80053; 80061; 81001; 81003; 82043; 82570; 83036; 84443; 85025

== ENCOUNTER 2024-08-15 09:00 | Outpatient (AMB) | payer MEDICARE, SELFPAY ==
[2024-08-15 09:09] VITALS: BP 102/60; PULSE 60; TEMP 36.9; O2SAT 98; BMI 24.2
--- NOTE | 2024-08-15 09:09 | A.OFFPC_ITS ---
Vital Signs 08/15/24 09:09 Height 5 ft 8 in Weight 159 lb BMI 24.2 BP 102/60 Blood Pressure Location Rt brachial Position Sitting Pulse 60 Pulse Source Pulse Oximeter Temp 98.5 F Temp Source Oral Pulse Oximetry (%) 98 Oxygen Delivery Method Room Air Intake Visit Reasons: 3m f/u Car Escort Required: No Accompanied by: Self / Same As Patient Allergies No Known Allergies [No Known Allergies*] Allergy (Verified 08/15/24 10:20) Medication List - Last Reconciled 08/15/24 by STERLING rByanP- amlodipine 10 mg PO DAILY aspirin 81 mg PO DAILY blood sugar diagnostic (FreeStyle Lite Strips) use 1 test strip twice a day to test blood sugar empagliflozin 25 mg PO DAILY finasteride 5 mg orally Tuesday and 90 days hydrochlorothiazide 12.5 mg PO DAILY lancets (FreeStyle Lancets) use 1 lancet twice a day to test blood sugar lancing device As directed to test blood sugar BID losartan 100 mg PO DAILY lovastatin 20 mg PO DAILY mecobalamin (vitamin B12) 1,000 mcg sublingual DAILY metformin ER 500 mg PO BID 90 days metoprolol succinate ER 25 mg PO DAILY multivitamin (Daily Multi-Vitamin tablet) 1 tab PO DAILY sitagliptin phosphate (Januvia) 100 mg PO DAILY tamsulosin 0.4 mg PO BEDTIME 90 days Tobacco use date assessed: 05/16/24 Fall risk assessment: No Falls in past year Last assessed Fall Risk: 08/15/24 Dental Screening Dental Screen Date: 06/13/24 HPI 3m f/u HPI Details Chief Complaint Follow-up for diabetes management. History of Present Illness The patient is an 83-year-old male presenting for a follow-up regarding his diabetes mellitus. The patient has maintained control over his condition, with an A1c level of 6.8, suggesting adequate glycemic management. He denies any associated neuropathy, polyuria, or polydipsia. Sensory testing using a monofi lament to feet intact indicating no gross sensory deficits. His microalbumin levels are monitored regularly and are up to date. The patient is currently working and feels his diabetes is well-managed, as reflected in his self- assessment of doing quite well overall. Social History - Employment: The patient is currently w orking. - Level of Activity: Reports doing quite well overall. Health Maintenance - Monitoring of A1c at 6.8, indicating s table glucose control. - Regular updates on microalbumin to ass ess kidney function as part of diabetes management. Review of Systems - Neurological: Denies neuropathy. - Genitourinary: Denies polyuria. - Polydipsia: Denies symptoms. Physical Exam General: Cooperative, healthy appearing, comfortable, no acute distress and well developed Orientation: Patient oriented x3 Limitations: No limitations Head: Normal to inspection Ears: Hearing grossly normal bilaterally Nose: Normal external nose present Face and sinus: Normal facial exam Eyes: Appearance normal, both eyes and all related structures Neck: Normal visual inspection and Yes full ROM Respiratory: Normal respiratory effort and able to speak in complete sentences. Clear to auscultation bilaterally Cardiovascular: Regular rate and rhythm. Normal S1 and S2 GI: Normal to inspection. Soft to palpation and nontender Skin: No rashes or lesions noted Neuro: Patient oriented x3 Extremities: Normal to inspection Results - Labs: A1c level 6.8, microalbumin up t o date. Plan The management plan focuses on maintaining control over Diabetes Mellitus with regular monitoring of A1c and kidney function through up-to-date microalbumin testing. Lack of neuropathy symptoms and effective sensorimotor function as shown by monofilament testing indicates current control of the condition. Emphasis is placed on the continuation of current treatment strategies and lifestyle to avoid potential complications. Regular assessments will remain integral in tracking disease management success. Discussion Notes During the consultation, I discussed with the patient the current status of his diabetes management which appears stable given his A1c of 6.8 and up-to-date microalbumin levels. I explained the importance of maintaining these tests within controlled range to manage risk of complications from diabetes such as neuropathy, which he currently denies. We agreed on the benefits of his current management plan in controlling his condition. Patient Instructions - Continue current diabetes management r egimen. - Ensure regular monitoring of A1c and m icroalbumin levels. - Report any new symptoms such as neurop athy or changes in urination. - Maintain a balanced lifestyle with sofiya quate physical activity and diet. 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 Brother Throat cancer Social History Housing: House Alcohol intake: current Alcohol intake frequency: holidays/special occasions only Patient Tobacco Use Status: Never used Tobacco e-Cigarette/Vaping Use: Never Used Second Hand Smoke Exposure: No service: No Current occupational status: retired Current occupational exposures/hazards: No Cognitive needs: No Hearing needs: No Vision needs: No Questionnaire Thrive Questionnaire Date Thrive assessed: 08/15/24 I am a: Patient What is your living situation today?: I have a steady place to live Within the past 12 months, did the food you bought not last and you didn't have the money to get more?: I choose not to answer this question Within the past 12 months, did you worry whether your food would run out before you got money to buy more?: I choose not to answer this question Do you have trouble paying for medicines?: I choose not to answer this question Do you have trouble getting transportation to medical appointments?: I choose not to answer this question Do you have trouble paying your heating and electricity bill?: I choose not to answer this question Do you have trouble taking care of your child, family member or friend?: I choose not to answer this question Do you have trouble with day-to-day activities such as bathing, preparing meals, shopping, managing finances, etc.?: I choose not to answer this question Are you currently unemployed and looking for a job?: I choose not to answer this question Are you interested in more education?: I choose not to answer this question Please select the resources that you would like help with: None Currently or been in a relationship where the following occur: I choose not to answer THRIVE Score: 0 MIK-7 AMB Questionnaire MIK-7 Date MIK - 7 assessed: 06/13/24 Source: Developed by Drs. Nicolas Kapoor, Marlys Mcknight, Austin Skinner and colleagues, with an educational alvarez from [employer]. Physical exam (Primary Care) Vital Signs: Last Vital Signs Temp 98.5 F 08/15/24 09:09 Pulse 60 08/15/24 09:09 BP 102/60 08/15/24 09:09 Pulse Ox 98 08/15/24 09:09 Oxygen Delivery Method Room Air 08/15/24 09:09 BMI result Body Mass Index 24.2 Tobacco/Smoking Status: Tobacco use Status Tobacco use date assessed 05/16/24 08/15/24 09:09 Patient Tobacco Use Status Never used Tobacco 08/15/24 09:09 e-Cigarette/Vaping Use Never Used 08/15/24 09:09 Thrive Assessment: Date of Thrive Assessment Date Thrive assessed 08/15/24 08/15/24 09:09 Currently or been in a relationship where the following occur: I choose not to answer Coding Level of Care Code Est Pt Level 3 (84411) Diagnoses Diabetes E11.9 Assessment & Plan Assessment & Plan (1) Diabetes: Code(s): E11.9 - Type 2 diabetes mellitus without complications Category: Medical Plan .
--- OUTSIDE RECORDS SUMMARY | 2024-08-15 09:29 | XMS_ITS | Patient Health Record ---
Author Organization [facility] Address [address] [place] [address] Care Team Providers Care Regional Maintenance Manager Name Role Phone Stevan Craig Primary Care Provider Unav ailable Adan Almanza Unavailable [phone] Allergies No Known Allergies Results Component Value [...] Problem Acquired hammer toe of right foot (8705258525536 105) Other hammer toe(s) (acquired), right foot (M20.41) Active confirmed Response to treatment,I mprovement Problem Type 2 diabetes mellitus with peripheral angiopathy (352301129) Type 2 diabetes mellitus with diabetic peripheral angiopathy without gangrene (E11.51) Active confirmed Problem Acquired hammer toe of left foot ([id number] 103) Other hammer toe(s) (acquired), left foot (M20.42) Active confirmed Response to treatment,I mprovement Vital Signs Blood pressure diastolic 60 mm Hg 07/24/2024 Height 5 ft 6 in in 07/24/2024 Blood pressure systolic 115 mm Hg 07/24/2024 Weight 156 lbs 07/24/2024 BMI 25.18 kg/m2 07/24/2024 Procedures Procedure Date Ordered Date Performed Result Body Sit e 65447-HWKPUKP NAIL, 6 OR MORE 09/15/2023 N/A 66100-DVZO SKIN LESIONS, 2 TO 4 09/15/2023 N/A 32033-XWYTJER NAIL, 6 OR MORE 11/24/2023 N/A 16696-ETRO SKIN LESIONS, 2 TO 4 11/24/2023 N/A 67233-VFWSMOS NAIL, 6 OR MORE 02/15/2024 N/A 85016-OCHG SKIN LESIONS, 2 TO 4 02/15/2024 N/A 13198-ULVZUSD NAIL, 6 OR MORE 04/27/2024 N/A 66254-NPZW SKIN LESIONS, 2 TO 4 04/27/2024 N/A 22699-FOVVDBT NAIL, 6 OR MORE 07/24/2024 N/A 42663-FARI SKIN LESIONS, 2 TO 4 07/24/2024 N/A Encounters Encounter Location Date Provider Diagnosis [address] [address] 09/15/2023 Adan Almanza Type 2 diabetes mellitus with diabetic peripheral angiopathy without gangrene E11.51 ; Tinea unguium B35.1 ; Pain in right toe(s) M79.674 and Pain in left toe(s) M79.675 [facility] [address] [place] [address] 11/24/2023 Adan Cami Type 2 diabetes mellitus with diabetic peripheral angiopathy without gangrene E11.51 ; Tinea unguium B35.1 ; Pain in right toe(s) M79.674 and Pain in left toe(s) M79.[address] [address] 02/15/2024 Adan Cami Type 2 diabetes mellitus with diabetic peripheral angiopathy without gangrene E11.51 ; Tinea unguium B35.1 ; Pain in right toe(s) M79.674 and Pain in left toe(s) M79.[address] [address] 04/27/2024 Adan Almanza Type 2 diabetes mellitus with diabetic peripheral angiopathy without gangrene E11.51 ; Tinea unguium B35.1 ; Pain in right toe(s) M79.674 ; Pain in left toe(s) M79.675 ; Other hammer toe(s) (acquired), right foot M20.41 and Other hammer toe(s) (acquired), left foot M20.[address] [address] 07/24/2024 Adan Almanza Type 2 diabetes mellitus [...] Treatment Pending Test Test Name Order Date 64952-WVGDIPV NAIL, 6 OR MORE 03/22/2017 29140-XDWWDUP NAIL, 6 OR MORE 06/28/2017 58408-SDGMQZH NAIL, 6 OR MORE 09/30/2017 60210-ILBAPLE NAIL, 6 OR MORE 12/30/2017 82200-AZVWWXL NAIL, 6 OR MORE 03/09/2018 56335-GVDOAZK NAIL, 6 OR MORE 05/26/2018 23198-WPDRTXI NAIL, 6 OR MORE 08/18/2018 34882-MBKZMID NAIL, 6 OR MORE 11/07/2018 40466-VTIZUPQ NAIL, 6 OR MORE 01/23/2019 68195-MKUSZQE NAIL, 6 OR MORE 04/24/2019 47877-NCWSGIS NAIL, 6 OR MORE 06/29/2019 71604-USQXNAD NAIL, 6 OR MORE 09/07/2019 74797-QWINUMR NAIL, 6 OR MORE 11/20/2019 52588-CTRNLAS NAIL, 6 OR MORE 01/22/2020 51940-OPLINXP NAIL, 6 OR MORE 04/22/2020 93270-LMNYPGJ NAIL, 6 OR MORE 07/01/2020 75917-ADDQECF NAIL, 6 OR MORE 09/16/2020 43578-LPIASEO NAIL, 6 OR MORE 11/25/2020 37268-MIACVKR NAIL, 6 OR MORE 02/13/2021 20559-TANYVBE NAIL, 6 OR MORE 05/05/2021 68635-XBYLUZX NAIL, 6 OR MORE 07/29/2021 49925-LRDZDUT NAIL, 6 OR MORE 10/07/2021 58418-UUAEVOP NAIL, 6 OR MORE 12/17/2021 97532-HZRWKSF NAIL, 6 OR MORE 02/25/2022 86114-DZVCCJX NAIL, 6 OR MORE 06/01/2022 48818-GABRTCV NAIL, 6 OR MORE 08/13/2022 69677-TYMRJQM NAIL, 6 OR MORE 10/22/2022 89632-EQZMMWY NAIL, 6 OR MORE 02/16/2023 33337-EPRJLNI NAIL, 6 OR MORE 04/28/2023 27187-MYZZJHY NAIL, 6 OR MORE 07/07/2023 75076-FEDCUEE NAIL, 6 OR MORE 09/15/2023 37624-WSQMGSC NAIL, 6 OR MORE 11/24/2023 83431-TTGUFGT NAIL, 6 OR MORE 02/15/2024 81470-ZQPOCJU NAIL, 6 OR MORE 04/27/2024 38096-QYALBQW NAIL, 6 OR MORE 07/24/2024 63470-XZDX SKIN LESIONS, 2 TO 4 04/15/20 25 01651-SEQX SKIN LESIONS, 2 TO 4 04/27/19 25 49278-AMHE SKIN LESIONS, 2 TO 4 02/15/20 24 90588-MIAM SKIN LESIONS, 2 TO 4 11/24/19 24 00314-FQXC SKIN LESIONS, 2 TO 4 09/15/19 24 49237-GNCR SKIN LESIONS, 2 TO 4 07/07/19 24 63753-EERV SKIN LESIONS, 2 TO 4 04/28/19 24 40309-WVWU SKIN LESIONS, 2 TO 4 02/17/20 23 77208-VARD SKIN LESIONS, 2 TO 4 10/23/19 23 89721-XGRD SKIN LESIONS, 2 TO 4 08/14/19 23 08232-WYXW SKIN LESIONS, 2 TO 4 06/01/19 23 Next Appt Details Provider Name:Adan Carlos Cami , 10/24/2024 09:00:00 AM, [address] [facility], [address], [place], [address], Insurance Providers Payer Name Payer Address Payer Phone Subscriber Number Group Number Insured Name Patient Relationship to Insured Coverage Start Date Coverage End Date Medicare National Govt Svcs Inc [address] [place] [address] [id number] Jose E Lewis Self - patient is the insured 2 [employer] Blue [employer] [address] [place] [address] [id number] Jose E Lewis Self - patient is [...] Date(Month/Year) quadriceps sx LT and RT 11/16/2017 [facility] 05/26/2017
--- OUTSIDE RECORDS SUMMARY | 2024-08-15 09:29 | XMS_ITS ---
Author Organization [facility] Address [address] [place] [address] Care Team Providers Care Precision Dancer Name Role Phone Stevan Craig Primary Care Provider Unav ailable Adan Almanza Unavailable [phone] Allergies No Known Allergies REASON FOR VISIT [...] Ordered Date Performed Result Body Sit e 20055-FKKRPJZ NAIL, 6 OR MORE 02/15/2024 N/A 50769-WXNT SKIN LESIONS, 2 TO 4 02/15/2024 N/A Encounters Encounter Location Date Provider Diagnosis [facility] [address] [address] 02/15/2024 Adan Almanza Type 2 diabetes mellitus [...] Treatment Pending Test Test Name Order Date 97447-RRMZSGS NAIL, 6 OR MORE 02/15/2024 56661-HRRM SKIN LESIONS, 2 TO 4 02/15/20 24 Next Appt Details Follow Up: prn, Reason: Provider Name:Adan V Cami , 10/24/2024 09:00:00 AM, [address] [facility], [address], [place], [address], Procedure Notes * Category Sub-Category Detail Notes [...] use of a nail nipper and/or dremel-type stand grinder, to a more viable healthy nail plate or bed tissue 6-10. Silver nitrate used for any petechial bleeding as necessary. Definitive antifungal treatment options have been reviewed and discussed with the patient. The patient chooses, no pharmaceutical tx - [address]056 Keratoma Treatment Parring or Cutting o f Benign Hyperkeratotic Lesion(s) (-56) 2-4 Lesions - The Benign hyperkeratotic lesions, as described in exam, were pared, and/or cut utilizing a sterile 15 blade, tissue nippers, and/or dremel - 21521 , Q8 Progress Notes * Jose E MCKEONDOB: [birth year] (83 yo M)Acc No.[id number]:02/15/2024 Progress Note Patient:?Jose E Mckeon Provider:?Adan Almanza DPM :1940???Age:83 Y???Sex:Male Adilson e:02/15/2024 Address:[address] [place] [address], [facility] Pcp:KATHLEEN Morales Subjective: * Chief Complaints: * [...] spots removal 05/2022 * Hospitalization/Major Diagno stic Procedure:?[facility] 05/26/2017quadriceps sx LT [...] Nightsplint . . . . AFO - M1705Miilss 320MG Tablet 1 tablet Orally Once a dayMedication List reviewed and reconciled with the patientNot-Taking/PRN hydroCHLOROthiazide 12.5 MG Capsule 1 capsule in the morning Orally Once a dayNot-Taking/PRN Jardiance Not-Taking/PRN Multivitamins Tablet as directed Orally Not-Taking/PRN Vitamin B 12 Not-Taking/PRN Valsartan 32mg Once a dayNot-Taking/PRN Eye Drops Not-Taking/PRN predniSONE Not-Taking/PRN Nightsplint . . . . AFO - Y8494Qkn-Dkyfyi/PRN Diovan 320MG Tablet 1 tablet Orally Once [...] - M79.675? Plan: * Treatment: 2.?Tinea unguium?Procedure: 17956-ZPZWGEG NAIL, 6 OR MORE * Procedures:?Debride Nail [...] use of a nail nipper and/or dremel-type stand grinder, to a more viable healthy nail plate or bed tissue 6-10. Silver nitrate used for any petechial bleeding as necessary. Definitive antifungal treatment options have been reviewed and discussed with the patient. The patient chooses, no pharmaceutical tx - 15495.?Keratoma Treatment:?Parring or Cutting of Benign Hyperkeratotic Lesion(s)?(-56) 2-4 Lesions - The Benign hyperkeratotic lesions, as described in exam, were pared, and/or cut utilizing a sterile 15 blade, tissue nippers, and/or dremel - 33267 , Q8.? * Procedure Codes:?85406 DEBRI DE NAIL, 6 OR MORE, Modifiers: XS 68234 TRIM SKIN LESIONS, 2 TO 4, Modifiers: XS , Q8 * Follow Up:?prn * Images: * Sign off status: Completed true * Provider:?BRISSA OrozcoM Date:?2023 Generated for Vishal rust/José/Kristyitting on:?08/15/2024 09:29 AM EDT History and Physical Notes * [...]
--- OUTSIDE RECORDS SUMMARY | 2024-08-15 09:30 | XMS_ITS ---
Author Organization [facility] Address [address] [place] [address] Care Team Providers Care Speech And Hearing Clinic Director Name Role Phone Stevan Craig Primary Care Provider Unav ailable CamiAdan Unavailable [phone] Allergies No Known Allergies REASON FOR VISIT [...] Ordered Date Performed Result Body Sit e 01555-CTOKVAP NAIL, 6 OR MORE 04/27/2024 N/A 66134-NUNS SKIN LESIONS, 2 TO 4 04/27/2024 N/A Encounters Encounter Location Date Provider Diagnosis [facility] [address] [address] 04/27/2024 Adan Almanza Type 2 diabetes mellitus [...] INSTRUCTIONS.pdf) Pending Test Test Name Order Date 95445-DKMYAPD NAIL, 6 OR MORE 04/27/2024 12814-SXCZ SKIN LESIONS, 2 TO 4 04/27/19 Next Appt Details Follow Up: prn, Reason: Provider Name:Adan Almanza , 10/24/2024 09:00:00 AM, [address] [facility], [address], [place], [address], Procedure Notes * Category Sub-Category Detail Notes [...] use of a nail nipper and/or dremel-type chisel grinder, to a more viable healthy nail [...] to maintain effectiveness in symptomatic relief - 55423 Keratoma Treatment Parring or Cutting o f [...] instrumentation by the physician of record - 54471, Q8 Progress Notes * Jose E MCKEONDOB: [birth year] (83 yo M)Acc No.[id number]:04/27/2024 Progress Note Patient:?Jose E MCKEON Provider:?Adan Almanza DPM :1940???Age:83 Y???Sex:Male Adilson e:04/27/2024 Address:[address] [place], [place] [address] Pcp:KATHLEEN Morales Subjective: * Chief Complaints: * [...] spots removal 05/2022 * Hospitalization/Major Diagno stic Procedure:?[facility] 05/26/2017quadriceps sx LT and [...] Management (4)??? Plan: * Treatment: 2.?Tinea unguium?Procedure: 54093-WXHWUEB NAIL, 6 OR MORE 3.?Other hammer toe(s) [...] use of a nail nipper and/or dremel-type chisel grinder, to a more viable healthy nail [...] to maintain effectiveness in symptomatic relief - 52687.?Keratoma Treatment:?Parring or Cutting of Benign Hyperkeratotic Lesion(s)?(-56) [...] instrumentation by the physician of record - 46456, Q8.? * Procedure Codes:?28366 DEBRI DE NAIL, 6 OR MORE, Modifiers: XS 49829 TRIM SKIN LESIONS, 2 TO 4, Modifiers: [...] Almanza DPM Date:?2024 Generated for Vishal rust/José/Jossue on:?08/15/2024 09:30 AM EDT History and Physical Notes * [...]
--- OUTSIDE RECORDS SUMMARY | 2024-08-15 09:30 | XMS_ITS ---
Author Organization [facility] Address [address] [facility] [place] [address] Care Team Providers Care Supervisor Residential Name Role Phone Stevan Craig Primary Care Provider Unav ailable CamiAdna Unavailable [phone] Allergies No Known Allergies REASON FOR VISIT [...] Ordered Date Performed Result Body Sit e 24840-PXMWRJE NAIL, 6 OR MORE 07/24/2024 N/A 12867-EMOB SKIN LESIONS, 2 TO 4 07/24/2024 N/A Encounters Encounter Location Date Provider Diagnosis [facility] [place] [address] [place] [address] 07/24/2024 Adan Almanza Type 2 diabetes mellitus [...] Treatment Pending Test Test Name Order Date 98763-TTCEDJF NAIL, 6 OR MORE 07/24/2024 17293-DLMB SKIN LESIONS, 2 TO 4 07/25/19 Next Appt Details Follow Up: prn, Reason: Provider Name:Adan Almanza , 10/24/2024 09:00:00 AM, [address] [facility], [address], [place], [address], Procedure Notes * Category Sub-Category Detail Notes [...] use of a nail nipper and/or dremel-type level vial grinder, to a more viable healthy nail [...] instrumentation by the physician of record - 04098, Q8 Progress Notes * GERMANANNETTEJose E JDOB: [birth year] (83 yo M)Acc No.[id number]:07/24/2024 Progress Note Patient:?Jose E MCKEON Provider:?Adan Almanza DPM :1940???Age:83 Y???Sex:Male Adilson e:07/24/2024 Address:[address] [place] [address] Pcp:KATHLEEN Morales Subjective: * Chief Complaints: * [...] spots removal 05/2022 * Hospitalization/Major Diagno stic Procedure:?[facility] 05/26/2017quadriceps sx LT and [...] - Improvement??? Plan: * Treatment: 2.?Tinea unguium?Procedure: 52571-NFGJJGP NAIL, 6 OR MORE * Procedures:?Debride Nail [...] use of a nail nipper and/or dremel-type level vial grinder, to a more viable healthy nail [...] to maintain effectiveness in symptomatic relief - 89453.?Keratoma Treatment:?Parring or Cutting of Benign Hyperkeratotic Lesion(s)?(-56) [...] instrumentation by the physician of record - 11441, Q8.? * Procedure Codes:?21986 DEBRI DE NAIL, 6 OR MORE, Modifiers: XS 94972 TRIM SKIN LESIONS, 2 TO 4, Modifiers: [...] DPM Date:?2024 Generated for Vishal rust/José/Jossue on:?08/15/2024 09:29 AM EDT History and Physical [...]
== END 2024-08-15 10:02 | disposition home or self-care (01) ==
LOC: HO.HMCC 09:01
PROVIDERS: PCP Nurse Practitioner Family; Visit Provider Nurse Practitioner Family
DX: E11.9 Type 2 diabetes mellitus without complications (principal)

== ENCOUNTER → 2024-08-15 09:00 | Outpatient (BNVA) | payer MEDICARE, SELFPAY | PROVIDERS: PCP Nurse Practitioner Family; Visit Provider Nurse Practitioner Family | DX: E11.9 Type 2 diabetes mellitus without complications (principal) | CPT/HCPCS: 99212 ==

== ENCOUNTER 2024-08-21 13:57 | Outpatient (REF) | payer MEDICARE, SELFPAY ==
--- OUTSIDE RECORDS SUMMARY | 2024-08-21 15:11 | XMS_ITS ---
Author Organization [facility] Address [address] [place] [address] Care Team Providers Care Sas Architect Name Role Phone Stevan Craig Primary Care Provider Unav ailable Adan Almanza Unavailable [phone] Allergies No Known Allergies REASON FOR VISIT [...] Ordered Date Performed Result Body Sit e 12258-VJNBGLX NAIL, 6 OR MORE 02/15/2024 N/A 00989-NHGQ SKIN LESIONS, 2 TO 4 02/15/2024 N/A Encounters Encounter Location Date Provider Diagnosis [facility] [address] [address] 02/15/2024 Adan Almanza Type 2 diabetes mellitus [...] Treatment Pending Test Test Name Order Date 31338-WIVBGBQ NAIL, 6 OR MORE 02/15/2024 61325-JHYY SKIN LESIONS, 2 TO 4 02/15/20 24 Next Appt Details Follow Up: prn, Reason: Provider Name:Adan V Cami , 10/24/2024 09:00:00 AM, [address] [facility], [address], [place], [address], Procedure Notes * Category Sub-Category Detail Notes [...] use of a nail nipper and/or dremel-type swing grinder, to a more viable healthy nail plate or bed tissue 6-10. Silver nitrate used for any petechial bleeding as necessary. Definitive antifungal treatment options have been reviewed and discussed with the patient. The patient chooses, no pharmaceutical tx - 45369 Keratoma Treatment Parring or Cutting o f Benign Hyperkeratotic Lesion(s) (-56) 2-4 Lesions - The Benign hyperkeratotic lesions, as described in exam, were pared, and/or cut utilizing a sterile 15 blade, tissue nippers, and/or dremel - 86185 , Q8 Progress Notes * Jose E MCKEONDOB: [birth year] (83 yo M)Acc No.[id number]:02/15/2024 Progress Note Patient:?Jose E Mckeon Provider:?Adan Almanza DPM :1940???Age:83 Y???Sex:Male Adilson e:02/15/2024 Address:[address] [place] [address], [facility] Pcp:KATHLEEN Morales Subjective: * Chief Complaints: * [...] spots removal 05/2022 * Hospitalization/Major Diagno stic Procedure:?[facility] 05/26/2017quadriceps sx LT [...] Nightsplint . . . . AFO - F7381Pwrjbu 320MG Tablet 1 tablet Orally Once a dayMedication List reviewed and reconciled with the patientNot-Taking/PRN hydroCHLOROthiazide 12.5 MG Capsule 1 capsule in the morning Orally Once a dayNot-Taking/PRN Jardiance Not-Taking/PRN Multivitamins Tablet as directed Orally Not-Taking/PRN Vitamin B 12 Not-Taking/PRN Valsartan 32mg Once a dayNot-Taking/PRN Eye Drops Not-Taking/PRN predniSONE Not-Taking/PRN Nightsplint . . . . AFO - A6490Jkp-Tqgynx/PRN Diovan 320MG Tablet 1 tablet Orally Once [...] - M79.675? Plan: * Treatment: 2.?Tinea unguium?Procedure: 50779-DIKBFEA NAIL, 6 OR MORE * Procedures:?Debride Nail [...] use of a nail nipper and/or dremel-type swing grinder, to a more viable healthy nail plate or bed tissue 6-10. Silver nitrate used for any petechial bleeding as necessary. Definitive antifungal treatment options have been reviewed and discussed with the patient. The patient chooses, no pharmaceutical tx - 06212.?Keratoma Treatment:?Parring or Cutting of Benign Hyperkeratotic Lesion(s)?(-56) 2-4 Lesions - The Benign hyperkeratotic lesions, as described in exam, were pared, and/or cut utilizing a sterile 15 blade, tissue nippers, and/or dremel - 93907 , Q8.? * Procedure Codes:?21639 DEBRI DE NAIL, 6 OR MORE, Modifiers: XS 88203 TRIM SKIN LESIONS, 2 TO 4, Modifiers: XS , Q8 * Follow Up:?prn * Images: * Sign off status: Completed true * Provider:?BRISSA OrozcoM Date:?2023 Generated for Vishal rust/José/eTliviasmitting on:?08/21/2024 03:11 PM EDT History and Physical Notes * [...]
--- OUTSIDE RECORDS SUMMARY | 2024-08-21 15:11 | XMS_ITS | Patient Health Record ---
Author Organization [facility] Address [address] [facility] [address] Care Team Providers Care Carton And Can [employer] Supervisor Name Role Phone Stevan Craig Primary Care Provider Unav ailable Adan Almanza Unavailable [phone] Allergies No Known Allergies Results Component Value [...] Problem Acquired hammer toe of right foot (5806663922958 105) Other hammer toe(s) (acquired), right foot (M20.41) Active confirmed Response to treatment,I mprovement Problem Type 2 diabetes mellitus with peripheral angiopathy (498085003) Type 2 diabetes mellitus with diabetic peripheral angiopathy without gangrene (E11.51) Active confirmed Problem Acquired hammer toe of left foot (3045045114982 103) Other hammer toe(s) (acquired), left foot (M20.42) Active confirmed Response to treatment,I mprovement Vital Signs Blood pressure diastolic 60 mm Hg 07/24/2024 Height 5 ft 6 in in 07/24/2024 Blood pressure systolic 115 mm Hg 07/24/2024 Weight 156 lbs 07/24/2024 BMI 25.18 kg/m2 07/24/2024 Procedures Procedure Date Ordered Date Performed Result Body Sit e 03624-EIENBWB NAIL, 6 OR MORE 09/15/2023 N/A 68275-QRJZ SKIN LESIONS, 2 TO 4 09/15/2023 N/A 38379-DUTCLMA NAIL, 6 OR MORE 11/24/2023 N/A 58980-IRFA SKIN LESIONS, 2 TO 4 11/24/2023 N/A 67410-MYIOCMS NAIL, 6 OR MORE 02/15/2024 N/A 58690-GTQH SKIN LESIONS, 2 TO 4 02/15/2024 N/A 42607-DBAAVQZ NAIL, 6 OR MORE 04/27/2024 N/A 87294-VLBT SKIN LESIONS, 2 TO 4 04/27/2024 N/A 84825-SQVKUTS NAIL, 6 OR MORE 07/24/2024 N/A 97596-KOJY SKIN LESIONS, 2 TO 4 07/24/2024 N/A Encounters Encounter Location Date Provider Diagnosis [address] [address] 09/15/2023 Adan Almanza Type 2 diabetes mellitus with diabetic peripheral angiopathy without gangrene E11.51 ; Tinea unguium B35.1 ; Pain in right toe(s) M79.674 and Pain in left toe(s) M79.675 [facility] [address] [place] [address] 11/24/2023 Adan Cami Type 2 diabetes mellitus with diabetic peripheral angiopathy without gangrene E11.51 ; Tinea unguium B35.1 ; Pain in right toe(s) M79.674 and Pain in left toe(s) M79.[address] [address] 02/15/2024 Adan Cami Type 2 diabetes mellitus with diabetic peripheral angiopathy without gangrene E11.51 ; Tinea unguium B35.1 ; Pain in right toe(s) M79.674 and Pain in left toe(s) M79.[address] [address] 04/27/2024 Adan Almanza Type 2 diabetes mellitus with diabetic peripheral angiopathy without gangrene E11.51 ; Tinea unguium B35.1 ; Pain in right toe(s) M79.674 ; Pain in left toe(s) M79.675 ; Other hammer toe(s) (acquired), right foot M20.41 and Other hammer toe(s) (acquired), left foot M20.[address] [address] 07/24/2024 Adan Almanza Type 2 diabetes mellitus [...] Treatment Pending Test Test Name Order Date 19143-FALLRGS NAIL, 6 OR MORE 03/22/2017 97159-SDVDMFC NAIL, 6 OR MORE 06/28/2017 78910-VQRWFUF NAIL, 6 OR MORE 09/30/2017 69545-LUAWUXU NAIL, 6 OR MORE 12/30/2017 87648-TFDQYCH NAIL, 6 OR MORE 03/09/2018 56162-KXGAWGH NAIL, 6 OR MORE 05/26/2018 32421-FKPILBY NAIL, 6 OR MORE 08/18/2018 38480-SCAEOAT NAIL, 6 OR MORE 11/07/2018 47947-AJCBTMX NAIL, 6 OR MORE 01/23/2019 27055-IHKWGKJ NAIL, 6 OR MORE 04/24/2019 43770-MHTCMHB NAIL, 6 OR MORE 06/29/2019 19355-VHZOKWR NAIL, 6 OR MORE 09/07/2019 42245-ZDMFYZT NAIL, 6 OR MORE 11/20/2019 25837-ZBJJJMG NAIL, 6 OR MORE 01/22/2020 55935-FTGAJJU NAIL, 6 OR MORE 04/22/2020 14076-PAMZIFQ NAIL, 6 OR MORE 07/01/2020 40048-OGGLFPY NAIL, 6 OR MORE 09/16/2020 57308-JNPKMLC NAIL, 6 OR MORE 11/25/2020 77841-JCEVTKY NAIL, 6 OR MORE 02/13/2021 76583-QRUJNWS NAIL, 6 OR MORE 05/05/2021 93284-ACEBWBP NAIL, 6 OR MORE 07/29/2021 00317-NKOUAWU NAIL, 6 OR MORE 10/07/2021 55148-WREIOMT NAIL, 6 OR MORE 12/17/2021 75187-XEORHBJ NAIL, 6 OR MORE 02/25/2022 82042-IHQEDLH NAIL, 6 OR MORE 06/01/2022 46301-EWMSAAX NAIL, 6 OR MORE 08/13/2022 40215-UYYWJHJ NAIL, 6 OR MORE 10/22/2022 37985-BTWHDQO NAIL, 6 OR MORE 02/16/2023 48878-TROTJYJ NAIL, 6 OR MORE 04/28/2023 04423-SQXILGK NAIL, 6 OR MORE 07/07/2023 28596-DYROKRL NAIL, 6 OR MORE 09/15/2023 00322-UHARYVJ NAIL, 6 OR MORE 11/24/2023 17819-LUHACPT NAIL, 6 OR MORE 02/15/2024 96330-JOVRPCC NAIL, 6 OR MORE 04/27/2024 22415-LCOQQJN NAIL, 6 OR MORE 07/24/2024 02072-CFOM SKIN LESIONS, 2 TO 4 04/15/20 25 92629-FCXA SKIN LESIONS, 2 TO 4 04/27/19 25 12987-KIVD SKIN LESIONS, 2 TO 4 02/15/20 24 86553-AOTE SKIN LESIONS, 2 TO 4 11/24/19 24 98456-SQAZ SKIN LESIONS, 2 TO 4 09/15/19 24 12453-PMHI SKIN LESIONS, 2 TO 4 07/07/19 24 21375-MVPR SKIN LESIONS, 2 TO 4 04/28/19 24 20527-CKSN SKIN LESIONS, 2 TO 4 02/17/20 23 31354-WKUF SKIN LESIONS, 2 TO 4 10/23/19 23 60451-XQJV SKIN LESIONS, 2 TO 4 08/14/19 23 54251-SUZV SKIN LESIONS, 2 TO 4 06/01/19 23 Next Appt Details Provider Name:Adan Carlos Cami , 10/24/2024 09:00:00 AM, [address] [facility], [address], [place], [address], Insurance Providers Payer Name Payer Address Payer Phone Subscriber Number Group Number Insured Name Patient Relationship to Insured Coverage Start Date Coverage End Date Medicare National Govt Svcs Inc [address] [facility] [address] [id number] Jose E Lewis Self - patient is the insured 2 [employer] Blue Shield [address] [place] [address] [id number] Jose E Lewis Self - patient is [...] Date(Month/Year) quadriceps sx LT and RT 11/16/2017 [facility] 05/26/2017
--- OUTSIDE RECORDS SUMMARY | 2024-08-21 15:11 | XMS_ITS ---
Author Organization [facility] Address [address] [place] [address] Care Team Providers Care Gravel Wheeler Name Role Phone Stevan Craig Primary Care Provider Unav ailable CamiAdan Unavailable [phone] Allergies No Known Allergies REASON FOR VISIT [...] Ordered Date Performed Result Body Sit e 89283-HZPWXSY NAIL, 6 OR MORE 04/27/2024 N/A 04380-EHQF SKIN LESIONS, 2 TO 4 04/27/2024 N/A Encounters Encounter Location Date Provider Diagnosis [facility] [address] [address] 04/27/2024 Adan Almanza Type 2 diabetes mellitus [...] INSTRUCTIONS.pdf) Pending Test Test Name Order Date 57441-HQAJHMU NAIL, 6 OR MORE 04/27/2024 54889-OWJW SKIN LESIONS, 2 TO 4 04/27/19 Next Appt Details Follow Up: prn, Reason: Provider Name:Adan Almanza , 10/24/2024 09:00:00 AM, [address] [facility], [address], [place], [address], Procedure Notes * Category Sub-Category Detail Notes [...] to maintain effectiveness in symptomatic relief - 20529 Keratoma Treatment Parring or Cutting o f [...] instrumentation by the physician of record - 80492, Q8 Progress Notes * Jose E MCKEONDOB: [birth year] (83 yo M)Acc No.[id number]:04/27/2024 Progress Note Patient:?Jose E MCKEON Provider:?Adan Almanza DPM :1940???Age:83 Y???Sex:Male Adilson e:04/27/2024 Address:[address] [place], [place] [address] Pcp:KATHLEEN Morales Subjective: * Chief Complaints: * [...] spots removal 05/2022 * Hospitalization/Major Diagno stic Procedure:?[facility] 05/26/2017quadriceps sx LT and [...] Management (4)??? Plan: * Treatment: 2.?Tinea unguium?Procedure: 16530-SIGFRZS NAIL, 6 OR MORE 3.?Other hammer toe(s) [...] to maintain effectiveness in symptomatic relief - 89324.?Keratoma Treatment:?Parring or Cutting of Benign Hyperkeratotic Lesion(s)?(-56) [...] instrumentation by the physician of record - 19487, Q8.? * Procedure Codes:?30276 DEBRI DE NAIL, 6 OR MORE, Modifiers: XS 27485 TRIM SKIN LESIONS, 2 TO 4, Modifiers: [...] Almanza DPM Date:?2024 Generated for Vishal rust/José/Jossue on:?08/21/2024 03:11 PM EDT History and Physical [...]
--- OUTSIDE RECORDS SUMMARY | 2024-08-21 15:11 | XMS_ITS ---
Author Organization [facility] [address] [facility] [place] [address] Care Team Providers Care Craps Dealer Name Role Phone Stevan Craig Primary Care Provider Unav ailable CamiAdan Unavailable [phone] Allergies No Known Allergies REASON FOR VISIT [...] Ordered Date Performed Result Body Sit e 27944-ZUJJZAM NAIL, 6 OR MORE 07/24/2024 N/A 11819-RWMW SKIN LESIONS, 2 TO 4 07/24/2024 N/A Encounters Encounter Location Date Provider Diagnosis [facility] [address] [place] [address] 07/24/2024 Adan Almanza Type 2 diabetes mellitus [...] Treatment Pending Test Test Name Order Date 29325-FNLACVL NAIL, 6 OR MORE 07/24/2024 91100-VMQI SKIN LESIONS, 2 TO 4 07/25/19 Next Appt Details Follow Up: prn, Reason: Provider Name:Adan Almanza , 10/24/2024 09:00:00 AM, [address] [facility], [address], [place], [address], Procedure Notes * Category Sub-Category Detail Notes [...] use of a nail nipper and/or dremel-type horseradish grinder, to a more viable healthy nail [...] instrumentation by the physician of record - 72783, Q8 Progress Notes * GERMANANNETTEJose E JDOB: [birth year] (83 yo M)Acc No.[id number]:07/24/2024 Progress Note Patient:?Jose E MCKEON Provider:?Adan Almanza DPM :1940???Age:83 Y???Sex:Male Adilson e:07/24/2024 Address:[address] [place] [address] Pcp:KATHLEEN Morales Subjective: * Chief Complaints: * [...] removal 05/2022 * Hospitalization/Major Diagno stic Procedure:?[facility] 05/26/2017quadriceps sx LT and [...] - Improvement??? Plan: * Treatment: 2.?Tinea unguium?Procedure: 30304-MJDNUJB NAIL, 6 OR MORE * Procedures:?Debride Nail [...] use of a nail nipper and/or dremel-type horseradish grinder, to a more viable healthy nail [...] to maintain effectiveness in symptomatic relief - 44488.?Keratoma Treatment:?Parring or Cutting of Benign Hyperkeratotic Lesion(s)?(-56) [...] instrumentation by the physician of record - 18112, Q8.? * Procedure Codes:?33070 DEBRI DE NAIL, 6 OR MORE, Modifiers: XS 60947 TRIM SKIN LESIONS, 2 TO 4, Modifiers: [...]
[2024-08-21 16:54] LABS: Prostate Specific Antigen 0.66 ng/mL (<0.05-4.0)
== END 2024-08-21 13:58 | disposition home or self-care (01) ==
LOC: HO.HMGCLDS 13:57
PROVIDERS: PCP Nurse Practitioner Family; Visit Provider Urology
DX: Z12.5 Encounter for screening for malignant neoplasm of prostate (principal)
CPT/HCPCS: 36415; 84153

== ENCOUNTER 2024-08-24 10:41 | Outpatient (AMB) | payer MEDICARE, SELFPAY ==
--- NOTE | 2024-08-24 11:05 | A.OFFVIS_ITS ---
Intake Visit Reasons: 1y/PVR Intake Note: Patient is Present for Follow Up Urology Medication: Myrbetriq, tamsulosin Antibiotic Allergies: None Blood Thinners: Aspirin PVR: 0ML'S TODAY'S PVR Library Circulation Assistant Required: No Allergies No Known Allergies [No Known Allergies*] Allergy (Verified 08/24/24 11:10) HPI Comments Details: Jose E is a very pleasant male. They are a patient of Dr Chaudhari. He is seen for following urologic issues - microscopic hematuria - lower urinary tract symptoms - primarily storage instability Yearly follow-up Effective emptying Remains on alpha-shirley PSA low no need to check Remains on finasteride 2 times a week Does have diabetes which will contribute to urgency and frequency Lower urinary tract symptoms primarily storage instability Prior TURP 05/29 - Cystoscopy with regrowth on right prostatic lobe Background - metformin controlled diabetes - last HBA1c 7.0 Prior medications - myrbetriq minimal benefit, finasteride however low PSA PSA 05/03 0.5, 09/02 Microscopic Hematuria: Microscopic hematuria was diagnosed during routine UA. They are here for the cystoscopy and discussion of imaging findings. Since the last visit the patient has noticed gross hematuria - after cycling exercise, continues to test postive for microscopic hematuria. Relevant medical history for Prior prostate procedures - prostate vaporization. Radiographic imagin/20 , US renal cyst. Therapeutic plan follow in 12 months with appropriate investigations. [facility] Medical History Squamous cell carcinoma in situ Basal cell carcinoma Periorbital edema of left eye Foot callus Tinea unguium Actinic keratosis Plantar callus Type 2 diabetes mellitus without complication, without long-term current use of insulin Microscopic hematuria Poor urinary stream Fatty liver HTN (hypertension) Rupture of quadriceps muscle BPH (benign prostatic hyperplasia) Adenoma of both adrenal glands Diverticulitis Cataract Surgical History History of surgery Family History Father History of heart attack Mother No problems noted. Brother Throat cancer Social History Housing: House Alcohol intake: current Alcohol intake frequency: holidays/special occasions only Patient Tobacco Use Status: Never used Tobacco e-Cigarette/Vaping Use: Never Used Second Hand Smoke Exposure: No service: No Current occupational status: retired Current occupational exposures/hazards: No Cognitive needs: No Hearing needs: No Vision needs: No Review of Systems Const Denies chills and Denies fever(s) Card Reports no additional complaints and Denies syncope Resp Denies cough GI Denies abdominal pain and Denies heartburn Reports as per HPI and Denies change in libido Neuro Denies syncope Psych Denies change in libido Endo Denies change in libido Physical Exam Const General: cooperative, healthy appearing, comfortable and no acute distress Orientation/consciousness: patient oriented x3 HEENT Face and sinus: Yes normal facial exam Mouth: moist mucous membranes Neck Neck: Yes normal visual inspection, Yes full ROM and Yes trachea midline Chest Chest palpation & inspection: normal inspection of the chest Resp Effort & Inspection: normal respiratory effort, able to speak in complete sentences and no respiratory distress GI Inspection: Yes normal to inspection Back/Spine/Pelvis Cervical Spine: normal cervical lordosis Thoracic/Lumbar Spine: thoracic and lumbar spine normal to inspection Skin General skin exam: no rashes or lesions noted Neuro General: patient oriented x3, gait normal, tone normal and moves all extremities Extrem General: Yes normal to inspection and Yes capillary refill normal Assessment & Plan Assessment & Plan (1) Bladder instability: Code(s): N32.89 - Other specified disorders of bladder Category: Medical (2) BPH loc w urin obs/LUTS: Code(s): N40.1 - Benign prostatic hyperplasia with lower urinary tract symptoms Category: Medical Plan 12 month follow-up Patient Instructions: This note is constructed using voice recognition software. While every effort has been made to ensure accuracy field sales trainer errors may have been included. Imaging studies, laboratory and physical exam results were discussed and reviewed in detail. No major barriers to patient understanding were identified. An opportunity to ask questions regarding the treatment plan was provided. All questions were answered. The patient expressed understanding and agreement with the above treatment plan. The patient is aware they should contact our office by phone for worsening of their current condition or the appearance of new urologic symptoms. Compliance is encouraged with any medications and followup testing that is ordered. It is a privilege to participate in the urologic care of your patient. If you have any questions or concerns regarding treatment for the above conditions, or other urologic issues, please do not hesitate to contact me. The office telephone contact is [phone]. Sincerely, Dr Claude Fuentes MD, [facility] - Urology Compassionate Specialist Care for the Genitourinary System Coding Level of Care Code Est Pt Level 4 (94977) Complex EM visit Add On G2211 Diagnoses Bladder instability N32.89 BPH loc w urin obs/LUTS N40.1
--- OUTSIDE RECORDS SUMMARY | 2024-08-24 11:13 | XMS_ITS | Patient Health Record ---
Author Organization [facility] Address [address] [place] [address] Care Team Providers Care Data Analytics Architect Name Role Phone Stevan Craig Primary Care Provider Unav ailable Adan Almanza Unavailable [phone] Allergies No Known Allergies Results Component Value [...] Problem Acquired hammer toe of right foot (2958823008428 105) Other hammer toe(s) (acquired), right foot (M20.41) Active confirmed Response to treatment,I mprovement Problem Type 2 diabetes mellitus with peripheral angiopathy (340481630) Type 2 diabetes mellitus with diabetic peripheral angiopathy without gangrene (E11.51) Active confirmed Problem Acquired hammer toe of left foot (1496121836288 103) Other hammer toe(s) (acquired), left foot (M20.42) Active confirmed Response to treatment,I mprovement Vital Signs Blood pressure diastolic 60 mm Hg 07/24/2024 Height 5 ft 6 in in 07/24/2024 Blood pressure systolic 115 mm Hg 07/24/2024 Weight 156 lbs 07/24/2024 BMI 25.18 kg/m2 07/24/2024 Procedures Procedure Date Ordered Date Performed Result Body Sit e 88692-UWZAYDG NAIL, 6 OR MORE 09/15/2023 N/A 45335-MHIT SKIN LESIONS, 2 TO 4 09/15/2023 N/A 43381-WTVXQTZ NAIL, 6 OR MORE 11/24/2023 N/A 43719-UOMB SKIN LESIONS, 2 TO 4 11/24/2023 N/A 92554-AEFZUUY NAIL, 6 OR MORE 02/15/2024 N/A 42461-XEYO SKIN LESIONS, 2 TO 4 02/15/2024 N/A 66578-MMSIOEF NAIL, 6 OR MORE 04/27/2024 N/A 59371-DBIP SKIN LESIONS, 2 TO 4 04/27/2024 N/A 65114-INVUFFF NAIL, 6 OR MORE 07/24/2024 N/A 69003-XBIM SKIN LESIONS, 2 TO 4 07/24/2024 N/A Encounters Encounter Location Date Provider Diagnosis [address] [address] 09/15/2023 Adan Almanza Type 2 diabetes mellitus with diabetic peripheral angiopathy without gangrene E11.51 ; Tinea unguium B35.1 ; Pain in right toe(s) M79.674 and Pain in left toe(s) M79.675 [facility] [address] [place] [address] 11/24/2023 Adan Cami Type 2 diabetes mellitus with diabetic peripheral angiopathy without gangrene E11.51 ; Tinea unguium B35.1 ; Pain in right toe(s) M79.674 and Pain in left toe(s) M79.[address] [address] 02/15/2024 Adan Cami Type 2 diabetes mellitus with diabetic peripheral angiopathy without gangrene E11.51 ; Tinea unguium B35.1 ; Pain in right toe(s) M79.674 and Pain in left toe(s) M79.[address] [address] 04/27/2024 Adan Almanza Type 2 diabetes mellitus with diabetic peripheral angiopathy without gangrene E11.51 ; Tinea unguium B35.1 ; Pain in right toe(s) M79.674 ; Pain in left toe(s) M79.675 ; Other hammer toe(s) (acquired), right foot M20.41 and Other hammer toe(s) (acquired), left foot M20.[address] [address] 07/24/2024 Adan Almanza Type 2 diabetes mellitus [...] Treatment Pending Test Test Name Order Date 08941-JYJNAQW NAIL, 6 OR MORE 03/22/2017 04714-NFHPJZN NAIL, 6 OR MORE 06/28/2017 25582-GPHNVRP NAIL, 6 OR MORE 09/30/2017 76696-UBRKKMD NAIL, 6 OR MORE 12/30/2017 19859-MEXAEFM NAIL, 6 OR MORE 03/09/2018 66988-NWQEHEI NAIL, 6 OR MORE 05/26/2018 37691-LZQJUTO NAIL, 6 OR MORE 08/18/2018 91128-OJZJCQU NAIL, 6 OR MORE 11/07/2018 49803-IASVBCF NAIL, 6 OR MORE 01/23/2019 07485-ISTTBGO NAIL, 6 OR MORE 04/24/2019 10872-TXFPFKH NAIL, 6 OR MORE 06/29/2019 70711-RPXJYNR NAIL, 6 OR MORE 09/07/2019 82725-RWYEVGS NAIL, 6 OR MORE 11/20/2019 14932-DVEWBNB NAIL, 6 OR MORE 01/22/2020 40117-XEAUCRJ NAIL, 6 OR MORE 04/22/2020 49720-OFESBYD NAIL, 6 OR MORE 07/01/2020 45251-QBGKMFP NAIL, 6 OR MORE 09/16/2020 31152-EOUTCVV NAIL, 6 OR MORE 11/25/2020 34027-WKLEYTP NAIL, 6 OR MORE 02/13/2021 23288-MOOUXKZ NAIL, 6 OR MORE 05/05/2021 67664-YGMVFJX NAIL, 6 OR MORE 07/29/2021 89938-ESFHPPO NAIL, 6 OR MORE 10/07/2021 78000-NZHEOHZ NAIL, 6 OR MORE 12/17/2021 44187-NVSIVQW NAIL, 6 OR MORE 02/25/2022 90688-YIZVYHV NAIL, 6 OR MORE 06/01/2022 40616-UAZAMAB NAIL, 6 OR MORE 08/13/2022 57719-FKVODUH NAIL, 6 OR MORE 10/22/2022 08866-NOHNTQG NAIL, 6 OR MORE 02/16/2023 26017-KAHCLHJ NAIL, 6 OR MORE 04/28/2023 36026-GJOFAWQ NAIL, 6 OR MORE 07/07/2023 29300-XHURVBE NAIL, 6 OR MORE 09/15/2023 61704-DFLRJBI NAIL, 6 OR MORE 11/24/2023 08892-ZBBHSPH NAIL, 6 OR MORE 02/15/2024 77161-DRMROHG NAIL, 6 OR MORE 04/27/2024 96167-JUWBGTY NAIL, 6 OR MORE 07/24/2024 43500-VNOI SKIN LESIONS, 2 TO 4 04/15/20 25 73913-UYIW SKIN LESIONS, 2 TO 4 04/27/19 25 15885-NHOP SKIN LESIONS, 2 TO 4 02/15/20 24 25555-ZVDU SKIN LESIONS, 2 TO 4 11/24/19 24 94318-ZQIE SKIN LESIONS, 2 TO 4 09/15/19 24 62625-SYZQ SKIN LESIONS, 2 TO 4 07/07/19 24 04723-ZGRX SKIN LESIONS, 2 TO 4 04/28/19 24 31857-PLOW SKIN LESIONS, 2 TO 4 02/17/20 23 27023-XYVE SKIN LESIONS, 2 TO 4 10/23/19 23 64034-EFGY SKIN LESIONS, 2 TO 4 08/14/19 23 34126-LVTP SKIN LESIONS, 2 TO 4 06/01/19 23 Next Appt Details Provider Name:Adan Carlos Cami , 10/24/2024 09:00:00 AM, [address] [facility], [address], [place], [address], Insurance Providers Payer Name Payer Address Payer Phone Subscriber Number Group Number Insured Name Patient Relationship to Insured Coverage Start Date Coverage End Date Medicare National Govt Sv[employer] [address] [place] [address] [id number] Jose E Lewis Self - patient is the insured 2 [employer] [address] [place] [address] [id number] Jose E Lewis Self - patient is [...] Date(Month/Year) quadriceps sx LT and RT 11/16/2017 [facility] Prostate 05/26/2017
--- OUTSIDE RECORDS SUMMARY | 2024-08-24 11:13 | XMS_ITS ---
Author Organization [facility] Address [address] [place] [address] Care Team Providers Care Mining Technician Name Role Phone Stevan Craig Primary Care Provider Unav ailable Adan Almanza Unavailable [phone] Allergies No Known Allergies REASON FOR VISIT [...] Ordered Date Performed Result Body Sit e 96835-EIHBAXJ NAIL, 6 OR MORE 02/15/2024 N/A 14967-UHAA SKIN LESIONS, 2 TO 4 02/15/2024 N/A Encounters Encounter Location Date Provider Diagnosis [facility] [address] [address] 02/15/2024 Adan Almanza Type 2 diabetes mellitus [...] Treatment Pending Test Test Name Order Date 84674-UKVFPHK NAIL, 6 OR MORE 02/15/2024 45415-UOZW SKIN LESIONS, 2 TO 4 02/15/20 24 Next Appt Details Follow Up: prn, Reason: Provider Name:Adan V Cami , 10/24/2024 09:00:00 AM, [address] [facility], [address], [place], [address], Procedure Notes * Category Sub-Category Detail Notes [...] use of a nail nipper and/or dremel-type burr grinder, to a more viable healthy nail plate or bed tissue 6-10. Silver nitrate used for any petechial bleeding as necessary. Definitive antifungal treatment options have been reviewed and discussed with the patient. The patient chooses, no pharmaceutical tx - 45696 Keratoma Treatment Parring or Cutting o f Benign Hyperkeratotic Lesion(s) (-56) 2-4 Lesions - The Benign hyperkeratotic lesions, as described in exam, were pared, and/or cut utilizing a sterile 15 blade, tissue nippers, and/or dremel - 66843 , Q8 Progress Notes * Jose E MCKEONDOB: [birth year] (83 yo M)Acc No.[id number]:02/15/2024 Progress Note Patient:?Jose E Mckeon Provider:?Adan Almanza DPM :1940???Age:83 Y???Sex:Male Adilson e:02/15/2024 Address:[address] [place] [address], [facility] Pcp:KATHLEEN Morales Subjective: * Chief Complaints: * [...] spots removal 05/2022 * Hospitalization/Major Diagno stic Procedure:?[facility]state 05/26/2017quadriceps sx LT and [...] Nightsplint . . . . AFO - H8169Mmumgr 320MG Tablet 1 tablet Orally Once a dayMedication List reviewed and reconciled with the patientNot-Taking/PRN hydroCHLOROthiazide 12.5 MG Capsule 1 capsule in the morning Orally Once a dayNot-Taking/PRN Jardiance Not-Taking/PRN Multivitamins Tablet as directed Orally Not-Taking/PRN Vitamin B 12 Not-Taking/PRN Valsartan 32mg Once a dayNot-Taking/PRN Eye Drops Not-Taking/PRN predniSONE Not-Taking/PRN Nightsplint . . . . AFO - G8739Tny-Uytnyo/PRN Diovan 320MG Tablet 1 tablet Orally Once [...] - M79.675? Plan: * Treatment: 2.?Tinea unguium?Procedure: 02743-BEVZFKP NAIL, 6 OR MORE * Procedures:?Debride Nail [...] use of a nail nipper and/or dremel-type burr grinder, to a more viable healthy nail plate or bed tissue 6-10. Silver nitrate used for any petechial bleeding as necessary. Definitive antifungal treatment options have been reviewed and discussed with the patient. The patient chooses, no pharmaceutical tx - 86839.?Keratoma Treatment:?Parring or Cutting of Benign Hyperkeratotic Lesion(s)?(-56) 2-4 Lesions - The Benign hyperkeratotic lesions, as described in exam, were pared, and/or cut utilizing a sterile 15 blade, tissue nippers, and/or dremel - 51802 , Q8.? * Procedure Codes:?03023 DEBRI DE NAIL, 6 OR MORE, Modifiers: XS 58149 TRIM SKIN LESIONS, 2 TO 4, Modifiers: XS , Q8 * Follow Up:?prn * Images: * Sign off status: Completed true * Provider:?BRISSA OrozcoM Date:?2023 Generated for Vishal rust/José/eTliviasmitting on:?08/24/2024 11:13 AM EDT History and Physical Notes * [...]
--- OUTSIDE RECORDS SUMMARY | 2024-08-24 11:14 | XMS_ITS ---
Author Organization [facility] Address [address] [place] [address] Care Team Providers Care Marketing Technology Coordinator Name Role Phone Stevan Craig Primary Care Provider Unav ailable CamiAdan Unavailable [phone] Allergies No Known Allergies REASON FOR VISIT [...] Ordered Date Performed Result Body Sit e 90770-TAWCOGG NAIL, 6 OR MORE 04/27/2024 N/A 34848-CPHG SKIN LESIONS, 2 TO 4 04/27/2024 N/A Encounters Encounter Location Date Provider Diagnosis [facility] [address] [place] [address] 04/27/2024 Adan Almanza Type 2 diabetes mellitus [...] INSTRUCTIONS.pdf) Pending Test Test Name Order Date 17517-VISDCON NAIL, 6 OR MORE 04/27/2024 00524-IHLS SKIN LESIONS, 2 TO 4 04/27/19 Next Appt Details Follow Up: prn, Reason: Provider Name:Adan Almanza , 10/24/2024 09:00:00 AM, [address] [facility], [address], [place], [address], Procedure Notes * Category Sub-Category Detail Notes [...] use of a nail nipper and/or dremel-type salvage grinder, to a more viable healthy nail [...] to maintain effectiveness in symptomatic relief - 43228 Keratoma Treatment Parring or Cutting o f [...] instrumentation by the physician of record - 57906, Q8 Progress Notes * Jose E MCKEONDOB: [birth year] (83 yo M)Acc No.[id number]:04/27/2024 Progress Note Patient:?Jose E MCKEON Provider:?Adan Almanza DPM :1940???Age:83 Y???Sex:Male Adilson e:04/27/2024 Address:[address] [place], [place] [id number] Pcp:KATHLEEN Morales Subjective: * Chief Complaints: * [...] removal 05/2022 * Hospitalization/Major Diagno stic Procedure:?[facility] for Prostate 05/26/2017quadriceps sx LT and RT [...] Management (4)??? Plan: * Treatment: 2.?Tinea unguium?Procedure: 96345-GBEDISI NAIL, 6 OR MORE 3.?Other hammer toe(s) [...] use of a nail nipper and/or dremel-type salvage grinder, to a more viable healthy nail [...] to maintain effectiveness in symptomatic relief - 49111.?Keratoma Treatment:?Parring or Cutting of Benign Hyperkeratotic Lesion(s)?(-56) [...] instrumentation by the physician of record - 67668, Q8.? * Procedure Codes:?48366 DEBRI DE NAIL, 6 OR MORE, Modifiers: XS 53941 TRIM SKIN LESIONS, 2 TO 4, Modifiers: [...] Almanza DPM Date:?2024 Generated for Vishal rust/José/Jossue on:?08/24/2024 11:13 AM EDT History and Physical [...]
--- OUTSIDE RECORDS SUMMARY | 2024-08-24 11:14 | XMS_ITS ---
Author Organization [facility] Address [address] [facility] [place] [address] Care Team Providers Care Limousine Rental Clerk Name Role Phone Stevan Craig Primary Care Provider Unav ailable CamiAdan Unavailable [phone] Allergies No Known Allergies REASON FOR VISIT [...] No Points 0 Interpretation Negative Vital Signs Blood pressure systolic 115 mm Hg 07/25/19 25 Blood pressure diastolic 60 mm Hg 025 Height 5 ft 6 in in 07/24/2024 Weight 156 lbs 07/24/2024 BMI 25.18 kg/m2 07/24/2024 Procedures Procedure Date Ordered Date Performed Result Body Sit e 04706-VJMUXAJ NAIL, 6 OR MORE 07/24/2024 N/A 53348-IGOI SKIN LESIONS, 2 TO 4 07/24/2024 N/A Encounters Encounter Location Date Provider Diagnosis [facility] [address] [place] [address] 07/24/2024 Adan Almanza Type 2 diabetes mellitus [...] Treatment Pending Test Test Name Order Date 26989-UCTTQLM NAIL, 6 OR MORE 07/24/2024 94351-QLWJ SKIN LESIONS, 2 TO 4 07/25/19 Next Appt Details Follow Up: prn, Reason: Provider Name:Adan Almanza , 10/24/2024 09:00:00 AM, [address] [facility], [address], [place], [address], Procedure Notes * Category Sub-Category Detail Notes [...] use of a nail nipper and/or dremel-type steel grinder, to a more viable healthy nail [...] instrumentation by the physician of record - 65234, Q8 Progress Notes * GERMANANNETTEJose E JDOB: [birth year] (83 yo M)Acc No.[id number]:07/24/2024 Progress Note Patient:?Jose E MCKEON Provider:?Adan Almanza DPM :1940???Age:83 Y???Sex:Male Adilson e:07/24/2024 Address:[address] [place] [address] Pcp:KATHLEEN Morales Subjective: * Chief Complaints: * [...] spots removal 05/2022 * Hospitalization/Major Diagno stic Procedure:?[facility] 05/26/2017quadriceps sx [...] - Improvement??? Plan: * Treatment: 2.?Tinea unguium?Procedure: 12275-SNTJXDL NAIL, 6 OR MORE * Procedures:?Debride Nail [...] use of a nail nipper and/or dremel-type steel grinder, to a more viable healthy nail [...] to maintain effectiveness in symptomatic relief - 85226.?Keratoma Treatment:?Parring or Cutting of Benign Hyperkeratotic Lesion(s)?(-56) [...] instrumentation by the physician of record - 48100, Q8.? * Procedure Codes:?24519 DEBRI DE NAIL, 6 OR MORE, Modifiers: XS 39853 TRIM SKIN LESIONS, 2 TO 4, Modifiers: [...]
== END 2024-08-24 11:37 | disposition home or self-care (01) ==
LOC: HO.HUSH 10:41
PROVIDERS: PCP Nurse Practitioner Family; Visit Provider Urology
DX: N32.89 Other specified disorders of bladder (principal); N40.1 Benign prostatic hyperplasia with lower urinary tract symptoms
CPT/HCPCS: 99214; G2211

== ENCOUNTER → 2024-08-24 10:41 | Outpatient (BNVA) | payer MEDICARE, SELFPAY | PROVIDERS: PCP Nurse Practitioner Family; Visit Provider Urology | DX: R31.29 Other microscopic hematuria (principal); N40.1 Benign prostatic hyperplasia with lower urinary tract symptoms; N32.89 Other specified disorders of bladder | CPT/HCPCS: 99212 ==

== ENCOUNTER 2024-11-07 06:22 | Outpatient (REF) | payer MEDICARE, SELFPAY ==
--- OUTSIDE RECORDS SUMMARY | 2024-11-07 06:24 | XMS_ITS | Patient Health Record ---
Author Organization [facility] Address [address] [place] [address] Care Team Providers Care Fence Builder Name Role Phone Madeline(inactive) Leonardo ORONA Primary Care Provider U Nicolas Melendez Lorraine [phone] Reason For Referral No Information Medications Medication SIG (Take, Route, Frequency, Duration) Notes Start Date End Date Status Finasteride 5mg Acti ve Multivitamin Active Aspirin 81mg Active metFORMIN HCl 1000mg Active Diovan 320mg Active Colyte with Flavor Packs 227.1 GM As directed Orally As directed for 1 day(s) 06/26/2013 Active Lovastatin 20mg Acti ve Problems Problem Type SNOMED Code ICD Code Onset Dates Problem Status W/U Status Risk Notes Problem Pre-surgery evaluation (922390208) Other specified pre-operative examination (V72.83) Active confirmed Problem Screen for colon cancer (V76.51) Active confirmed Plan Of Treatment No Information Insurance Providers Payer Name Payer Address Payer Phone Subscriber Number Group Number Insured Name Patient Relationship to Insured Coverage Start Date Coverage End Date [place]ARE OF [place] [address] [facility] [address] [id number] JARRETT MCKEON Self - patient is the insured MEDEX ATTN CLAIMS [address] [place] [address] [phone] [id number] JARRETT MCKEON Self - patient is the insured Medical (General) History Medical History History ICD Code NIDDM Hypertension Denies [place],CVA,Lung disease,renal disease Kidney infection as a child Hyperplastic colon polyps--m ost recent colonoscopy was in [address] Andrade--only a hyperplastic polyp; similar [place] [address] Andrade as well. Diverticulosis and diverticulitis Surgical History Surgery Date(Month/Year) achilles tendon repair rotator cuff tear repair prostate surgery Hernia as a child Knee surgery
--- OUTSIDE RECORDS SUMMARY | 2024-11-07 06:24 | XMS_ITS | Patient Health Record ---
Author Organization [facility] Address [address] [facility] [place] [address] Care Team Providers Care District Representative Name Role Phone Stevan Craig Primary Care Provider Unav ailable Cami Adan Unavailable [phone] Allergies No Known Allergies Results Component Value [...] (HH) 6.8 HEMOGLOBIN A1C (GLYCOHEMOGLO BIN) Reviewed date:10/24/2024 09:36:22 AM Interpretation: Performing Lab: Notes/Report: HEMOGLOBIN A1C % (HH) 6.8 HEMOGLOBIN A1C (GLYCOHEMOGLO BIN) Reviewed date:10/24/2024 09:12:26 AM Interpretation: Performing Lab: Notes/Report: HEMOGLOBIN A1C % (HH) 6.8 Reason For Referral No Information Medications Medication SIG (Take, Route, Frequency, Duration) Notes Start Date End Date Status Losartan Potassium 100 MG 1 tablet Orall y Once a day; Duration: 30 day(s) Active Valsartan 32mg Once a day Not- Taking Metoprolol Succinate 25 MG 1 capsule Orally Once a day; Duration: 30 day(s) Active Aspir-81 81 MG 1 tablet Orally Once a day Active hydroCHLOROthiazide 12.5 MG 1 capsule in the morning Orally Once a day; Duration: 30 day(s) Active Empagliflozin Active Jardiance Not-Taking Januvia 100MG 1 tablet Orally Once a day Active Multivitamins as directed Orally Not-Taking Lovastatin 20MG 1 tablet at bedtime Orally Once a day Active Vitamin B 12 Not-Tunde ing Vitamin B12 Active Nightsplint . . . AFO - L1930; Duration: . Not-Taking metFORMIN HCl 500 MG 1 tablet with meals Orally Twice a day and 500mg Active Diovan 320MG 1 tablet Orally Once a day Not-Taking Ammonium Lactate 12 % 1 application Externally Twice a day; Duration: 30 days Active Finasteride 5 MG as directed Orally 2x a week Active amLODIPine Besylate 10 MG 1 tablet Orall y Once a day Active Extra Depth Orthopedic Shoes, (1) Pair With (3) Pair Custom Heat Molded Multidensity Innersoles Dx: NIDDM/PVD(E11.51), Hammertoe Foot Deformity(M20.41,M2 0.42), Preulcerative Skin Lesion(s)(L85.1) Wear Daily; Duration: 365 days Active Eye Drops Not-Taking Tamsulosin HCl Activ e predniSONE Not-Takin g Immunizations Vaccine Route Administration Date Status Comme nts Influenza Unknown 06/27/2017 Administered Influenza Unknown 12/30/2017 Refused Influenza Unknown 02/13/2020 Administered Influenza Unknown 01/10/2022 Administered Pneumococcal Unknown 02/05/2013 Administered COVID-19 Pfizer BioNTech Vaccine Unknown 02/10/2022 Administered 05/13/20,06/03/20 01/01/21 Social History Tobacco Use: Social History Observation [...] Problem Acquired hammer toe of right foot (6833507819315 105) Other hammer toe(s) (acquired), right foot (M20.41) Active confirmed Response to treatment,I mprovement Problem Type 2 diabetes mellitus with peripheral angiopathy (457424689) Type 2 diabetes mellitus with diabetic peripheral angiopathy without gangrene (E11.51) Active confirmed Problem Acquired hammer toe of left foot (9891862894974 103) Other hammer toe(s) (acquired), left foot (M20.42) Active confirmed Response to treatment,I mprovement Vital Signs Heart Rate 62 /min 10/24/2024 Blood pressure diastolic 72 R mm Hg 10/24/2024 Height 5 ft 6 in in 10/24/2024 Blood pressure systolic 119 mm Hg 10/24/2024 Weight 156 lbs 10/24/2024 BMI 25.18 kg/m2 10/24/2024 Procedures Procedure Date Ordered Date Performed Result Body Sit e 86930-FRRCSHZ NAIL, 6 OR MORE 11/24/2023 N/A 69956-ZXBY SKIN LESIONS, 2 TO 4 11/24/2023 N/A 63939-HQRHZNV NAIL, 6 OR MORE 02/15/2024 N/A 66108-XNVB SKIN LESIONS, 2 TO 4 02/15/2024 N/A 84892-QJSFISE NAIL, 6 OR MORE 04/27/2024 N/A 63709-SPBC SKIN LESIONS, 2 TO 4 04/27/2024 N/A 72470-CNPZWGB NAIL, 6 OR MORE 07/24/2024 N/A 36532-ZFRE SKIN LESIONS, 2 TO 4 07/24/2024 N/A 84420-ZNGYEWQ NAIL, 6 OR MORE 10/24/2024 N/A 40075-OOAJ SKIN LESIONS, 2 TO 4 10/24/2024 N/A Encounters Encounter Location Date Provider Diagnosis [address] [address] 11/24/2023 Adan Almanza Type 2 diabetes mellitus with diabetic peripheral angiopathy without gangrene E11.51 ; Tinea unguium B35.1 ; Pain in right toe(s) M79.674 and Pain in left toe(s) M79.[address] [address] 02/15/2024 Adan Almanza Type 2 diabetes mellitus with diabetic peripheral angiopathy without gangrene E11.51 ; Tinea unguium B35.1 ; Pain in right toe(s) M79.674 and Pain in left toe(s) M79.[address] [address] 04/27/2024 Adan Almanza Type 2 diabetes mellitus with diabetic peripheral angiopathy without gangrene E11.51 ; Tinea unguium B35.1 ; Pain in right toe(s) M79.674 ; Pain in left toe(s) M79.675 ; Other hammer toe(s) (acquired), right foot M20.41 and Other hammer toe(s) (acquired), left foot M20.[address] [address] 07/24/2024 Adan Almanza Type 2 diabetes mellitus with diabetic peripheral angiopathy without gangrene E11.51 ; Tinea unguium B35.1 ; Pain in right toe(s) M79.674 ; Pain in left toe(s) M79.675 ; Other hammer toe(s) (acquired), right foot M20.41 and Other hammer toe(s) (acquired), left foot M20.42 [facility] [address] [place] [phone] 10/24/2024 Adan Almanza Type 2 diabetes mellitus with [...] E11.51) 07/24/2024 Tinea unguium (ICD-10 - B35.1) 10/24/2024 Type 2 diabetes mellitus with diabetic peripheral angiopathy without gangrene (ICD-10 - E11.51) 10/24/2024 Tinea unguium (ICD-10 - B35.1) 04/27/2024 Pain in right toe(s) (ICD-10 - M79.674) 07/24/2024 Pain in right toe(s) (ICD-10 - M79.674) 10/24/2024 Pain in right toe(s) (ICD-10 - M79.674) 02/15/2024 Pain in right toe(s) (ICD-10 - M79.674) 11/24/2023 Pain in right toe(s) (ICD-10 - M79.674) 11/24/2023 Pain in left toe(s) (ICD-10 - M79.675) 02/15/2024 Pain in left toe(s) (ICD-10 - M79.675) 04/27/2024 Pain in left toe(s) (ICD-10 - M79.675) 10/24/2024 Pain in left toe(s) (ICD-10 - M79.675) [...] Treatment Pending Test Test Name Order Date 12775-JBEQWUO NAIL, 6 OR MORE 03/22/2017 75057-OAIFGGP NAIL, 6 OR MORE 06/28/2017 27736-LCPRTWR NAIL, 6 OR MORE 09/30/2017 64718-NNGKBZB NAIL, 6 OR MORE 12/30/2017 72087-RWNWALK NAIL, 6 OR MORE 03/09/2018 16233-IULTDMG NAIL, 6 OR MORE 05/26/2018 69184-MLEHGFT NAIL, 6 OR MORE 08/18/2018 43378-DLDDAAC NAIL, 6 OR MORE 11/07/2018 34345-RABRJDE NAIL, 6 OR MORE 01/23/2019 96003-PPXTPLF NAIL, 6 OR MORE 04/24/2019 23733-ZBGRXLG NAIL, 6 OR MORE 06/29/2019 21196-YTVSNTL NAIL, 6 OR MORE 09/07/2019 25110-YWNZQAK NAIL, 6 OR MORE 11/20/2019 94782-GMAGMTR NAIL, 6 OR MORE 01/22/2020 40124-GGLLKFC NAIL, 6 OR MORE 04/22/2020 17768-PHZYJEJ NAIL, 6 OR MORE 07/01/2020 64235-NUWCUWZ NAIL, 6 OR MORE 09/16/2020 52938-BEEYHUV NAIL, 6 OR MORE 11/25/2020 67981-GETVRFC NAIL, 6 OR MORE 02/13/2021 94564-EWFWDQV NAIL, 6 OR MORE 05/05/2021 71137-BFMLGCM NAIL, 6 OR MORE 07/29/2021 80617-HPACBXG NAIL, 6 OR MORE 10/07/2021 79943-ULJKNUQ NAIL, 6 OR MORE 12/17/2021 75940-PZIZRPR NAIL, 6 OR MORE 02/25/2022 09718-YGGZQIM NAIL, 6 OR MORE 06/01/2022 41817-VVQSRAT NAIL, 6 OR MORE 08/13/2022 99157-OGHBVDZ NAIL, 6 OR MORE 10/22/2022 44409-VCHQNRP NAIL, 6 OR MORE 02/16/2023 65844-DRHESTS NAIL, 6 OR MORE 04/28/2023 54488-IWUZVOX NAIL, 6 OR MORE 07/07/2023 88390-NIPNGTW NAIL, 6 OR MORE 09/15/2023 07001-PVFJPAT NAIL, 6 OR MORE 11/24/2023 04146-CRQGMFA NAIL, 6 OR MORE 02/15/2024 62314-UWVJGXL NAIL, 6 OR MORE 04/27/2024 85781-QAWICWQ NAIL, 6 OR MORE 07/24/2024 42589-AXVGVQS NAIL, 6 OR MORE 10/24/2024 10479-HRAO SKIN LESIONS, 2 TO 4 10/25/19 25 13384-BDPC SKIN LESIONS, 2 TO 4 07/25/19 25 85146-LMRW SKIN LESIONS, 2 TO 4 04/27/19 25 12674-BMGD SKIN LESIONS, 2 TO 4 02/15/20 24 40122-GFNK SKIN LESIONS, 2 TO 4 11/24/19 24 52974-SMPK SKIN LESIONS, 2 TO 4 09/15/19 24 98568-GLII SKIN LESIONS, 2 TO 4 07/07/19 24 07804-ZIPM SKIN LESIONS, 2 TO 4 04/28/19 24 40134-CFCC SKIN LESIONS, 2 TO 4 02/17/20 23 69793-XGZF SKIN LESIONS, 2 TO 4 10/23/19 23 11208-CBVN SKIN LESIONS, 2 TO 4 08/14/19 23 27393-ZXAS SKIN LESIONS, 2 TO 4 06/01/19 23 Next Appt Details Provider Name:Adan Almanza , 01/04/2025 10:00:00 AM, [address] [facility], [place], [address], Insurance Providers Payer Name Payer Address Payer Phone Subscriber Number Group Number Insured Name Patient Relationship to Insured Coverage Start Date Coverage End Date Medicare [facility] [address] [place] [address] [id number] Jose E Peña Self - patient is the insured 2 [employer] Blue [employer] [address] [place] [address] [id number] Jose E Peña Self - patient is [...] Date(Month/Year) quadriceps sx LT and RT 11/16/2017 [facility] 05/26/2017
[2024-11-07 10:01] LABS: MANUAL DIFF FLAG NO
[2024-11-07 10:24] LABS: Hematocrit 44.1 % (42.0-52.0); Hemoglobin 15.2 g/dl (14.0-18.0); Imm Gran Abs Auto 0.04 X10*3/uL (0.00-0.03); Imm Gran Pct Auto 0.4 % (0.0-0.4); Lymphocytes Absolute Auto 1.8 X10*3/uL (1.2-4.9); Mean Corpuscular HGB Conc 34.5 g/dl (31.0-36.0); Mean Corpuscular Hemoglobin 31.7 pg (27.0-33.0); Mean Corpuscular Volume 91.9 fL (80.0-98.0); NRBC Abs Auto 0.000 X10*3/uL (0.0-0.012); NRBC Pct Auto 0.0 /100WBC (0.0-0.2); Platelet Count 238 X10*3/uL (160-400); Red Blood Count 4.80 X10*6/uL (4.60-5.80); White Blood Count 9.0 X10*3/uL (4.8-10.8)
[2024-11-07 10:54] LABS: Alanine Aminotransferase 29 U/L (0-40); Albumin Level 4.1 g/dL (3.5-5.0); Alkaline Phosphatase 88 U/L (39-117); Anion Gap 13 (12-20); Appearance Urine Clear; Aspartate Amino Transferase 34 U/L (5-37); Blood Urea Nitrogen 19 mg/dL (9-16); Calcium 8.8 mg/dL (8.4-10.2); Carbon Dioxide 24 mmol/L (22-29); Chloride 105 mmol/L (96-108); Cholesterol 125 mg/dL (<200); Estimated Glomerular Filt Rate 59; Glucose Urine UA >=1000 mg/dL (Negative); HDL Cholesterol 39 mg/dL (>40); PH 6.5 (5.0-9.0); Potassium 3.6 mmol/L (3.3-5.1); Sodium 138 mmol/L (135-145); Specific Gravity - Urine 1.015 (1.005-1.025); Total Protein 7.3 g/dL (6.5-8.0); Triglycerides 83 mg/dL (<150); UMIC TRIGGER UACC YES
[2024-11-07 13:00] LABS: Hemoglobin A1C 195.1506 umol/L; Total Hemoglobin (HGBA1C) 3877.9640 umol/L
== END 2024-11-07 06:23 | disposition home or self-care (01) ==
LOC: HO.HMGCLDS 06:22
PROVIDERS: PCP Nurse Practitioner Family; Visit Provider Nurse Practitioner Family
DX: E11.9 Type 2 diabetes mellitus without complications (principal)
CPT/HCPCS: 36415; 80053; 80061; 81001; 83036; 84443; 85025

== ENCOUNTER 2024-11-08 08:48 | Outpatient (AMB) | payer MEDICARE, SELFPAY ==
[2024-11-08 09:01] VITALS: BP 128/70; PULSE 65; RESP 16; TEMP 36.8; O2SAT 95; BMI 24.0
--- NOTE | 2024-11-08 09:01 | A.OFFVIS_ITS ---
Intake Vital Signs 11/08/24 09:01 Height 5 ft 8 in Weight 158 lb BMI 24.0 BP 128/70 Blood Pressure Location Lt brachial Position Sitting Respiration 16 Pulse 65 Pulse Source Pulse Oximeter Temp 98.2 F Temp Source Oral Pulse Oximetry (%) 95 Oxygen Delivery Method Room Air [facility] Certified Medical Asst Required: No Accompanied by: Self / Same As Patient Allergies No Known Allergies (No Known Allergies*) Allergy (Verified 11/08/24 09:17) Medication List - Last Reconciled 11/08/24 by Stevan Cadena [facility] amlodipine 10 mg PO DAILY aspirin 81 mg PO DAILY blood sugar diagnostic (DishableStyle Lite Strips) use 1 test strip twice a day to test blood sugar empagliflozin 25 mg PO DAILY finasteride 5 mg orally Tuesday and 90 days hydrochlorothiazide 12.5 mg PO DAILY lancets (FreeStyle Lancets) use 1 lancet twice a day to test blood sugar lancing device As directed to test blood sugar BID losartan 100 mg PO DAILY lovastatin 20 mg PO DAILY mecobalamin (vitamin B12) 1,000 mcg sublingual DAILY metformin ER 500 mg PO BID 90 days metoprolol succinate ER 25 mg PO DAILY multivitamin (Daily Multi-Vitamin tablet) 1 tab PO DAILY sitagliptin phosphate (Januvia) 100 mg PO DAILY tamsulosin 0.4 mg PO BEDTIME 90 days HPI SWV G0439 HPI Details AWV: CCC in scan pile, PPP in scan pile. HPI Comments History of Present Illness Details Chief Complaint The patient presents for diabetes management. History of Present Illness The patient is an 83-year-old male presenting with diabetes management. His Hemoglobin A1c is 6.8, reflecting effective control of his diabetes. He denies any symptoms of neuropathy, polyuria, or polydipsia. A monofilament test confirmed intact sensation in his feet, indicating no current neuropathy. There have been no recent hospitalizations related to his diabetes. His laboratory results are current and impressive, suggesting stable management of his condition. Social History Health Maintenance Review of Systems - Neurological: Denies neuropathy - Genitourinary: Denies polyuria - Endocrine: Denies polydipsia Physical Exam General: Cooperative, healthy appearing, comfortable, no acute distress and well developed Orientation: Patient oriented x3 Limitations: No limitations Head: Normal to inspection Ears: Hearing grossly normal bilaterally Nose: Normal external nose present Face and sinus: Normal facial exam Eyes: Appearance normal, both eyes and all related structures Neck: Normal visual inspection and Yes full ROM Respiratory: Normal respiratory effort and able to speak in complete sentences. Clear to auscultation bilaterally Cardiovascular: Regular rate and rhythm. Normal S1 and S2 GI: Normal to inspection. Soft to palpation and nontender Skin: No rashes or lesions noted Neuro: Patient oriented x3 Extremities: Normal to inspection Results - Labs: Hemoglobin A1c is 6.8, indicatin g good control of diabetes Plan The patient's diabetes management is currently effective, with a Hemoglobin A1c of 6.8. Continued monitoring of blood glucose levels and regular follow-up appointments are advised to maintain control. The patient should adhere to his current diabetes management regimen, including diet and exercise, to prevent complications. Regular foot examinations should be conducted to monitor for any signs of neuropathy. 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 Brother Throat cancer Social History Housing: House Alcohol intake: current Alcohol intake frequency: holidays/special occasions only Patient Tobacco Use Status: Never used Tobacco e-Cigarette/Vaping Use: Never Used Second Hand Smoke Exposure: No service: No Current occupational status: retired Current occupational exposures/hazards: No Cognitive needs: No Hearing needs: No Vision needs: No Questionnaire Medicare Wellness Checkup What is your age?: 80 or older What gender do you identify with?: male During the past 4 weeks, how much have you been bothered by emotional problems such as feeling anxious, depressed, irritable, sad or downhearted, and blue?: slightly During the past 4 weeks, has your physical & emotional health limited your social activities with family, friends, neighbors, or groups?: not at all During the past 4 weeks, how much bodily pain have you generally had?: no pain During the past 4 weeks, was someone available to help you if you needed & wanted help?: yes, as much as I wanted During the past 4 weeks, what was the hardest physical activity you could do for at least 2 minutes?: heavy Can you get to places out of walking distance without help? (For eg., can you travel alone on buses, taxis or drive your car?): Yes Can you go shopping for groceries or clothes without someone's help?: Yes Can you prepare your own meals?: Yes Can you do your housework without help?: Yes Because of any health problems, do you need the help of another person with your personal care needs such as eating, bathing, dressing or getting around the house?: No Can you handle your own money without help?: Yes During the past 4 weeks, how would you rate your health in general?: excellent During the past 4 weeks how have things been going for you?: pretty well Are you having difficulties driving your car?: no Do you always fasten your seat belt when you are in a car?: yes, usually During past 4 weeks, have you been bothered by the following: never: Falling or dizzy when standing up, Trouble eating well?, Teeth or denture problems?, Problems using the telephone? and Tiredness or fatigue? Have you fallen 2 or more times in the past year?: No Are you afraid of falling?: No Are you a smoker?: no During the past 4 weeks, how many drinks of wine, beer, or other alcoholic beverages did you have?: 1 drink or less per week Do you exercise for about 20 minutes 3 or more times a week?: yes, most of the time Have you been given information to help with the following?: no: Hazards in your house that might hurt you? and no: Keeping track of your medications? How often do you have trouble taking medicines the way you have been told to take them?: I always take medicine as prescribed How confident are you that you can control & manage most of your health problems?: very confident What is your race?: White Mini Mental State Exam (MMSE) Orientation What is the (year) (season) (date) (day) (month)?: year, season, date, day and month Where are we (state) (county) (town or city) (hospital) (floor)?: state, county and town or city Registration Name of 3 unrelated objects clearly and slowly, then ask patient to repeat all 3 of them. (1st repeat determines score. Make sure they can repeat all three): object 1, object 2 and object 3 Attention & Calculation (CHOOSE ONE) Spell WORLD backwards (DLROW): 5 letters Recall Ask patient to repeat the 3 items from question #3.: object 1, object 2 and object 3 Language Show patient a wristwatch & ask what it is. Repeat for pencil.: watch and pencil Ask the patient to repeat the phrase 'No ifs, ands, or buts' after you.: correct Ask the patient to 'take a piece of paper with their right hand' 'fold paper in half' 'place paper on floor': take paper in right hand, fold paper in half and place paper on floor Print the sentence 'CLOSE YOUR EYES' on a piece. If patient actually closes eyes then score.: followed written direction Give patient a blank piece of paper & ask to write a sentence. Score if it contains a noun & verb.: sentence contains subject and verb Ask patient to copy figure of intersecting pentagons exactly. Score if all 10 angles & 2 intersects are included.: all 10 angles present & 2 are intersected Score Score: 28 Activity of Daily Living Bathing - sponge bath, tub bath or shower: receives no assistance (gets in/out by self, if usual bathing means Dressing - getting clothes from closets & drawers, including inner/outer garments & fasteners.: gets clothes & gets completely dressed without help Toileting - going to the 'toilet room' for urine/bowel elimination & cleaning self/arranging clothes: goes to toilet room, cleans self, arranges clothes without help Transfer: moves in & out of bed and chair without help (may use support object) Continence: controls urination/bowel movements completely by self Feeding: feeds self without help Total Score: 0 Information obtained from: patient Using telephone: independent Traveling: independent Shopping: independent Preparing meals: independent Housework: independent Taking medicine: independent Managing money: independent PHQ-9 Over the last 2 weeks, how often have you been bothered by any of the following problems? 1. Little interest or pleasure in doing things: not at all 2. Feeling down, depressed, or hopeless: several days 3. Trouble falling or staying asleep, or sleeping too much: not at all 4. Feeling tired or having little energy: not at all 5. Poor appetite or overeating: not at all 6. Feeling bad about yourself - or that you are a failure or have let yourself or your family down: not at all 7. Trouble concentrating on things, such as reading the newspaper or watching television: not at all 8. Moving or speaking so slowly that other people could have noticed. Or the opposite - being so fidgety or restless that you have been moving around a lot more than usual: not at all 9. Thoughts that you would be better off or of hurting yourself in some way: not at all Total score: 1 Depression Screening Interpretation: Negative Depression Screening Done: Yes 52712 - PHQ-9 Billing: Yes Source: Developed by Drs. Nicolas Kapoor, Marlys Mcknight, Austin Skinner and colleagues, with an educational alvarez from [employer]. Physical Exam Vital Signs: Last Vital Signs Temp 98.2 F 11/08/24 09:01 Pulse 65 11/08/24 09:01 Resp 16 11/08/24 09:01 BP 128/70 11/08/24 09:01 Pulse Ox 95 11/08/24 09:01 Oxygen Delivery Method Room Air 11/08/24 09:01 BMI result Body Mass Index 24.0 Neuro Other: able to stand from sitting position, able to tandem walk, + whisper test, neg rhomberg Assessment & Plan Assessment & Plan (1) Immunizations incomplete: Code(s): Z28.39 - Other underimmunization status (2) Screening for osteoporosis: Code(s): Z13.820 - Encounter for screening for osteoporosis (3) Diabetes: Code(s): E11.9 - Type 2 diabetes mellitus without complications (4) Medicare annual wellness visit, subsequent: Code(s): Z00.00 - Encounter for general adult medical examination without abnormal findings Plan . Orders: Orders Hepatitis A,B,C Profile Today Z28.39 - Other underimmunization status XR DEXA axial skeleton Today Z13.820 - Encounter for screening for osteoporosis Quality Reporting (2019) Depression/Bipolar (159/160/161/177) PHQ-9: Total score: 1 Coding Level of Care Code Medicare Subsequent (G0439) Est Pt Level 3 (81410) Diagnoses Immunizations incomplete Z28.39 Screening for osteoporosis Z13.820 Diabetes E11.9 Medicare annual wellness visit, subsequent Z00.00 Additional Codes PHQ-9 - 35296 - PHQ-9 Billing: Yes ([id number]) Advance Care Planning Forms completed: Health Care Proxy (pt will bring in form), MOLST (pt will bring in form) and Living will (pt has this done, data center engineer involved)
--- OUTSIDE RECORDS SUMMARY | 2024-11-08 09:05 | XMS_ITS | Patient Health Record ---
Author Organization [facility] Address [address] [place] [address] Care Team Providers Care Multigraph Operator Name Role Phone Madeline(inactive) Leonardo ORONA Primary Care Provider U wilmer Luna Nicolas Lorraine [phone] Reason For Referral No Information Medications Medication [...] W/U Status Risk Notes Problem Pre-surgery evaluation (042196500) Other specified pre-operative examination (V72.83) Active confirmed Problem Screening for malignant neoplasm of colon (449682391) Screen for colon cancer (V76.51) Active confirmed Plan Of Treatment No Information Insurance Providers Payer Name Payer Address Payer Phone Subscriber Number Group Number Insured Name Patient Relationship to Insured Coverage Start Date Coverage End Date MEDICARE OF [place] [address] [place] [address] [phone] [id number] JARRETT MCKEON Self - patient is the insured MED[employer] ATTN CLAIMS [address] [place] [address] [id number] JARRETT MCKEON Self - patient is the insured Medical (General) History Medical History History ICD Code NIDDM Hypertension Denies [place],CVA,Lung disease,renal disease Kidney infection as a child Hyperplastic colon polyps--m ost recent colonoscopy was in [address] Andrade--only a hyperplastic polyp; similar [place] [address] Andrade as well. Diverticulosis and diverticulitis Surgical History Surgery Date(Month/Year) achilles tendon repair rotator cuff tear repair prostate surgery Hernia as a child Knee surgery
--- OUTSIDE RECORDS SUMMARY | 2024-11-08 09:05 | XMS_ITS | Patient Health Record ---
Author Organization [facility] Address [address] [facility] [place] [place] [address] Care Team Providers Care Prize Coordinator Name Role Phone Stevan Craig Primary Care Provider Unav ailable Cami Adan Unavailable [phone] Allergies No Known Allergies Results Component Value Reference Range Notes HEMOGLOBIN A1C (GLYCOHEMOGLO BIN) Reviewed date:02/15/2024 04:11:49 [...] Problem Acquired hammer toe of right foot (4287920659736 105) Other hammer toe(s) (acquired), right foot (M20.41) Active confirmed Response to treatment,I mprovement Problem Type 2 diabetes mellitus with peripheral angiopathy (099954987) Type 2 diabetes mellitus with diabetic peripheral angiopathy without gangrene (E11.51) Active confirmed Problem Acquired hammer toe of left foot (5054976296838 103) Other hammer toe(s) (acquired), left foot (M20.42) Active confirmed Response to treatment,I mprovement Vital Signs Heart Rate 62 /min 10/24/2024 Blood pressure diastolic 72 R mm Hg 10/24/2024 Height 5 ft 6 in in 10/24/2024 Blood pressure systolic 119 mm Hg 10/24/2024 Weight 156 lbs 10/24/2024 BMI 25.18 kg/m2 10/24/2024 Procedures Procedure Date Ordered Date Performed Result Body Sit e 62556-LWWEZQN NAIL, 6 OR MORE 11/24/2023 N/A 96871-TUCI SKIN LESIONS, 2 TO 4 11/24/2023 N/A 06426-THRAZCU NAIL, 6 OR MORE 02/15/2024 N/A 70249-TAIT SKIN LESIONS, 2 TO 4 02/15/2024 N/A 88283-JBRBZYF NAIL, 6 OR MORE 04/27/2024 N/A 79940-OHAH SKIN LESIONS, 2 TO 4 04/27/2024 N/A 99948-JEQSEFT NAIL, 6 OR MORE 07/24/2024 N/A 18340-DQLA SKIN LESIONS, 2 TO 4 07/24/2024 N/A 12031-OXWBNWZ NAIL, 6 OR MORE 10/24/2024 N/A 18607-HQFO SKIN LESIONS, 2 TO 4 10/24/2024 N/A Encounters Encounter Location Date Provider Diagnosis [address] [address] 11/24/2023 Adan Almanza Type 2 diabetes mellitus with diabetic peripheral angiopathy without gangrene E11.51 ; Tinea unguium B35.1 ; Pain in right toe(s) M79.674 and Pain in left toe(s) M79.[address] [address] 02/15/2024 Adan Almanza Type 2 diabetes mellitus with diabetic peripheral angiopathy without gangrene E11.51 ; Tinea unguium B35.1 ; Pain in right toe(s) M79.674 and Pain in left toe(s) M79.[address] [address] 04/27/2024 Adan Almanza Type 2 diabetes mellitus with diabetic peripheral angiopathy without gangrene E11.51 ; Tinea unguium B35.1 ; Pain in right toe(s) M79.674 ; Pain in left toe(s) M79.675 ; Other hammer toe(s) (acquired), right foot M20.41 and Other hammer toe(s) (acquired), left foot M20.[address] [address] 07/24/2024 Adan Almanza Type 2 diabetes mellitus with diabetic peripheral angiopathy without gangrene E11.51 ; Tinea unguium B35.1 ; Pain in right toe(s) M79.674 ; Pain in left toe(s) M79.675 ; Other hammer toe(s) (acquired), right foot M20.41 and Other hammer toe(s) (acquired), left foot M20.42 [facility] [address] [address] 10/24/2024 Adan Almanza Type 2 diabetes mellitus [...] Treatment Pending Test Test Name Order Date 42080-OSYZFQQ NAIL, 6 OR MORE 03/22/2017 71428-VCBEUAS NAIL, 6 OR MORE 06/28/2017 57586-KVDKWME NAIL, 6 OR MORE 09/30/2017 41657-UJNCKUQ NAIL, 6 OR MORE 12/30/2017 50480-VODPYUE NAIL, 6 OR MORE 03/09/2018 54686-GTNVGJL NAIL, 6 OR MORE 05/26/2018 75784-GHRGHJV NAIL, 6 OR MORE 08/18/2018 70295-KUTRBFT NAIL, 6 OR MORE 11/07/2018 14902-XXVPWCL NAIL, 6 OR MORE 01/23/2019 48254-ZLLGVXP NAIL, 6 OR MORE 04/24/2019 94319-MGYYCUL NAIL, 6 OR MORE 06/29/2019 29090-OQPZFXW NAIL, 6 OR MORE 09/07/2019 11464-ENOHAPP NAIL, 6 OR MORE 11/20/2019 92912-OAHGIPD NAIL, 6 OR MORE 01/22/2020 92717-TSOZHUE NAIL, 6 OR MORE 04/22/2020 75960-KBXMSBY NAIL, 6 OR MORE 07/01/2020 99824-CDHMVGS NAIL, 6 OR MORE 09/16/2020 72081-SLIZCIY NAIL, 6 OR MORE 11/25/2020 18520-PLYHWDZ NAIL, 6 OR MORE 02/13/2021 97645-YHFQJIE NAIL, 6 OR MORE 05/05/2021 86272-OFQRBUH NAIL, 6 OR MORE 07/29/2021 72528-FDFQRWG NAIL, 6 OR MORE 10/07/2021 23767-ONPALLX NAIL, 6 OR MORE 12/17/2021 96039-JCTJBXA NAIL, 6 OR MORE 02/25/2022 90167-MHPNSDO NAIL, 6 OR MORE 06/01/2022 25753-LNSRHLK NAIL, 6 OR MORE 08/13/2022 59755-FATPGXL NAIL, 6 OR MORE 10/22/2022 81239-MHCPSBJ NAIL, 6 OR MORE 02/16/2023 31569-IWPXYIY NAIL, 6 OR MORE 04/28/2023 10217-FWRZUWJ NAIL, 6 OR MORE 07/07/2023 10130-BGELBYB NAIL, 6 OR MORE 09/15/2023 72019-RVGPBGX NAIL, 6 OR MORE 11/24/2023 60183-NPZQGZE NAIL, 6 OR MORE 02/15/2024 58670-DDLRTHO NAIL, 6 OR MORE 04/27/2024 97975-ABXVQOT NAIL, 6 OR MORE 07/24/2024 90894-HPRINLB NAIL, 6 OR MORE 10/24/2024 56238-RIYF SKIN LESIONS, 2 TO 4 10/25/19 25 72543-TPSZ SKIN LESIONS, 2 TO 4 07/25/19 25 75615-PIMK SKIN LESIONS, 2 TO 4 04/27/19 25 78845-GLZV SKIN LESIONS, 2 TO 4 02/15/20 24 31434-PSIE SKIN LESIONS, 2 TO 4 11/24/19 24 30271-EWOS SKIN LESIONS, 2 TO 4 09/15/19 24 55371-LKCB SKIN LESIONS, 2 TO 4 07/07/19 24 50539-HZST SKIN LESIONS, 2 TO 4 04/28/19 24 49121-XHRZ SKIN LESIONS, 2 TO 4 02/17/20 23 05873-JBCU SKIN LESIONS, 2 TO 4 10/23/19 23 81089-NXET SKIN LESIONS, 2 TO 4 08/14/19 23 75081-ERXM SKIN LESIONS, 2 TO 4 06/01/19 23 Next Appt Details Provider Name:Adan Almanza , 01/04/2025 10:00:00 AM, [address] [facility], [place], [address], Insurance Providers Payer Name Payer Address Payer Phone Subscriber Number Group Number Insured Name Patient Relationship to Insured Coverage Start Date Coverage End Date Medicare National Govt [employer] [address] [facility] [place] [address] [id number] Jose E Peña Self - patient is the insured 2 [employer] Blue [employer] [address] [place] [address] [id number] Jose E Peña Self - patient is [...] Date(Month/Year) quadriceps sx LT and RT 11/16/2017 [facility] 05/26/2017
== END 2024-11-08 09:49 | disposition home or self-care (01) ==
LOC: HO.HMCC 08:49
PROVIDERS: PCP Nurse Practitioner Family; Visit Provider Nurse Practitioner Family
DX: Z00.00 Encounter for general adult medical examination without abnormal findings (principal); E11.9 Type 2 diabetes mellitus without complications; Z13.820 Encounter for screening for osteoporosis; Z28.39 Other underimmunization status

== ENCOUNTER → 2024-11-08 08:48 | Outpatient (BNVA) | payer MEDICARE, SELFPAY | PROVIDERS: PCP Nurse Practitioner Family; Visit Provider Nurse Practitioner Family | DX: Z00.00 Encounter for general adult medical examination without abnormal findings (principal); E11.9 Type 2 diabetes mellitus without complications; I10 Essential (primary) hypertension | CPT/HCPCS: 96127; 99212 ==

== ENCOUNTER 2025-01-02 07:56 | Outpatient (REF) | payer MEDICARE, SELFPAY ==
--- OUTSIDE RECORDS SUMMARY | 2025-01-02 08:00 | XMS_ITS | Patient Health Record ---
Author Organization [facility] Address [address] [facility] [place] [address] Care Team Providers Care Instructional Technology Coach Name Role Phone Stevan Craig Primary Care Provider Unav ailable Cami Adan Unavailable [phone] Allergies No Known Allergies Results Component Value [...] Problem Acquired hammer toe of right foot (1375282442237 105) Other hammer toe(s) (acquired), right foot (M20.41) Active confirmed Response to treatment,I mprovement Problem Type 2 diabetes mellitus with peripheral angiopathy (963459795) Type 2 diabetes mellitus with diabetic peripheral angiopathy without gangrene (E11.51) Active confirmed Problem Acquired hammer toe of left foot (1562620490610 103) Other hammer toe(s) (acquired), left foot (M20.42) Active confirmed Response to treatment,I mprovement Vital Signs Heart Rate 62 /min 10/24/2024 Blood pressure diastolic 72 R mm Hg 10/24/2024 Height 5 ft 6 in in 10/24/2024 Blood pressure systolic 119 mm Hg 10/24/2024 Weight 156 lbs 10/24/2024 BMI 25.18 kg/m2 10/24/2024 Procedures Procedure Date Ordered Date Performed Result Body Sit e 69849-NGKAKSB NAIL, 6 OR MORE 02/15/2024 N/A 73946-XOZK SKIN LESIONS, 2 TO 4 02/15/2024 N/A 54110-UHXFFOX NAIL, 6 OR MORE 04/27/2024 N/A 23495-FWVW SKIN LESIONS, 2 TO 4 04/27/2024 N/A 88403-XLEZEQV NAIL, 6 OR MORE 07/24/2024 N/A 11759-NSTT SKIN LESIONS, 2 TO 4 07/24/2024 N/A 47628-UKPGSGV NAIL, 6 OR MORE 10/24/2024 N/A 39916-OVID SKIN LESIONS, 2 TO 4 10/24/2024 N/A Encounters Encounter Location Date [facility] [address] [place] [address] 02/15/2024 Adanmaria del rosario WillardCami Type 2 diabetes mellitus with diabetic peripheral angiopathy without gangrene E11.51 ; Tinea unguium B35.1 ; Pain in right toe(s) M79.674 and Pain in left toe(s) M79.675 [facility] [address] [place] [address] 04/27/2024 Adan Almanza Type 2 diabetes mellitus with diabetic peripheral angiopathy without gangrene E11.51 ; Tinea unguium B35.1 ; Pain in right toe(s) M79.674 ; Pain in left toe(s) M79.675 ; Other hammer toe(s) (acquired), right foot M20.41 and Other hammer toe(s) (acquired), left foot M20.42 [facility] [address] [place] [address] 07/24/2024 Adan Almanza Type 2 diabetes mellitus with diabetic peripheral angiopathy without gangrene E11.51 ; Tinea unguium B35.1 ; Pain in right toe(s) M79.674 ; Pain in left toe(s) M79.675 ; Other hammer toe(s) (acquired), right foot M20.41 and Other hammer toe(s) (acquired), left foot M20.42 [facility] [address] [address] 10/24/2024 Adan Almanza Type 2 diabetes mellitus [...] Treatment Pending Test Test Name Order Date 92354-EFCNRAS NAIL, 6 OR MORE 03/22/2017 71707-CJNDGYN NAIL, 6 OR MORE 06/28/2017 37330-BQLSVTM NAIL, 6 OR MORE 09/30/2017 66849-CZSIWLT NAIL, 6 OR MORE 12/30/2017 69721-JFNTGGJ NAIL, 6 OR MORE 03/09/2018 06903-MMCZOKV NAIL, 6 OR MORE 05/26/2018 74739-HNBDLVG NAIL, 6 OR MORE 08/18/2018 11885-QSRMYIO NAIL, 6 OR MORE 11/07/2018 61644-SDPOBIM NAIL, 6 OR MORE 01/23/2019 21458-HGLBDKN NAIL, 6 OR MORE 04/24/2019 82875-PVSRRYJ NAIL, 6 OR MORE 06/29/2019 88029-BPZDBUF NAIL, 6 OR MORE 09/07/2019 53976-ZMSHTGM NAIL, 6 OR MORE 11/20/2019 67478-OIOPMBF NAIL, 6 OR MORE 01/22/2020 60479-AAWYBEP NAIL, 6 OR MORE 04/22/2020 83336-HNHHFYB NAIL, 6 OR MORE 07/01/2020 27135-TTGZZTH NAIL, 6 OR MORE 09/16/2020 46955-QDWBQIB NAIL, 6 OR MORE 11/25/2020 00467-PSEYKZF NAIL, 6 OR MORE 02/13/2021 42432-HBHMMWE NAIL, 6 OR MORE 05/05/2021 56786-IKBWLOQ NAIL, 6 OR MORE 07/29/2021 08383-ITTRRTY NAIL, 6 OR MORE 10/07/2021 08962-ABMRURI NAIL, 6 OR MORE 12/17/2021 32316-BXZUUYB NAIL, 6 OR MORE 02/25/2022 42976-HTPYTUL NAIL, 6 OR MORE 06/01/2022 11183-FBLHJEF NAIL, 6 OR MORE 08/13/2022 80520-FLFITAA NAIL, 6 OR MORE 10/22/2022 15339-MSTFIMX NAIL, 6 OR MORE 02/16/2023 09355-BZZYWFV NAIL, 6 OR MORE 04/28/2023 21713-UQNURKA NAIL, 6 OR MORE 07/07/2023 21236-UYQCLUR NAIL, 6 OR MORE 09/15/2023 40309-JSPEDYM NAIL, 6 OR MORE 11/24/2023 11037-QNUIWAD NAIL, 6 OR MORE 02/15/2024 67930-ACLIDHE NAIL, 6 OR MORE 04/27/2024 57262-FTOLLSU NAIL, 6 OR MORE 07/24/2024 48056-SUQRXPY NAIL, 6 OR MORE 10/24/2024 91002-NTEX SKIN LESIONS, 2 TO 4 10/25/19 45765-QVHU SKIN LESIONS, 2 TO 4 07/25/19 91946-HBZX SKIN LESIONS, 2 TO 4 04/27/19 34484-RCLR SKIN LESIONS, 2 TO 4 02/15/20 97979-RUVS SKIN LESIONS, 2 TO 4 11/24/19 59782-FKZP SKIN LESIONS, 2 TO 4 09/15/19 38132-VNHH SKIN LESIONS, 2 TO 4 07/07/19 87313-OSID SKIN LESIONS, 2 TO 4 04/28/19 18025-QYKB SKIN LESIONS, 2 TO 4 02/17/20 01545-QFYG SKIN LESIONS, 2 TO 4 10/23/19 76895-ZXFI SKIN LESIONS, 2 TO 4 08/14/19 05080-DZOO SKIN LESIONS, 2 TO 4 06/01/19 Next Appt Details Provider Name:Adan Almanza , 01/04/2025 10:00:00 AM, [address] [facility], [place], [address], Insurance Providers Payer Name Payer Address Payer Phone Subscriber Number Group Number Insured Name Patient Relationship to Insured Coverage Start Date Coverage End Date Medicare National Govt [employer] [address] [place] [address] [id number] Jose E Lewis Self - patient is the insured 2 [employer] Blue Shield [address] [place] [address] [id number] Jose E Lewis Self - patient is the insured Medical (General) History Medical History History ICD Code type II diabetes hypercholesterolemia Headaches High blood pressure Measles Chicken pox Surgical History Surgery Date(Month/Year) Nicci 1992 rotator cuff Left 2010 Meniscus knee repair 2009 prostate 2003 Hernia Repair 195 basal cell [...] Date(Month/Year) quadriceps sx LT and RT 11/16/2017 [facility] 05/26/2017
--- OUTSIDE RECORDS SUMMARY | 2025-01-02 08:01 | XMS_ITS | Patient Health Record ---
Author Organization [facility] Address [address] [place] [address] Care Team Providers Care Supply Specialist Name Role Phone Madeline(inactive) Leonardo ORONA Primary Care Provider U wlimer Luna Nicolas Lorraine [phone] Reason For Referral No Information Medications Medication [...] W/U Status Risk Notes Problem Pre-surgery evaluation (482565728) Other specified pre-operative examination (V72.83) Active confirmed Problem Screening for malignant neoplasm of colon (727369490) Screen for colon cancer (V76.51) Active confirmed Plan Of Treatment No Information Insurance Providers Payer Name Payer Address Payer Phone Subscriber Number Group Number Insured Name Patient Relationship to Insured Coverage Start Date Coverage End Date MEDICARE OF [place] [address] [place] [address] [id number] JARRETT MCKEON Self - patient is the insured [employer] ATT[employer] CLAIMS [address] [place] [address] [id number] JARRETT MCKEON Self - patient is the insured Medical (General) History Medical History History ICD Code NIDDM Hypertension Denies VT,CVA,Lung disease,renal disease Kidney infection as a child Hyperplastic colon polyps--m ost recent colonoscopy was in [address] Andrade--only a hyperplastic polyp; similar findings [place] [address] Andrade as well. Diverticulosis and diverticulitis Surgical History Surgery Date(Month/Year) achilles tendon repair rotator cuff tear repair prostate surgery Hernia as a child Knee surgery
== END 2025-01-02 07:57 | disposition home or self-care (01) ==
LOC: HO.SH 07:56
PROVIDERS: Visit Provider Nurse Practitioner Family
DX: Z01.118 Encounter for examination of ears and hearing with other abnormal findings (principal); H90.3 Sensorineural hearing loss, bilateral
CPT/HCPCS: 92552; 92556

== ENCOUNTER 2025-01-02 08:39 | Outpatient (REF) | payer SELFPAY | END 2025-01-02 08:40 | disposition home or self-care (01) | LOC: HO.HAP 08:39 | PROVIDERS: Visit Provider Nurse Practitioner Family | DX: Z46.1 Encounter for fitting and adjustment of hearing aid (principal); H90.3 Sensorineural hearing loss, bilateral | CPT/HCPCS: 92593 ==

== ENCOUNTER → 2025-01-04 12:47 | Outpatient (REF) | payer MEDICARE, SELFPAY ==
--- OUTSIDE RECORDS SUMMARY | 2025-01-04 06:00 | XMS_ITS ---
Author Organization [facility] Address [address] [place] [address] Care Team Providers Care Security Alarm Installer Name Role Phone Stevan Craig Primary Care Provider Unav ailable CamiAdan Unavailable [phone] Allergies No Known Allergies REASON FOR VISIT At Risk Footcare, Painful Nail(s) aggrevated by shoes and causing difficulty standing/walking Medications Medication SIG (Take, Route, Frequency, Duration) Notes Start Date End Date Status Valsartan 32mg Once a day Not- Taking Eye Drops Not-Taking Nightsplint . . . AFO - L1930; Duration: . Not-Taking Diovan 320MG 1 tablet Orally Once a day Not-Taking predniSONE Not-Takin g Multivitamins as directed Orally Not-Taking Vitamin B 12 Not-Tunde ing Extra Depth Orthopedic Shoes, (1) Pair With (3) Pair Custom Heat Molded Multidensity Innersoles Dx: NIDDM/PVD(E11.51), Hammertoe Foot Deformity(M20.41,M2 0.42), Preulcerative Skin Lesion(s)(L85.1) Wear Daily; Duration: 365 days Active hydroCHLOROthiazide 12.5 MG 1 capsule in the morning Orally Once a day; Duration: 30 day(s) Active Jardiance Not-Taking Metoprolol Succinate 25 MG 1 capsule Orally Once a day; Duration: 30 day(s) Active Finasteride 5 MG as directed Orally 2x a week Active metFORMIN HCl 500 MG 1 tablet with meals Orally Twice a day and 500mg Active Tamsulosin HCl Activ e Vitamin B12 Active Januvia 100MG 1 tablet Orally Once a day Active Lovastatin 20MG 1 tablet at bedtime Orally Once a day Active Losartan Potassium 100 MG 1 tablet Orall y Once a day; Duration: 30 day(s) Active Aspir-81 81 MG 1 tablet Orally Once a day Active Empagliflozin Active Ammonium Lactate 12 % 1 application Externally Twice a day; Duration: 30 days Active amLODIPine Besylate 10 MG 1 tablet Orall y Once a day Active Social History Tobacco Use: Social History [...] Signs Height 5 ft 6 in in 01/04/2025 Weight 156 lbs 01/04/2025 BMI 25.18 kg/m2 01/04/2025 Blood pressure systolic 115 mm Hg 01/05/20 25 Blood pressure diastolic 64 mm Hg 025 Procedures Procedure Date Ordered Date Performed Result Body Sit e 57181-CLFEZFP NAIL, 6 OR MORE 01/04/2025 N/A 65530-FAVZ SKIN LESIONS, 2 TO 4 01/04/2025 N/A Encounters Encounter Location Date Provider Diagnosis [facility] [place] [address] [place] [address] 01/04/2025 Adan Almanza Type 2 diabetes mellitus with diabetic peripheral angiopathy without gangrene E11.51 ; Tinea unguium B35.1 ; Pain in right toe(s) M79.674 and Pain in left toe(s) M79.675 Assessments Encounter Date Diagnosis (ICD Code) Assessment Notes Treatment Notes Treatment Clinical Notes Section Notes 01/04/2025 Type 2 diabetes mellitus with diabetic peripheral angiopathy without gangrene (ICD-10 - E11.51) 01/04/2025 Tinea unguium (ICD-10 - B35.1) 01/04/2025 Pain in right toe(s) (ICD-10 - M79.674) 01/04/2025 Pain in left toe(s) (ICD-10 - M79.675) Plan Of Treatment Pending Test Test Name Order Date 92023-LLKGEYR NAIL, 6 OR MORE 01/04/2025 71022-DWJY SKIN LESIONS, 2 TO 4 01/05/20 Next Appt Details Follow Up: prn, Reason: Provider Name:Richelle emanuel, 03/12/2025 02:45:00 PM, [address], [place], [address], Procedure Notes * Category Sub-Category Detail Notes [...] of a nail nipper and/or dremel-type grinder set up operator centerless, to a more viable healthy nail plate [...] to maintain effectiveness in symptomatic relief - 93875 Keratoma Treatment Parring or Cutting o f Benign Hyperkeratotic Lesion(s) (-56) 2-4 Lesions - Due to the at risk nature of the patients medical condition as documented in the exam findings, performance of this keratoderma treatment is medically necessary as its management by an unskilled/untrained nonprofessional would put this patients foot and overall health at risk. Therefore, the benign hyperkeratotic lesions, (4) in total, locations as stated and described in the exam ( SUB MTH (s), 1, B/L, Plantar, Heel(s), B/L ), were pared, and/or cut utilizing a sterile 15 blade, tissue nippers, and/or power dremel instrumentation by the physician of record - 91838, Q8 Progress Notes * Jose E MCKEON JDOB: [birth year] (84 yo M)Acc No.[id number]:01/04/2025 Progress Note Patient: Jose E ESCOBAR Provider: Nancy Almanza DPM :1940 A ge:84 Y S ex:Male Date:01/04/2025 Address:[address] [place] [address], [facility], [id number] Pcp:Stevan Cadena NP-VINCE Subjective: * Chief Complaints: * A t Risk FootcarePainful Nail(s) aggrevated by shoes and causing difficulty standing/walking * HPI: A t Risk footcare: Pt States Last PCP Visit: D ate 0 11/28/2024 Misc S tates no new complaints since last visit. * ROS: G eneral/Constitutional: Nausea d enies. V omiting d enies. H julian Thirst d enies. L oss appetite d enies. C hills d enies. F atigue d enies.?Fever d enies. N ight Sweats d enies. U nexplained weight loss d enies. U nexplained weight gain d enies. H EENTM: Dentures a dmits. D izziness d enies. G lasses/contacts a dmits. R etinopathy d enies. B lurred/double vision d enies. T MJ?denies. D ischarge/drainage d enies. I mplants d enies. S ore throat d enies. D ental implants d enies. H joaquin of hearing a dmits. D ifficulty chewing/swallowing/speaking d enies. N ose bleeds d enies. S ore mouth d enies. ? R espiratory: On Oxygen d enies. P neumonia/pleurisy d enies.?Bronchitis d enies. E mphysema d enies. C oughing d enies. C ough blood?denies. S hortness of breath d enies. W heezing d enies. C ardiovascular: Pacemaker d enies. M PRESS MAINTAINER d enies. W PW d enies. C HF d enies. H eart attack d enies. S eptal defect d enies. R apid beat d enies. C hest pain d enies. A trial Fib. d enies. M urmur/Palpitations d enies. G astrointestinal: Hemorrhoids d enies. S tomach/Abdominal pain d enies. D ark blood stool d enies. I rritable bowel d enies. C onstipation d enies. D iarrhea d enies. H ematology: Swelling d enies. C lots d enies. V aricose Veins d enies. B ruising a dmits, on aspirin. B leeding problem a dmits, on anticoagulants. G enitourinary: Blood urine d enies. F requent/Painfu/urination/bladder control d enies. K idney stones d enies. I nfection (UTI) d enies. N ephropathy d enies. s ex trans dis (STD) d enies. P rostate a dmits. M usculoskeletal: Hammertoes a dmits. B unions d enies. B ack Pain d enies. M uscle Cramps/ Resting d enies. M uscle cramps / walking d enies.?Generalized aches and pains d enies. W eakness d enies. I nteg.: [place] d enies. S cars d enies. C orns/calluses?admits. I ngrown nails a dmits. P ainful nails a dmits. O pen Sores d enies. R ashes d enies. N eurologic: Difficulty sleeping d enies. B rain disorder d enies. N umbness d enies. B alance trouble d enies. C onfusion d enies. F ainting/blackouts d enies. T ingling d enies. T remors d enies. * Medical History: * Surgical History: A chillkes 1993rotator cuff Left 2010Meniscus knee repair 2009prostate 2003Hernia Repair 1953basal cell removal nose 2005/2008basal cell removal L cheek 2015basal cell removal upper R back shoulder area 2016finger biopsy 2008prostate 2018quadriceps sx LT and RT 11/16/2017cataract surgery 06/20/19 & 08/24/2019skin surgery, ear il knee injection 3 weeks 1 inj left ardiac catheterization ancer scalp spots removal 05/2022 * Hospitalization/Major Diagno stic Procedure: L [facility] 05/26/2017quadriceps sx LT and RT 11/16/2017 * Family History: M other: . F ather: , heart attack. S iblings: brother cancer, diagnosed with Other malignant neoplasm of unspecified site. S pouse: alive. M aternal Grand Mother: diagnosed with Diabetic - NIDDM. * Social History: T obacco Use: T obacco use other than smoking A re you an other tobacco user? N o Tobacco Control (Standard) T obacco use: N onsmoker A dditional Findings: Tobacco non-user C urrent nonsmoker D rugs/Alcohol: D rugs H ave you used drugs other than those for medical reasons in the past 12 months? N o M iscellaneous: C affeine: yes, frequency:, 2-3 cups per day. Children: yes. Exercise: yes, 3 times a week- health club. Marital status: . Occupation: Retired-Banking/ Human Resources. D rug/Alcohol: A MARIBEL-C (Standard) D id you have a drink containing alcohol in the past year? N o P oints 0 I nterpretation N egative * Medications: T akingAmmonium Lactate 12 % Cream 1 application Externally [...] Foot Deformity(M20.41,M20.42), Preulcerative Skin Lesion(s)(L85.1) Wear Daily hydroCHLOROthiazide 12.5 MG Capsule 1 capsule in the morning Orally Once a day Taking Ammonium Lactate 12 % Cream 1 [...] Deformity(M20.41,M20.42), Preulcerative Skin Lesion(s)(L85.1) Wear Daily Taking hydroCHLOROthiazide 12.5 MG Capsule 1 capsule in the morning Orally Once a day Not-Taking/PRNJardiance Multivitamins Tablet as directed Orally Vitamin B 12 Valsartan 32mg Once a day Eye Drops predniSONE Nightsplint . . . . AFO - L1930 Diovan 320MG Tablet 1 tablet Orally Once a day Medication List reviewed and reconciled with the patientNot-Taking/PRN Jardiance Not-Taking/PRN Multivitamins Tablet as directed Orally Not-Taking/PRN Vitamin B 12 Not-Taking/PRN Valsartan 32mg Once a day Not-Taking/PRN Eye Drops Not-Taking/PRN predniSONE Not-Taking/PRN Nightsplint . . . . AFO - L1930 Not-Taking/PRN Diovan 320MG Tablet 1 tablet Orally Once a day Medication List reviewed and reconciled with the patient * Allergies: N .K.D.A.yes[Allergies Verified] Objective: * Vitals: H t: 5 ft 6 in, Wt: 156, BMI: 25.18, Shoe size: 8.5, BP: 115/64 mm Hg, BS: 116, Wt-k.76 kg. * P ast Orders: L ab:HEMOGLOBIN A1C (GLYCOHEMOGLOBIN) (Order Date - 11/09/2024) (Collection Date & Time - 01/04/2025 10:50 AM) Value Reference Range HEMOGLOBIN A1C % (HH) 7.1 * Examination: O phthalmology Referral: DIABETES EYE EXAM P rocedure Performed: Y es D ate of Exam Performed 0 08/06/2024 D iabetic Retinopathy Screening: Y es R etinal Screening Performed: Y es F indings of Diabetic Eye Exam: n o retinopathy V ascular: DP PULSES (B): 0-1/4, B/L. PT PULSES (B): 0/4, B/L. CAPILLARY FILL TIME: delayed, all digits, B/L. TROPHIC CONDITION-TEXTURE/ELASTICITY/TURGOR/HAIR GROWTH (B):? decreased, fragile, thin, shiny skin, with sparse to absent hair growth, B/L. TEMPERTURE GRADIENT (C): decreased, cool to cool, proximal to distal, B/L. PIGMENTATION: rubrous, B/L. EDEMA (C): a bsent, B/L. CLAUDICATION (C): d enies, B/L. REST PAIN: d enies, B/L. N ails: NAILS are: E longated, overgrown, dystrophic, lytic, greater than 3mm thick, discolored and friable with crumbly malodorous subungual debris, with pain on palpation , TA, T2, T3, T4, T5, T7, T8, T9, all other nails not described with characteristics as possessing mycosis are elongated, overgrown, and dystrophic. D ermatologic: SKIN FINDINGS: S kin exam reveals Keratotic lesion(s) located at , SUB MTH (s), 1, B/L, Plantar, Heel(s), B/L. Assessment: * Assessment: 1. T ype 2 diabetes mellitus with diabetic peripheral angiopathy without gangrene - E11.51 (Primary) S pecify :Q8 2 . T inea unguium - B35.1 3 . P ain in right toe(s) - M79.674 4 . P ain in left toe(s) - M79.675 Plan: * Treatment: 2. T inea unguium P rocedure: 16186-UODWSZY NAIL, 6 OR MORE * Procedures: D ebride Nail 6-10: Nail debridement D ue to the clinical pathology outlined in the exam findings, performance of this nail treatment is medically necessary as its management by an unskilled/untrained nonprofessional would put this patients foot and overall health at risk. Therefore, debridement to affected nail(s), as described in exam ( T A, T 2, T 3, T 4, T 5, T 7, T 8, T 9 ) , was performed exclusively by the physician of record to reduce/remove overall nail length, girth, thickness, subungual debris, and necrotic tissue, by manual and/or electrical means through the use of a nail nipper and/or dremel-type grinder set up operator centerless, to a more viable healthy nail plate [...] to maintain effectiveness in symptomatic relief - 95200. K eratoma Treatment: Parring or Cutting of Benign Hyperkeratotic Lesion(s) ( -56) 2-4 Lesions - Due to the at risk nature of the patients medical condition as documented in the exam findings, performance of this keratoderma treatment is medically necessary as its management by an unskilled/untrained nonprofessional would put this patients foot and overall health at risk. Therefore, the benign hyperkeratotic lesions, (4) in total, locations as stated and described in the exam ( SUB MTH (s), 1, B/L, Plantar, Heel(s), B/L ), were pared, and/or cut utilizing a sterile 15 blade, tissue nippers, and/or power dremel instrumentation by the physician of record - 07930, Q8. ? * Procedure Codes: 1 1721 DEBRIDE NAIL, 6 OR MORE, Modifiers: XS 38539 TRIM SKIN LESIONS, 2 TO 4, Modifiers: XS , Q8 * Follow Up: p rn * Images: * Sign off status: Completed true * Provider: Nancy Almanza DPM Date: 0 01/04/2025 Generated for Vishal rust/José/eTransmitting on: 0 01/04/2025 02:11 PM EDT History and Physical Notes * HPI (History of Present Illness) Category Sub-Category Detail Notes Category Not es At Risk footcare Pt States Last PCP Visit: Date: Misc States no new compla ints since last visit Examination Category Sub-Category Detail Notes Category Not es Dermatologic SKIN FINDINGS: Skin exam reveal s Keratotic lesion(s) located at , SUB MTH (s), 1, B/L, Plantar, Heel(s), B/L Ophthalmology Referral DIABETES EYE EXAM Procedu re Performed:: Yes Date of Exam Performed: 08/06/2024 Diabetic Retinopathy Screening:: Yes Retinal Screening Performed:: [...]
--- NOTE | 2025-01-04 12:49 | HM_ITS ---
Conclusion: 1. Patient was monitored for total period of 3 days 2. Baseline was normal sinus rhythm with average heart of 64 beats per minute 3. No significant pauses noted 4. Frequent PVCs noted with 12.8% of time mostly isolated PVCs with 3 salvos of 3 beat nonsustained VT noted with fastest heart rate of 122 beats per minute 5. No patient reported events MTDD
--- OUTSIDE RECORDS SUMMARY | 2025-01-04 14:11 | XMS_ITS | Patient Health Record ---
Author Organization [facility] Address [address] [facility] [place] [address] Care Team Providers Care Reactor Service Operator Name Role Phone Stevan Craig Primary Care Provider Unav ailable Chao Almanzaik Unavailable [phone] Allergies No Known Allergies Results Component Value [...] (HH) 6.8 HEMOGLOBIN A1C (GLYCOHEMOGLO BIN) Reviewed date:01/04/2025 10:50:25 AM Interpretation: Performing Lab: Notes/Report: HEMOGLOBIN A1C % (HH) 7.1 Reason For Referral No Information Medications Medication SIG (Take, Route, Frequency, Duration) Notes Start Date End Date Status Tamsulosin HCl Activ e predniSONE Not-Takin g Vitamin B12 Active Januvia 100MG 1 tablet [...] Once a day; Duration: 30 day(s) Active Eye Drops Not-Taking Ammonium Lactate 12 % 1 application [...] Lesion(s)(L85.1) Wear Daily; Duration: 365 days Active Aspir-81 81 MG 1 tablet Orally Once a day Active hydroCHLOROthiazide 12.5 MG 1 capsule in the morning Orally Once a day; Duration: 30 day(s) Active Empagliflozin Active Jardiance Not-Taking Nightsplint . . . AFO - L1930; Duration: . Not-Taking metFORMIN HCl 500 MG 1 tablet with meals Orally Twice a day and 500mg Active Diovan 320MG 1 tablet Orally Once a day Not-Taking Immunizations Vaccine Route Administration Date Status Comme nts Influenza Unknown 06/27/2017 Administered Influenza Unknown 12/30/2017 Refused Influenza Unknown 02/13/2020 Administered Influenza Unknown 01/10/2022 Administered Influenza Unknown 01/10/2024 Administered Pneumococcal Unknown 02/05/2013 Administered COVID-19 Pfizer [...] Problem Acquired hammer toe of right foot (0680612009754 105) Other hammer toe(s) (acquired), right foot (M20.41) Active confirmed Response to treatment,I mprovement Problem Type 2 diabetes mellitus with peripheral angiopathy (099409368) Type 2 diabetes mellitus with diabetic peripheral angiopathy without gangrene (E11.51) Active confirmed Problem Acquired hammer toe of left foot (6253690300310 103) Other hammer toe(s) (acquired), left foot (M20.42) Active confirmed Response to treatment,I mprovement Vital Signs Heart Rate 62 /min 10/24/2024 Blood pressure diastolic 64 mm Hg 01/04/2025 Height 5 ft 6 in in 01/04/2025 Blood pressure systolic 115 mm Hg 01/04/2025 Weight 156 lbs 01/04/2025 BMI 25.18 kg/m2 01/04/2025 Procedures Procedure Date Ordered Date Performed Result Body Sit e 56137-PIPCICY NAIL, 6 OR MORE 02/15/2024 N/A 05706-IEVS SKIN LESIONS, 2 TO 4 02/15/2024 N/A 02772-ENRRTJT NAIL, 6 OR MORE 04/27/2024 N/A 03264-OMGI SKIN LESIONS, 2 TO 4 04/27/2024 N/A 66157-TMZTFUN NAIL, 6 OR MORE 07/24/2024 N/A 88196-FQNV SKIN LESIONS, 2 TO 4 07/24/2024 N/A 49417-ZOJRWAX NAIL, 6 OR MORE 10/24/2024 N/A 10988-PFHL SKIN LESIONS, 2 TO 4 10/24/2024 N/A 28315-OITHDML NAIL, 6 OR MORE 01/04/2025 N/A 68139-VIQP SKIN LESIONS, 2 TO 4 01/04/2025 N/A Encounters Encounter Location Date Provider Diagnosis [facility] [place] [address] [place] [address] 02/15/2024 Adan Almanza Type 2 diabetes mellitus with diabetic peripheral angiopathy without gangrene E11.51 ; Tinea unguium B35.1 ; Pain in right toe(s) M79.674 and Pain in left toe(s) M79.675 [facility] [address] [place] [address] 04/27/2024 Adan Almanza Type 2 diabetes mellitus with diabetic peripheral angiopathy without gangrene E11.51 ; Tinea unguium B35.1 ; Pain in right toe(s) M79.674 ; Pain in left toe(s) M79.675 ; Other hammer toe(s) (acquired), right foot M20.41 and Other hammer toe(s) (acquired), left foot M20.[address] [address] 07/24/2024 Adan Almanza Type 2 diabetes mellitus with diabetic peripheral angiopathy without gangrene E11.51 ; Tinea unguium B35.1 ; Pain in right toe(s) M79.674 ; Pain in left toe(s) M79.675 ; Other hammer toe(s) (acquired), right foot M20.41 and Other hammer toe(s) (acquired), left foot M20.42 [facility] [address] [address] 10/24/2024 Adan Almanza Type 2 diabetes mellitus with diabetic peripheral angiopathy without gangrene E11.51 ; Tinea unguium B35.1 ; Pain in right toe(s) M79.674 and Pain in left toe(s) M79.[address] [address] 01/04/2025 Adan Almanza Type 2 diabetes mellitus with diabetic peripheral angiopathy without gangrene E11.51 ; Tinea unguium B35.1 ; Pain in right toe(s) M79.674 and Pain in left toe(s) M79.[address] [address] 01/04/2025 Adan Almanza Assessments Encounter Date Diagnosis (ICD Code) Assessment [...] E11.51) 10/24/2024 Tinea unguium (ICD-10 - B35.1) 01/04/2025 Type 2 diabetes mellitus with diabetic peripheral angiopathy without gangrene (ICD-10 - E11.51) 01/04/2025 Tinea unguium (ICD-10 - B35.1) 07/24/2024 Pain in right toe(s) (ICD-10 - M79.674) 10/24/2024 Pain in right toe(s) (ICD-10 - M79.674) 01/04/2025 Pain in right toe(s) (ICD-10 - M79.674) 04/27/2024 Pain in right toe(s) (ICD-10 - M79.674) 02/15/2024 Pain in right toe(s) (ICD-10 - M79.674) 02/15/2024 Pain in left toe(s) (ICD-10 - M79.675) 04/27/2024 Pain in left toe(s) (ICD-10 - M79.675) 10/24/2024 Pain in left toe(s) (ICD-10 - M79.675) 07/24/2024 Pain in left toe(s) (ICD-10 - M79.675) 01/04/2025 Pain in left toe(s) (ICD-10 - [...] Treatment Pending Test Test Name Order Date 61230-LRGWFOQ NAIL, 6 OR MORE 03/22/2017 83050-GYGNSGI NAIL, 6 OR MORE 06/28/2017 86387-GLETQNC NAIL, 6 OR MORE 09/30/2017 72993-AQYHIHU NAIL, 6 OR MORE 12/30/2017 09935-HTSCPTV NAIL, 6 OR MORE 03/09/2018 17887-QFOVIAV NAIL, 6 OR MORE 05/26/2018 73030-TFQTLBE NAIL, 6 OR MORE 08/18/2018 89284-RKMUWEY NAIL, 6 OR MORE 11/07/2018 05576-ROQLFAX NAIL, 6 OR MORE 01/23/2019 52598-PSTYZZB NAIL, 6 OR MORE 04/24/2019 37485-RXRCIWV NAIL, 6 OR MORE 06/29/2019 10752-SHONCMD NAIL, 6 OR MORE 09/07/2019 42905-DCIIHNO NAIL, 6 OR MORE 11/20/2019 62971-VNYDMRF NAIL, 6 OR MORE 01/22/2020 48373-YNWQAJS NAIL, 6 OR MORE 04/22/2020 39859-ZLYNVSY NAIL, 6 OR MORE 07/01/2020 77161-DHYDEHG NAIL, 6 OR MORE 09/16/2020 02431-ACMEIMZ NAIL, 6 OR MORE 11/25/2020 47973-MYVNDYU NAIL, 6 OR MORE 02/13/2021 77160-GDNBUDO NAIL, 6 OR MORE 05/05/2021 37797-WQMDFKH NAIL, 6 OR MORE 07/29/2021 47432-JQFERYP NAIL, 6 OR MORE 10/07/2021 88526-MXBVABK NAIL, 6 OR MORE 12/17/2021 45135-IICVNCR NAIL, 6 OR MORE 02/25/2022 88655-GQGYJNN NAIL, 6 OR MORE 06/01/2022 49124-KCZWXFC NAIL, 6 OR MORE 08/13/2022 54773-EENXUUZ NAIL, 6 OR MORE 10/22/2022 67230-IBQHWCP NAIL, 6 OR MORE 02/16/2023 76017-ABOFEEM NAIL, 6 OR MORE 04/28/2023 23275-JMYGHHE NAIL, 6 OR MORE 07/07/2023 82388-ZZDVGPY NAIL, 6 OR MORE 09/15/2023 41433-WTRTSGN NAIL, 6 OR MORE 11/24/2023 72103-JFVPPUL NAIL, 6 OR MORE 02/15/2024 25898-WINPFBB NAIL, 6 OR MORE 04/27/2024 56136-CAMLNMN NAIL, 6 OR MORE 07/24/2024 23311-LZVONKW NAIL, 6 OR MORE 10/24/2024 31917-DDRXTFM NAIL, 6 OR MORE 01/04/2025 16658-CHLF SKIN LESIONS, 2 TO 4 01/05/20 25 14669-LQXI SKIN LESIONS, 2 TO 4 10/25/19 13624-BHKO SKIN LESIONS, 2 TO 4 07/25/19 39509-ZIFB SKIN LESIONS, 2 TO 4 04/27/19 25 46118-GWUA SKIN LESIONS, 2 TO 4 02/15/20 24 23203-YQDW SKIN LESIONS, 2 TO 4 11/24/19 24 65978-KFXA SKIN LESIONS, 2 TO 4 09/15/19 24 04794-MKKL SKIN LESIONS, 2 TO 4 07/07/19 24 17919-WLCY SKIN LESIONS, 2 TO 4 04/28/19 24 32725-UVRW SKIN LESIONS, 2 TO 4 02/17/20 23 60921-UIAJ SKIN LESIONS, 2 TO 4 10/23/19 23 04966-ADRK SKIN LESIONS, 2 TO 4 08/14/19 23 42052-ROWG SKIN LESIONS, 2 TO 4 06/01/19 23 Next Appt Details Provider Name:Richelle Cunha adelfo, 03/12/2025 02:45:00 PM, [address] [facility] [address], [place], [address], Insurance Providers Payer Name Payer Address Payer Phone Subscriber Number Group Number Insured Name Patient Relationship to Insured Coverage Start Date Coverage End Date Medicare National Govt Sv[employer] [address] [place] [address] [id number] Jose E Lewis Self - patient is the insured 2 [employer] Blue [employer] [address] [place] [address] [id number] ThelmaJose E alfaro Self - patient is the insured Medical [...] Date(Month/Year) quadriceps sx LT and RT 11/16/2017 [facility] 05/26/2017
--- OUTSIDE RECORDS SUMMARY | 2025-01-04 14:11 | XMS_ITS | Patient Health Record ---
Author Organization [facility] Address [address] [place] [address] Care Team Providers Care Chief School Finance Officer Name Role Phone Madeline(inactive) Leonardo ORONA Primary Care Provider U wilmer Luna Nicolas Lorraine [phone] Reason For Referral No Information Medications Medication [...] W/U Status Risk Notes Problem Pre-surgery evaluation (056285428) Other specified pre-operative examination (V72.83) Active confirmed Problem Screening for malignant neoplasm of colon (529423542) Screen for colon cancer (V76.51) Active confirmed Plan Of Treatment No Information Insurance Providers Payer Name Payer Address Payer Phone Subscriber Number Group Number Insured Name Patient Relationship to Insured Coverage Start Date Coverage End Date MEDICARE OF [place] [address] [place] [address] [phone] [id number] JARRETT MCKEON Self - patient is the insured [employer] ATT[employer] CLAIMS [address] [place] [address] [id number] JARRETT MCKEON Self - patient is the insured Medical (General) History Medical History History ICD Code NIDDM Hypertension Denies MS,CVA,Lung disease,renal disease Kidney infection as a child Hyperplastic colon polyps--m ost recent colonoscopy was in [address] Andrade--only a hyperplastic polyp; similar findings [place] [address] Andrade as well. Diverticulosis and diverticulitis Surgical History Surgery Date(Month/Year) achilles tendon repair rotator cuff tear repair prostate surgery Hernia as a child Knee surgery
== END ==
LOC: HO.CARD 12:47
PROVIDERS: PCP Nurse Practitioner Family; Visit Provider Internal Medicine
DX: I49.3 Ventricular premature depolarization (principal)
CPT/HCPCS: 93242

== ENCOUNTER → 2025-01-04 12:49 | Outpatient (BNV) | payer MEDICARE, SELFPAY | PROVIDERS: PCP Nurse Practitioner Family; Visit Provider Internal Medicine Cardiovascular Disease | DX: I49.3 Ventricular premature depolarization (principal) | CPT/HCPCS: 93244 ==

== ENCOUNTER 2025-01-17 12:39 | Outpatient (AMB) | payer MEDICARE, SELFPAY ==
[2025-01-17 12:45] VITALS: BP 110/56; PULSE 53; BMI 24.4
--- NOTE | 2025-01-17 12:45 | MHC.OFFVIS ---
Vital Signs 01/17/25 12:45 Height 5 ft 8 in Weight 160 lb 7.944 oz BMI 24.4 BP 110/56 L Blood Pressure Location Lt brachial Position Sitting Pulse 53 Pulse Source Monitor Intake Visit Reasons: 6 mth s/p holter Sander And Polisher Required: No Accompanied by: Self / Same As Patient Allergies No Known Allergies (No Known Allergies*) Allergy (Verified 11/08/24 09:17) Medication List - Last Reconciled 01/17/25 by Dick Henderson MD amlodipine 10 mg PO DAILY aspirin 81 mg PO DAILY blood sugar diagnostic (FreeStyle Lite Strips) use 1 test strip twice a day to test blood sugar empagliflozin 25 mg PO DAILY finasteride 5 mg orally Tuesday and 90 days hydrochlorothiazide 12.5 mg PO DAILY lancets (FreeStyle Lancets) use 1 lancet twice a day to test blood sugar lancing device As directed to test blood sugars once a day lancing device As directed to test blood sugar BID losartan 100 mg PO DAILY lovastatin 20 mg PO DAILY mecobalamin (vitamin B12) 1,000 mcg sublingual DAILY metformin ER 500 mg PO BID 90 days metoprolol succinate ER 25 mg PO DAILY multivitamin (Daily Multi-Vitamin tablet) 1 tab PO DAILY sitagliptin phosphate (Januvia) 100 mg PO DAILY tamsulosin 0.4 mg PO BEDTIME 90 days HPI Comments Details: Jose E returns for follow-up. In the past, he was seen regarding abnormal EKG including PVCs as well as prolonged OH. Multiple cardiovascular risk factors including diabetes, hypertension, dyslipidemia. He underwent cardiac catheterization but that did not show any significant findings. Also underwent cardiac MRI and saw EP. Managed conservatively. On a small dose of beta-shirley. Overall, he states he feels well. No cardiac symptoms. [facility] Medical History Squamous cell carcinoma in situ Basal cell carcinoma Periorbital edema of left eye Foot callus Tinea unguium Actinic keratosis Plantar callus Type 2 diabetes mellitus without complication, without long-term current use of insulin Microscopic hematuria Poor urinary stream Fatty liver HTN (hypertension) Rupture of quadriceps muscle BPH (benign prostatic hyperplasia) Adenoma of both adrenal glands Diverticulitis Cataract Surgical History History of surgery Family History Father History of heart attack Mother No problems noted. Brother Throat cancer Social History Housing: House Alcohol intake: current Alcohol intake frequency: holidays/special occasions only Patient Tobacco Use Status: Never used Tobacco e-Cigarette/Vaping Use: Never Used Second Hand Smoke Exposure: No service: No Current occupational status: retired Current occupational exposures/hazards: No Cognitive needs: No Hearing needs: No Vision needs: No Review of Systems Const Denies chills, Denies fatigue, Denies fever(s), Denies frequent falls, Denies weakness, Denies weight gain and Denies weight loss ENT Denies dizziness Card Denies chest pain, Denies leg edema, Denies lightheadedness, Denies palpitations, Denies dyspnea and Denies dyspnea on exertion Resp Denies cough, Denies dyspnea and Denies dyspnea on exertion GI Denies hematochezia Musc Denies abnormal gait, Denies muscle weakness, Denies numbness, Denies radiating pain into limb and Denies tingling Neuro Denies abnormal gait, Denies dizziness, Denies frequent falls, Denies numbness, Denies tingling and Denies weakness Endo Denies fatigue and Denies palpitations Physical Exam Vital Signs: Last Vital Signs Pulse 53 01/17/25 12:45 BP 110/56 L 01/17/25 12:45 BMI result Body Mass Index 24.4 Const General: comfortable and no acute distress Orientation/consciousness: patient oriented x3 HEENT Other: Unremarkable Head: Yes normal to inspection Neck Neck: Yes normal visual inspection Chest Chest palpation & inspection: normal inspection of the chest Resp Auscultation: clear to auscultation bilaterally Cardio Palpation: normal PMI Heart sounds: S1 normal heart sound present, S2 normal heart sound present, no gallops, no murmurs and no rubs GI Palpation (GI): Soft to palpation Back/Spine/Pelvis Other: unremarkable Skin General skin exam: no rashes or lesions noted Neuro General: patient oriented x3 Extrem General: Yes normal to inspection Psych Mental Status: mental status grossly normal Office Procedures EKG Details: EKG with sinus bradycardia at 53/Min; OH prolongation to 230 millisecond; cannot exclude old inferior infarct; [place]. [address]-Zgmzdmkbbffrzlfea, Complete Assessment & Plan Assessment & Plan (1) PVC (premature ventricular contraction): Code(s): I49.3 - Ventricular premature depolarization Category: Medical (2) AV block, 1st degree: Code(s): I44.0 - Atrioventricular block, first degree Category: Medical Plan Cardiac studies reviewed. In the most recent Holter, PVC burden is about 13%. There are rare couplets and triplets but no significant runs. Previously, burden was 17%. Under study at [facility] had showed a burden of 18%. 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 Suspected diaphragmatic attenuation artifact in the inferior wall. No clear ischemia noted. In the exercise stress test, he exercised for 6 minutes and reached 7.3 METS. No issues with PVCs or other abnormalities of concern. Echocardiogram with LVEF of 58%. Basal inferior hypokinesis. Cardiac catheterization shows no significant disease. Minimal irregularities only. Cardiac MRI with LVEF of 55-60%. Apical trabeculation but not meeting diagnostic criteria for noncompaction. Mid inferolateral fibrosis. Delayed enhancement with patchy transmural enhancement in the basal to mid inferolateral wall. Overall conclusion is that findings could be nonspecific and that infiltrative cardiomyopathy is possible. Sarcoidosis vs amyloid versus myocarditis versus scar. Cardiac PET showed no evidence of active myocardial inflammation. Overall, frequent PVCs but asymptomatic. He has seen EP but plan is just conservative care. He can continue the small dose of beta-blockers. We will recheck in a year. In the interim, if any palpitations or other concerning symptoms like syncope, he should contact us. Discussion Notes During the visit, we discussed the current status of the patient's PVCs, noting that they are not causing significant symptoms and do not require immediate intervention. I explained the natural variability in PVC frequency and reassured the patient that his current condition is stable. We agreed on a follow-up plan to reassess his condition in a year, with instructions to return sooner if symptoms change. Patient was informed and verbally consented to the use of an ambient scribe for clinic note documentation during this visit. Orders: Orders CA echo transthoracic complete 1 Year I49.3 - Ventricular premature depolarization ECG 3 day holter monitor 1 Year I49.3 - Ventricular premature depolarization Patient Instructions: - Continue with regular activities but avoid overexertion. - Monitor for any changes in symptoms and report them promptly. - Follow up in one year unless symptoms worsen. Coding Level of Care Code Est Pt Level 4 (29873) Complex EM visit Add On G2211 Diagnoses PVC (premature ventricular contraction) I49.3 AV block, 1st degree I44.0 CPT Codes EKG - CPT: 61194-Ydcrqbqmgorysuhxq, Complete ([id number])
== END 2025-01-17 13:00 | disposition home or self-care (01) ==
LOC: HO.HCS 12:40
PROVIDERS: PCP Nurse Practitioner Family; Visit Provider Internal Medicine
DX: I49.3 Ventricular premature depolarization (principal); I44.0 Atrioventricular block, first degree
CPT/HCPCS: 93010; 99214; G2211

== ENCOUNTER → 2025-01-17 12:39 | Outpatient (BNVA) | payer MEDICARE, SELFPAY | PROVIDERS: PCP Nurse Practitioner Family; Visit Provider Internal Medicine | DX: I49.3 Ventricular premature depolarization (principal); I44.0 Atrioventricular block, first degree; Z79.82 Long term (current) use of aspirin; E78.5 Hyperlipidemia, unspecified; E11.9 Type 2 diabetes mellitus without complications; Z79.84 Long term (current) use of oral hypoglycemic drugs | CPT/HCPCS: 93005; 99212 ==

== ENCOUNTER 2025-01-31 13:13 | Outpatient (REF) | payer MEDICARE, SELFPAY ==
--- NOTE | ~2025-01-31 | MM_ITS ---
EXAMINATION: DXA BONE DENSITY AXIAL HISTORY: Z13.820 - Encounter for screening for osteoporosis TECHNIQUE: tomoguides Dual energy absorptiometry (DEXA) of the lumbar spine, total left hip, and femoral neck was performed. COMPARISON: None FINDINGS: The bone mineral density of the lumbar spine is 1.570 g/cm2, corresponding to a T-score of 2.9, and a Z-score of 3.8. This is indicative of normal bone mineral density. The bone mineral density of the left total hip is 1.129 g/cm2, corresponding to a T-score of 0.2, and a Z-score of 1.5. This is indicative of normal bone mineral density. The bone mineral density of the left femoral neck is 1.02 g/cm2, corresponding to a T-score of -0.4, and a Z-score of 1.3. This is indicative of normal bone mineral density. FRACTURE RISK: Fracture risk is low. MM/XR DEXA axial skeleton IMPRESSION: Based on bone mineral density, and according to World Health Organization (WHO) criteria, the diagnosis is consistent with normal bone mineral density. Statistically, 68% of repeat scans fall within 1 SD (+/- 0.010 g/cm2 for AP spine L1-L4) and 1 SD (+/- 0.012 g/cm2 for femur total) FRAX is a trademark of the [employer]'s [employer] Metabolic Bone Disease, a World Health Organization (WHO) Collaborating Center. Electronically signed by: Merced Farrar MD 01/31/2025 01:49 PM EDT
== END 2025-01-31 13:14 | disposition home or self-care (01) ==
LOC: HO.MAMMO 13:13
PROVIDERS: PCP Nurse Practitioner Family; Visit Provider Nurse Practitioner Family
DX: Z13.820 Encounter for screening for osteoporosis (principal); E55.9 Vitamin D deficiency, unspecified
CPT/HCPCS: 77080

== ENCOUNTER → 2025-01-31 13:30 | Outpatient (BNV) | payer MEDICARE, SELFPAY | PROVIDERS: PCP Nurse Practitioner Family; Visit Provider Radiology Diagnostic Radiology | DX: Z13.820 Encounter for screening for osteoporosis (principal) | CPT/HCPCS: 77080 ==

== ENCOUNTER 2025-03-04 07:20 | Outpatient (REF) | payer MEDICARE, SELFPAY ==
--- OUTSIDE RECORDS SUMMARY | 2025-03-04 07:23 | XMS_ITS | Patient Health Record ---
Author Organization [facility] Address [address] [place] [address] Care Team Providers Care Doctor Of Nursing Practice Name Role Phone Madeline(inactive) Leonardo ORONA Primary Care Provider U Nicolas Melendez Lorraine [phone] Reason For Referral No Information Medications Medication SIG (Take, Route, Frequency, Duration) Notes Start Date End Date Status Finasteride 5mg Acti ve Multivitamin Active Aspirin 81mg Active metFORMIN HCl 1000mg Active Diovan 320mg Active Colyte with Flavor Packs 227.1 GM Solution Reconstituted As directed Orally As directed; Duration: 1 day(s) 06/26/2013 Active Lovastatin 20mg Acti ve Social History Social History Additional Details Category Social Info Options Details Miscellaneous: Marital status: Occupation: retired Section Notes: Nonsmoker; no sig alcohol Problems Problem Type SNOMED Code ICD Code Onset Dates Problem Status W/U Status Risk Notes Problem Pre-surgery evaluation (066436488) Other specified pre-operative examination (V72.83) Active confirmed Problem Screening for malignant neoplasm of colon (494302641) Screen for colon cancer (V76.51) Active confirmed Plan Of Treatment No Information Insurance Providers Payer Name Payer Address Payer Phone Subscriber Number Group Number Insured Name Patient Relationship to Insured Coverage Start Date Coverage End Date MEDICARE OF [place] [address] [place] [address] [id number] JARRETT MCKEON Self - patient is the insured MED[employer] ATT[employer] CLAIMS [address] [place] [phone] [id number] JARRETT MCKEON Self - patient is the insured Medical (General) History Medical History History ICD Code NIDDM Hypertension Denies [place],CVA,Lung disease,renal disease Kidney infection as a child Hyperplastic colon polyps--m ost recent colonoscopy was in [address] Andrade--only a hyperplastic polyp; similar [place] [address] Andrade as well. Diverticulosis and diverticulitis Surgical History Surgery Date(Month/Year) achilles tendon repair rotator cuff tear repair prostate surgery Hernia as a child Knee surgery
--- OUTSIDE RECORDS SUMMARY | 2025-03-04 07:23 | XMS_ITS | Patient Health Record ---
Author Organization [facility] Address [address] [facility] [address] Care Team Providers Care Licensed Midwife Name Role Phone Stevan Craig Primary Care Provider Unav ailable Adan Almanza Unavailable [phone] Richelle Omalley Unavailable [phone] Allergies No Known Allergies Results Component Value Reference Range Notes HEMOGLOBIN A1C (GLYCOHEMOGLO BIN) Reviewed date:04/27/2024 10:44:24 [...] Problem Acquired hammer toe of right foot (5638307449644 105) Other hammer toe(s) (acquired), right foot (M20.41) Active confirmed Response to treatment,I mprovement Problem Type 2 diabetes mellitus with peripheral angiopathy (605446152) Type 2 diabetes mellitus with diabetic peripheral angiopathy without gangrene (E11.51) Active confirmed Problem Acquired hammer toe of left foot (9737461052640 103) Other hammer toe(s) (acquired), left foot (M20.42) Active confirmed Response to treatment,I mprovement Vital Signs Heart Rate 62 /min 10/24/2024 Blood pressure diastolic 64 mm Hg 01/04/2025 Height 5 ft 6 in in 01/04/2025 Blood pressure systolic 115 mm Hg 01/04/2025 Weight 156 lbs 01/04/2025 BMI 25.18 kg/m2 01/04/2025 Procedures Procedure Date Ordered Date Performed Result Body Sit e 93035-KXTCIDH NAIL, 6 OR MORE 04/27/2024 N/A 75438-VGLW SKIN LESIONS, 2 TO 4 04/27/2024 N/A 66085-QAJRYGV NAIL, 6 OR MORE 07/24/2024 N/A 55310-TKEG SKIN LESIONS, 2 TO 4 07/24/2024 N/A 95934-EWQKDCY NAIL, 6 OR MORE 10/24/2024 N/A 92985-CJPA SKIN LESIONS, 2 TO 4 10/24/2024 N/A 21223-JFTOJYS NAIL, 6 OR MORE 01/04/2025 N/A 14058-LBBJ SKIN LESIONS, 2 TO 4 01/04/2025 N/A Encounters Encounter [facility] Date [facility] [address] [facility]/27/[facility]24 Adan Almanza Type 2 diabetes mellitus with diabetic peripheral angiopathy without gangrene E11.51 ; Tinea unguium B35.1 ; Pain in right toe(s) M79.674 ; Pain in left toe(s) M79.675 ; Other hammer toe(s) (acquired), right foot M20.41 and Other hammer toe(s) (acquired), left foot M20.[address] [address] 07/24/2024 Adan Almanza Type 2 diabetes mellitus with diabetic peripheral angiopathy without gangrene E11.51 ; Tinea unguium B35.1 ; Pain in right toe(s) M79.674 ; Pain in left toe(s) M79.675 ; Other hammer toe(s) (acquired), right foot M20.41 and Other hammer toe(s) (acquired), left foot M20.42 [facility] [address] [facility] [address] [place] [address] 10/24/2024 Adan Almanza Type 2 diabetes mellitus with diabetic peripheral angiopathy without gangrene E11.51 ; Tinea unguium B35.1 ; Pain in right toe(s) M79.674 and Pain in left toe(s) M79.[address] [address] 01/04/2025 Adan Almanza Type 2 diabetes mellitus with diabetic peripheral angiopathy without gangrene E11.51 ; Tinea unguium B35.1 ; Pain in right toe(s) M79.674 and Pain in left toe(s) M79.[address] [address] 01/04/2025 Adan Almanza Assessments Encounter Date Diagnosis (ICD Code) Assessment Notes Treatment Notes Treatment Clinical Notes Section Notes 07/24/2024 Type 2 diabetes mellitus with diabetic peripheral angiopathy without gangrene (ICD-10 - E11.51) 07/24/2024 Tinea unguium (ICD-10 - B35.1) 04/27/2024 Type 2 diabetes mellitus with diabetic peripheral angiopathy without gangrene (ICD-10 - E11.51) 04/27/2024 Tinea unguium (ICD-10 - B35.1) 01/04/2025 Type 2 diabetes mellitus with diabetic peripheral angiopathy without gangrene (ICD-10 - E11.51) 01/04/2025 Tinea unguium (ICD-10 - B35.1) 10/24/2024 Type 2 diabetes mellitus with diabetic peripheral angiopathy without gangrene (ICD-10 - E11.51) 10/24/2024 Tinea unguium (ICD-10 - B35.1) 10/24/2024 Pain in right toe(s) (ICD-10 - [...] - M20.42) 04/27/2024 Other hammer toe(s) (acquired), right foot (ICD-10 - M20.41) Patient Educated with: DIABETIC FOOT CARE INSTRUCTIONS.p df (DIABETIC FOOT CARE INSTRUCTIONS.p df) 04/27/2024 Other hammer toe(s) (acquired), left foot (ICD-10 - M20.42) Plan Of Treatment Pending Test Test Name Order Date 93625-UPABUJU NAIL, 6 OR MORE 03/22/2017 53093-INGYMQK NAIL, 6 OR MORE 06/28/2017 14387-FMPOMKH NAIL, 6 OR MORE 09/30/2017 98733-IETXUVK NAIL, 6 OR MORE 12/30/2017 41814-GEJZRPT NAIL, 6 OR MORE 03/09/2018 63640-FDCOKTM NAIL, 6 OR MORE 05/26/2018 86304-JLHGXNC NAIL, 6 OR MORE 08/18/2018 49098-JSMHSXY NAIL, 6 OR MORE 11/07/2018 94594-LHFVUSP NAIL, 6 OR MORE 01/23/2019 24286-LNRCSRH NAIL, 6 OR MORE 04/24/2019 80966-DRWFQPF NAIL, 6 OR MORE 06/29/2019 01145-TJVIVTQ NAIL, 6 OR MORE 09/07/2019 53053-DROWQTW NAIL, 6 OR MORE 11/20/2019 05360-AMZPFJF NAIL, 6 OR MORE 01/22/2020 60820-DVHBZTA NAIL, 6 OR MORE 04/22/2020 30438-DSYKIGZ NAIL, 6 OR MORE 07/01/2020 11584-QGFDWLL NAIL, 6 OR MORE 09/16/2020 25096-NHHEWAR NAIL, 6 OR MORE 11/25/2020 37419-ZODNPCA NAIL, 6 OR MORE 02/13/2021 41806-WJOQLUY NAIL, 6 OR MORE 05/05/2021 11992-EFJZVYF NAIL, 6 OR MORE 07/29/2021 89617-YBBYUXB NAIL, 6 OR MORE 10/07/2021 61295-MVFBTKX NAIL, 6 OR MORE 12/17/2021 47398-WXSAWME NAIL, 6 OR MORE 02/25/2022 72166-TQADOSN NAIL, 6 OR MORE 06/01/2022 62257-CWGQFZV NAIL, 6 OR MORE 08/13/2022 17311-XYUJQVJ NAIL, 6 OR MORE 10/22/2022 67750-IQSXVSM NAIL, 6 OR MORE 02/16/2023 37960-SUVZUZQ NAIL, 6 OR MORE 04/28/2023 00306-QFIZXLO NAIL, 6 OR MORE 07/07/2023 03879-BRPYLRA NAIL, 6 OR MORE 09/15/2023 90645-XWSZZGH NAIL, 6 OR MORE 11/24/2023 76559-PHSSXUF NAIL, 6 OR MORE 02/15/2024 28872-ZXFDWII NAIL, 6 OR MORE 04/27/2024 36273-JIAQFXR NAIL, 6 OR MORE 07/24/2024 78850-THFEFGQ NAIL, 6 OR MORE 10/24/2024 75958-CDELUWW NAIL, 6 OR MORE 01/04/2025 71216-JJPX SKIN LESIONS, 2 TO 4 01/05/20 86803-MAFZ SKIN LESIONS, 2 TO 4 10/25/19 89439-UADB SKIN LESIONS, 2 TO 4 07/25/19 17837-YUHT SKIN LESIONS, 2 TO 4 04/27/19 69694-VOHL SKIN LESIONS, 2 TO 4 11/06/20 24 33317-CSWR SKIN LESIONS, 2 TO 4 11/24/19 24 61113-XZSB SKIN LESIONS, 2 TO 4 09/15/19 24 24462-FDBZ SKIN LESIONS, 2 TO 4 07/07/19 24 33857-OZKD SKIN LESIONS, 2 TO 4 04/28/19 24 11923-JYNQ SKIN LESIONS, 2 TO 4 02/17/20 23 89786-TPAP SKIN LESIONS, 2 TO 4 10/23/19 23 48101-PSJJ SKIN LESIONS, 2 TO 4 08/14/19 23 05820-SGRF SKIN LESIONS, 2 TO 4 06/01/19 23 Next Appt Details Provider Name:Richelle Cunha adelfo, 03/12/2025 02:45:00 PM, [address] [facility], [address], [place], [address], Insurance Providers Payer Name Payer Address Payer Phone Subscriber Number Group Number Insured Name Patient Relationship to Insured Coverage Start Date Coverage End Date Medicare National [employer]t [employer] [address] [place] [address] [id number] Jose E Lewis Self - patient is the insured 2 [employer] Blue [employer] [address] [place] [address] [id number] Jose E Lewis Self - patient is the insured Medical (General) History Medical History History ICD Code type II diabetes hypercholesterolemia Headaches High blood pressure Measles Chicken pox Surgical History Surgery Date(Month/Year) [facility] 1992 rotator cuff Left 2009 Meniscus knee repair 2008 prostate 2003 Hernia [...] Date(Month/Year) quadriceps sx LT and RT 11/16/2017 [facility] 05/26/2017
[2025-03-04 10:00] LABS: MANUAL DIFF FLAG NO
[2025-03-04 10:18] LABS: Hematocrit 45.1 % (42.0-52.0); Hemoglobin 15.0 g/dl (14.0-18.0); Imm Gran Abs Auto 0.04 X10*3/uL (0.00-0.03); Imm Gran Pct Auto 0.4 % (0.0-0.4); Lymphocytes Absolute Auto 2.2 X10*3/uL (1.2-4.9); Mean Corpuscular HGB Conc 33.3 g/dl (31.0-36.0); Mean Corpuscular Hemoglobin 30.7 pg (27.0-33.0); Mean Corpuscular Volume 92.4 fL (80.0-98.0); NRBC Abs Auto 0.000 X10*3/uL (0.0-0.012); NRBC Pct Auto 0.0 /100WBC (0.0-0.2); Platelet Count 248 X10*3/uL (160-400); Red Blood Count 4.88 X10*6/uL (4.60-5.80); White Blood Count 9.0 X10*3/uL (4.8-10.8)
[2025-03-04 10:20] LABS: Appearance Urine Clear; Glucose Urine UA >=1000 mg/dL (Negative); PH 6.0 (5.0-9.0); Specific Gravity - Urine 1.015 (1.005-1.025); UMIC TRIGGER UACC YES
[2025-03-04 10:42] LABS: Alanine Aminotransferase 29 U/L (0-40); Albumin Level 4.2 g/dL (3.5-5.0); Alkaline Phosphatase 99 U/L (39-117); Anion Gap 12 (12-20); Aspartate Amino Transferase 39 U/L (5-37); Blood Urea Nitrogen 17 mg/dL (9-16); Calcium 9.2 mg/dL (8.4-10.2); Carbon Dioxide 26 mmol/L (22-29); Chloride 106 mmol/L (96-108); Cholesterol 135 mg/dL (<200); Estimated Glomerular Filt Rate 57; HDL Cholesterol 36 mg/dL (>40); Potassium 3.6 mmol/L (3.3-5.1); Sodium 140 mmol/L (135-145); Total Protein 7.2 g/dL (6.5-8.0); Triglycerides 127 mg/dL (<150)
== END 2025-03-04 07:21 | disposition home or self-care (01) ==
LOC: HO.HMGCLDS 07:20
PROVIDERS: PCP Nurse Practitioner Family; Visit Provider Nurse Practitioner Family
DX: E11.9 Type 2 diabetes mellitus without complications (principal)
CPT/HCPCS: 36415; 80053; 80061; 81001; 83036; 84443; 85025

== ENCOUNTER 2025-03-11 09:00 | Outpatient (AMB) | payer MEDICARE, SELFPAY ==
[2025-03-11 09:03] VITALS: BP 110/60; PULSE 58; O2SAT 98; BMI 24.6
--- NOTE | 2025-03-11 09:03 | A.OFFPC_ITS ---
Vital Signs 03/11/25 09:03 Height 5 ft 8 in Weight 162 lb BMI 24.6 BP 110/60 Blood Pressure Location Rt brachial Position Sitting Pulse 58 Pulse Source Pulse Oximeter Pulse Oximetry (%) 98 Intake Visit Reasons: 3m follow up Accompanied by: Self / Same As Patient Allergies No Known Allergies (No Known Allergies*) Allergy (Verified 03/11/25 09:04) Tobacco use date assessed: 05/16/24 Fall risk assessment: No Falls in past year Last assessed Fall Risk: 03/11/25 Dental Screening Dental Screen Date: 06/13/24 HPI 3m follow up HPI Details Chief Complaint The patient presents for a follow-up visit for management of diabetes. History of Present Illness The patient is an 84 year old individual presenting for a follow-up for darvin suarez. A recent Hemoglobin A1c was 7.2%, which is an increase from a prior value of 6.8%. The patient is currently treated with Jardiance, metformin, and Januvia and denies any current neuropathy. The patient's LDL cholesterol is 74 mg/dL and the patient is on a statin. The patient is also prescribed an ARB. The patient has an up-to-date eye exam and follows up with a urologist and a anthropology lecturer. HTN: perfectly stable, denies any SERVIN, Blurred vision, CP, SOB, dizziness Social History Health Maintenance The patient has an up-to-date eye exam and will continue to follow up with a urologist and anthropology lecturer as established. Review of Systems - Neurological: Denies current neuropath y. Physical Exam General: Cooperative, healthy appearing, comfortable, no acute distress and well developed Orientation: Patient oriented x3 Limitations: No limitations Head: Normal to inspection Ears: Hearing grossly normal bilaterally Nose: Normal external nose present Face and sinus: Normal facial exam Eyes: Appearance normal, both eyes and all related structures, eye exam is up to date Neck: Normal visual inspection and Yes full ROM Respiratory: Normal respiratory effort and able to speak in complete sentences. Clear to auscultation bilaterally Cardiovascular: Regular rate and rhythm. Normal S1 and S2 GI: Normal to inspection. Soft to palpation and nontender Skin: No rashes or lesions noted Neuro: Patient oriented x3, denies any current neuropathy, positive sensation with use of monofilament Extremities: Normal to inspection, feet were intact Results - Labs: - Hemoglobin A1c: 7.2% (previously 6.8%) . - LDL cholesterol: 74 mg/dL. Plan 1. Type 2 Diabetes Mellitus The patient's recent hemoglobin A1c has increased to 7.2% from a previous 6.8%. The patient denies neuropathy, and a foot exam revealed intact feet with positive sensation to monofilament testing. No medication changes will be made at this time to the current regimen of Jardiance, metformin, and Januvia. The patient has been counseled to monitor diet. 2. Hyperlipidemia The patient's LDL is well-controlled at 74 mg/dL. The patient will continue the current statin therapy. 3. Hypertension The patient is on an ARB for hypertension. The plan is to continue the current ARB medication. Discussion Notes I discussed the recent lab results with the patient, noting the increase in hemoglobin A1c to 7.2% from a prior 6.8%. We discussed the importance of diet management, and I advised that no changes would be made to the current medication regimen (Jardiance, metformin, and Januvia) at this time. I also reviewed the well-controlled LDL cholesterol of 74 mg/dL and confirmed the patient will continue the statin and ARB. We confirmed that specialist follow- ups with urology and cardiology are in place and the diabetic eye exam is up to date. Patient Instructions - Your recent A1c lab test, which shows your average blood sugar over the past few months, has gone up slightly to 7.2%. - It is important to watch your diet car efully to help manage your blood sugar levels. - We will not make any changes to your d iabetes medications (Jardiance, metformin, Januvia) at this time. - Continue taking your statin for choles terol and your ARB for blood pressure as prescribed. - Your cholesterol is well-controlled, a nd your eye exam is up to date. - Continue to see your urologist and car diologist for regular check-ups. [facility] Medical History Squamous cell carcinoma in situ Basal cell carcinoma Periorbital edema of left eye Foot callus Tinea unguium Actinic keratosis Plantar callus Type 2 diabetes mellitus without complication, without long-term current use of insulin Microscopic hematuria Poor urinary stream Fatty liver HTN (hypertension) Rupture of quadriceps muscle BPH (benign prostatic hyperplasia) Adenoma of both adrenal glands Diverticulitis Cataract Surgical History History of surgery Family History Father History of heart attack Mother No problems noted. Brother Throat cancer Social History Housing: House Alcohol intake: current Alcohol intake frequency: holidays/special occasions only Patient Tobacco Use Status: Never used Tobacco e-Cigarette/Vaping Use: Never Used Second Hand Smoke Exposure: No service: No Current occupational status: retired Current occupational exposures/hazards: No Cognitive needs: No Hearing needs: No Vision needs: No Questionnaire Thrive Questionnaire Date Thrive assessed: 06/13/24 I am a: Patient What is your living situation today?: I have a steady place to live Within the past 12 months, did the food you bought not last and you didn't have the money to get more?: I choose not to answer this question Within the past 12 months, did you worry whether your food would run out before you got money to buy more?: I choose not to answer this question Do you have trouble paying for medicines?: I choose not to answer this question Do you have trouble getting transportation to medical appointments?: I choose not to answer this question Do you have trouble paying your heating and electricity bill?: I choose not to answer this question Do you have trouble taking care of your child, family member or friend?: I choose not to answer this question Do you have trouble with day-to-day activities such as bathing, preparing meals, shopping, managing finances, etc.?: I choose not to answer this question Are you currently unemployed and looking for a job?: I choose not to answer this question Are you interested in more education?: I choose not to answer this question Please select the resources that you would like help with: None Currently or been in a relationship where the following occur: I choose not to answer THRIVE Score: 0 MIK-7 AMB Questionnaire MIK-7 Date MIK - 7 assessed: 06/13/24 Source: Developed by Drs. Nicolas Kapoor, Marlys Mcknight, Austin Skinner and colleagues, with an educational alvarez from [employer]. Physical exam (Primary Care) Vital Signs: Last Vital Signs Pulse 58 03/11/25 09:03 BP 110/60 03/11/25 09:03 Pulse Ox 98 03/11/25 09:03 BMI result Body Mass Index 24.6 Tobacco/Smoking Status: Tobacco use Status Tobacco use date assessed 05/16/24 03/11/25 09:04 Patient Tobacco Use Status Never used Tobacco 03/11/25 09:04 e-Cigarette/Vaping Use Never Used 03/11/25 09:04 Thrive Assessment: Date of Thrive Assessment Date Thrive assessed 06/13/24 03/11/25 09:04 Currently or been in a relationship where the following occur: I choose not to answer Coding Level of Care Code Est Pt Level 3 (96705) Diagnoses Diabetes E11.9 HTN (hypertension) I10 Assessment & Plan Assessment & Plan (1) Diabetes: Code(s): E11.9 - Type 2 diabetes mellitus without complications Category: Medical (2) HTN (hypertension): Code(s): I10 - Essential (primary) hypertension Category: Medical Plan .
--- OUTSIDE RECORDS SUMMARY | 2025-03-11 10:29 | XMS_ITS | Patient Health Record ---
Author Organization [facility] Address [address] [place] [address] Care Team Providers Care Environmental Construction Engineer Name Role Phone Stevan Craig Primary Care Provider Unav ailable Adan Almanza Unavailable [phone] Richelle Omalley Unavailable [phone] Allergies No Known Allergies Results Component Value [...] Problem Acquired hammer toe of right foot (0191843603666 105) Other hammer toe(s) (acquired), right foot (M20.41) Active confirmed Response to treatment,I mprovement Problem Type 2 diabetes mellitus with peripheral angiopathy (944768112) Type 2 diabetes mellitus with diabetic peripheral angiopathy without gangrene (E11.51) Active confirmed Problem Acquired hammer toe of left foot (2932658733933 103) Other hammer toe(s) (acquired), left foot (M20.42) Active confirmed Response to treatment,I mprovement Vital Signs Heart Rate 62 /min 10/24/2024 Blood pressure diastolic 64 mm Hg 01/04/2025 Height 5 ft 6 in in 01/04/2025 Blood pressure systolic 115 mm Hg 01/04/2025 Weight 156 lbs 01/04/2025 BMI 25.18 kg/m2 01/04/2025 Procedures Procedure Date Ordered Date Performed Result Body Sit e 72733-CKQGWMY NAIL, 6 OR MORE 04/27/2024 N/A 90973-HYHG SKIN LESIONS, 2 TO 4 04/27/2024 N/A 78221-RFHYWFH NAIL, 6 OR MORE 07/24/2024 N/A 98419-LIYJ SKIN LESIONS, 2 TO 4 07/24/2024 N/A 45188-JTKUOED NAIL, 6 OR MORE 10/24/2024 N/A 92516-XQVT SKIN LESIONS, 2 TO 4 10/24/2024 N/A 21379-KXVDUIC NAIL, 6 OR MORE 01/04/2025 N/A 72882-MNCD SKIN LESIONS, 2 TO 4 01/04/2025 N/A Encounters Encounter [facility] Date [facility] [address] [facility]/27/[facility] Adan Almanza Type 2 diabetes mellitus with diabetic peripheral angiopathy without gangrene E11.51 ; Tinea unguium B35.1 ; Pain in right toe(s) M79.674 ; Pain in left toe(s) M79.675 ; Other hammer toe(s) (acquired), right foot M20.41 and Other hammer toe(s) (acquired), left foot M20.[address] [address] 07/24/2024 Adan Almanza Type 2 diabetes mellitus with diabetic peripheral angiopathy without gangrene E11.51 ; Tinea unguium B35.1 ; Pain in right toe(s) M79.674 ; Pain in left toe(s) M79.675 ; Other hammer toe(s) (acquired), right foot M20.41 and Other hammer toe(s) (acquired), left foot M20.42 [facility] [address] [facility] [address] [place] [address] 10/24/2024 Adan Almanza Type 2 diabetes mellitus with diabetic peripheral angiopathy without gangrene E11.51 ; Tinea unguium B35.1 ; Pain in right toe(s) M79.674 and Pain in left toe(s) M79.[address] [address] 01/04/2025 Adan Almanza Type 2 diabetes mellitus with diabetic peripheral angiopathy without gangrene E11.51 ; Tinea unguium B35.1 ; Pain in right toe(s) M79.674 and Pain in left toe(s) M79.[address] [address] 01/04/2025 Adan Almanza Assessments Encounter Date Diagnosis [...] Treatment Pending Test Test Name Order Date 87260-XCFECVN NAIL, 6 OR MORE 03/22/2017 41643-PATDEDP NAIL, 6 OR MORE 06/28/2017 74544-JLJPTEC NAIL, 6 OR MORE 09/30/2017 08071-APJYQHJ NAIL, 6 OR MORE 12/30/2017 21107-MSVGGPW NAIL, 6 OR MORE 03/09/2018 47868-KKZBHLB NAIL, 6 OR MORE 05/26/2018 83549-IOQQEJL NAIL, 6 OR MORE 08/18/2018 08465-UUOWICR NAIL, 6 OR MORE 11/07/2018 64051-MZXDHQH NAIL, 6 OR MORE 01/23/2019 04899-BKAXKZG NAIL, 6 OR MORE 04/24/2019 36709-NFLBVTN NAIL, 6 OR MORE 06/29/2019 77785-XYFUAQT NAIL, 6 OR MORE 09/07/2019 11242-SANCZHZ NAIL, 6 OR MORE 11/20/2019 04722-QVQIAAL NAIL, 6 OR MORE 01/22/2020 55154-IEBOZOJ NAIL, 6 OR MORE 04/22/2020 42307-QPLGMOI NAIL, 6 OR MORE 07/01/2020 60279-JZAHVFM NAIL, 6 OR MORE 09/16/2020 87719-ACLWMGE NAIL, 6 OR MORE 11/25/2020 92336-RPWMNKV NAIL, 6 OR MORE 02/13/2021 36908-GQAFHAU NAIL, 6 OR MORE 05/05/2021 01643-IQWUTUJ NAIL, 6 OR MORE 07/29/2021 48162-XNLAUNK NAIL, 6 OR MORE 10/07/2021 45471-UMYSQQP NAIL, 6 OR MORE 12/17/2021 11650-UMDMRSU NAIL, 6 OR MORE 02/25/2022 29873-FOMZNOU NAIL, 6 OR MORE 06/01/2022 57036-AJJPBOK NAIL, 6 OR MORE 08/13/2022 71742-EQHPZNP NAIL, 6 OR MORE 10/22/2022 75622-IUIFSNY NAIL, 6 OR MORE 02/16/2023 33448-NVTOZYB NAIL, 6 OR MORE 04/28/2023 66835-BSSFKBU NAIL, 6 OR MORE 07/07/2023 03221-JLNEMBX NAIL, 6 OR MORE 09/15/2023 85107-TSIZIEG NAIL, 6 OR MORE 11/24/2023 91507-OFBMALG NAIL, 6 OR MORE 02/15/2024 17518-LQMCOZT NAIL, 6 OR MORE 04/27/2024 80771-LTTEJHF NAIL, 6 OR MORE 07/24/2024 42099-KELVVJC NAIL, 6 OR MORE 10/24/2024 21790-LYSQTUI NAIL, 6 OR MORE 01/04/2025 36440-VVWQ SKIN LESIONS, 2 TO 4 01/05/20 94810-AFYO SKIN LESIONS, 2 TO 4 10/25/19 23613-YKHV SKIN LESIONS, 2 TO 4 07/25/19 69424-FMLA SKIN LESIONS, 2 TO 4 04/27/19 22548-AVYN SKIN LESIONS, 2 TO 4 11/06/20 24 75769-LZCL SKIN LESIONS, 2 TO 4 11/24/19 24 19497-LOGV SKIN LESIONS, 2 TO 4 09/15/19 24 00235-KCLD SKIN LESIONS, 2 TO 4 07/07/19 24 20645-GCKB SKIN LESIONS, 2 TO 4 04/28/19 24 01711-WLHX SKIN LESIONS, 2 TO 4 02/17/20 23 56507-TJFF SKIN LESIONS, 2 TO 4 10/23/19 23 32371-SKLD SKIN LESIONS, 2 TO 4 08/14/19 23 19518-RODY SKIN LESIONS, 2 TO 4 06/01/19 23 Next Appt Details Provider Name:Richelle Cunha adelfo, 03/12/2025 02:45:00 PM, [address] [facility], [address], [place], [address], Insurance Providers Payer Name Payer Address Payer Phone Subscriber Number Group Number Insured Name Patient Relationship to Insured Coverage Start Date Coverage End Date Medicare National [employer]t [employer] [address] [place] [address] [id number] Jose E Lewis Self - patient is the insured 2 [employer] [address] [place] [address] [id number] Jose E Lewis Self - patient is [...] Date(Month/Year) quadriceps sx LT and RT 11/16/2017 [facility] 05/26/2017
== END 2025-03-11 10:31 | disposition home or self-care (01) ==
LOC: HO.HMCC 09:01
PROVIDERS: PCP Nurse Practitioner Family; Visit Provider Nurse Practitioner Family
DX: E11.9 Type 2 diabetes mellitus without complications (principal); I10 Essential (primary) hypertension

== ENCOUNTER → 2025-03-11 09:00 | Outpatient (BNVA) | payer MEDICARE, SELFPAY | PROVIDERS: PCP Nurse Practitioner Family; Visit Provider Nurse Practitioner Family | DX: E11.9 Type 2 diabetes mellitus without complications (principal); I10 Essential (primary) hypertension | CPT/HCPCS: 99212 ==